=== PATIENT | female | born 1940 | race Caucasian/White ===

== ENCOUNTER 2021-05-07 21:33 | Inpatient (IN) | payer MEDICARE, OTHER ==
[2021-05-07] MEDS ORDERED: IPRATROPIUM-ALBUTEROL 3 ML NEB INHALATION STA ×2 (21:38→23:06)
--- NOTE | 2021-05-07 22:12 | ED ---
SOB HPI - General Chief Complaint: Shortness of Breath Stated Complaint: SOB Time Seen by Provider: 05/07/21 21:38 Source: EMS, RN notes reviewed, old records reviewed Mode of arrival: EMS - History of Present Illness MD Complaint: shortness of breath, cough -: hour(s) Radiation: back Severity: moderate Severity scale (1-10): 4 Quality: dull Consistency: constant Improves With: nothing Worsens With: exertion, movement Known History Of: COPD, asthma, congestive heart failure Context: recent URI, recent illness Associated Symptoms: denies other symptoms - Related Data Home Medications Medication Instructions Recorded Confirmed Amoxic-Pot Clav 875-125Mg 1 tab PO Q12H 05/07/21 05/07/21 [Augmentin 875-125] Benzonatate [Tessalon Perles] 200 mg PO Q8H PRN 05/07/21 05/07/21 Citalopram Hydrobromide [CeleXA] 20 mg PO DAILY 05/07/21 05/07/21 Docusate [Colace] 100 mg PO DAILY 05/07/21 05/07/21 Furosemide [Lasix] 20 mg PO DAILY 05/07/21 05/07/21 Ipratropium-Albuterol Nebulize 3 ml INHALATION RT-Q6H PRN 05/07/21 05/07/21 [Duoneb 0.5 mg-3 mg/3 ml Soln] Loratadine 10 mg PO DAILY 05/07/21 05/07/21 Multivitamins, Thera [Multivitamin 1 tab PO DAILY 05/07/21 05/07/21 (formulary)] Omeprazole 20 mg PO DAILY 05/07/21 05/07/21 Potassium Chloride ER [K-Dur 10] 10 meq PO DAILY 05/07/21 05/07/21 guaiFENesin [guaiFENesin Oral 200 mg PO Q6H PRN 05/07/21 05/07/21 Solution] hydrOXYzine HCL [Atarax] 25 mg PO Q6H PRN 05/07/21 05/07/21 lisinopriL [Zestril] 10 mg PO Q12H 05/07/21 05/07/21 Allergies Allergy/AdvReac Type Severity Reaction Status Date / Time tositumomab iodine-131 Allergy Unknown Verified 05/07/21 23:10 red dye AdvReac Rash/Hives Verified 05/07/21 23:10 Review of Systems ROS Statement: Those systems with pertinent positive or pertinent negative responses have been documented in the HPI. ROS Other: All systems not noted in ROS Statement are negative. Past Medical History Past Medical History: Heart Failure, COPD History of Any Multi-Drug Resistant Organisms: None Reported Past Surgical History: Orthopedic Surgery Additional Past Surgical History / Comment(s): left knee x2 Past Psychological History: No Psychological Hx Reported Smoking Status: Never smoker Past Alcohol Use History: None Reported Past Drug Use History: None Reported General Exam General appearance: alert, in no apparent distress Head exam: Present: atraumatic, normocephalic, normal inspection Eye exam: Present: normal appearance, PERRL, EOMI. Absent: scleral icterus, conjunctival injection, periorbital swelling ENT exam: Present: normal exam, mucous membranes moist Neck exam: Present: normal inspection. Absent: tenderness, meningismus, lymphadenopathy Respiratory exam: Present: normal lung sounds bilaterally. Absent: respiratory distress, wheezes, rales, rhonchi, stridor Cardiovascular Exam: Present: regular rate, normal rhythm, normal heart sounds. Absent: systolic murmur, diastolic murmur, rubs, gallop, clicks GI/Abdominal exam: Present: soft, normal bowel sounds. Absent: distended, tende rness, guarding, rebound, rigid Extremities exam: Present: normal inspection, full ROM, normal capillary refill. Absent: tenderness, pedal edema, joint swelling, calf tenderness Back exam: Present: normal inspection Neurological exam: Present: alert, oriented X3, CN II-XII intact Psychiatric exam: Present: normal affect, normal mood Skin exam: Present: warm, dry, intact, normal color. Absent: rash Course Vital Signs 05/07/21 05/07/21 05/07/21 21:44 22:20 22:33 Temperature 99 F Pulse Rate 100 84 82 Respiratory 23 Rate Blood Pressure 126/79 O2 Sat by Pulse 91 L Oximetry 05/07/21 05/07/21 05/07/21 23:26 23:41 23:54 Temperature Pulse Rate 88 88 95 Respiratory 23 Rate Blood Pressure 100/73 O2 Sat by Pulse 92 L Oximetry 05/08/21 05/08/21 02:00 05:37 Temperature Pulse Rate 98 97 Respiratory 22 21 Rate Blood Pressure 136/75 144/74 O2 Sat by Pulse 90 L 90 L Oximetry - Reevaluation(s) Reevaluation #1: 05/08/21 00:25 Medical record is reviewed Reevaluation #2: 05/08/21 00:26 Patient informed of results and questions answered Reevaluation #3: 05/08/21 00:26 no improvement in breathing here in the ER requiring more oxygen than baseline - Consultations Consultation #1: Spoke with EM to agrees to admit this patient Medical Decision Making - Lab Data Result diagrams: 05/07/21 22:35 05/07/21 22:35 Lab Results 05/07/21 05/07/21 05/07/21 Range/Units 22:35 22:35 22:35 WBC 7.7 (3.8-10.6) k/uL RBC 4.04 (3.80-5.40) m/uL Hgb 12.3 (11.4-16.0) gm/dL Hct 39.8 (34.0-46.0) % MCV 98.3 (80.0-100.0) fL MCH 30.3 (25.0-35.0) pg MCHC 30.8 L (31.0-37.0) g/dL RDW 12.6 (11.5-15.5) % Plt Count 189 (150-450) k/uL MPV 7.5 Neutrophils % 67 % Lymphocytes % 16 % Monocytes % 8 % Eosinophils % 6 % Basophils % 1 % Neutrophils # 5.2 (1.3-7.7) k/uL Lymphocytes # 1.2 (1.0-4.8) k/uL Monocytes # 0.6 (0-1.0) k/uL Eosinophils # 0.5 (0-0.7) k/uL Basophils # 0.1 (0-0.2) k/uL Hypochromasia Moderate PT 10.0 (9.0-12.0) sec INR 0.9 (<1.2) APTT 23.0 (22.0-30.0) sec Sodium 139 (137-145) mmol/L Potassium 4.3 (3.5-5.1) mmol/L Chloride 94 L (98-107) mmol/L Carbon Dioxide 39 H (22-30) mmol/L Anion Gap 6 mmol/L BUN 24 H (7-17) mg/dL Creatinine 0.62 (0.52-1.04) mg/dL Est GFR (CKD-EPI)AfAm >90 (>60 ml/min/1.73 sqM) Est GFR (CKD-EPI)NonAf 86 (>60 ml/min/1.73 sqM) Glucose 134 H (74-99) mg/dL Plasma Lactic Acid James (0.7-2.0) mmol/L Calcium 8.3 L (8.4-10.2) mg/dL Magnesium 1.9 (1.6-2.3) mg/dL Total Bilirubin 0.6 (0.2-1.3) mg/dL AST 33 (14-36) U/L ALT 29 (4-34) U/L Alkaline Phosphatase 72 (38-126) U/L Troponin I (0.000-0.034) ng/mL NT-Pro-B Natriuret Pep pg/mL Total Protein 6.4 (6.3-8.2) g/dL Albumin 3.4 L (3.5-5.0) g/dL 05/07/21 05/07/21 05/07/21 Range/Units 22:35 22:35 22:35 WBC (3.8-10.6) k/uL RBC (3.80-5.40) m/uL Hgb (11.4-16.0) gm/dL Hct (34.0-46.0) % MCV (80.0-100.0) fL MCH (25.0-35.0) pg MCHC (31.0-37.0) g/dL RDW (11.5-15.5) % Plt Count (150-450) k/uL MPV Neutrophils % % Lymphocytes % % Monocytes % % Eosinophils % % Basophils % % Neutrophils # (1.3-7.7) k/uL Lymphocytes # (1.0-4.8) k/uL Monocytes # (0-1.0) k/uL Eosinophils # (0-0.7) k/uL Basophils # (0-0.2) k/uL Hypochromasia PT (9.0-12.0) sec INR (<1.2) APTT (22.0-30.0) sec Sodium (137-145) mmol/L Potassium (3.5-5.1) mmol/L Chloride (98-107) mmol/L Carbon Dioxide (22-30) mmol/L Anion Gap mmol/L BUN (7-17) mg/dL Creatinine (0.52-1.04) mg/dL Est GFR (CKD-EPI)AfAm (>60 ml/min/1.73 sqM) Est GFR (CKD-EPI)NonAf (>60 ml/min/1.73 sqM) Glucose (74-99) mg/dL Plasma Lactic Acid James 1.1 (0.7-2.0) mmol/L Calcium (8.4-10.2) mg/dL Magnesium (1.6-2.3) mg/dL Total Bilirubin (0.2-1.3) mg/dL AST (14-36) U/L ALT (4-34) U/L Alkaline Phosphatase (38-126) U/L Troponin I 0.022 (0.000-0.034) ng/mL NT-Pro-B Natriuret Pep 720 pg/mL Total Protein (6.3-8.2) g/dL Albumin (3.5-5.0) g/dL - EKG Data -: EKG Interpreted by Me (EKG shows nsr 91 LA 157 QRS 92 QTc 385) Rate: tachycardia (Repeat EKG A. fib with RVR 139 QRS 91 QTC 371) Disposition Clinical Impression: Acute exacerbation of chronic obstructive pulmonary disease, Hypoxia, Atrial fibrillation with RVR Disposition: ADMITTED IP TO THIS HOSP Condition: Fair Is patient prescribed a controlled substance at d/c from ED?: No
--- NOTE | 2021-05-07 22:23 | XR ---
EXAMINATION TYPE: XR chest 1V portable DATE OF EXAM: 05/07/2021 COMPARISON: NONE HISTORY: Short of breath TECHNIQUE: Single view FINDINGS: Heart is enlarged. There is some mild patchy atelectasis in both lung bauer. No obvious he art failure. There are chest leads. Costophrenic angles are clear. IMPRESSION: Patchy atelectasis. No obvious heart failure.
[2021-05-07 22:43] LABS: Basophils # (A) 0.1 k/uL (0-0.2); Basophils % (A) 1 %; Eosinophils # (A) 0.5 k/uL (0-0.7); Eosinophils % (A) 6 %; HCT 39.8 % (34.0-46.0); HGB 12.3 gm/dL (11.4-16.0); Hypochromasia Moderate; Lymphocytes # (A) 1.2 k/uL (1.0-4.8); Lymphocytes % (A) 16 %; MCH 30.3 pg (25.0-35.0); MCHC 30.8 g/dL (31.0-37.0); MCV 98.3 fL (80.0-100.0); Mean Platelet Volume 7.5; Monocytes # (A) 0.6 k/uL (0-1.0); Monocytes % (A) 8 %; Neutrophils # (A) 5.2 k/uL (1.3-7.7); Neutrophils % (A) 67 %; Platelet Count 189 k/uL (150-450); RBC 4.04 m/uL (3.80-5.40); RDW 12.6 % (11.5-15.5); WBC 7.7 k/uL (3.8-10.6)
[2021-05-07 22:52] LABS: ALT 29 U/L (4-34); AST 33 U/L (14-36); African American GFR (CKD) >90 (>60 ml/min/1.73 sqM); Albumin 3.4 g/dL (3.5-5.0); Alkaline Phosphatase 72 U/L (38-126); Blood Urea Nitrogen 24 mg/dL (7-17); Calcium 8.3 mg/dL (8.4-10.2); Chloride 94 mmol/L (98-107); Glucose 134 mg/dL (74-99); Magnesium 1.9 mg/dL (1.6-2.3); Non-African American GFR(CKD) 86 (>60 ml/min/1.73 sqM); Potassium 4.3 mmol/L (3.5-5.1); Sodium 139 mmol/L (137-145); Total Bilirubin 0.6 mg/dL (0.2-1.3); Total Protein 6.4 g/dL (6.3-8.2)
[2021-05-07 22:56] LABS: INR 0.9 (<1.2)
[2021-05-07 22:58] LABS: Anion Gap 6 mmol/L
[2021-05-07 23:00] LABS: Carbon Dioxide 39 mmol/L (22-30)
[2021-05-07] MEDS ORDERED: methylPREDNISolone SOD SUCCI 125 MG/2 ML VIAL IV STA (23:06)
[2021-05-08] MEDS ORDERED: methylPREDNISolone SOD SUCCI 125 MG/2 ML VIAL IV SCH (06:00)
[2021-05-08] MEDS ORDERED: DILTIAZEM DRIP BOLUS FROM BAG 1 MG SOLN IV ONE (06:16)
[2021-05-08] MEDS ORDERED: DILTIAZEM 125 MG in SODIUM CHLORIDE 0.9% 100 ML IV SCH (06:30)
[2021-05-08] MEDS: ALBUTEROL NEBULIZED 2.5 MG/3 ML INHALATION SCH ×4 (07:10→20:37)
[2021-05-08] MEDS: IPRATROPIUM-ALBUTEROL 3 ML NEB INHALATION PRN ×2 (07:16→10:58)
[2021-05-08] MEDS ORDERED: guaiFENesin SYRUP 100MG/5ML 200 MG/10 ML CUP PO PRN (11:01)
[2021-05-08] MEDS ORDERED: lisinopriL 10 MG TAB PO SCH (11:15)
--- NOTE | 2021-05-08 11:41 | P.HPIM ---
History of Present Illness 81[facility]year-[facility] here because of shortness of breath and cough. Patient that is being treated for COPD exacerbation. Patient went into atrial fibrillation during this ER visit and patient was started on Cardizem. Patient is still in atrial fibrillation but rate controlled at this time. Patient is presently on 10 L of oxygen and I evaluated patient was on Ventimask. Unable to get much of the history from the patient patient doesn't have any fever or leukocytosis patient chest x-ray did not show pneumonia showed mild atelectasis. No previous echocardiogram available. Patient does have history of from sleep apnea and uses CPAP machine. REVIEW OF SYSTEMS: Unable to obtain due to her clinical condition PHYSICAL EXAMINATION: GENERAL: The patient is alert with Ventimask, patient is in moderate respiratory distress. Obese HEENT: Pupils are round and equally reacting to light. EOMI. No scleral icterus. No conjunctival pallor. Normocephalic, atraumatic. No pharyngeal erythema. No thyromegaly. CARDIOVASCULAR: S1 and S2 present. No murmurs, rubs, or gallops. PULMONARY: Significantly diminished air entry into bilateral lung bauer no wheezing or crackles were appreciated ABDOMEN: Soft, nontender, nondistended, normoactive bowel sounds. No palpable organomegaly. MUSCULOSKELETAL: No joint swelling or deformity. EXTREMITIES: No cyanosis, clubbing, or pedal edema. NEUROLOGICAL: Gross neurological examination did not reveal any focal deficits. SKIN: No rashes. Assessment and plan -Acute hypoxic respiratory failure: May have a mild competent of COPD with no much wheezing patient high requirement off oxygen is secondary to her sleep apnea and restrictive lung disease. Systemic steroids dosing and frequency will be cut down, continue with the inhalational treatments. -COPD with mild acute exacerbation New onset atrial fibrillation, with rapid ventricular rate: Cardizem will be discontinued and patient was started on metoprolol, cardiology was consulted patient will be started on anticoagulation with Eliquis, echo was ordered. -Hypertension for which patient is on lisinopril -Sleep apnea for which patient is on CPAP machine -Gastroesophageal reflux disease -Obesity -Depression DVT prophylaxis: On Eliquis Past Medical History Past Medical History: Heart Failure, COPD, Osteoarthritis (OA), Pneumonia, Respi ratory Disorder, Sleep Apnea/CPAP/BIPAP Additional Past Medical History / Comment(s): Chronic respiratory failure/oxygen ATC, recent issue with dysphagia, JOSIAH/no device, itching, obesity, edema, weakness-wheelchair, incontinence. History of Any Multi-Drug Resistant Organisms: None Reported Past Surgical History: Cholecystectomy, Joint Replacement Additional Past Surgical History / Comment(s): left knee x2, colonoscopy Past Anesthesia/Blood Transfusion Reactions: No Reported Reaction Past Psychological History: Anxiety, Depression Additional Psychological History / Comment(s): Pt resides at [facility] in [place]. Staff assist her to wheelchair. Smoking Status: Former smoker Past Alcohol Use History: None Reported Additional Past Alcohol Use History / Comment(s): Daughter states pt smoked in the past but quit over 20 yrs ago. Past Drug Use History: None Reported - Past Family History Father Family Medical History: No Reported History Mother Family Medical History: No Reported History Medications and Allergies Home Medications Medication Instructions Recorded Confirmed Type Amoxic-Pot Clav 875-125Mg 1 tab PO Q12H 05/07/21 05/07/21 History [Augmentin 875-125] Benzonatate [Tessalon Perles] 200 mg PO Q8H PRN 05/07/21 05/07/21 History Citalopram Hydrobromide [CeleXA] 20 mg PO DAILY 05/07/21 05/07/21 History Docusate [Colace] 100 mg PO DAILY 05/07/21 05/07/21 History Furosemide [Lasix] 20 mg PO DAILY 05/07/21 05/07/21 History Ipratropium-Albuterol Nebulize 3 ml INHALATION RT-Q6H PRN 05/07/21 05/07/21 History [Duoneb 0.5 mg-3 mg/3 ml Soln] Loratadine 10 mg PO DAILY 05/07/21 05/07/21 History Multivitamins, Thera [Multivitamin 1 tab PO DAILY 05/07/21 05/07/21 History (formulary)] Omeprazole 20 mg PO DAILY 05/07/21 05/07/21 History Potassium Chloride ER [K-Dur 10] 10 meq PO DAILY 05/07/21 05/07/21 History guaiFENesin [guaiFENesin Oral 200 mg PO Q6H PRN 05/07/21 05/07/21 History Solution] hydrOXYzine HCL [Atarax] 25 mg PO Q6H PRN 05/07/21 05/07/21 History lisinopriL [Zestril] 10 mg PO Q12H 05/07/21 05/07/21 History Allergies Allergy/AdvReac Type Severity Reaction Status Date / Time tositumomab iodine-131 Allergy Unknown Verified 05/07/21 23:10 red dye AdvReac Rash/Hives Verified 05/07/21 23:10 Physical Exam Vitals: Vital Signs Temp Pulse Resp BP Pulse Ox 05/08/21 11:09 99 20 05/08/21 10:59 88 20 05/08/21 08:35 98.2 F 93 20 160/90 98 05/08/21 07:27 140 H 22 05/08/21 07:17 123 H 22 05/08/21 06:39 140 H 22 124/87 96 05/08/21 05:37 97 21 144/74 90 L 05/08/21 02:00 98 22 136/75 90 L 05/07/21 23:54 95 23 100/73 92 L 05/07/21 23:41 88 05/07/21 23:26 88 05/07/21 22:33 82 05/07/21 22:20 84 05/07/21 21:44 99 F 100 23 126/79 91 L Intake and Output 05/07/21 05/08/21 05/08/21 22:59 06:59 14:59 Other: Weight 98.43 kg 98.43 kg Results CBC & Chem 7: 05/07/21 22:35 05/07/21 22:35 Labs: Abnormal Lab Results - Last 24 Hours (Table) 05/07/21 05/07/21 Range/Units 22:35 22:35 MCHC 30.8 L (31.0-37.0) g/dL Chloride 94 L (98-107) mmol/L Carbon Dioxide 39 H (22-30) mmol/L BUN 24 H (7-17) mg/dL Glucose 134 H (74-99) mg/dL Calcium 8.3 L (8.4-10.2) mg/dL Albumin 3.4 L (3.5-5.0) g/dL Thrombosis Risk Factor Assmnt - Choose All That Apply Any of the Below Risk Factors Present?: Yes Each Factor Represents 1 point: Abnormal pulmonary function (COPD), Obesity (BMI >25), Serious lung disease incl. pneumonia (< 1month), Swollen legs (current) Other Risk Factors: Yes Each Risk Factor Represents 3 Points: Age 75 years or older Other congenital or acquired thrombophilia - If yes, enter type in comment: No Thrombosis Risk Factor Assessment Total Risk Factor Score: 7 Thrombosis Risk Factor Assessment Level: High Risk
[2021-05-08] MEDS: APIXABAN 5 MG TAB PO SCH ×2 (12:12→21:50)
[2021-05-08] MEDS: METOPROLOL TARTRATE 25 MG TAB PO SCH ×2 (12:12→21:50)
[2021-05-08] MEDS: FUROSEMIDE 10 MG/ML 4 ML VIAL IV SCH ×2 (12:12→22:36)
[2021-05-08] MEDS: CITALOPRAM HYDROBROMIDE 20 MG TAB PO SCH (12:56)
--- NOTE | 2021-05-08 15:22 | P.CNPUL ---
History of Present Illness Consult date: 05/08/21 Reason for consult: dyspnea, hypoxemia History of present illness: 81-year-old female patient who [facility] because of wo rsening shortness of breath. The patient has been placed in [facility] over the recent years as the patient has become more debilitated and essentially sedentary. She was unable to take care of herself. The patient was found to be short of breath in the emergency department the patient was found to be in atrial fibrillation with RVR and the patient was started on a Cardizem drip. Over the time of my evaluation, the patient was already in a sinus rhythm. The chest x-ray was consistent with Marilin megaly and CHF. The patient was on 100% nonrebreather facemask at the time of my evaluation. She denied having any chest pain. She denied having any angina or palpitation. Nevertheless, the patient was found to have a white second of 7.7 edema of 12.3 and a BUN of 24 with a creatinine of 0.6 and the patient was found to have a sodium level of 139, proBNP level was 720, first set of troponin was 0.0 22. The patient had no signs of any CO2 narcosis. She was arousable and she was communicating. She was a poor historian in general. In the emergency department, the patient was started on bronchodilators with DuoNeb neb last treatment [id number], IV Solu-Medrol and I added IV Lasix. Echocardiogram was ordered. The patient is known to have chronic COPD and chronic hypoxic respiratory failure, obstructive sleep apnea and morbid obesity and the patient does not utilize any form of CPAP therapy. Her body mass index is 41. She has history of hypertension and hypertensive heart disease, degenerative arthritis, muscle weakness and difficulty in walking, tenia ungium, coronary artery disease without any angina pectoris, no previous history of Coumadin 19 infection and th e patient apparently has completed her vaccination. She has an occasional oral dysphagia or oropharyngeal dysphagia. Review of Systems In general, the patient is a very poor historian Constitutional: Reports fatigue, Reports lethargy, Reports weakness, Reports weight gain Eyes: denies as per HPI, denies blurred vision, denies bulging eye, denies decreased vision, denies diplopia, denies discharge, denies dry eye, denies irritation, denies itching, denies pain, denies photophobia, denies loss of peripheral vision, denies loss of vision, denies tunnel vision/blind spots Ears: deny: decreased hearing, ear discharge, earache, tinnitus Ears, nose, mouth and throat: Reports as per HPI Breasts: absent: as per HPI, change in shape, gynecomastia, masses, nipple discharge, pain, skin changes, swelling Cardiovascular: Reports as per HPI, Reports decreased exercise tolerance, Reports dyspnea on exertion, Reports irregular heart beat, Reports rapid heart beat, Reports shortness of breath Respiratory: Reports dyspnea, Reports home oxygen, Reports sleep apnea, Reports snoring Gastrointestinal: Reports as per HPI Genitourinary: Reports as per HPI Menstruation: Reports as per HPI Musculoskeletal: Reports gait dysfunction, Reports limitation of motion, Reports low back pain, Reports muscle weakness Musculoskeletal: bilateral: ankle swelling, absent: ankle pain, ankle stiffness Integumentary: Reports as per HPI (Tenia skin infection) Neurological: Reports as per HPI, Reports gait dysfunction, Reports weakness Psychiatric: Reports as per HPI Endocrine: Reports as per HPI, Reports fatigue Hematologic/Lymphatic: Reports as per HPI Allergic/Immunologic: Reports as per HPI Past Medical History Past Medical History: Heart Failure, COPD, Osteoarthritis (OA), Pneumonia, Respiratory Disorder, Sleep Apnea/CPAP/BIPAP Additional Past Medical History / Comment(s): Chronic respiratory failure/oxygen ATC, recent issue with dysphagia, JOSIAH/no device, itching, obesity, edema, weakness-wheelchair, incontinence. History of Any Multi-Drug Resistant Organisms: None Reported Past Surgical History: Cholecystectomy, Joint Replacement Additional Past Surgical History / Comment(s): left knee x2, colonoscopy Past Anesthesia/Blood Transfusion Reactions: No Reported Reaction Past Psychological History: Anxiety, Depression Additional Psychological History / Comment(s): Pt resides at [facility]. Staff assist her to wheelchair. Smoking Status: Former smoker Past Alcohol Use History: None Reported Additional Past Alcohol Use History / Comment(s): Daughter states pt smoked in the past but quit over 20 yrs ago. Past Drug Use History: None Reported - Past Family History Father Family Medical History: No Reported History Mother Family Medical History: No Reported History Medications and Allergies Home Medications Medication Instructions Recorded Confirmed Type Amoxic-Pot Clav 875-125Mg 1 tab PO Q12H 05/07/21 05/07/21 History [Augmentin 875-125] Benzonatate [Tessalon Perles] 200 mg PO Q8H PRN 05/07/21 05/07/21 History Citalopram Hydrobromide [CeleXA] 20 mg PO DAILY 05/07/21 05/07/21 History Docusate [Colace] 100 mg PO DAILY 05/07/21 05/07/21 History Furosemide [Lasix] 20 mg PO DAILY 05/07/21 05/07/21 History Ipratropium-Albuterol Nebulize 3 ml INHALATION RT-Q6H PRN 05/07/21 05/07/21 History [Duoneb 0.5 mg-3 mg/3 ml Soln] Loratadine 10 mg PO DAILY 05/07/21 05/07/21 History Multivitamins, Thera [Multivitamin 1 tab PO DAILY 05/07/21 05/07/21 History (formulary)] Omeprazole 20 mg PO DAILY 05/07/21 05/07/21 History Potassium Chloride ER [K-Dur 10] 10 meq PO DAILY 05/07/21 05/07/21 History guaiFENesin [guaiFENesin Oral 200 mg PO Q6H PRN 05/07/21 05/07/21 History Solution] hydrOXYzine HCL [Atarax] 25 mg PO Q6H PRN 05/07/21 05/07/21 History lisinopriL [Zestril] 10 mg PO Q12H 05/07/21 05/07/21 History Allergies Allergy/AdvReac Type Severity Reaction Status Date / Time tositumomab iodine-131 Allergy Unknown Verified 05/07/21 23:10 red dye AdvReac Rash/Hives Verified 05/07/21 23:10 Physical Exam Vitals: Vital Signs Temp Pulse Resp BP Pulse Ox 05/08/21 15:12 87 16 134/72 94 L 05/08/21 13:50 58 L 18 110/60 05/08/21 13:20 95 05/08/21 11:59 93 24 155/79 95 05/08/21 11:09 99 20 05/08/21 10:59 88 20 05/08/21 08:35 98.2 F 93 20 160/90 98 05/08/21 07:27 140 H 22 05/08/21 07:17 123 H 22 05/08/21 06:39 140 H 22 124/87 96 05/08/21 05:37 97 21 144/74 90 L 05/08/21 02:00 98 22 136/75 90 L 05/07/21 23:54 95 23 100/73 92 L 05/07/21 23:41 88 05/07/21 23:26 88 05/07/21 22:33 82 05/07/21 22:20 84 05/07/21 21:44 99 F 100 23 126/79 91 L Intake and Output 05/08/21 05/08/21 05/08/21 06:59 14:59 22:59 Intake Total 36.417 Balance 36.417 Intake: Intake, IV Titration 36.417 Amount Diltiazem 125 mg In 36.417 Sodium Chloride 0.9% 100 ml @ 5 MG/HR 5 mls/hr IV .Q24H [facility] Rx#:[id number] Other: Weight 98.43 kg Morbidly obese, currently on 100% on a beta facemasks, typical features of o bstructive sleep apnea with a thick short neck. Patient carries a body mass index of 41. Head exam was generally normal. There was no scleral icterus or corneal arcus. Mucous membranes were moist. Neck was supple and without jugular venous distension, thyromegaly, or carotid bruits. Carotids were easily palpable bilaterally. There was no adenopathy. The patient has dry mucous membranes and Mallampati class IV Lungs sounds are diminished in the patient's crackles in the mid and lower lung his bilaterally. Occasional scattered wheeze Heart sounds are distant, this systolic ejection murmur grade 2/6 heard throughout the precordium. There is also accentuation of the second heart sounds. No right ventricular heave or thrill. Abdomen is obese soft nontender. Organs cannot be accurately palpated. No direct tenderness rebound tenderness or guarding. Extremities there is a scar of a previous arthroplasty in the left knee. There is trace edema lower 70s bilaterally. No cyanosis or clubbing. Examination of the skin revealed no evidence of significant rashes, suspicious appearing nevi or other concerning lesions. Neurologically, the patient is awake and alert and the patient does not have any focal neurological deficit. Cranial nerves are essentially intact. The patient has global generalized motor weakness in all 4 extremities. She is a poor historian yet she is unresponsive and she is following commands and answering questions. Results - Laboratory Findings CBC and BMP: 05/07/21 22:35 05/07/21 22:35 PT/INR, D-dimer PT 10.0 sec (9.0-12.0) 05/07/21 22:35 INR 0.9 (<1.2) 05/07/21 22:35 Abnormal lab findings: Abnormal Labs 05/07/21 03 22:35 22:35 MCHC 30.8 L Chloride 94 L Carbon Dioxide 39 H BUN 24 H Glucose 134 H Calcium 8.3 L Albumin 3.4 L - Diagnostic Findings Chest x-ray: image reviewed Assessment and Plan Plan: 1 acute on chronic hypoxic respiratory failure. The patient is currently on 100% nonrebreather facemask. Chest x-ray showing Marilin megaly with diffuse but the pulmonary infiltrates. Consider diastolic heart failure. Consider superimposed pneumonia. The patient has chronic respiratory insufficiency and hypoxic respiratory failure with an O2 at a [facility]. 2 new onset atrial fibrillation with rapid ventricular response, converted to sinus on a Cardizem drip, currently on anticoagulation with Eliquis, awaiting echocardiogram. ProBNP level was nonelevated 3 COPD with chronic hypoxic respiratory failure maintained on O2 at the [facility] 4 obstructive sleep apnea, very highly likely on clinical grounds and the patient has a BMI of 41 along with typical features of JOSIAH including snoring, witnessed apneas and significant crowding of posterior pharynx on examination. 5 morbid obesity with a BMI of 41 6 [facility] resident and the patient has been progressively more debilitated and the patient has been placed in a [facility] 7 hypertension with history of hypertensive heart disease 8 history of depression 9 history of degenerative arthritis Plan Proceed with an echocardiogram Start the patient on DuoNeb and symptoms on the clock IV Solu-Medrol IV Lasix Agree on anticoagulation with Eliquis Management of atrial fibrillation per cardiology Would offer CPAP therapy for this patient here in the hospital. We'll try to put her on a Pap mode pressure minimum of 5 and 15 with a full face mask Resume home medications We'll continue to follow
--- NOTE | 2021-05-08 17:01 | ECHOF ---
Referral Reason:A. Fib MEASUREMENTS -------- HEIGHT: 154.9 cm WEIGHT: 98.4 kg BP: RVIDd: 3.0 cm (< 3.3) Ao Diam: 3.9 cm (2.0 - 3.7) LA Diam: 3.4 cm (2.7 - 3.8) AV Cusp: 1.7 cm (1.5 - 2.6) EPSS: 1.8 cm MV E Kirit: 0.74 m/s MV DecT: 217 ms MV A Kirit: 0.66 m/s MV E/A Ratio: 1.12 RAP: 5.00 mmHg RVSP: 16.30 mmHg MV EF SLOPE: 58.87 mm/s (70 - 150) MV EXCURSION: 10.54 mm (> 18.000) FINDINGS -------- Atrial fibrillation. This was a technically difficult study with suboptimal views. Severe copd. Pt sitting up for test. Suboptimal test with Lumason. Unable to calculate EF. The RV was not well visualized. The left atrium was not well visualized. The right atrium was not well visualized. Lumason used The aortic valve was not well visualized. The mitral valve was not well visualized. The tricuspid valve was not well visualized. The pulmonic valve was not well visualized. CONCLUSIONS -------- 1. Severe copd. Pt sitting up for test. 2. Suboptimal test with Lumason. Unable to calculate EF. WAXER OPERATOR: Galina Campbell [facility]
[2021-05-08] MEDS: ACETAMINOPHEN TAB 325 MG TAB PO PRN (17:45)
[2021-05-08 22:07] LABS: Glucose,Whole Blood 115 mg/dL (75-99)
[2021-05-08 23:23] LABS: ABG Base Excess 22.2 mmol/L; ABG Oxygen Saturation 94.9 % (94-97); ABG PH 7.33 (7.35-7.45); ABG PO2 73 mmHg (83-108); ABG TCO2 51 mmol/L (19-24); Allen Test Performed? Yes
[2021-05-08 23:46] LABS: ABG PCO2 90 mmHg (35-45)
[2021-05-08 23:47] LABS: ABG HCO3 48 mmol/L (21-25)
--- NOTE | 2021-05-08 23:55 | P.EN ---
A team RN called A team due to patient becoming less responsive, which is new compared to earlier during her admission. upon reviewing records, she was sent in from [facility] , and is being treated for Afib with RVR and COPD exacerbation. earlier she was more responsive and communicating per day team provider notes. currently , she is unarousable unless pain stimulation , she would yell and goes back to sleep . vitals stable, breath sounds audible bilaterally ABG , showed chronic hypercapnic respiratory failure , compensated. after attempting to get her ABG, and as she was resisting (strongly ) the blood draws. she became more responsive and communicative . opening eyes spontaneously and asking questions patient refuses to wear bipap. continue to monitor closely if she starts showing signs of CO2 narcosis , will consider intubation . Total amount of critical care time spent was 40 minutes not counting procedures performed.
[2021-05-09] MEDS: ALBUTEROL NEBULIZED 2.5 MG/3 ML INHALATION SCH ×4 (08:29→20:45)
[2021-05-09] MEDS: FUROSEMIDE 10 MG/ML 4 ML VIAL IV SCH ×2 (09:03→20:20)
[2021-05-09] MEDS: DOCUSATE 100 MG CAP PO SCH (09:04)
[2021-05-09] MEDS: CITALOPRAM HYDROBROMIDE 20 MG TAB PO SCH (09:04)
[2021-05-09] MEDS: lisinopriL 10 MG TAB PO SCH (09:04)
[2021-05-09] MEDS: methylPREDNISolone SOD SUCCI 40 MG/ML 1 ML VIAL IV SCH ×2 (09:04→21:37)
[2021-05-09] MEDS: METOPROLOL TARTRATE 25 MG TAB PO SCH ×2 (09:04→20:20)
[2021-05-09] MEDS: LORATADINE 10 MG TAB PO SCH (09:04)
[2021-05-09] MEDS: PANTOPRAZOLE 40 MG TABLET PO SCH (09:04)
[2021-05-09] MEDS: APIXABAN 5 MG TAB PO SCH ×2 (09:04→20:20)
[2021-05-09 10:51] LABS: HCT 39.1 % (37.2-46.3); HGB 11.3 g/dL (12.0-15.0); MCHC 28.9 g/dL (32.0-37.0); MCV 100.3 fL (80.0-97.0); Mean Platelet Volume 9.9 fL (9.5-12.2); NRBC Per 100 WBC 0 /100 WBCS (0.0-0.0); Platelet Count 191 X 10*3/uL (140-440); RDW 12.6 % (11.5-14.5); WBC 7.52 X 10*3/uL (4.50-10.00)
[2021-05-09 11:11] LABS: African American GFR (CKD) 100.2 (60.0-200.0); BUN/Creat Ratio 41.82 Ratio (12.00-20.00); Blood Urea Nitrogen 24.8 mg/dL (9.0-27.0); Calcium 8.9 mg/dL (8.7-10.3); Non-African American GFR(CKD) 86.4 (60.0-200.0); Potassium 4.1 mmol/L (3.5-5.5)
--- NOTE | 2021-05-09 13:03 | P.CRDCN ---
History of Present Illness History of present illness: This is Dr. Rockwell dictating a consult on this patient The patient was interviewed and examined IMPRESSION / ASSESSMENT: Morbid obesity Silent atrial fibrillation, paroxysmal Complains sinus rhythm Hypertension Admitted with CO2 narcosis PLAN: Anticoagulated with ELIQUIS Rate control with metoprolol Currently patient is sinus rhythm Check TSH Please call as needed HPI Patient admitted with CO2 narcosis and pulmonary issues Found to have atrial fibrillation the monitor, paroxysmal Patient is asymptomatic from a cardiac standpoint She denies chest discomfort or palpitations ROS: No fever chills or rigors, no cough, phlegm or expectoration, no nausea, vomiting or diarrhea, no hematuria, dysuria, no musculoskeletal complaints, no strokes or seizures, no skin lesions. EXAMINATION: 132/80 below his mercury pulse rate in the 90s afebrile Breath sounds are reduced bilaterally Heart sounds. Soft REVIEW OF LABS, ECG & MEDICAL DATA Sodium 144 potassium 4.1 By cuff 43 Creatinine 0.6 NT proBNP 720 Normal troponins Past Medical History Past Medical History: Heart Failure, COPD, Osteoarthritis (OA), Pneumonia, R espiratory Disorder, Sleep Apnea/CPAP/BIPAP Additional Past Medical History / Comment(s): Chronic respiratory failure/oxygen ATC, recent issue with dysphagia, JOSIAH/no device, itching, obesity, edema, weakness-wheelchair, incontinence. History of Any Multi-Drug Resistant Organisms: None Reported Past Surgical History: Cholecystectomy, Joint Replacement Additional Past Surgical History / Comment(s): left knee x2, colonoscopy Past Anesthesia/Blood Transfusion Reactions: No Reported Reaction Past Psychological History: Anxiety, Depression Additional Psychological History / Comment(s): Pt resides at [facility] in [place]. Staff assist her to wheelchair. Smoking Status: Former smoker Past Alcohol Use History: None Reported Additional Past Alcohol Use History / Comment(s): Daughter states pt smoked in the past but quit over 20 yrs ago. Past Drug Use History: None Reported - Past Family History Father Family Medical History: No Reported History Mother Family Medical History: No Reported History Medications and Allergies Home Medications Medication Instructions Recorded Confirmed Type Amoxic-Pot Clav 875-125Mg 1 tab PO Q12H 05/07/21 05/07/21 History [Augmentin 875-125] Benzonatate [Tessalon Perles] 200 mg PO Q8H PRN 05/07/21 05/07/21 History Citalopram Hydrobromide [CeleXA] 20 mg PO DAILY 05/07/21 05/07/21 History Docusate [Colace] 100 mg PO DAILY 05/07/21 05/07/21 History Furosemide [Lasix] 20 mg PO DAILY 05/07/21 05/07/21 History Ipratropium-Albuterol Nebulize 3 ml INHALATION RT-Q6H PRN 05/07/21 05/07/21 History [Duoneb 0.5 mg-3 mg/3 ml Soln] Loratadine 10 mg PO DAILY 05/07/21 05/07/21 History Multivitamins, Thera [Multivitamin 1 tab PO DAILY 05/07/21 05/07/21 History (formulary)] Omeprazole 20 mg PO DAILY 05/07/21 05/07/21 History Potassium Chloride ER [K-Dur 10] 10 meq PO DAILY 05/07/21 05/07/21 History guaiFENesin [guaiFENesin Oral 200 mg PO Q6H PRN 05/07/21 05/07/21 History Solution] hydrOXYzine HCL [Atarax] 25 mg PO Q6H PRN 05/07/21 05/07/21 History lisinopriL [Zestril] 10 mg PO Q12H 05/07/21 05/07/21 History Allergies Allergy/AdvReac Type Severity Reaction Status Date / Time tositumomab iodine-131 Allergy Unknown Verified 05/07/21 23:10 red dye AdvReac Rash/Hives Verified 05/07/21 23:10 Physical Exam Vitals: Vital Signs Temp Pulse Pulse Pulse Resp BP BP 05/09/21 11:46 101 H 05/09/21 11:31 97 05/09/21 11:00 98.0 F 92 22 132/80 05/09/21 08:43 100 05/09/21 08:29 100 05/09/21 04:30 98.6 F 69 20 05/08/21 22:00 98.7 F 91 24 05/08/21 20:49 100 05/08/21 20:37 100 05/08/21 20:30 98 F 86 22 05/08/21 16:24 98.4 F 68 22 05/08/21 15:12 87 16 134/72 05/08/21 13:50 58 L 18 110/60 05/08/21 13:20 BP BP Pulse Ox 05/09/21 11:46 05/09/21 11:31 05/09/21 11:00 92 L 05/09/21 08:43 05/09/21 08:29 05/09/21 04:30 113/60 93 L 05/08/21 22:00 153/89 90 L 05/08/21 20:49 05/08/21 20:37 05/08/21 20:30 124/70 96 05/08/21 16:24 132/64 92 L 05/08/21 15:12 94 L 05/08/21 13:50 05/08/21 13:20 95 Intake and Output 05/08/21 05/09/21 05/09/21 22:59 06:59 14:59 Intake Total 590 Output Total 1200 Balance -610 Intake: Oral 590 Output: Urine 1200 Other: Voiding Method External Catheter # Voids 2 Results 05/09/21 06:53 05/09/21 06:53 CBC 05/09/21 Range/Units 06:53 WBC 7.52 (4.50-10.00) X 10*3/uL RBC 3.90 L (4.10-5.20) X 10*6/uL Hgb 11.3 L (12.0-15.0) g/dL Hct 39.1 (37.2-46.3) % Plt Count 191 (140-440) X 10*3/uL Comprehensive Metabolic Panel 05/09/21 Range/Units 06:53 Sodium 144 (135-145) mmol/L Potassium 4.1 (3.5-5.5) mmol/L Chloride 94 L (96-109) mmol/L Carbon Dioxide 43.3 H* (20.0-27.5) mmol/L BUN 24.8 (9.0-27.0) mg/dL Creatinine 0.6 (0.6-1.5) mg/dL Glucose 100 (70-110) mg/dL Calcium 8.9 (8.7-10.3) mg/dL Current Medications Generic Name Dose Route Start Last Admin Trade Name Freq PRN Reason Stop Dose Admin Acetaminophen 650 mg 05/08/21 17:28 05/08/21 17:45 Acetaminophen Tab 325 Mg Tab PO 650 mg Q6HR PRN Administration Fever and/ or Pain Albuterol Sulfate 5 mg 05/08/21 08:00 05/09/21 11:31 Albuterol Nebulized 2.5 Mg/3 Ml INHALATION 5 mg RT-QID DANIELLA Administration Albuterol/Ipratropium 3 ml 05/08/21 00:24 05/08/21 10:58 Ipratropium-Albuterol 3 Ml Neb INHALATION 3 ml RT-Q4H PRN Administration Shortness Of Breath Or Wheezing Apixaban 5 mg 05/08/21 11:45 05/09/21 09:04 Apixaban 5 Mg Tab PO 5 mg BID DANIELLA Administration Protocol Citalopram Hydrobromide 20 mg 05/08/21 11:15 05/09/21 09:04 Citalopram Hydrobromide 20 Mg Tab PO 20 mg DAILY DANIELLA Administration Docusate Sodium 100 mg 05/09/21 09:00 05/09/21 09:04 Docusate 100 Mg Cap PO 100 mg DAILY DANIELLA Administration Furosemide 40 mg 05/08/21 12:00 05/09/21 09:03 Furosemide 10 Mg/Ml 4 Ml Vial IV 40 mg Q12HR DANIELLA Administration Guaifenesin 200 mg 05/08/21 11:01 Guaifenesin Syrup 100mg/5ml 200 Mg/10 Ml Cup PO Q6H PRN Congestion Lisinopril 10 mg 05/09/21 09:00 05/09/21 09:04 Lisinopril 10 Mg Tab PO 10 mg DAILY DANIELLA Administration Loratadine 10 mg 05/09/21 09:00 05/09/21 09:04 Loratadine 10 Mg Tab PO 10 mg DAILY DANIELLA Administration Methylprednisolone Sodium Succinate 40 mg 05/09/21 09:00 05/09/21 09:04 Methylprednisolone Sod Succi 40 Mg/Ml 1 Ml Vial IV 40 mg Q12HR DANIELLA Administration Metoprolol Tartrate 25 mg 05/08/21 11:45 05/09/21 09:04 Metoprolol Tartrate 25 Mg Tab PO 25 mg BID DANIELLA Administration Pantoprazole Sodium 40 mg 05/09/21 07:30 05/09/21 09:04 Pantoprazole 40 Mg Tablet PO 40 mg [id number] DANIELLA Administration Intake and Output 05/08/21 05/09/21 05/09/21 22:59 06:59 14:59 Intake Total 590 Output Total 1200 Balance -610 Intake: Oral 590 Output: Urine 1200 Other: Voiding Method External Catheter # Voids 2 05/09/21 06:53 05/09/21 06:53
--- NOTE | 2021-05-09 13:34 | P.PN ---
Subjective Progress Note Date: 05/09/21 81-year-old female patient who was transferred from shelter because of worsening shortness of breath. The patient has been placed in shelter over the recent years as the patient has become more debilitated and essentially sedentary. She was unable to take care of herself. The patient was found to be short of breath in the emergency department the patient was found to be in atrial fibrillation with RVR and the patient was started on a Cardizem drip. Over the time of my evaluation, the patient was already in a sinus rhythm. The chest x-ray was consistent with Marilin megaly and CHF. The patient was on 100% nonrebreather facemask at the time of my evaluation. She denied having any ches t pain. She denied having any angina or palpitation. Nevertheless, the patient was found to have a white second of 7.7 edema of 12.3 and a BUN of 24 with a creatinine of 0.6 and the patient was found to have a sodium level of 139, proBNP level was 720, first set of troponin was 0.0 22. The patient had no signs of any CO2 narcosis. She was arousable and she was communicating. She was a poor historian in general. In the emergency department, the patient was started on bronchodilators with DuoNeb neb last treatment [id number], IV Solu-Medrol and I added IV Lasix. Echocardiogram was ordered. The patient is known to have chronic COPD and chronic hypoxic respiratory failure, obstructive sleep apnea and morbid obesity and the patient does not utilize any form of CPAP therapy. Her body mass index is 41. She has history of hypertension and hypertensive heart disease, degenerative arthritis, muscle weakness and difficulty in walking, tenia ungium, coronary artery disease without any angina pectoris, no previous history of Coumadin 19 infection and the patient apparently has completed her vaccination. She has an occasional oral dysphagia or oropharyngeal dysphagia. The patient is seen today 05/09/2021 in follow-up on the regular medical floor. She is currently resting comfortably in bed. Awake and alert in no acute distress. Currently on 4 L nasal cannula with O2 saturation in the 90s. She did have an episode of unresponsiveness a minute rapid response team was called. She was hypercapnic with a P O2 of 73, pCO2 of 90 and a pH of 7.33 and 36% FiO2. She did wear the BiPAP and became more awake and alert without significant treatment. She is alert today. White count 7.5. Hemoglobin 11.3. Sodium 144. Potassium 4.1. Bicarb 43. Creatinine 0.6. She remains on DuoNeb inhalations, IV diuretics, IV Solu-Medrol. Anticoagulated with request. Currently in sinus rhythm. Objective - Vital Signs Vital signs: Vital Signs Temp 98.0 F 05/09/21 11:00 Pulse 101 H 05/09/21 11:46 Resp 22 05/09/21 11:00 BP 132/80 05/09/21 11:00 Pulse Ox 92 L 05/09/21 11:00 Intake & Output 05/08/21 05/09/21 05/09/21 18:59 06:59 18:59 Intake Total 36.417 590 Output Total 1200 Balance 36.417 -610 Weight 98.43 kg Intake: Intake, IV Titration 36.417 Amount Diltiazem 125 mg In 36.417 Sodium Chloride 0.9% 100 ml @ 5 MG/HR 5 mls/hr IV .Q24H [facility] Rx#:[id number] Oral 590 Output: Urine 1200 Other: Voiding Method External Catheter # Voids 2 - Exam Morbidly obese, 81-year-old female patient, currently on 4 L nasal cannula, typical features of obstructive sleep apnea with a thick short neck. Patient carries a body mass index of 41. Head exam was generally normal. There was no scleral icterus or corneal arcus. Mucous membranes were moist. Neck was supple and without jugular venous distension, thyromegaly, or carotid bruits. Carotids were easily palpable bilaterally. There was no adenopathy. The patient has dry mucous membranes and Mallampati class IV Lungs sounds are diminished in the patient's crackles in the mid and lower lung his bilaterally. Occasional scattered wheeze Heart sounds are distant, this systolic ejection murmur grade 2/6 heard throughout the precordium. There is also accentuation of the second heart sounds. No right ventricular heave or thrill. Abdomen is obese soft nontender. Organs cannot be accurately palpated. No di rect tenderness rebound tenderness or guarding. Extremities there is a scar of a previous arthroplasty in the left knee. There is trace edema lower 70s bilaterally. No cyanosis or clubbing. Examination of the skin revealed no evidence of significant rashes, suspicious appearing nevi or other concerning lesions. Neurologically, the patient is awake and alert and the patient does not have any focal neurological deficit. Cranial nerves are essentially intact. The patient has global generalized motor weakness in all 4 extremities. She is a poor historian yet she is responsive and she is following commands and answering questions. - Labs CBC & Chem 7: 05/09/21 06:53 05/09/21 06:53 Labs: Abnormal Lab Results - Last 24 Hours (Table) 05/08/21 05/08/21 05/09/21 Range/Units 22:01 23:20 06:53 RBC 3.90 L (4.10-5.20) X 10*6/uL Hgb 11.3 L (12.0-15.0) g/dL MCV 100.3 H (80.0-97.0) fL MCHC 28.9 L (32.0-37.0) g/dL ABG pH 7.33 L (7.35-7.45) ABG pCO2 90 H* (35-45) mmHg ABG pO2 73 L (83-108) mmHg ABG HCO3 48 H* (21-25) mmol/L ABG Total CO2 51 H (19-24) mmol/L Chloride (96-109) mmol/L Carbon Dioxide (20.0-27.5) mmol/L Anion Gap (10.00-18.00) mmol/L BUN/Creatinine Ratio (12.00-20.00) Ratio POC Glucose (mg/dL) 115 H (75-99) mg/dL 05/09/21 Range/Units 06:53 RBC (4.10-5.20) X 10*6/uL Hgb (12.0-15.0) g/dL MCV (80.0-97.0) fL MCHC (32.0-37.0) g/dL ABG pH (7.35-7.45) ABG pCO2 (35-45) mmHg ABG pO2 (83-108) mmHg ABG HCO3 (21-25) mmol/L ABG Total CO2 (19-24) mmol/L Chloride 94 L (96-109) mmol/L Carbon Dioxide 43.3 H* (20.0-27.5) mmol/L Anion Gap 7.40 L (10.00-18.00) mmol/L BUN/Creatinine Ratio 41.82 H (12.00-20.00) Ratio POC Glucose (mg/dL) (75-99) mg/dL Assessment and Plan Assessment: 1 acute on chronic hypoxic respiratory failure. The patient is currently on 100% nonrebreather facemask. Chest x-ray showing cardiomegaly with diffuse but the pulmonary infiltrates. Consider diastolic heart failure. Consider superimposed pneumonia. The patient has chronic respiratory insufficiency and h ypoxic respiratory failure with an O2 at a shelter. 2 new onset atrial fibrillation with rapid ventricular response, converted to sinus on a Cardizem drip, currently on anticoagulation with Eliquis, awaiting echocardiogram. ProBNP level was nonelevated 3 COPD with chronic hypoxic respiratory failure maintained on O2 at the shelter 4 obstructive sleep apnea, very highly likely on clinical grounds and the patient has a BMI of 41 along with typical features of JOSIAH including snoring, w itnessed apneas and significant crowding of posterior pharynx on examination. 5 morbid obesity with a BMI of 41 6 shelter resident and the patient has been progressively more debilitated and the patient has been placed in a shelter 7 hypertension with history of hypertensive heart disease 8 history of depression 9 history of degenerative arthritis Plan The patient was seen and evaluated Currently awake and alert on 4 L nasal cannula Alternating with BiPAP 10/5 and 35% FiO2 Observe for hypercapnia and altered mental status Continue the current treatment plan We'll continue to follow I have personally seen and examined the patient and reviewed the documentation. I performed a joint evaluation with the nurse practitioner in this evaluation was done more than 20 minutes. I fully agree with the documentation above and the plan of care.. The patient has been feeling better. She is utilizing BiPAP overnight at a pressure of 10/5 cm of water. Continue bronchodilators. C ontinue diuretics. We'll continue to follow.
[2021-05-10] MEDS: METOPROLOL TARTRATE 25 MG TAB PO SCH ×2 (04:29→20:31)
[2021-05-10] MEDS: ALBUTEROL NEBULIZED 2.5 MG/3 ML INHALATION SCH ×4 (07:41→19:40)
[2021-05-10] MEDS: CITALOPRAM HYDROBROMIDE 20 MG TAB PO SCH (08:15)
[2021-05-10] MEDS: LORATADINE 10 MG TAB PO SCH (08:18)
[2021-05-10] MEDS: APIXABAN 5 MG TAB PO SCH ×2 (08:19→20:31)
[2021-05-10] MEDS: lisinopriL 10 MG TAB PO SCH (08:19)
[2021-05-10] MEDS: DOCUSATE 100 MG CAP PO SCH (08:21)
[2021-05-10] MEDS: methylPREDNISolone SOD SUCCI 40 MG/ML 1 ML VIAL IV SCH ×2 (08:43→20:31)
[2021-05-10] MEDS: PANTOPRAZOLE 40 MG TABLET PO SCH (08:43)
[2021-05-10] MEDS: FUROSEMIDE 10 MG/ML 4 ML VIAL IV SCH (08:43)
--- NOTE | 2021-05-10 13:19 | P.PN ---
Subjective Progress Note Date: 05/09/21 Principal diagnosis: Acute hypoxic respiratory failure COPD with mild acute exacerbation New onset atrial fibrillation, with rapid ventricular rate 81-year-old female resident of shelter was transferred here because of shortness of breath and cough. Patient that is being treated for COPD exacerbation. Patient went into atrial fibrillation during this ER visit and patient was started on Cardizem. Patient is still in atrial fibrillation but ra te controlled at this time. Patient is presently on 10 L of oxygen and I evaluated patient was on Ventimask. Unable to get much of the history from the patient patient doesn't have any fever or leukocytosis patient chest x-ray did not show pneumonia showed mild atelectasis. No previous echocardiogram available. Patient does have history of from sleep apnea and uses CPAP machine. Patient had episode of decreased responsiveness during the night; A was called and while attempting to get ABGs patient became more responsive and communicative and refused blood draw; no further intervention was needed Objective - Vital Signs Vital signs: Vital Signs Temp 98.0 F 05/09/21 11:00 Pulse 101 H 05/09/21 11:46 Resp 22 05/09/21 11:00 BP 132/80 05/09/21 11:00 Pulse Ox 92 L 05/09/21 11:00 Intake & Output 05/08/21 05/09/21 05/09/21 18:59 06:59 18:59 Intake Total 36.417 590 Output Total 1200 Balance 36.417 -610 Weight 98.43 kg Intake: Intake, IV Titration 36.417 Amount Diltiazem 125 mg In 36.417 Sodium Chloride 0.9% 100 ml @ 5 MG/HR 5 mls/hr IV .Q24H [facility] Rx#:[id number] Oral 590 Output: Urine 1200 Other: Voiding Method External Catheter # Voids 2 - Exam GENERAL: The patient is alert with Ventimask, patient is in moderate respiratory distress. Obese HEENT: Pupils are round and equally reacting to light. EOMI. No scleral icterus. No conjunctival pallor. Normocephalic, atraumatic. No pharyngeal erythema. No thyromegaly. CARDIOVASCULAR: S1 and S2 present. No murmurs, rubs, or gallops. PULMONARY: Significantly diminished air entry into bilateral lung bauer no whe ezing or crackles were appreciated ABDOMEN: Soft, nontender, nondistended, normoactive bowel sounds. No palpable organomegaly. MUSCULOSKELETAL: No joint swelling or deformity. EXTREMITIES: No cyanosis, clubbing, or pedal edema. NEUROLOGICAL: Gross neurological examination did not reveal any focal deficits. SKIN: No rashes. - Labs CBC & Chem 7: 05/09/21 06:53 05/09/21 06:53 Labs: Abnormal Lab Results - Last 24 Hours (Table) 05/08/21 05/08/21 05/09/21 Range/Units 22:01 23:20 06:53 RBC 3.90 L (4.10-5.20) X 10*6/uL Hgb 11.3 L (12.0-15.0) g/dL MCV 100.3 H (80.0-97.0) fL MCHC 28.9 L (32.0-37.0) g/dL ABG pH 7.33 L (7.35-7.45) ABG pCO2 90 H* (35-45) mmHg ABG pO2 73 L (83-108) mmHg ABG HCO3 48 H* (21-25) mmol/L ABG Total CO2 51 H (19-24) mmol/L Chloride (96-109) mmol/L Carbon Dioxide (20.0-27.5) mmol/L Anion Gap (10.00-18.00) mmol/L BUN/Creatinine Ratio (12.00-20.00) Ratio POC Glucose (mg/dL) 115 H (75-99) mg/dL 05/09/21 Range/Units 06:53 RBC (4.10-5.20) X 10*6/uL Hgb (12.0-15.0) g/dL MCV (80.0-97.0) fL MCHC (32.0-37.0) g/dL ABG pH (7.35-7.45) ABG pCO2 (35-45) mmHg ABG pO2 (83-108) mmHg ABG HCO3 (21-25) mmol/L ABG Total CO2 (19-24) mmol/L Chloride 94 L (96-109) mmol/L Carbon Dioxide 43.3 H* (20.0-27.5) mmol/L Anion Gap 7.40 L (10.00-18.00) mmol/L BUN/Creatinine Ratio 41.82 H (12.00-20.00) Ratio POC Glucose (mg/dL) (75-99) mg/dL Assessment and Plan Assessment: -Acute hypoxic respiratory failure: May have a mild competent of COPD with no much wheezing patient high requirement off oxygen is secondary to her sleep apnea and restrictive lung disease. Systemic steroids dosing and frequency will be cut down, continue with the inhalational treatments. -COPD with mild acute exacerbation New onset atrial fibrillation, with rapid ventricular rate: Cardizem will be discontinued and patient was started on metoprolol, cardiology was consulted patient will be started on anticoagulation with Eliquis, echo was ordered. -Hypertension for which patient is on lisinopril -Sleep apnea for which patient is on CPAP machine -Gastroesophageal reflux disease -Obesity -Depression DVT prophylaxis: On Eliquis
--- NOTE | 2021-05-10 14:30 | P.PN ---
Subjective Progress Note Date: 05/10/21 81-year-old female patient who was transferred from retirement because of worsening shortness of breath. The patient has been placed in retirement over the recent years as the patient has become more debilitated and essentially sedentary. She was unable to take care of herself. The patient was found to be short of breath in the emergency department the patient was found to be in atrial fibrillation with RVR and the patient was started on a Cardizem drip. Over the time of my evaluation, the patient was already in a sinus rhythm. The chest x-ray was consistent with Marilin megaly and CHF. The patient was on 100% nonrebreather facemask at the time of my evaluation. She denied having any ches t pain. She denied having any angina or palpitation. Nevertheless, the patient was found to have a white second of 7.7 edema of 12.3 and a BUN of 24 with a creatinine of 0.6 and the patient was found to have a sodium level of 139, proBNP level was 720, first set of troponin was 0.0 22. The patient had no signs of any CO2 narcosis. She was arousable and she was communicating. She was a poor historian in general. In the emergency department, the patient was started on bronchodilators with DuoNeb neb last treatment [id number], IV Solu-Medrol and I added IV Lasix. Echocardiogram was ordered. The patient is known to have chronic COPD and chronic hypoxic respiratory failure, obstructive sleep apnea and morbid obesity and the patient does not utilize any form of CPAP therapy. Her body mass index is 41. She has history of hypertension and hypertensive heart disease, degenerative arthritis, muscle weakness and difficulty in walking, tenia ungium, coronary artery disease without any angina pectoris, no previous history of Coumadin 19 infection and the patient apparently has completed her vaccination. She has an occasional oral dysphagia or oropharyngeal dysphagia. The patient is seen today 05/09/2021 in follow-up on the regular medical floor. She is currently resting comfortably in bed. Awake and alert in no acute distress. Currently on 4 L nasal cannula with O2 saturation in the 90s. She did have an episode of unresponsiveness a minute rapid response team was called. She was hypercapnic with a P O2 of 73, pCO2 of 90 and a pH of 7.33 and 36% FiO2. She did wear the BiPAP and became more awake and alert without significant treatment. She is alert today. White count 7.5. Hemoglobin 11.3. Sodium 144. Potassium 4.1. Bicarb 43. Creatinine 0.6. She remains on DuoNeb inhalations, IV diuretics, IV Solu-Medrol. Anticoagulated with request. Currently in sinus rhythm. 05/10/2021, the patient is arousable and awake and there are no signs of any CO2 narcosis. The patient has no chest pain. No cough sputum production chest tightness or wheezing. The patient is on Lasix 40 mg every 24 hours. She remains in a negative fluid balance. She remains on bronchodilators. She remains on IV Solu Medrol 40 mg every 12 hours. She does sleep with her BiPAP overnight at a pressure of 10/5 cm of water and currently supported with oxygen by nasal cannula. In terms of her blood work, the white cell count of 7.5 with a hemoglobin of 11.3 from yesterday. There was evidence of chronic hypercapnic respiratory failure and her blood gases with a pH of 7.33 and a pCO2 of 90 and a pO2 of 73 and a previous blood gas. Objective - Vital Signs Vital signs: Vital Signs Temp 97.7 F 05/10/21 11:36 Pulse 98 05/10/21 11:36 Resp 19 05/10/21 11:36 BP 124/74 05/10/21 11:36 Pulse Ox 98 05/10/21 11:36 Intake & Output 05/09/21 05/10/21 05/10/21 18:59 06:59 18:59 Intake Total 200 Output Total 2600 1200 1200 Balance -2600 -1200 -1000 Intake: Oral 200 Output: Urine 2600 1200 1200 Other: Voiding Method External Catheter External Catheter Diaper Incontinent # Voids 0 # Bowel Movements 0 - Exam Morbidly obese, 81-year-old female patient, currently on 4 L nasal cannula, typical features of obstructive sleep apnea with a thick short neck. Patient carries a body mass index of 41. Head exam was generally normal. There was no scleral icterus or corneal arcus. Mucous membranes were moist. Neck was supple and without jugular venous distension, thyromegaly, or carotid bruits. Carotids were easily palpable bilaterally. There was no adenopathy. The patient has dry mucous membranes and Mallampati class IV Lungs sounds are diminished in the patient's crackles in the mid and lower lung his bilaterally. Occasional scattered wheeze Heart sounds are distant, this systolic ejection murmur grade 2/6 heard throughout the precordium. There is also accentuation of the second heart soun ds. No right ventricular heave or thrill. Abdomen is obese soft nontender. Organs cannot be accurately palpated. No direct tenderness rebound tenderness or guarding. Extremities there is a scar of a previous arthroplasty in the left knee. There is trace edema lower 70s bilaterally. No cyanosis or clubbing. Examination of the skin revealed no evidence of significant rashes, suspicious appearing nevi or other concerning lesions. Neurologically, the patient is awake and alert and the patient does not have any focal neurological deficit. Cranial nerves are essentially intact. The patient has global generalized motor weakness in all 4 extremities. She is a poor historian yet she is responsive and she is following commands and answering questions. - Labs CBC & Chem 7: 05/09/21 06:53 05/09/21 06:53 Assessment and Plan Plan: 1 acute on chronic hypoxic respiratory failure. The patient is currently on 100% nonrebreather facemask. Chest x-ray showing cardiomegaly with diffuse but the pulmonary infiltrates. Consider diastolic heart failure. Consider superimposed pneumonia. The patient has chronic respiratory insufficiency and hypoxic respiratory failure with an O2 at a retirement. The patient is clinically improving. Her blood gases showed an acute on top of chronic hypoxic and hypercapnic respiratory failure due to the earlier admissions comorbidities. The patient is morbidly obese. She does have a likely component of diastolic heart failure. She has obesity hypoventilation syndrome with chronic hypoxic respiratory failure she had 2 paroxysmal, new onset atrial fibrillation with rapid ventricular response, converted to sinus , maintained on anticoagulation with Eliquis 5 mg by mouth twice a day and metoprolol 25 mg twice a day 3 COPD with chronic hypoxic respiratory failure maintained on O2 at the retirement 4 obstructive sleep apnea, very highly likely on clinical grounds and the patient has a BMI of 41 along with typical features of JOSIAH including snoring, witnessed apneas and significant crowding of posterior pharynx on examination. 5 morbid obesity with a BMI of 41 6 retirement resident and the patient has been progressively more debilitated and the patient has been placed in a retirement 7 hypertension with history of hypertensive heart disease 8 history of depression 9 history of degenerative arthritis Plan Clinically improving Echo was completed and the patient was found to have poor windows and unable to cannulate ejection fraction Continue DuoNeb and symptoms on the clock IV Solu-Medrol for another 24 hours IV Lasix for another 24 hours Agree on anticoagulation with Eliquis Management of atrial fibrillation per cardiology We'll continue to follow
[2021-05-10] MEDS: ACETAMINOPHEN TAB 325 MG TAB PO PRN (20:36)
[2021-05-11] MEDS: ALBUTEROL NEBULIZED 2.5 MG/3 ML INHALATION SCH ×4 (07:18→19:44)
[2021-05-11] MEDS: FUROSEMIDE 10 MG/ML 4 ML VIAL IV SCH (09:46)
[2021-05-11] MEDS: APIXABAN 5 MG TAB PO SCH ×2 (09:50→20:21)
[2021-05-11] MEDS: lisinopriL 10 MG TAB PO SCH (09:50)
[2021-05-11] MEDS: CITALOPRAM HYDROBROMIDE 20 MG TAB PO SCH (09:50)
[2021-05-11] MEDS: LORATADINE 10 MG TAB PO SCH (09:50)
[2021-05-11] MEDS: methylPREDNISolone SOD SUCCI 40 MG/ML 1 ML VIAL IV SCH ×2 (09:50→20:22)
[2021-05-11] MEDS: PANTOPRAZOLE 40 MG TABLET PO SCH (09:50)
[2021-05-11] MEDS: DOCUSATE 100 MG CAP PO SCH (09:50)
[2021-05-11] MEDS: METOPROLOL TARTRATE 25 MG TAB PO SCH ×2 (09:51→20:21)
[2021-05-11 12:06] LABS: Anion Gap 7.4 mmol/L (10.00-18.00); Carbon Dioxide 43.3 mmol/L (20.0-27.5)
--- NOTE | 2021-05-11 15:48 | P.PN ---
Subjective Progress Note Date: 05/10/21 Principal diagnosis: Acute hypoxic respiratory failure COPD with mild acute exacerbation New onset atrial fibrillation, with rapid ventricular rate 81-year-old female resident of prison was transferred here because of shortness of breath and cough. Patient that is being treated for COPD exacerbation. Patient went into atrial fibrillation during this ER visit and patient was started on Cardizem. Patient is still in atrial fibrillation but ra te controlled at this time. Patient is presently on 10 L of oxygen and I evaluated patient was on Ventimask. Unable to get much of the history from the patient patient doesn't have any fever or leukocytosis patient chest x-ray did not show pneumonia showed mild atelectasis. No previous echocardiogram available. Patient does have history of from sleep apnea and uses CPAP machine. Patient had episode of decreased responsiveness during the night; A was called and while attempting to get ABGs patient became more responsive and communicative and refused blood draw; no further intervention was needed 05/10/2021; Patient is seen and evaluated with family members at bedside; arousable and awake and there are no signs of any CO2 narcosis. Vital signs are reviewed and stable with temperature of 97.7, pulse 98, respiration 18 and blood pressure 124/74 with O2 saturation of 98% The patient is on Lasix 40 mg every 24 hours; bronchodilators; IV Solu Medrol 40 mg every 12 hours. She does sleep with her BiPAP overnight at a pressure of 10/5 cm of water and currently supported with oxygen by nasal cannula. In terms of her blood work, the white cell count of 7.5 with a hemoglobin of 11.3 from yesterday. There was evidence of chronic hypercapnic respiratory failure and her blood gases with a pH of 7.33 and a pCO2 of 90 and a pO2 of 73 and a previous blood gas. Objective - Vital Signs Vital signs: Vital Signs Temp 97.7 F 05/10/21 11:36 Pulse 98 05/10/21 11:36 Resp 19 05/10/21 11:36 BP 124/74 05/10/21 11:36 Pulse Ox 98 05/10/21 11:36 Intake & Output 05/09/21 05/10/21 05/10/21 18:59 06:59 18:59 Intake Total 200 Output Total 2600 1200 1200 Balance -2600 -1200 -1000 Intake: Oral 200 Output: Urine 2600 1200 1200 Other: Voiding Method External Catheter External Catheter Diaper Incontinent # Voids 0 # Bowel Movements 0 - Exam GENERAL: The patient is alert with Ventimask, patient is in moderate respiratory distress. Obese HEENT: Pupils are round and equally reacting to light. EOMI. No scleral icterus. No conjunctival pallor. Normocephalic, atraumatic. No pharynge al erythema. No thyromegaly. CARDIOVASCULAR: S1 and S2 present. No murmurs, rubs, or gallops. PULMONARY: Significantly diminished air entry into bilateral lung bauer no wheezing or crackles were appreciated ABDOMEN: Soft, nontender, nondistended, normoactive bowel sounds. No palpable organomegaly. MUSCULOSKELETAL: No joint swelling or deformity. EXTREMITIES: No cyanosis, clubbing, or pedal edema. NEUROLOGICAL: Gross neurological examination did not reveal any focal deficits. SKIN: No rashes. - Labs CBC & Chem 7: 05/09/21 06:53 05/09/21 06:53 Assessment and Plan Assessment: -Acute hypoxic respiratory failure: May have a mild competent of COPD with no much wheezing patient high requirement off oxygen is secondary to her sleep apnea and restrictive lung disease. Systemic steroids dosing and frequency will be cut down, continue with the inhalational treatments. -COPD with mild acute exacerbation New onset atrial fibrillation, with rapid ventricular rate: Cardizem will be discontinued and patient was started on metoprolol, cardiology was consulted patient will be started on anticoagulation with Eliquis, echo was ordered. -Hypertension for which patient is on lisinopril -Sleep apnea for which patient is on CPAP machine -Gastroesophageal reflux disease -Obesity -Depression DVT prophylaxis: On Eliquis
--- NOTE | 2021-05-11 16:50 | P.PN ---
Subjective Progress Note Date: 05/11/21 81-year-old female patient who was transferred from custodial because of worsening shortness of breath. The patient has been placed in custodial over the recent years as the patient has become more debilitated and essentially sedentary. She was unable to take care of herself. The patient was found to be short of breath in the emergency department the patient was found to be in atrial fibrillation with RVR and the patient was started on a Cardizem drip. Over the time of my evaluation, the patient was already in a sinus rhythm. The chest x-ray was consistent with Marilin megaly and CHF. The patient was on 100% nonrebreather facemask at the time of my evaluation. She denied having any ches t pain. She denied having any angina or palpitation. Nevertheless, the patient was found to have a white second of 7.7 edema of 12.3 and a BUN of 24 with a creatinine of 0.6 and the patient was found to have a sodium level of 139, proBNP level was 720, first set of troponin was 0.0 22. The patient had no signs of any CO2 narcosis. She was arousable and she was communicating. She was a poor historian in general. In the emergency department, the patient was started on bronchodilators with DuoNeb neb last treatment [id number], IV Solu-Medrol and I added IV Lasix. Echocardiogram was ordered. The patient is known to have chronic COPD and chronic hypoxic respiratory failure, obstructive sleep apnea and morbid obesity and the patient does not utilize any form of CPAP therapy. Her body mass index is 41. She has history of hypertension and hypertensive heart disease, degenerative arthritis, muscle weakness and difficulty in walking, tenia ungium, coronary artery disease without any angina pectoris, no previous history of Coumadin 19 infection and the patient apparently has completed her vaccination. She has an occasional oral dysphagia or oropharyngeal dysphagia. The patient is seen today 05/09/2021 in follow-up on the regular medical floor. She is currently resting comfortably in bed. Awake and alert in no acute distress. Currently on 4 L nasal cannula with O2 saturation in the 90s. She did have an episode of unresponsiveness a minute rapid response team was called. She was hypercapnic with a P O2 of 73, pCO2 of 90 and a pH of 7.33 and 36% FiO2. She did wear the BiPAP and became more awake and alert without significant treatment. She is alert today. White count 7.5. Hemoglobin 11.3. Sodium 144. Potassium 4.1. Bicarb 43. Creatinine 0.6. She remains on DuoNeb inhalations, IV diuretics, IV Solu-Medrol. Anticoagulated with request. Currently in sinus rhythm. 05/10/2021, the patient is arousable and awake and there are no signs of any CO2 narcosis. The patient has no chest pain. No cough sputum production chest tightness or wheezing. The patient is on Lasix 40 mg every 24 hours. She remains in a negative fluid balance. She remains on bronchodilators. She remains on IV Solu Medrol 40 mg every 12 hours. She does sleep with her BiPAP overnight at a pressure of 10/5 cm of water and currently supported with oxygen by nasal cannula. In terms of her blood work, the white cell count of 7.5 with a hemoglobin of 11.3 from yesterday. There was evidence of chronic hypercapnic respiratory failure and her blood gases with a pH of 7.33 and a pCO2 of 90 and a pO2 of 73 and a previous blood gas. 05/19/2021, the patient continues to be diurese with Lasix and I reduced her Lasix dose to 40 mg per 24 hours. She remains on IV Solu Medrol. She remains on bronchodilators. She is utilizing the BiPAP overnight. Doing well. No specific complaints. Condition is stable. Repeat blood work was ordered as the patient has not had any blood work since 05/09/2021 and that supported as long as the patient is being diuresed with IV Lasix. No signs of any CO2 narcosis at this point in time. The patient is awake and arousable and communicating normally. Objective - Vital Signs Vital signs: Vital Signs Temp 98.1 F 05/11/21 12:14 Pulse 80 05/11/21 16:09 Resp 20 05/11/21 12:14 BP 118/80 05/11/21 12:14 Pulse Ox 93 L 05/11/21 12:14 Intake & Output 05/10/21 05/11/21 05/11/21 18:59 06:59 18:59 Intake Total 200 Output Total 1200 1100 Balance -1000 -1100 Intake: Oral 200 Output: Urine 1200 1100 Other: Voiding Method Diaper Diaper Incontinent Incontinent # Voids 4 - Exam Morbidly obese, 81-year-old female patient, currently on 4 L nasal cannula, typical features of obstructive sleep apnea with a thick short neck. Patient carries a body mass index of 41. Head exam was generally normal. There was no scleral icterus or corneal arcus. Mucous membranes were moist. Neck was supple and without jugular venous distension, thyromegaly, or carotid bruits. Carotids were easily palpable bilaterally. There was no adenopathy. The patient has dry mucous membranes and Mallampati class IV Lungs sounds are diminished in the patient's crackles in the mid and lower lung his bilaterally. Occasional scattered wheeze Heart sounds are distant, this systolic ejection murmur grade 2/6 heard throughout the precordium. There is also accentuation of the second heart sounds. No right ventricular heave or thrill. Abdomen is obese soft nontender. Organs cannot be accurately palpated. No direct tenderness rebound tenderness or guarding. Extremities there is a scar of a previous arthroplasty in the left knee. There is trace edema lower 70s bilaterally. No cyanosis or clubbing. Examination of the skin revealed no evidence of significant rashes, suspicious appearing nevi or other concerning lesions. Neurologically, the patient is awake and alert and the patient does not have any focal neurological deficit. Cranial nerves are essentially intact. The patient has global generalized motor weakness in all 4 extremities. She is a poor historian yet she is responsive and she is following commands and answering questions. - Labs CBC & Chem 7: 05/09/21 06:53 05/09/21 06:53 Labs: Abnormal Lab Results - Last 24 Hours (Table) 05/09/21 Range/Units 06:53 Carbon Dioxide 43.3 H* (20.0-27.5) mmol/L Anion Gap 7.40 L (10.00-18.00) mmol/L Assessment and Plan Plan: 1 acute on chronic hypoxic respiratory failure. The patient is currently on 100% nonrebreather facemask. Chest x-ray showing cardiomegaly with diffuse but the pulmonary infiltrates. Consider diastolic heart failure. Consider superimposed pneumonia. The patient has chronic respiratory insufficiency and hypoxic respiratory failure with an O2 at a custodial. The patient is clinically improving. Her blood gases showed an acute on top of chronic hypoxic and hypercapnic respiratory failure due to the earlier admissions comorbidities. The patient is morbidly obese. She does have a likely component of diastolic heart failure. She has obesity hypoventilation syndrome with chronic hypoxic respiratory failure 2 paroxysmal, new onset atrial fibrillation with rapid ventricular response, converted to sinus , maintained on anticoagulation with Eliquis 5 mg by mouth twice a day and metoprolol 25 mg twice a day 3 COPD with chronic hypoxic respiratory failure maintained on O2 at the custodial 4 obstructive sleep apnea, very highly likely on clinical grounds and the patient has a BMI of 41 along with typical features of JOSIAH including snoring, wi tnessed apneas and significant crowding of posterior pharynx on examination. 5 morbid obesity with a BMI of 41 6 custodial resident and the patient has been progressively more debilitated and the patient has been placed in a custodial 7 hypertension with history of hypertensive heart disease 8 history of depression 9 history of degenerative arthritis Plan Clinically improving Continued IV Lasix and reduce the dose to 40 mg once a day Repeat electrolytes Echo was suboptimal due to poor windows Continue DuoNeb and symptoms on the clock IV Solu-Medrol for another 24 hours Agree on anticoagulation with Eliquis Management of atrial fibrillation per cardiology We'll continue to follow
[2021-05-11] MEDS: ACETAMINOPHEN TAB 325 MG TAB PO PRN (19:36)
--- NOTE | 2021-05-11 20:35 | P.PN ---
Subjective Progress Note Date: 05/11/21 Principal diagnosis: Acute hypoxic respiratory failure COPD with mild acute exacerbation New onset atrial fibrillation, with rapid ventricular rate 81-year-old female resident of longterm was transferred here because of shortness of breath and cough. Patient that is being treated for COPD exacerbation. Patient went into atrial fibrillation during this ER visit and patient was started on Cardizem. Patient is still in atrial fibrillation but ra te controlled at this time. Patient is presently on 10 L of oxygen and I evaluated patient was on Ventimask. Unable to get much of the history from the patient patient doesn't have any fever or leukocytosis patient chest x-ray did not show pneumonia showed mild atelectasis. No previous echocardiogram available. Patient does have history of from sleep apnea and uses CPAP machine. Patient had episode of decreased responsiveness during the night; A was called and while attempting to get ABGs patient became more responsive and communicative and refused blood draw; no further intervention was needed 05/10/2021; Patient is seen and evaluated with family members at bedside; arousable and awake and there are no signs of any CO2 narcosis. Vital signs are reviewed and stable with temperature of 97.7, pulse 98, respiration 18 and blood pressure 124/74 with O2 saturation of 98% The patient is on Lasix 40 mg every 24 hours; bronchodilators; IV Solu Medrol 40 mg every 12 hours. She does sleep with her BiPAP overnight at a pressure of 10/5 cm of water and currently supported with oxygen by nasal cannula. In terms of her blood work, the white cell count of 7.5 with a hemoglobin of 11.3 from yesterday. There was evidence of chronic hypercapnic respiratory failure and her blood gases with a pH of 7.33 and a pCO2 of 90 and a pO2 of 73 and a previous blood gas. 05/11/2021 Patient is seen and evaluated sitting up in bed; does report improvement in breathing Vital signs are reviewed and stable with temperature of 98.1, pulse 80, respiration 20 and blood pressure 118/80 with O2 saturation of 93% -- patient continues to be diurese with Lasix and I reduced her Lasix dose to 40 mg per 24 hours. She remains on IV Solu Medrol. She remains on bronchodilators. She is utilizing the BiPAP overnight. Doing well. No specific complaints. Condition is stable. Repeat blood work was ordered as the patient has not had any blood work since 05/09/2021 and that supported as long as the patient is being diuresed with IV Lasix. No signs of any CO2 narcosis at this point in time. The patient is awake and arousable and communicating normally. Pulmonary recommending to continue with IV Solu-Medrol for another 24 hours Objective - Vital Signs Vital signs: Vital Signs Temp 98.1 F 05/11/21 12:14 Pulse 53 L 05/11/21 12:14 Resp 20 05/11/21 12:14 BP 118/80 05/11/21 12:14 Pulse Ox 93 L 05/11/21 12:14 Intake & Output 05/10/21 05/11/21 05/11/21 18:59 06:59 18:59 Intake Total 200 Output Total 1200 1100 Balance -1000 -1100 Intake: Oral 200 Output: Urine 1200 1100 Other: Voiding Method Diaper Diaper Incontinent Incontinent # Voids 4 - Exam GENERAL: The patient is alert with Ventimask, patient is in moderate respiratory distress. Obese HEENT: Pupils are round and equally reacting to light. EOMI. No scleral icterus. No conjunctival pallor. Normocephalic, atraumatic. No pharyngeal erythema. No thyromegaly. CARDIOVASCULAR: S1 and S2 present. No murmurs, rubs, or gallops. PULMONARY: Significantly diminished air entry into bilateral lung bauer no wheezing or crackles were appreciated ABDOMEN: Soft, nontender, nondistended, normoactive bowel sounds. No palpable organomegaly. MUSCULOSKELETAL: No joint swelling or deformity. EXTREMITIES: No cyanosis, clubbing, or pedal edema. NEUROLOGICAL: Gross neurological examination did not reveal any focal deficits. SKIN: No rashes. - Labs CBC & Chem 7: 05/09/21 06:53 05/09/21 06:53 Labs: Abnormal Lab Results - Last 24 Hours (Table) 05/09/21 Range/Units 06:53 Carbon Dioxide 43.3 H* (20.0-27.5) mmol/L Anion Gap 7.40 L (10.00-18.00) mmol/L Assessment and Plan Assessment: -Acute hypoxic respiratory failure: May have a mild competent of COPD with no much wheezing patient high requirement off oxygen is secondary to her sleep apnea and restrictive lung disease. Systemic steroids dosing and frequency will be cut down, continue with the inhalational treatments. -COPD with mild acute exacerbation New onset atrial fibrillation, with rapid ventricular rate: Cardizem will be discontinued and patient was started on metoprolol, cardiology was consulted patient will be started on anticoagulation with Eliquis, echo was ordered. -Hypertension for which patient is on lisinopril -Sleep apnea for which patient is on CPAP machine -Gastroesophageal reflux disease -Obesity -Depression DVT prophylaxis: On Eliquis
[2021-05-12] MEDS: APIXABAN 5 MG TAB PO SCH ×2 (07:39→20:53)
[2021-05-12] MEDS: PANTOPRAZOLE 40 MG TABLET PO SCH (07:39)
[2021-05-12] MEDS: LORATADINE 10 MG TAB PO SCH (07:40)
[2021-05-12] MEDS: CITALOPRAM HYDROBROMIDE 20 MG TAB PO SCH (07:40)
[2021-05-12] MEDS: DOCUSATE 100 MG CAP PO SCH (07:40)
[2021-05-12] MEDS: METOPROLOL TARTRATE 25 MG TAB PO SCH ×2 (07:40→20:53)
[2021-05-12] MEDS: FUROSEMIDE 10 MG/ML 4 ML VIAL IV SCH (07:40)
[2021-05-12] MEDS: lisinopriL 10 MG TAB PO SCH (07:40)
[2021-05-12] MEDS: ALBUTEROL NEBULIZED 2.5 MG/3 ML INHALATION SCH ×4 (08:04→19:29)
--- NOTE | 2021-05-12 09:03 | XR ---
EXAMINATION TYPE: XR chest 1V portable DATE OF EXAM: 05/12/2021 Comparison: 05/07/2021 Clinical History: 81-year-old female shortness of breath Findings: Low lung volumes. Heart mildly enlarged. Interstitial and vascular prominence and mild patchy densiti es persist without significant change. Left base underpenetrated and not well assessed. Impression: Hypoventilatory changes, mild cardiomegaly, interstitial prominence, and a few areas of mild patchy d ensities. Consider mild patchy interstitial pulmonary edema, no significant change.
[2021-05-12] MEDS: methylPREDNISolone SOD SUCCI 40 MG/ML 1 ML VIAL IV SCH (09:23)
--- NOTE | 2021-05-12 10:58 | P.PN ---
Subjective Progress Note Date: 05/12/21 Principal diagnosis: Shortness of breath 81-year-old female patient who [facility] worsening [facility]ness of [facility]. The [facility] over the recent years as the patient has become more debilitated and essentially sede ntary. She was unable to take care of herself. The patient was found to be short of breath in the emergency department the patient was found to be in atrial fibrillation with RVR and the patient was started on a Cardizem drip. Over the time of my evaluation, the patient was already in a sinus rhythm. The chest x-ray was consistent with Marilin megaly and CHF. The patient was on 100% nonrebreather facemask at the time of my evaluation. She denied having any chest pain. She denied having any angina or palpitation. Nevertheless, the patient was found to have a white second of 7.7 edema of 12.3 and a BUN of 24 with a creatinine of 0.6 and the patient was found to have a sodium level of 139 , proBNP level was 720, first set of troponin was 0.0 22. The patient had no signs of any CO2 narcosis. She was arousable and she was communicating. She was a poor historian in general. In the emergency department, the patient was started on bronchodilators with DuoNeb neb last treatment [id number], IV Solu-Medrol and I added IV Lasix. Echocardiogram was ordered. The patient is known to have chronic COPD and chronic hypoxic respiratory failure, obstructive sleep apnea and morbid obesity and the patient does not utilize any form of CPAP therapy. Her body mass index is 41. She has history of hypertension and hypertensive heart disease, degenerative arthritis, muscle weakness and difficulty in walking, tenia ungium, coronary artery disease without any angina pectoris, no previous history of Coumadin 19 infection and the patient apparently has completed her vaccination. She has an occasional oral dysphagia or oropharyngeal dysphagia. The patient is seen today 05/09/2021 in follow-up on the regular medical floor. She is currently resting comfortably in bed. Awake and alert in no acute distress. Currently on 4 L nasal cannula with O2 saturation in the 90s. She did have an episode of unresponsiveness a minute rapid response team was called. She was hypercapnic with a P O2 of 73, pCO2 of 90 and a pH of 7.33 and 36% FiO2. She did wear the BiPAP and became more awake and alert without significant treatment. She is alert today. White count 7.5. Hemoglobin 11.3. Sodium 144. Potassium 4.1. Bicarb 43. Creatinine 0.6. She remains on DuoNeb inhalations, IV diuretics, IV Solu-Medrol. Anticoagulated with request. Currently in sinus rhythm. 05/10/2021, the patient is arousable and awake and there are no signs of any CO2 narcosis. The patient has no chest pain. No cough sputum production chest tightness or wheezing. The patient is on Lasix 40 mg every 24 hours. She remains in a negative fluid balance. She remains on bronchodilators. She remains on IV Solu Medrol 40 mg every 12 hours. She does sleep with her BiPAP overnight at a pressure of 10/5 cm of water and currently supported with oxygen by nasal cannula. In terms of her blood work, the white cell count of 7.5 with a hemoglobin of 11.3 from yesterday. There was evidence of chronic hypercapnic respiratory failure and her blood gases with a pH of 7.33 and a pCO2 of 90 and a pO2 of 73 and a previous blood gas. 05/19/2021, the patient continues to be diurese with Lasix and I reduced her Lasix dose to 40 mg per 24 hours. She remains on IV Solu Medrol. She remains on bronchodilators. She is utilizing the BiPAP overnight. Doing well. No specific complaints. Condition is stable. Repeat blood work was ordered as the patient has not had any blood work since 05/09/2021 and that supported as long as the patient is being diuresed with IV Lasix. No signs of any CO2 narcosis at this point in time. The patient is awake and arousable and communicating normally. On 05/12/2021 patient seen in follow-up. Patient is awake and alert, oriented 2, breathing comfortably she is currently on 2 L of oxygen pulse ox is 98%. Remains on daily dose of Lasix 40 mg, she is maintaining negative fluid balance -2.1 L over the last 24 hours. No edema in bilateral lower extremities, lower extremities is positive for some chronic venous stasis changes. Lung sounds reveal some mild crackles at the bases, follow-up chest x-rays pending for today, otherwise she reports feeling improved, breathing easier. Today's labs have been reviewed with the cell, 7.5, hemoglobin is 11.3, sodium is 144, potassium is 4.1, chloride is 94, CO2 43, B1 is 20, creatinine 0.6, blood gas has been reviewed showing pO2 of 73, pCO2 of 90, and pH of 7.33 this was done and FiO2 of 36% and consistent with acute on chronic hypercapnic and hypoxic respiratory failure, fairly well compensated. Objective - Vital Signs Vital signs: Vital Signs Temp 97.4 F L 05/12/21 04:43 Pulse 80 05/12/21 08:12 Resp 19 05/12/21 04:43 BP 135/76 05/12/21 04:43 Pulse Ox 98 05/12/21 04:43 Intake & Output 05/11/21 05/12/21 05/12/21 18:59 06:59 18:59 Intake Total 600 600 Balance 600 600 Intake: Oral 600 600 Other: Voiding Method Diaper Diaper Diaper Incontinent Incontinent Incontinent # Voids 1 2 # Bowel Movements 1 - Exam GENERAL EXAM: Alert, very pleasant, 81-year-old obese white female, resting comfortably in bed on 2 L of oxygen with a pulse ox of 98% comfortable in no apparent distress. HEAD: Normocephalic/atraumatic. EYES: Normal reaction of pupils, equal size. Conjunctiva pink, sclera white. NOSE: Clear with pink turbinates. THROAT: No erythema or exudates. NECK: No masses, no JVD, no thyroid enlargement, no adenopathy. CHEST: No chest wall deformity. Symmetrical expansion. LUNGS: Equal air entry with no crackles, wheeze, rhonchi or dullness. CVS: Regular rate and rhythm, normal S1 and S2, no gallops, no murmurs, no rubs ABDOMEN: Soft, nontender. No hepatosplenomegaly, normal bowel sounds, no guarding or rigidity. EXTREMITIES: No clubbing, chronic venous stasis changes involving bilateral lower extremities, no cyanosis, 2+ pulses and upper and lower extremities. MUSCULOSKELETAL: Muscle strength and tone normal. SPINE: No scoliosis or deformity SKIN: No rashes CENTRAL NERVOUS SYSTEM: Alert and oriented -3. No focal deficits, tone is normal in all 4 extremities. PSYCHIATRIC: Alert and oriented -3. Appropriate affect. Intact judgment and insight. - Labs CBC & Chem 7: 05/09/21 06:53 05/09/21 06:53 Labs: Abnormal Lab Results - Last 24 Hours (Table) 05/09/21 Range/Units 06:53 Carbon Dioxide 43.3 H* (20.0-27.5) mmol/L Anion Gap 7.40 L (10.00-18.00) mmol/L Assessment and Plan Plan: Assessment: #1. Acute on chronic hypoxic respiratory failure related to diastolic CHF with acute exacerbation. Chest x-ray showing cardiomegaly with diffuse pulmonary infiltrates. Patient also has a component of obesity hypoventilation syndrome with chronic hypoxic and hypercapnic respiratory failure #2. New onset paroxysmal atrial fibrillation with RVR, converted to sinus rhythm, on an requests and metoprolol 25 mg twice daily #3. COPD with chronic hypoxic respiratory failure [facility] #4. Obstructive sleep apnea, highly likely on clinical grounds #5. Morbid obesity with BMI 41 #6. retirement resident #7. Hypertension and history of hypertensive heart disease #8. History of depression #9. History of degenerative arthritis Plan: Clinically he continues to improve Breathing comfortably Down to 2 L of oxygen Blood gas has been reviewed Consistent with acute on chronic hypercapnic respiratory failure, fairly well compensated Switch IV Solu-Medrol to oral prednisone Chest x-ray showing stable findings with interstitial prominence, mild patchy densities, hypoventilatory lungs Clinically stable From pulmonary perspective she may be considered for [facility] if cleared by medicine I have personally seen and examined the patient, performed the documentation and the assessment and plan as written. Number of minutes spent on the visit: [10] Time with Patient: Less than 30
--- NOTE | 2021-05-12 13:42 | P.DS ---
Providers Date of admission: 05/08/21 00:24 Expected date of discharge: 05/12/21 Attending physician: Jessie Brown Consults: 05/08/21 00:24 Consult Physician Routine Consulting Provider: Efren Ponce Consult Reason/Comments: copd Do you want consulting provider notified?: Yes 05/08/21 11:33 Consult Physician Routine Consulting Provider: Dameon Cameron Consult Reason/Comments: A. fib Do you want consulting provider notified?: Yes Primary care physician: Wyatt Jaffe [facility] Course: Final diagnosis -Acute hypoxic respiratory failure, component of COPD and also secondary to her sleep apnea and restrictive lung disease. -COPD with mild acute exacerbation -New onset atrial fibrillation, with rapid ventricular rate -Hypertension -Sleep apnea for which patient is on CPAP machine -Gastroesophageal reflux disease -Obesity -Depression -DVT prophylaxis Discharge disposition Patient is being discharged in a stable condition with guarded prognosis to [facility] . Patient will follow-up with Dr. Jaffe in the outpatient setting upon discharge. Patient is to continue with prednisone taper. Total time taken is greater than 35 minutes. Hospital course This is an 81-year-old female who was recently admitted with acute hypoxic respiratory failure, COPD acute exacerbation and new onset atrial fibrillation with RVR and was being closely monitored. Patient was evaluated by cardiology and started on oral anticoagulant along with metoprolol and will continue in the outpatient setting. Patient also being evaluated and followed by pulmonary for COPD acute exacerbation. Patient is continued on 2 L via nasal cannula and also on IV steroids along with IV Lasix. Will transition patient to oral prednisone taper along with oral Lasix and recommend repeat labs in 2-3 days to monitor kidney functions and electro-lytes. Recommend outpatient follow-up with pulmonary in the next 1-2 weeks as well. Currently no reports of chest pain, worsening shortness of breath, or palpitations. Patient is afebrile. No reports of nausea or vomiting and patient is tolerating diet. Patient will be discharged back to [facility] today. Guarded prognosis. Physical exam: GENERAL: The patient is alert with 2 L via nasal cannula, no acute respiratory distress. Obese HEENT: Pupils are round and equally reacting to light. EOMI. No scleral icterus. No conjunctival pallor. Normocephalic, atraumatic. No pharyngeal erythema. No thyromegaly. CARDIOVASCULAR: S1 and S2 present. No murmurs, rubs, or gallops. PULMONARY: Diminished breath sounds noted bilateral lung bauer with some scattered rhonchi noted ABDOMEN: Soft, obese, nontender, nondistended, normoactive bowel sounds. No palpable organomegaly. MUSCULOSKELETAL: No joint swelling or deformity. EXTREMITIES: No cyanosis, clubbing, or pedal edema. NEUROLOGICAL: Gross neurological examination did not reveal any focal deficits. SKIN: No rashes. Please refer to medication reconciliation sheet for a list of medications. The impression and plan of care has been dictated by Venecia Hernandes, Nurse Practitioner as directed. Dr. Gunnar MD I have performed a history and examination and MDM of this patient, discussed the same with the dictator, and agree with the dictator's assessment and plan as written ,documented as a scribe. Based on total visit time, I have performed more than 50% of the visit. Patient Condition at Discharge: Fair Plan - Discharge Summary Discharge Rx Participant: No New Discharge Prescriptions: New Apixaban [Eliquis] 5 mg PO BID tab Metoprolol Tartrate [Lopressor] 25 mg PO BID tab predniSONE 10 mg PO DIRECTED #30 tab Acetaminophen Tab [Tylenol] 650 mg PO Q6HR PRN tab PRN Reason: Fever And/ Or Pain Albuterol Nebulized [Ventolin Nebulized] 5 mg INHALATION RT-QID ml Continue Potassium Chloride ER [K-Dur 10] 10 meq PO DAILY lisinopriL [Zestril] 10 mg PO Q12H hydrOXYzine HCL [Atarax] 25 mg PO Q6H PRN PRN Reason: Itching Ipratropium-Albuterol Nebulize [Duoneb 0.5 mg-3 mg/3 ml Soln] 3 ml INHALATION RT-Q6H PRN PRN Reason: Shortness Of Breath Or Wheezing Citalopram Hydrobromide [CeleXA] 20 mg PO DAILY Benzonatate [Tessalon Perles] 200 mg PO Q8H PRN PRN Reason: Cough Omeprazole 20 mg PO DAILY Multivitamins, Thera [Multivitamin (formulary)] 1 tab PO DAILY Loratadine 10 mg PO DAILY guaiFENesin [guaiFENesin Oral Solution] 200 mg PO Q6H PRN PRN Reason: Congestion Docusate [Colace] 100 mg PO DAILY Changed Furosemide [Lasix] 40 mg PO DAILY #0 Discontinued Amoxic-Pot Clav 875-125Mg [Augmentin 875-125] 1 tab PO Q12H Discharge Medication List Benzonatate [Tessalon Perles] 200 mg PO Q8H PRN 05/07/21 [History] Citalopram Hydrobromide [CeleXA] 20 mg PO DAILY 05/07/21 [History] Docusate [Colace] 100 mg PO DAILY 05/07/21 [History] Ipratropium-Albuterol Nebulize [Duoneb 0.5 mg-3 mg/3 ml Soln] 3 ml INHALATION RT-Q6H PRN 05/07/21 [History] Loratadine 10 mg PO DAILY 05/07/21 [History] Multivitamins, Thera [Multivitamin (formulary)] 1 tab PO DAILY 05/07/21 [History] Omeprazole 20 mg PO DAILY 05/07/21 [History] Potassium Chloride ER [K-Dur 10] 10 meq PO DAILY 05/07/21 [History] guaiFENesin [guaiFENesin Oral Solution] 200 mg PO Q6H PRN 05/07/21 [History] hydrOXYzine HCL [Atarax] 25 mg PO Q6H PRN 05/07/21 [History] lisinopriL [Zestril] 10 mg PO Q12H 05/07/21 [History] Acetaminophen Tab [Tylenol] 650 mg PO Q6HR PRN tab 05/12/21 [Rx] Albuterol Nebulized [Ventolin Nebulized] 5 mg INHALATION RT-QID ml 05/12/21 [Rx] Apixaban [Eliquis] 5 mg PO BID tab 05/12/21 [Rx] Furosemide [Lasix] 40 mg PO DAILY #0 05/12/21 [Rx] Metoprolol Tartrate [Lopressor] 25 mg PO BID tab 05/12/21 [Rx] predniSONE 10 mg PO DIRECTED #30 tab 05/12/21 [Rx] Follow up Appointment(s)/Referral(s): Wyatt Jaffe DO [Primary Care Provider] - 1-2 days Activity/Diet/Wound Care/Special Instructions: Patient is returning to [facility] Activity as tolerated Continue taking medications as prescribed Continue with steroid taper Follow-up with primary care provider on discharge Continue with supplemental oxygen therapy Continue breathing inhalational treatments Continue current diet of dysphagia 2 ground and may have dysphasia 3 chopped if patient prefers Monitor closely for any signs of aspiration and supervision with meals and using aspiration precautions with head of the bed elevated 40-45 at all times Discharge Disposition: TRANSFER TO SNF/ECF
[2021-05-12 14:47] LABS: Albumin 3.6 g/dL (3.8-4.9); Albumin/Globulin Ratio 1.47 (1.60-3.17); Globulin 2.5 g/dL (1.6-3.3); Total Bilirubin 0.3 mg/dL (0.30-1.20); Total Protein 6.1 g/dL (6.2-8.2)
[2021-05-12] MEDS: IPRATROPIUM-ALBUTEROL 3 ML NEB INHALATION PRN ×2 (15:31→19:29)
[2021-05-12] MEDS: ACETAMINOPHEN TAB 325 MG TAB PO PRN (16:43)
[2021-05-13 08:42] VITALS: TEMP 97.7
[2021-05-13] MEDS ORDERED: predniSONE 20 MG TAB PO SCH (09:00)
[2021-05-13] MEDS: ACETAMINOPHEN TAB 325 MG TAB PO PRN (09:39)
[2021-05-13] MEDS: ALBUTEROL NEBULIZED 2.5 MG/3 ML INHALATION SCH ×2 (09:44→11:37)
[2021-05-13 10:51] VITALS: BP 98/57
[2021-05-13] MEDS: lisinopriL 10 MG TAB PO SCH (10:57)
[2021-05-13] MEDS: DOCUSATE 100 MG CAP PO SCH (10:57)
[2021-05-13] MEDS: CITALOPRAM HYDROBROMIDE 20 MG TAB PO SCH (10:57)
[2021-05-13] MEDS: LORATADINE 10 MG TAB PO SCH (10:58)
[2021-05-13] MEDS: APIXABAN 5 MG TAB PO SCH (10:58)
[2021-05-13] MEDS: PANTOPRAZOLE 40 MG TABLET PO SCH (10:58)
[2021-05-13] MEDS: FUROSEMIDE 10 MG/ML 4 ML VIAL IV SCH (10:58)
[2021-05-13] MEDS: METOPROLOL TARTRATE 25 MG TAB PO SCH (10:59)
[2021-05-13 11:49] VITALS: PULSE 63; RESP 24
== END 2021-05-13 11:35 | DRG 308 ==
LOC: EC 21:33 → 4SSUR 05-08 00:24 → 3SCARD 05-08 06:39 → 5NMEDONC 05-08 13:38
PROVIDERS: ADMIT Hospitalist; ATTEND Hospitalist
DX: I48.0 Paroxysmal atrial fibrillation (principal); J96.21 Acute and chronic respiratory failure with hypoxia; J96.22 Acute and chronic respiratory failure with hypercapnia; I50.33 Acute on chronic diastolic (congestive) heart failure; J44.1 Chronic obstructive pulmonary disease with (acute) exacerbation; E66.2 Morbid (severe) obesity with alveolar hypoventilation; Z68.41 Body mass index [BMI] 40.0-44.9, adult; J98.4 Other disorders of lung; I87.8 Other specified disorders of veins; F32.A Depression, unspecified; F41.9 Anxiety disorder, unspecified; R32 Unspecified urinary incontinence; I11.0 Hypertensive heart disease with heart failure; I25.10 Atherosclerotic heart disease of native coronary artery without angina pectoris; R53.81 Other malaise; K21.9 Gastro-esophageal reflux disease without esophagitis; R13.12 Dysphagia, oropharyngeal phase; Z99.81 Dependence on supplemental oxygen; Z79.01 Long term (current) use of anticoagulants; Z79.899 Other long term (current) drug therapy; Z87.891 Personal history of nicotine dependence; Z53.29 Procedure and treatment not carried out because of patient's decision for other reasons; Z88.8 Allergy status to other drugs, medicaments and biological substances; Z91.048 Other nonmedicinal substance allergy status; Z72.3 Lack of physical exercise; Z98.890 Other specified postprocedural states; Z96.652 Presence of left artificial knee joint
CPT/HCPCS: 36415; 36600; 71045; 80053; 82805; 83605; 83735; 83880; 84484; 85025; 85027; 85610; 85730; 93005; 93306; 94640; 94660; 96365; 96366; 96375; 99285

== ENCOUNTER 2021-06-11 23:41 | Inpatient (IN) | payer MEDICARE, OTHER ==
--- NOTE | 2021-06-12 00:02 | ED ---
Altered Mental Status HPI - General Chief Complaint: Altered Mental Status Stated Complaint: Altered Mental Status Time Seen by Provider: 06/11/21 23:49 Source: EMS, RN notes reviewed Mode of arrival: EMS Limitations: altered mental status - History of Present Illness Initial Comments: This is a pleasant 81-year-old female who arrives via EMS from [facility]. Apparently the patient is displaying some confusion per staff. Last known well was 7 PM. Patient's daughters arrived here and state that she has been in and out of confusion since she was treated here about 5 weeks ago. Patient was diagnosed with atrial fibrillation but has also been having problems with her oxygen. They state that she breathes through her mouth and seems to do better on a mask. Patient has obstructive sleep apnea but no sleep apnea machine or device. Morbid obesity. It sounds as if the patient has been in and out of confusion for several weeks per her daughters. No focal weakness. Patient is able to give me a limited history. Seems to be disoriented to time. No headache, no fever or chills, no changes in vision or hearing, no sore throat or difficulty with speech, no neck pain, no chest mayuri no abdominal pain, no nausea or vomiting, no changes in urination or bowel movements, no numbness or tingling, no extremity pain, no skin rashes or lesions. Review of systems is limited due to the patient's condition. MD Complaint: altered mental status, confusion - Related Data Home Medications Medication Instructions Recorded Confirmed Benzonatate [Tessalon Perles] 200 mg PO Q8H PRN 05/07/21 05/07/21 Citalopram Hydrobromide [CeleXA] 20 mg PO DAILY 05/07/21 05/07/21 Docusate [Colace] 100 mg PO DAILY 05/07/21 05/07/21 Ipratropium-Albuterol Nebulize 3 ml INHALATION RT-Q6H PRN 05/07/21 05/07/21 [Duoneb 0.5 mg-3 mg/3 ml Soln] Loratadine 10 mg PO DAILY 05/07/21 05/07/21 Multivitamins, Thera [Multivitamin 1 tab PO DAILY 05/07/21 05/07/21 (formulary)] Omeprazole 20 mg PO DAILY 05/07/21 05/07/21 Potassium Chloride ER [K-Dur 10] 10 meq PO DAILY 05/07/21 05/07/21 guaiFENesin [guaiFENesin Oral 200 mg PO Q6H PRN 05/07/21 05/07/21 Solution] hydrOXYzine HCL [Atarax] 25 mg PO Q6H PRN 05/07/21 05/07/21 lisinopriL [Zestril] 10 mg PO Q12H 05/07/21 05/07/21 Previous Rx's Medication Instructions Recorded Acetaminophen Tab [Tylenol] 650 mg PO Q6HR PRN tab 05/12/21 Albuterol Nebulized [Ventolin 5 mg INHALATION RT-QID ml 05/12/21 Nebulized] Apixaban [Eliquis] 5 mg PO BID tab 05/12/21 Furosemide [Lasix] 40 mg PO DAILY #0 05/12/21 Metoprolol Tartrate [Lopressor] 25 mg PO BID tab 05/12/21 predniSONE 10 mg PO DIRECTED #30 tab 05/12/21 Allergies Allergy/AdvReac Type Severity Reaction Status Date / Time tositumomab [id number] Allergy Unknown Verified 06/11/21 23:43 red dye AdvReac Rash/Hives Verified 06/11/21 23:43 Review of Systems ROS Statement: Those systems with pertinent positive or pertinent negative responses have been documented in the HPI. ROS Other: All systems not noted in ROS Statement are negative. Limitations: ROS unobtainable due to patients medical condition Past Medical History Past Medical History: Atrial Fibrillation, Heart Failure, COPD Additional Past Medical History / Comment(s): Chronic respiratory failure/oxygen ATC, recent issue with dysphagia, JOSIAH/no device, itching, obesity, edema, weakness-wheelchair, incontinence. History of Any Multi-Drug Resistant Organisms: None Reported Past Surgical History: Orthopedic Surgery Additional Past Surgical History / Comment(s): left knee x2 Past Anesthesia/Blood Transfusion Reactions: No Reported Reaction Past Psychological History: No Psychological Hx Reported Smoking Status: Never smoker Past Alcohol Use History: None Reported Past Drug Use History: None Reported - Past Family History Father Family Medical History: No Reported History Mother Family Medical History: No Reported History General Exam - General Exam Comments Initial Comments: Obese female in moderate distress. Patient does not appear to be ill or toxic. Appears to have adequate peripheral perfusion. No focal neurologic deficit. Cranial nerves II through XII are intact as tested.Alert and oriented times 2. Disoriented to time and possibly situation. Limitations: altered mental status General appearance: alert, in distress, obese Head exam: Present: atraumatic, normocephalic, normal inspection Eye exam: Present: normal appearance, PERRL, EOMI. Absent: scleral icterus, conjunctival injection, periorbital swelling ENT exam: Present: normal exam, mucous membranes dry (Mildly dry mucous membranes), mucous membranes moist, TM's normal bilaterally Neck exam: Present: normal inspection, full ROM. Absent: tenderness, meningismus, lymphadenopathy Respiratory exam: Present: normal lung sounds bilaterally. Absent: respiratory distress, wheezes, rales, rhonchi, stridor Cardiovascular Exam: Present: normal rhythm, tachycardia, normal heart sounds. Absent: systolic murmur, diastolic murmur, rubs, gallop, clicks GI/Abdominal exam: Present: soft, normal bowel sounds. Absent: distended, tenderness, guarding, rebound, rigid Extremities exam: Present: normal inspection, full ROM, normal capillary refill. Absent: tenderness, pedal edema, joint swelling, calf tenderness Back exam: Present: normal inspection Neurological exam: Present: alert, CN II-XII intact, other (No evidence of deficit. Center Coma Scale is 15.) Psychiatric exam: Present: normal affect, normal mood Skin exam: Present: warm, dry, intact, normal color. Absent: rash Course Vital Signs 06/11/21 06/11/21 06/12/21 23:43 23:51 00:47 Temperature 98.4 F Pulse Rate 89 92 Respiratory 24 22 Rate Blood Pressure 125/70 125/70 O2 Sat by Pulse 95 97 Oximetry 06/12/21 02:00 Temperature Pulse Rate 92 Respiratory 22 Rate Blood Pressure 108/81 O2 Sat by Pulse 93 L Oximetry - Reevaluation(s) Reevaluation #1: 06/12/21 01:55 Medical record is reviewed Patient has a urinary tract infection. Medical Decision Making - Medical Decision Making ABG shows partially compensated respiratory acidosis with a pH of 7.258, pCO2 of 104, bicarbonate of 46.5 and base excess of 19.4. Also hypoxemia with a pO2 of 62.5. Patient started on BiPAP. D-dimer added. Rocephin 1 g IV piggyback order for urinary tract infection. The case was discussed in detail with ED attending physician. Presentation, findings, treatment plan discussed in detail--Dr. Jacques Patient admitted. Awaiting callback from Dr. Gan at 3:13 AM. Admit orders were placed. Consultation to pulmonary. Patient currently on BiPAP. - Lab Data Result diagrams: 06/12/21 00:07 06/12/21 00:07 Lab Results 06/12/21 06/12/21 06/12/21 Range/Units 00:07 00:07 00:07 WBC 8.1 (3.8-10.6) k/uL RBC 4.26 (3.80-5.40) m/uL Hgb 13.0 (11.4-16.0) gm/dL Hct 41.9 (34.0-46.0) % MCV 98.3 (80.0-100.0) fL MCH 30.4 (25.0-35.0) pg MCHC 31.0 (31.0-37.0) g/dL RDW 13.1 (11.5-15.5) % Plt Count 192 (150-450) k/uL MPV 6.6 Neutrophils % 75 % Lymphocytes % 14 % Monocytes % 6 % Eosinophils % 2 % Basophils % 1 % Neutrophils # 6.1 (1.3-7.7) k/uL Lymphocytes # 1.1 (1.0-4.8) k/uL Monocytes # 0.5 (0-1.0) k/uL Eosinophils # 0.2 (0-0.7) k/uL Basophils # 0.0 (0-0.2) k/uL Hypochromasia Marked PT 9.9 (9.0-12.0) sec INR 0.9 (<1.2) APTT 22.9 (22.0-30.0) sec Sample Site ABG pH (7.35-7.45) ABG pCO2 (35-45) mmHg ABG pO2 (83-108) mmHg ABG HCO3 (21-25) mmol/L ABG Total CO2 (19-24) mmol/L ABG O2 Saturation (94-97) % ABG Base Excess mmol/L Dennis Test FiO2 % Sodium (137-145) mmol/L Potassium (3.5-5.1) mmol/L Chloride (98-107) mmol/L Carbon Dioxide (22-30) mmol/L Anion Gap mmol/L BUN (7-17) mg/dL Creatinine (0.52-1.04) mg/dL Est GFR (CKD-EPI)AfAm (>60 ml/min/1.73 sqM) Est GFR (CKD-EPI)NonAf (>60 ml/min/1.73 sqM) Glucose (74-99) mg/dL POC Glucose (mg/dL) (75-99) mg/dL POC Glu Wire Products Inspector ID Calcium (8.4-10.2) mg/dL Total Bilirubin (0.2-1.3) mg/dL AST (14-36) U/L ALT (4-34) U/L Alkaline Phosphatase (38-126) U/L Ammonia (<30) umol/L Troponin I (0.000-0.034) ng/mL NT-Pro-B Natriuret Pep pg/mL Total Protein (6.3-8.2) g/dL Albumin (3.5-5.0) g/dL TSH (0.465-4.680) mIU/L Free T4 (0.78-2.19) ng/dL Urine Color Yellow Urine Appearance Cloudy H (Clear) Urine pH 5.5 (5.0-8.0) Ur Specific [place] 1.021 (1.001-1.035) Urine Protein Trace H (Negative) Urine Glucose (UA) Negative (Negative) Urine Ketones Negative (Negative) Urine Blood Negative (Negative) Urine Nitrite Positive H (Negative) Urine Bilirubin Negative (Negative) Urine Urobilinogen <2.0 (<2.0) mg/dL Ur Leukocyte Esterase Large H (Negative) Urine RBC 1 (0-5) /hpf Urine WBC >182 H (0-5) /hpf Urine WBC Clumps Few H (None) /hpf Ur Squamous Epith Cells <1 (0-4) /hpf Urine Bacteria Many H (None) /hpf Hyaline Casts 13 H (0-2) /lpf Urine Opiates Screen Not Detected (NotDetected) Ur Oxycodone Screen Not Detected (NotDetected) Urine Methadone Screen Not Detected (NotDetected) Ur Propoxyphene Screen Not Detected (NotDetected) Ur Barbiturates Screen Not Detected (NotDetected) U Tricyclic Antidepress Not Detected (NotDetected) Ur Phencyclidine Scrn Not Detected (NotDetected) Ur Amphetamines Screen Not Detected (NotDetected) U Methamphetamines Scrn Not Detected (NotDetected) U Benzodiazepines Scrn Not Detected (NotDetected) Urine Cocaine Screen Not Detected (NotDetected) U Marijuana (THC) Screen Not Detected (NotDetected) Serum Alcohol mg/dL Coronavirus (PCR) (Not Detectd) 06/12/21 06/12/21 06/12/21 Range/Units 00:07 00:07 00:07 WBC (3.8-10.6) k/uL RBC (3.80-5.40) m/uL Hgb (11.4-16.0) gm/dL Hct (34.0-46.0) % MCV (80.0-100.0) fL MCH (25.0-35.0) pg MCHC (31.0-37.0) g/dL RDW (11.5-15.5) % Plt Count (150-450) k/uL MPV Neutrophils % % Lymphocytes % % Monocytes % % Eosinophils % % Basophils % % Neutrophils # (1.3-7.7) k/uL Lymphocytes # (1.0-4.8) k/uL Monocytes # (0-1.0) k/uL Eosinophils # (0-0.7) k/uL Basophils # (0-0.2) k/uL Hypochromasia PT (9.0-12.0) sec INR (<1.2) APTT (22.0-30.0) sec Sample Site ABG pH (7.35-7.45) ABG pCO2 (35-45) mmHg ABG pO2 (83-108) mmHg ABG HCO3 (21-25) mmol/L ABG Total CO2 (19-24) mmol/L ABG O2 Saturation (94-97) % ABG Base Excess mmol/L Dennis Test FiO2 % Sodium 140 (137-145) mmol/L Potassium 4.6 (3.5-5.1) mmol/L Chloride 92 L (98-107) mmol/L Carbon Dioxide 44 H* (22-30) mmol/L Anion Gap 4 mmol/L BUN 22 H (7-17) mg/dL Creatinine 0.70 (0.52-1.04) mg/dL Est GFR (CKD-EPI)AfAm >90 (>60 ml/min/1.73 sqM) Est GFR (CKD-EPI)NonAf 82 (>60 ml/min/1.73 sqM) Glucose 118 H (74-99) mg/dL POC Glucose (mg/dL) (75-99) mg/dL POC Glu Wire Products Inspector ID Calcium 8.4 (8.4-10.2) mg/dL Total Bilirubin 0.6 (0.2-1.3) mg/dL AST 23 (14-36) U/L ALT 17 (4-34) U/L Alkaline Phosphatase 56 (38-126) U/L Ammonia 36 H (<30) umol/L Troponin I 0.016 (0.000-0.034) ng/mL NT-Pro-B Natriuret Pep pg/mL Total Protein 6.4 (6.3-8.2) g/dL Albumin 3.4 L (3.5-5.0) g/dL TSH 0.081 L (0.465-4.680) mIU/L Free T4 1.22 (0.78-2.19) ng/dL Urine Color Urine Appearance (Clear) Urine pH (5.0-8.0) Ur Specific [place] (1.001-1.035) Urine Protein (Negative) Urine Glucose (UA) (Negative) Urine Ketones (Negative) Urine Blood (Negative) Urine Nitrite (Negative) Urine Bilirubin (Negative) Urine Urobilinogen (<2.0) mg/dL Ur Leukocyte Esterase (Negative) Urine RBC (0-5) /hpf Urine WBC (0-5) /hpf Urine WBC Clumps (None) /hpf Ur Squamous Epith Cells (0-4) /hpf Urine Bacteria (None) /hpf Hyaline Casts (0-2) /lpf Urine Opiates Screen (NotDetected) Ur Oxycodone Screen (NotDetected) Urine Methadone Screen (NotDetected) Ur Propoxyphene Screen (NotDetected) Ur Barbiturates Screen (NotDetected) U Tricyclic Antidepress (NotDetected) Ur Phencyclidine Scrn (NotDetected) Ur Amphetamines Screen (NotDetected) U Methamphetamines Scrn (NotDetected) U Benzodiazepines Scrn (NotDetected) Urine Cocaine Screen (NotDetected) U Marijuana (THC) Screen (NotDetected) Serum Alcohol <10 mg/dL Coronavirus (PCR) (Not Detectd) 06/12/21 06/12/21 06/12/21 Range/Units 00:07 00:07 00:15 WBC (3.8-10.6) k/uL RBC (3.80-5.40) m/uL Hgb (11.4-16.0) gm/dL Hct (34.0-46.0) % MCV (80.0-100.0) fL MCH (25.0-35.0) pg MCHC (31.0-37.0) g/dL RDW (11.5-15.5) % Plt Count (150-450) k/uL MPV Neutrophils % % Lymphocytes % % Monocytes % % Eosinophils % % Basophils % % Neutrophils # (1.3-7.7) k/uL Lymphocytes # (1.0-4.8) k/uL Monocytes # (0-1.0) k/uL Eosinophils # (0-0.7) k/uL Basophils # (0-0.2) k/uL Hypochromasia PT (9.0-12.0) sec INR (<1.2) APTT (22.0-30.0) sec Sample Site ABG pH (7.35-7.45) ABG pCO2 (35-45) mmHg ABG pO2 (83-108) mmHg ABG HCO3 (21-25) mmol/L ABG Total CO2 (19-24) mmol/L ABG O2 Saturation (94-97) % ABG Base Excess mmol/L Dennis Test FiO2 % Sodium (137-145) mmol/L Potassium (3.5-5.1) mmol/L Chloride (98-107) mmol/L Carbon Dioxide (22-30) mmol/L Anion Gap mmol/L BUN (7-17) mg/dL Creatinine (0.52-1.04) mg/dL Est GFR (CKD-EPI)AfAm (>60 ml/min/1.73 sqM) Est GFR (CKD-EPI)NonAf (>60 ml/min/1.73 sqM) Glucose (74-99) mg/dL POC Glucose (mg/dL) 116 H (75-99) mg/dL POC Glu Wire Products Inspector ID Ankit Osullivan Calcium (8.4-10.2) mg/dL Total Bilirubin (0.2-1.3) mg/dL AST (14-36) U/L ALT (4-34) U/L Alkaline Phosphatase (38-126) U/L Ammonia (<30) umol/L Troponin I (0.000-0.034) ng/mL NT-Pro-B Natriuret Pep 884 pg/mL Total Protein (6.3-8.2) g/dL Albumin (3.5-5.0) g/dL TSH (0.465-4.680) mIU/L Free T4 (0.78-2.19) ng/dL Urine Color Urine Appearance (Clear) Urine pH (5.0-8.0) Ur Specific [place] (1.001-1.035) Urine Protein (Negative) Urine Glucose (UA) (Negative) Urine Ketones (Negative) Urine Blood (Negative) Urine Nitrite (Negative) Urine Bilirubin (Negative) Urine Urobilinogen (<2.0) mg/dL Ur Leukocyte Esterase (Negative) Urine RBC (0-5) /hpf Urine WBC (0-5) /hpf Urine WBC Clumps (None) /hpf Ur Squamous Epith Cells (0-4) /hpf Urine Bacteria (None) /hpf Hyaline Casts (0-2) /lpf Urine Opiates Screen (NotDetected) Ur Oxycodone Screen (NotDetected) Urine Methadone Screen (NotDetected) Ur Propoxyphene Screen (NotDetected) Ur Barbiturates Screen (NotDetected) U Tricyclic Antidepress (NotDetected) Ur Phencyclidine Scrn (NotDetected) Ur Amphetamines Screen (NotDetected) U Methamphetamines Scrn (NotDetected) U Benzodiazepines Scrn (NotDetected) Urine Cocaine Screen (NotDetected) U Marijuana (THC) Screen (NotDetected) Serum Alcohol mg/dL Coronavirus (PCR) Not Detected (Not Detectd) 06/12/21 06/12/21 Range/Units 02:18 03:11 WBC (3.8-10.6) k/uL RBC (3.80-5.40) m/uL Hgb (11.4-16.0) gm/dL Hct (34.0-46.0) % MCV (80.0-100.0) fL MCH (25.0-35.0) pg MCHC (31.0-37.0) g/dL RDW (11.5-15.5) % Plt Count (150-450) k/uL MPV Neutrophils % % Lymphocytes % % Monocytes % % Eosinophils % % Basophils % % Neutrophils # (1.3-7.7) k/uL Lymphocytes # (1.0-4.8) k/uL Monocytes # (0-1.0) k/uL Eosinophils # (0-0.7) k/uL Basophils # (0-0.2) k/uL Hypochromasia PT (9.0-12.0) sec INR (<1.2) APTT (22.0-30.0) sec Sample Site rrad ABG pH 7.26 L (7.35-7.45) ABG pCO2 104 H* (35-45) mmHg ABG pO2 63 L (83-108) mmHg ABG HCO3 47 H* (21-25) mmol/L ABG Total CO2 50 H (19-24) mmol/L ABG O2 Saturation 90.8 L (94-97) % ABG Base Excess 19.4 mmol/L Dennis Test Yes FiO2 40 % Sodium (137-145) mmol/L Potassium (3.5-5.1) mmol/L Chloride (98-107) mmol/L Carbon Dioxide (22-30) mmol/L Anion Gap mmol/L BUN (7-17) mg/dL Creatinine (0.52-1.04) mg/dL Est GFR (CKD-EPI)AfAm (>60 ml/min/1.73 sqM) Est GFR (CKD-EPI)NonAf (>60 ml/min/1.73 sqM) Glucose (74-99) mg/dL POC Glucose (mg/dL) 103 H (75-99) mg/dL POC Glu Wire Products Inspector ID Ankit Osullivan Calcium (8.4-10.2) mg/dL Total Bilirubin (0.2-1.3) mg/dL AST (14-36) U/L ALT (4-34) U/L Alkaline Phosphatase (38-126) U/L Ammonia (<30) umol/L Troponin I (0.000-0.034) ng/mL NT-Pro-B Natriuret Pep pg/mL Total Protein (6.3-8.2) g/dL Albumin (3.5-5.0) g/dL TSH (0.465-4.680) mIU/L Free T4 (0.78-2.19) ng/dL Urine Color Urine Appearance (Clear) Urine pH (5.0-8.0) Ur Specific [place] (1.001-1.035) Urine Protein (Negative) Urine Glucose (UA) (Negative) Urine Ketones (Negative) Urine Blood (Negative) Urine Nitrite (Negative) Urine Bilirubin (Negative) Urine Urobilinogen (<2.0) mg/dL Ur Leukocyte Esterase (Negative) Urine RBC (0-5) /hpf Urine WBC (0-5) /hpf Urine WBC Clumps (None) /hpf Ur Squamous Epith Cells (0-4) /hpf Urine Bacteria (None) /hpf Hyaline Casts (0-2) /lpf Urine Opiates Screen (NotDetected) Ur Oxycodone Screen (NotDetected) Urine Methadone Screen (NotDetected) Ur Propoxyphene Screen (NotDetected) Ur Barbiturates Screen (NotDetected) U Tricyclic Antidepress (NotDetected) Ur Phencyclidine Scrn (NotDetected) Ur Amphetamines Screen (NotDetected) U Methamphetamines Scrn (NotDetected) U Benzodiazepines Scrn (NotDetected) Urine Cocaine Screen (NotDetected) U Marijuana (THC) Screen (NotDetected) Serum Alcohol mg/dL Coronavirus (PCR) (Not Detectd) - EKG Data -: EKG Interpreted by Me EKG Comments: EKG done at 2345 assessed by myself as well as ED attending physician shows baseline artifact, left axis deviation, normal sinus rhythm, however patient does have multiple morphologies concerning the P waves. There is some heart are variability. However no evidence of atrial fibrillation despite the computerized interpretation. No evidence of acute ST or T-wave changes otherwise.HI interval is not measurable. Other intervals are normal. - Radiology Data Radiology results: report reviewed, image reviewed Disposition Clinical Impression: Altered mental state, Urinary tract infection, Hypoventilation, Uncompensated respiratory acidosis Disposition: ADMITTED IP TO THIS HOSP Condition: Fair Referrals: Wyatt Jaffe DO [Primary Care Provider] - 1-2 days Time of Disposition: 02:00 Decision to Admit Reason: Admit from EC Decision Time: 02:00
[2021-06-12 00:17] LABS: Glucose,Whole Blood 116 mg/dL (75-99)
[2021-06-12 00:40] LABS: Basophils % (A) 1 %; Eosinophils # (A) 0.2 k/uL (0-0.7); Eosinophils % (A) 2 %; HCT 41.9 % (34.0-46.0); Hypochromasia Marked; Lymphocytes # (A) 1.1 k/uL (1.0-4.8); Lymphocytes % (A) 14 %; MCH 30.4 pg (25.0-35.0); MCV 98.3 fL (80.0-100.0); Mean Platelet Volume 6.6; Monocytes # (A) 0.5 k/uL (0-1.0); Monocytes % (A) 6 %; Neutrophils # (A) 6.1 k/uL (1.3-7.7); Neutrophils % (A) 75 %; Platelet Count 192 k/uL (150-450); RBC 4.26 m/uL (3.80-5.40); RDW 13.1 % (11.5-15.5); WBC 8.1 k/uL (3.8-10.6)
--- NOTE | 2021-06-12 00:41 | CT ---
EXAMINATION TYPE: CT brain wo con DATE OF EXAM: 06/12/2021 COMPARISON: None HISTORY: AMS. last seen acting normal at 1700 today. no prior on PACS CT DLP: 1137.4 mGycm Automated exposure control for dose reduction was used. Images of the brain obtained without contrast. There is 4 x 1.5 cm linear area of hypodensity in the right posterior temporal lobe consistent with o ld encephalomalacia. There is no mass effect nor midline shift. There is no sign of intracranial hemo rrhage. Calvarium is intact. There is some small areas of hypodensity in the periventricular white ma tter. There is 1.5 cm hypodensity in the anterior right internal capsule. 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 White matter hypodensity suggestive of microvascular chron ic ischemia. No hemorrhage.
[2021-06-12 00:51] LABS: ALT 17 U/L (4-34); AST 23 U/L (14-36); African American GFR (CKD) >90 (>60 ml/min/1.73 sqM); Albumin 3.4 g/dL (3.5-5.0); Alcohol <10 mg/dL; Alkaline Phosphatase 56 U/L (38-126); Blood Urea Nitrogen 22 mg/dL (7-17); Calcium 8.4 mg/dL (8.4-10.2); Chloride 92 mmol/L (98-107); Glucose 118 mg/dL (74-99); Non-African American GFR(CKD) 82 (>60 ml/min/1.73 sqM); Potassium 4.6 mmol/L (3.5-5.1); Sodium 140 mmol/L (137-145); Total Bilirubin 0.6 mg/dL (0.2-1.3); Total Protein 6.4 g/dL (6.3-8.2)
--- NOTE | 2021-06-12 00:56 | XR ---
EXAMINATION TYPE: XR chest 1V portable DATE OF EXAM: 06/12/2021 COMPARISON: 05/12/2021 HISTORY: Short of breath TECHNIQUE: Single view FINDINGS: There is pulmonary vascular congestion. There is patchy atelectasis in both lung bauer. He art is enlarged. IMPRESSION: There is evidence for some mild heart failure. There is increased atelectasis in both katelyn g bauer compared to old exam.
[2021-06-12 00:57] LABS: Anion Gap 4 mmol/L
[2021-06-12 01:06] LABS: INR 0.9 (<1.2); Partial Thromboplastin Time 22.9 sec (22.0-30.0); Prothrombin Time 9.9 sec (9.0-12.0)
[2021-06-12 01:15] LABS: Appearance,Urine Cloudy (Clear); Bacteria,Urine Many /hpf; Bilirubin,Urine Negative (Negative); Blood,Urine Negative (Negative); Color,Urine Yellow; Glucose,Urine (UA) Negative (Negative); Hyaline Casts,Urine 13 /lpf (0-2); Ketones,Urine Negative (Negative); Leukocyte Esterase,Urine Large (Negative); Nitrite,Urine Positive (Negative); PH, Urine 5.5 (5.0-8.0); Protein,Urine Trace (Negative); RBC,Urine 1 /hpf (0-5); Specific Gravity,Urine 1.021 (1.001-1.035); Squamous Epithelial Cell,Urine <1 /hpf (0-4); Urobilinogen,Urine <2.0 mg/dL (<2.0); WBC,Urine >182 /hpf (0-5)
[2021-06-12 01:20] LABS: Carbon Dioxide 44 mmol/L (22-30)
[2021-06-12 01:22] LABS: Amphetamine Screen,Urine Not Detected (NotDetected); Barbiturate Screen,Urine Not Detected (NotDetected); Benzodiazepines Screen,Urine Not Detected (NotDetected); Cocaine Screen,Urine Not Detected (NotDetected); Methadone Screen, Urine Not Detected (NotDetected); Opiate Screen,Urine Not Detected (NotDetected); Oxycodone Screen, Urine Not Detected (NotDetected); Phencyclidine Screen,Urine Not Detected (NotDetected); Tricyclic Antidepressant,Urine Not Detected (NotDetected); Urn Cannabinoid Scrn Not Detected (NotDetected)
[2021-06-12 01:51] LABS: T4, Free (Free Thyroxine) 1.22 ng/dL (0.78-2.19)
[2021-06-12 02:24] LABS: ABG Base Excess 19.4 mmol/L; ABG Oxygen Saturation 90.8 % (94-97); ABG PH 7.26 (7.35-7.45); ABG PO2 63 mmHg (83-108); ABG TCO2 50 mmol/L (19-24); Allen Test Performed? Yes
[2021-06-12 02:29] LABS: ABG HCO3 47 mmol/L (21-25); ABG PCO2 104 mmHg (35-45)
[2021-06-12] MEDS ORDERED: ONDANSETRON 4 MG/2 ML VIAL IVP PRN (02:52)
[2021-06-12] MEDS ORDERED: NALOXONE 0.4 MG/ML 1 ML VIAL IV PRN (02:52)
[2021-06-12 03:14] LABS: Glucose,Whole Blood 103 mg/dL (75-99)
[2021-06-12] MEDS ORDERED: DEXTROSE 5% IN WATER 250 ML with AMIODARONE 300 MG IV ONE (06:18)
[2021-06-12 08:49] LABS: Glucose,Whole Blood 116 mg/dL (75-99)
[2021-06-12] MEDS: INSULIN ASPART (NovoLOG) 100 UNIT/ML VIAL SQ SCH ×4 (09:08→20:35)
[2021-06-12] MEDS: DILTIAZEM ORAL 30 MG TAB PO SCH ×4 (09:39→23:13)
--- NOTE | 2021-06-12 11:40 | P.CNPUL ---
History of Present Illness Consult date: 06/12/21 Requesting physician: Apollo Gan Reason for consult: dyspnea, COPD, hypoxemia, pulmonary hypertension, abnormal CXR/CT, obstructive sleep apnea Chief complaint: Acute on chronic hypercapnic respiratory failure. History of present illness: Pulmonary consultation dated 06/12/2021. This is an 81-year-old female, who was evaluated in the emergency room, on June 11, for mental status changes. She apparently came into the emergency room, via EMS, from one of the local nursing homes. She apparently was very confused. The patient was recently diagnosed with atrial fibrillation, but also has been having problems with both Pickwickian syndrome, and sleep apnea syndrome. [facility] She has been seen by my partners before. She is chronically on oxygen, on 4 L. She has a history of morbid obesity, atrial fibrillation, CHF, COPD, chronic hypoxemic respiratory failure, and difficulty in swallowing. The patient was a smoker in the past. She is not a good historian, and is unable to quantify how much she smoked and for how long. White count 8.1, hemoglobin 13, hematocrit 41.9, platelet count 192,000. PT, INR, and PTT are all normal. Blood gases, showed a pO2 of 63, pCO2 of 104, and a pH is 7.26. This is apparently on 40% FiO2. Electrolytes show a sodium 140, potassium 4.6, chlorides 92, CO2 44, BUN 22, and creatinine 0.7. Ammonia level was 36. N-terminal proBNP was at 84. Troponin was normal. Urine was suggestive of a urinary tract infection. Review of Systems REVIEW OF SYSTEMS: CONSTITUTIONAL: [Negative.] NEUROLOGIC: Confusion, mental status changes. HEENT: [ Negative.] CARDIAC: [Negative.] PULMONARY: [Negative.] GI: [Negative.] : [Negative.] RHEUMATOLOGIC: [ Negative.] IMMUNOLOGIC: [ Negative.] ENDOCRINE: [Negative. ] DERMATOLOGIC: [Negative.] Past Medical History Past Medical History: Atrial Fibrillation, Heart Failure, COPD Additional Past Medical History / Comment(s): Chronic respiratory failure/oxygen ATC, recent issue with dysphagia, JOSIAH/no device, itching, obesity, edema, weakness-wheelchair, incontinence. History of Any Multi-Drug Resistant Organisms: None Reported Past Surgical History: Orthopedic Surgery Additional Past Surgical History / Comment(s): left knee x2 Past Anesthesia/Blood Transfusion Reactions: No Reported Reaction Smoking Status: Former smoker - Past Family History Father Family Medical History: No Reported History Mother Family Medical History: No Reported History Medications and Allergies Home Medications Medication Instructions Recorded Confirmed Type Citalopram Hydrobromide [CeleXA] 20 mg PO DAILY 05/07/21 06/12/21 History Docusate [Colace] 100 mg PO DAILY 05/07/21 06/12/21 History Loratadine 10 mg PO DAILY 05/07/21 06/12/21 History Multivitamins, Thera [Multivitamin 1 tab PO DAILY 05/07/21 06/12/21 History (formulary)] Omeprazole 20 mg PO DAILY 05/07/21 06/12/21 History Potassium Chloride ER [K-Dur 10] 10 meq PO DAILY 05/07/21 06/12/21 History guaiFENesin [guaiFENesin Oral 200 mg PO Q6H PRN 05/07/21 06/12/21 History Solution] hydrOXYzine HCL [Atarax] 25 mg PO Q6H PRN 05/07/21 06/12/21 History lisinopriL [Zestril] 10 mg PO Q12H 05/07/21 06/12/21 History Apixaban [Eliquis] 5 mg PO BID tab 05/12/21 06/12/21 Rx Furosemide [Lasix] 40 mg PO DAILY #0 05/12/21 06/12/21 Rx Metoprolol Tartrate [Lopressor] 25 mg PO BID tab 05/12/21 06/12/21 Rx Acetaminophen [Tylenol 8 Hour] 650 mg PO Q6H PRN 06/12/21 06/12/21 History Albuterol Nebulized [Ventolin 5 mg INHALATION RT-Q6H 06/12/21 06/12/21 History Nebulized] Benzonatate [Tessalon Perles] 200 mg PO Q8H PRN 06/12/21 06/12/21 History Desoximetasone [Desoximetasone 1 applic TOPICAL Q12H 06/12/21 06/12/21 History 0.25%] Allergies Allergy/AdvReac Type Severity Reaction Status Date / Time red dye Allergy Rash/Hives Verified 06/12/21 07:04 tositumomab iodine-131 Allergy Unknown Verified 06/12/21 07:04 Physical Exam Osteopathic Statement: *. No significant issues noted on an osteopathic structural exam other than those noted in the History and Physical/Consult. Vitals: Vital Signs Temp Pulse Pulse Resp BP BP Pulse Ox 06/12/21 09:14 130 H 20 06/12/21 09:00 98 F 69 20 132/71 95 06/12/21 07:56 89.9 F L 69 22 100/90 95 06/12/21 07:27 70 20 95/55 95 06/12/21 06:57 123 H 22 95/55 97 06/12/21 06:15 142 H 22 114/84 06/12/21 05:00 92 24 93/73 97 06/12/21 04:00 97.8 F 82 20 93/73 96 06/12/21 02:00 92 22 108/81 93 L 06/12/21 00:47 92 22 125/70 97 06/11/21 23:51 98.4 F 06/11/21 23:43 89 24 125/70 95 Intake and Output 06/11/21 06/12/21 06/12/21 22:59 06:59 14:59 Intake Total 240 Balance 240 Intake: Oral 240 Other: Voiding Method External Catheter Weight 102.058 kg 102.058 kg No acute distress, oriented 3. Currently on 4 L nasal O2. This is her home dose. HEENT examination is grossly unremarkable. Neck supple. Full range of motion. No adenopathy thyromegaly or neck vein distention. Cardiovascular examination reveals regular rhythm rate. S1-S2 normal. No S3 or S4. No discernible murmur noted. Heart rate 70 bpm. Heart sounds are distant. Lungs reveal occasional diffuse bilateral rhonchi. No wheezes or crackles. Breath sounds are equal bilaterally. Saturations are 95% on 4 L. Abdomen obese, soft, without masses or tenderness. Extremities are intact. No cyanosis or clubbing. Trace edema. Skin is without rash or lesion. Neurologic examination is brief but nonfocal. Results - Laboratory Findings CBC and BMP: 06/12/21 00:07 06/12/21 00:07 ABG ABG pH 7.26 (7.35-7.45) L 06/12/21 02:18 ABG pCO2 104 mmHg (35-45) H* 06/12/21 02:18 ABG pO2 63 mmHg (83-108) L 06/12/21 02:18 ABG O2 Saturation 90.8 % (94-97) L 06/12/21 02:18 PT/INR, D-dimer PT 9.9 sec (9.0-12.0) 06/12/21 00:07 INR 0.9 (<1.2) 06/12/21 00:07 Abnormal lab findings: Abnormal Labs 06/12/21 06/12/21 06/12/21 00:07 00:07 00:07 ABG pH ABG pCO2 ABG pO2 ABG HCO3 ABG Total CO2 ABG O2 Saturation Chloride 92 L Carbon Dioxide 44 H* BUN 22 H Glucose 118 H POC Glucose (mg/dL) Ammonia 36 H Albumin 3.4 L TSH 0.081 L Urine Appearance Cloudy H Urine Protein Trace H Urine Nitrite Positive H Ur Leukocyte Esterase Large H Urine WBC >182 H Urine WBC Clumps Few H Urine Bacteria Many H Hyaline Casts 13 H 06/12/21 06/12/21 06/12/21 00:15 02:18 03:11 ABG pH 7.26 L ABG pCO2 104 H* ABG pO2 63 L ABG HCO3 47 H* ABG Total CO2 50 H ABG O2 Saturation 90.8 L Chloride Carbon Dioxide BUN Glucose POC Glucose (mg/dL) 116 H 103 H Ammonia Albumin TSH Urine Appearance Urine Protein Urine Nitrite Ur Leukocyte Esterase Urine WBC Urine WBC Clumps Urine Bacteria Hyaline Casts 06/12/21 08:47 ABG pH ABG pCO2 ABG pO2 ABG HCO3 ABG Total CO2 ABG O2 Saturation Chloride Carbon Dioxide BUN Glucose POC Glucose (mg/dL) 116 H Ammonia Albumin TSH Urine Appearance Urine Protein Urine Nitrite Ur Leukocyte Esterase Urine WBC Urine WBC Clumps Urine Bacteria Hyaline Casts - Diagnostic Findings Chest x-ray: image reviewed Assessment and Plan Assessment: Acute mental status changes and confusion, secondary to acute on chronic hypoxemic and hypercapnic respiratory failure. The patient's baseline PaCO2 is estimated to be right around 80 mmHg. Old right temporal lobe infarct. History of obstructive sleep apnea syndrome. Morbid obesity, with probable Pickwickian syndrome. Previous history of tobacco use, with probable underlying COPD. History of atrial fibrillation. Probable urinary tract infection. History of urinary incontinence. History of hypertension. History of degenerative joint disease. History depression. Plan: Plan dated 06/12/2021. Currently, the patient's on Rocephin for suspected urinary tract infection. Th is patient saturations are perfectly acceptable between 88 and 92%. The oxygen should be titrated accordingly. The patient should be placed on DuoNeb 4 times a day and when necessary. Additional recommendations and suggestions are forthcoming. All sedatives, hypnotics, narcotics, and tranquilizers, should be avoided. Prognosis is guarded. We will continue to follow make recommendations where appropriate. Time with Patient: Greater than 30
[2021-06-12 11:43] LABS: Glucose,Whole Blood 118 mg/dL (75-99)
--- NOTE | 2021-06-12 11:59 | P.CRDCN ---
History of Present Illness Consult date: 06/12/21 History of present illness: HISTORY OF PRESENT ILLNESS: This is a 81-year-old female with a past medical history significant for atrial fibrillation, COPD, obstructive sleep apnea, and hypertension. Patient does not follow with a perl developer at [facility]. We have been asked to see the patient in consultation for A. fib with RVR. Patient examined at the bedside. Patient apparently was brought to the hospital secondary to altered mental status and shortness of breath. The patient was found to be in A. fib with RVR. She was started on amiodarone which has since been discontinued. Telemetry reviewed at the bedside reveals atrial fibrillation with controlled ventricular rates. Blood pressure is stable at 117/70. She reports mild shortness of breath. She denies chest pain or pressure. She denies palpitations. * EKG reveals atrial fibrillation with controlled ventricular rate * Chest xray there is evidence for some mild heart failure. There is increased atelectasis in both lung bauer compared to old exam. * Laboratory data: WBC 8.1. Hemoglobin 13.0. Platelet count 192. Sodium 140. Potassium 4.6. BUN 22. Creatinine 0.70. Troponin negative 1. ProBNP 884. TSH 0.081. Free T4 1 0.22. * Current home cardiac medications include lisinopril 10 mg twice a day, metoprolol tartrate 25 mg twice a day, Lasix 40 mg daily, Eliquis 5 mg twice a day * Most recent echocardiogram obtained last month was a TDS and images were unable to be obtained. Unknown EF. REVIEW OF SYSTEMS: At the time of my exam: CONSTITUTIONAL: Denies fever or chills. HEENT: Denies blurred vision, vision changes, or eye pain. Denies hemoptysis CARDIOVASCULAR: Denies chest pain. Denies orthopnea. Denies PND. Denies palpitations RESPIRATORY: Denies shortness of breath. GASTROINTESTINAL: Denies abdominal pain. Denies nausea or vomiting. HEMATOLOGIC: Denies bleeding disorders. GENITOURINARY: Denies any blood in urine. SKIN: Denies pruitis. Denies rash. PHYSICAL EXAM: VITAL SIGNS: Reviewed. GENERAL: Well-developed in no acute distress. HEENT: Head is normocephalic. Pupils are equal, round. Sclerae anicteric. Mucous membranes of the mouth are moist. Neck supple. No JVD or thyromegaly LUNGS: Respirations even and unlabored. Lungs with bilateral rhonchi HEART: Irregular rate and rhythm. S1 and S2 heard. ABDOMEN: Soft. Nondistended. Nontender. EXTREMITIES: Normal range of motion. No clubbing or cyanosis. Peripheral pulses intact. No lower extremity edema NEUROLOGIC: Awake and alert. Oriented x 3. ASSESSMENT: Altered mental status Acute on chronic hypoxic and hypercapnic respiratory failure Paroxysmal atrial fibrillation with RVR Hypertension COPD Obstructive sleep apnea PLAN: Resume home cardiac medications with the exception of metoprolol Begin Cardizem 30 mg 4 times a day Continue telemetry monitoring Further recommendations pending patient course Nurse practitioner note has been reviewed by physician. Signing provider agrees with the documented findings, assessment, and plan of care. Past Medical History Past Medical History: Atrial Fibrillation, Heart Failure, COPD Additional Past Medical History / Comment(s): Chronic respiratory failure/oxygen ATC, recent issue with dysphagia, JOSIAH/no device, itching, obesity, edema, weakness-wheelchair, incontinence. History of Any Multi-Drug Resistant Organisms: None Reported Past Surgical History: Orthopedic Surgery Additional Past Surgical History / Comment(s): left knee x2 Past Anesthesia/Blood Transfusion Reactions: No Reported Reaction Smoking Status: Former smoker - Past Family History Father Family Medical History: No Reported History Mother Family Medical History: No Reported History Medications and Allergies Home Medications Medication Instructions Recorded Confirmed Type Citalopram Hydrobromide [CeleXA] 20 mg PO DAILY 05/07/21 06/12/21 History Docusate [Colace] 100 mg PO DAILY 05/07/21 06/12/21 History Loratadine 10 mg PO DAILY 05/07/21 06/12/21 History Multivitamins, Thera [Multivitamin 1 tab PO DAILY 05/07/21 06/12/21 History (formulary)] Omeprazole 20 mg PO DAILY 05/07/21 06/12/21 History Potassium Chloride ER [K-Dur 10] 10 meq PO DAILY 05/07/21 06/12/21 History guaiFENesin [guaiFENesin Oral 200 mg PO Q6H PRN 05/07/21 06/12/21 History Solution] hydrOXYzine HCL [Atarax] 25 mg PO Q6H PRN 05/07/21 06/12/21 History lisinopriL [Zestril] 10 mg PO Q12H 05/07/21 06/12/21 History Apixaban [Eliquis] 5 mg PO BID tab 05/12/21 06/12/21 Rx Furosemide [Lasix] 40 mg PO DAILY #0 05/12/21 06/12/21 Rx Metoprolol Tartrate [Lopressor] 25 mg PO BID tab 05/12/21 06/12/21 Rx Acetaminophen [Tylenol 8 Hour] 650 mg PO Q6H PRN 06/12/21 06/12/21 History Albuterol Nebulized [Ventolin 5 mg INHALATION RT-Q6H 06/12/21 06/12/21 History Nebulized] Benzonatate [Tessalon Perles] 200 mg PO Q8H PRN 06/12/21 06/12/21 History Desoximetasone [Desoximetasone 1 applic TOPICAL Q12H 06/12/21 06/12/21 History 0.25%] Allergies Allergy/AdvReac Type Severity Reaction Status Date / Time red dye Allergy Rash/Hives Verified 06/12/21 07:04 tositumomab iodine-131 Allergy Unknown Verified 06/12/21 07:04 Physical Exam Vitals: Vital Signs Temp Pulse Pulse Resp BP BP Pulse Ox 06/12/21 11:43 97.5 F L 103 H 20 117/70 97 06/12/21 09:14 130 H 20 06/12/21 09:00 98 F 69 20 132/71 95 06/12/21 07:56 89.9 F L 69 22 100/90 95 06/12/21 07:27 70 20 95/55 95 06/12/21 06:57 123 H 22 95/55 97 06/12/21 06:15 142 H 22 114/84 06/12/21 05:00 92 24 93/73 97 06/12/21 04:00 97.8 F 82 20 93/73 96 06/12/21 02:00 92 22 108/81 93 L 06/12/21 00:47 92 22 125/70 97 06/11/21 23:51 98.4 F 06/11/21 23:43 89 24 125/70 95 Intake and Output 06/11/21 06/12/21 06/12/21 22:59 06:59 14:59 Intake Total 240 Balance 240 Intake: Oral 240 Other: Voiding Method External Catheter Weight 102.058 kg 102.058 kg Results 06/12/21 00:07 06/12/21 00:07 Cardiac Enzymes 06/12/21 06/12/21 Range/Units 00:07 00:07 AST 23 (14-36) U/L Troponin I 0.016 (0.000-0.034) ng/mL Coagulation 06/12/21 Range/Units 00:07 PT 9.9 (9.0-12.0) sec APTT 22.9 (22.0-30.0) sec CBC 06/12/21 Range/Units 00:07 WBC 8.1 (3.8-10.6) k/uL RBC 4.26 (3.80-5.40) m/uL Hgb 13.0 (11.4-16.0) gm/dL Hct 41.9 (34.0-46.0) % Plt Count 192 (150-450) k/uL Comprehensive Metabolic Panel 06/12/21 Range/Units 00:07 Sodium 140 (137-145) mmol/L Potassium 4.6 (3.5-5.1) mmol/L Chloride 92 L (98-107) mmol/L Carbon Dioxide 44 H* (22-30) mmol/L BUN 22 H (7-17) mg/dL Creatinine 0.70 (0.52-1.04) mg/dL Glucose 118 H (74-99) mg/dL Calcium 8.4 (8.4-10.2) mg/dL AST 23 (14-36) U/L ALT 17 (4-34) U/L Alkaline Phosphatase 56 (38-126) U/L Total Protein 6.4 (6.3-8.2) g/dL Albumin 3.4 L (3.5-5.0) g/dL Current Medications Generic Name Dose Route Start Last Admin Trade Name Freq PRN Reason Stop Dose Admin Acetaminophen 650 mg 06/12/21 02:52 Acetaminophen Tab 325 Mg Tab PO Q6HR PRN Mild Pain or Fever > 100.5 Albuterol Sulfate 2.5 mg 06/12/21 03:01 Albuterol Nebulized 2.5 Mg/3 Ml INHALATION RT-Q4H PRN Wheezing Albuterol/Ipratropium 3 ml 06/12/21 03:01 Ipratropium-Albuterol 3 Ml Neb INHALATION RT-QID PRN Shortness Of Breath Or Wheezing Diltiazem HCl 30 mg 06/12/21 09:30 06/12/21 09:39 Diltiazem Oral 30 Mg Tab PO 30 mg QID DANIELLA Administration Ceftriaxone Sodium 1 gm/ 50 mls @ 100 mls/hr 06/13/21 02:00 Sodium Chloride IVPB Q24H [facility] Protocol Insulin Aspart 0 unit 06/12/21 07:30 06/12/21 09:08 Insulin Aspart (Novolog) 100 Unit/Ml Vial SQ Not Given ACHS [facility] Protocol Naloxone HCl 0.2 mg 06/12/21 02:52 Naloxone 0.4 Mg/Ml 1 Ml Vial IV Q2M PRN Opioid Reversal Ondansetron HCl 4 mg 06/12/21 02:52 Ondansetron 4 Mg/2 Ml Vial IVP Q8HR PRN Nausea And Vomiting Intake and Output 06/11/21 06/12/21 06/12/21 22:59 06:59 14:59 Intake Total 240 Balance 240 Intake: Oral 240 Other: Voiding Method External Catheter Weight 102.058 kg 102.058 kg Patient Weight 06/13/21 06:59 Weight 102.058 kg 06/12/21 00:07 06/12/21 00:07
[2021-06-12] MEDS: lisinopriL 10 MG TAB PO SCH ×2 (12:26→23:13)
[2021-06-12] MEDS: FUROSEMIDE 40 MG TAB PO SCH (12:26)
[2021-06-12] MEDS: APIXABAN 5 MG TAB PO SCH ×2 (12:26→20:34)
[2021-06-12] MEDS ORDERED: BENZONATATE 100 MG CAP PO PRN (12:45)
[2021-06-12] MEDS ORDERED: NON FORMULARY DRUG (Acetaminophen [Tylenol 8 Hour] 650 MG Tablet) PO PRN (12:45)
[2021-06-12] MEDS ORDERED: hydrOXYzine HCL 25 MG TAB PO PRN (12:45)
[2021-06-12] MEDS ORDERED: guaiFENesin SYRUP 100MG/5ML 200 MG/10 ML CUP PO PRN (12:45)
[2021-06-12] MEDS: IPRATROPIUM-ALBUTEROL 3 ML NEB INHALATION PRN (15:45)
[2021-06-12 16:21] LABS: Glucose,Whole Blood 119 mg/dL (75-99)
[2021-06-12] MEDS: LORATADINE 10 MG TAB PO SCH (16:58)
[2021-06-12] MEDS: CITALOPRAM HYDROBROMIDE 20 MG TAB PO SCH (16:58)
[2021-06-12] MEDS ORDERED: methylPREDNISolone SOD SUCCI 40 MG/ML 1 ML VIAL IV SCH (19:30)
[2021-06-12 20:24] LABS: Glucose,Whole Blood 100 mg/dL (75-99)
--- NOTE | 2021-06-12 20:36 | HP ---
HISTORY AND PHYSICAL This is an 81-year-old white female with morbid obesity who came in with mental status changes. She came from one of the nursing homes, very confused with obesity, pickwickian syndrome with obstructive sleep apnea, chronically on oxygen of 4 L and morbidly obese with atrial fibrillation, CHF, COPD, chronic hypoxemic respiratory failure. White count 3, hemoglobin 13, platelets 192. INR is normal. ABG reviewed. Sodium 140, potassium 4.5, BUN is 22, creatinine 0.7. Ammonia is elevated at 36. BNP is 94. Troponin normal. Urine looks like UTI. REVIEW OF SYSTEMS: Fourteen-point review of systems unobtainable, as she is obtunded and sleeping and unable to wake currently at this time. PAST MEDICAL HISTORY: Atrial fibrillation, heart failure, COPD, obstructive sleep apnea. SURGERIES: Orthopedic surgery left knee x2. FAMILY HISTORY: Please see old chart. Home medicines: See chart. They were all reviewed. Fourteen-point review of systems reviewed. Allergies reviewed. PHYSICAL EXAMINATION: Temperature is 98 to 99, pulse is 130s to 90s, respiratory rate 20 to 25, blood pressure is low 90s to 100s over 70s to 80s. O2 is 95 to 97. She is sleepy, lethargic. BMI is over 40. Grossly morbidly obese. Cardiovascular S1, S2. Lungs scattered rhonchi and wheeze. Abdomen distended with obesity. No mass. Extremities 2 to 3+ edema with some stasis changes. BUN is 22, creatinine 0.7. CO2 is 44. White count 8.1, hemoglobin 13. UA, large leukocyte esterase, greater than 182 white cells. TSH 0.08, albumin 3.4. ASSESSMENT: 1. Acute mental status changes, confusion. 2. Acute on chronic hypoxemic hypercapnic respiratory failure. 3. Old right temporal lobe infarct. 4. Obstructive sleep apnea. 5. Morbid obesity. 6. Pickwickian syndrome. 7. Previous nicotine addiction. 8. Chronic obstructive pulmonary disease. 9. Atrial fibrillation. 10.Urinary tract infection. 11.Hypertension. 12.Degenerative disc disease. 13.Depression. Treat for urinary tract infection. Treat for acute hypoxemic respiratory failure. Rule out worsening pneumonia. Prognosis guarded. Cardiology, pulmonary and infectious disease consults. MMODL / IJN: [id number] /
[2021-06-12] MEDS: methylPREDNISolone SOD SUCCI 40 MG/ML 1 ML VIAL IVP SCH (23:13)
[2021-06-13 01:53] LABS: Glucose,Whole Blood 120 mg/dL (75-99)
[2021-06-13 05:51] LABS: Glucose,Whole Blood 156 mg/dL (75-99)
[2021-06-13] MEDS: PANTOPRAZOLE 40 MG TABLET PO SCH (06:15)
[2021-06-13] MEDS: INSULIN ASPART (NovoLOG) 100 UNIT/ML VIAL SQ SCH ×4 (06:16→20:15)
[2021-06-13] MEDS: APIXABAN 5 MG TAB PO SCH ×2 (08:01→20:15)
[2021-06-13] MEDS: DILTIAZEM ORAL 30 MG TAB PO SCH ×4 (08:01→20:15)
[2021-06-13] MEDS: DOCUSATE 100 MG CAP PO SCH (08:01)
[2021-06-13] MEDS: CITALOPRAM HYDROBROMIDE 20 MG TAB PO SCH (08:01)
[2021-06-13] MEDS: FUROSEMIDE 40 MG TAB PO SCH (08:02)
[2021-06-13] MEDS: methylPREDNISolone SOD SUCCI 40 MG/ML 1 ML VIAL IVP SCH ×3 (08:02→23:31)
[2021-06-13] MEDS: LORATADINE 10 MG TAB PO SCH (08:02)
[2021-06-13 09:44] LABS: Basophils % (A) 0 %; Eosinophils % (A) 0 %; HCT 42.9 % (34.0-46.0); HGB 13.3 gm/dL (11.4-16.0); Hypochromasia Moderate; Lymphocytes # (A) 0.4 k/uL (1.0-4.8); Lymphocytes % (A) 8 %; MCH 30.2 pg (25.0-35.0); MCV 97.5 fL (80.0-100.0); Monocytes # (A) 0.1 k/uL (0-1.0); Monocytes % (A) 1 %; Neutrophils # (A) 4.8 k/uL (1.3-7.7); Neutrophils % (A) 90 %; Platelet Count 178 k/uL (150-450); RDW 13.1 % (11.5-15.5); WBC 5.3 k/uL (3.8-10.6)
[2021-06-13 10:06] LABS: ALT 17 U/L (4-34); AST 23 U/L (14-36); African American GFR (CKD) >90 (>60 ml/min/1.73 sqM); Albumin 3.5 g/dL (3.5-5.0); Alkaline Phosphatase 65 U/L (38-126); Blood Urea Nitrogen 19 mg/dL (7-17); Calcium 8.6 mg/dL (8.4-10.2); Chloride 91 mmol/L (98-107); Glucose 203 mg/dL (74-99); Magnesium 1.7 mg/dL (1.6-2.3); Non-African American GFR(CKD) >90 (>60 ml/min/1.73 sqM); Potassium 4.7 mmol/L (3.5-5.1); Sodium 137 mmol/L (137-145); Total Bilirubin 0.7 mg/dL (0.2-1.3); Total Protein 6.4 g/dL (6.3-8.2)
[2021-06-13 10:13] LABS: Anion Gap 4 mmol/L
[2021-06-13 10:17] LABS: Carbon Dioxide 42 mmol/L (22-30)
[2021-06-13 12:23] LABS: Glucose,Whole Blood 187 mg/dL (75-99)
[2021-06-13] MEDS: lisinopriL 10 MG TAB PO SCH ×2 (12:29→23:34)
--- NOTE | 2021-06-13 12:47 | P.PN ---
Subjective Progress Note Date: 06/13/21 Principal diagnosis: Hypersomnolence. Pulmonary consultation dated 06/12/2021. This is an 81-year-old female, who was evaluated in the emergency room, on June 11, for mental status changes. She apparently came into the emergency room, via EMS, from one of the local nursing homes. She apparently was very confused. The patient was recently diagnosed with atrial fibrillation, but also has been having problems with both Pickwickian syndrome, and sleep apnea syndrome. She d oes not use CPAP or BiPAP at the alf. She has been seen by my partners before. She is chronically on oxygen, on 4 L. She has a history of morbid obesity, atrial fibrillation, CHF, COPD, chronic hypoxemic respiratory failure, and difficulty in swallowing. The patient was a smoker in the past. She is not a good historian, and is unable to quantify how much she smoked and for how long. White count 8.1, hemoglobin 13, hematocrit 41.9, platelet count 192,000. PT, INR, and PTT are all normal. Blood gases, showed a pO2 of 63, pCO2 of 104, and a pH is 7.26. This is apparently on 40% FiO2. Electrolytes show a sodium 140, potassium 4.6, chlorides 92, CO2 44, BUN 22, and creatinine 0.7. Ammonia level was 36. N-terminal proBNP was at 84. Troponin was normal. Urine was suggestive of a urinary tract infection. Progress note dated 06/13/2021. 81-year-old female that was seen yesterday in consultation. She came into the emergency department on June 11 for mental status changes. She was found to be hypoxemic and very hypercapnic. The patient has a history of atrial fibril lation, as well as having both pickwickian syndrome and sleep apnea syndrome. She does not use CPAP or BiPAP at the alf. Currently, she is doing much better. She's on 4 L. She apparently didn't use of BiPAP last night, with settings of 14/6 and 40%. CBC is completely normal. Sodium 137, potassium 4.7, chlorides 91, CO2 42, BUN 19, and creatinine 0.52. Objective - Vital Signs Vital signs: Vital Signs Temp 97.6 F 06/13/21 07:56 Pulse 85 06/13/21 12:20 Resp 18 06/13/21 12:20 BP 159/79 06/13/21 12:20 Pulse Ox 95 06/13/21 12:20 Intake & Output 06/12/21 06/13/21 06/13/21 18:59 06:59 18:59 Intake Total 476 320 Output Total 800 Balance 476 -480 Weight 102.058 kg Intake: Intake, IV Titration 0 Amount cefTRIAXone 1 gm In 0 Sodium Chloride 0.9% 50 ml @ 100 mls/hr IVPB Q24H [facility] Rx#:[id number] Oral 476 320 Output: Urine 800 Other: Voiding Method External Catheter Incontinent Incontinent External Catheter External Catheter - Exam No acute distress, oriented 3. Currently on 4 L nasal O2. This is her home dose. HEENT examination is grossly unremarkable. Neck supple. Full range of motion. No adenopathy thyromegaly or neck vein distention. Cardiovascular examination reveals regular rhythm rate. S1-S2 normal. No S3 or S4. No discernible murmur noted. Heart rate 85 bpm. Heart sounds are distant. Lungs reveal occasional diffuse bilateral rhonchi. No wheezes or crackles. Breath sounds are equal bilaterally. Saturations are 95% on 4 L. Abdomen obese, soft, without masses or tenderness. Extremities are intact. No cyanosis or clubbing. Trace edema. Skin is without rash or lesion. Neurologic examination is brief but nonfocal. - Labs CBC & Chem 7: 06/13/21 08:57 06/13/21 08:57 Labs: Abnormal Lab Results - Last 24 Hours (Table) 06/12/21 06/12/21 06/13/21 Range/Units 16:20 20:23 01:52 Lymphocytes # (1.0-4.8) k/uL Chloride (98-107) mmol/L Carbon Dioxide (22-30) mmol/L BUN (7-17) mg/dL Glucose (74-99) mg/dL POC Glucose (mg/dL) 119 H 100 H 120 H (75-99) mg/dL 06/13/21 06/13/21 06/13/21 Range/Units 05:50 08:57 08:57 Lymphocytes # 0.4 L (1.0-4.8) k/uL Chloride 91 L (98-107) mmol/L Carbon Dioxide 42 H* (22-30) mmol/L BUN 19 H (7-17) mg/dL Glucose 203 H (74-99) mg/dL POC Glucose (mg/dL) 156 H (75-99) mg/dL 06/13/21 Range/Units 12:17 Lymphocytes # (1.0-4.8) k/uL Chloride (98-107) mmol/L Carbon Dioxide (22-30) mmol/L BUN (7-17) mg/dL Glucose (74-99) mg/dL POC Glucose (mg/dL) 187 H (75-99) mg/dL Microbiology - Last 24 Hours (Table) 06/12/21 00:07 Urine Culture - Preliminary Urine,Catheterized Assessment and Plan Assessment: Acute mental status changes and confusion, secondary to acute on chronic hypoxemic and hypercapnic respiratory failure. The patient's baseline PaCO2 is estimated to be right around 80 mmHg. Old right temporal lobe infarct. History of obstructive sleep apnea syndrome. Morbid obesity, with probable Pickwickian syndrome. Previous history of tobacco use, with probable underlying COPD. History of atrial fibrillation. Probable urinary tract infection. History of urinary incontinence. History of hypertension. History of degenerative joint disease. History depression. Plan: Plan dated 06/12/2021. Currently, the patient's on Rocephin for suspected urinary tract infection. This patient saturations are perfectly acceptable between 88 and 92%. The oxygen should be titrated accordingly. The patient should be placed on DuoNeb 4 times a day and when necessary. Additional recommendations and suggestions are forthcoming. All sedatives, hypnotics, narcotics, and tranquilizers, should be avoided. Prognosis is guarded. We will continue to follow make recommendations where appropriate. Plan dated 06/13/2021. The patient is currently on Rocephin for a suspected urinary tract infection. The patient is awake and alert. Saturations on this patient are perfectly acceptable between 88 to 92% and I would recommend titrating down the oxygen. The patient in my opinion could be sent back to the alf. She is back to her baseline. No additional recommendations are made. As mentioned yesterday, sedatives, hypnotics, narcotics, and tranquilizers should be avoided. Prognosis is guarded. Time with Patient: Less than 30
--- NOTE | 2021-06-13 13:07 | P.PN ---
Subjective Progress Note Date: 06/13/21 HISTORY OF PRESENT ILLNESS: This is a 81-year-old female with a past medical history significant for atrial fibrillation, COPD, obstructive sleep apnea, and hypertension. Patient does not follow with a pharmacy operations specialist at [facility]. We have been asked to see the patient in consultation for A. fib with RVR. Patient examined at the bedside. Patient apparently was brought to the hospital secondary to altered mental status and shortness of breath. The patient was found to be in A. fib with RVR. She was started on amiodarone which has since been discontinued. Telemetry reviewed at the bedside reveals atrial fibrillation with controlled ventricular rates. Blood pressure is stable at 117/70. She reports mild shortness of breath. She denies chest pain or pressure. She denies palpitations. * EKG reveals atrial fibrillation with controlled ventricular rate * Chest xray there is evidence for some mild heart failure. There is increased atelectasis in both lung bauer compared to old exam. * Laboratory data: WBC 8.1. Hemoglobin 13.0. Platelet count 192. Sodium 140. Potassium 4.6. BUN 22. Creatinine 0.70. Troponin negative 1. ProBNP 884. TSH 0.081. Free T4 1 0.22. * Current home cardiac medications include lisinopril 10 mg twice a day, metoprolol tartrate 25 mg twice a day, Lasix 40 mg daily, Eliquis 5 mg twice a day * Most recent echocardiogram obtained last month was a TDS and images were unable to be obtained. Unknown EF. 06/13/2021 Patient examined this morning at bedside. Patient denies chest pain or pressure. She denies short of breath. Telemetry reveals sinus mechanism. Vital signs are stable. PHYSICAL EXAM: VITAL SIGNS: Reviewed. GENERAL: Well-developed in no acute distress. HEENT: Head is normocephalic. Pupils are equal, round. Sclerae anicteric. Mucous membranes of the mouth are moist. Neck supple. No JVD or thyromegaly LUNGS: Respirations even and unlabored. Lungs with bilateral rhonchi HEART: Irregular rate and rhythm. S1 and S2 heard. ABDOMEN: Soft. Nondistended. Nontender. EXTREMITIES: Normal range of motion. No clubbing or cyanosis. Peripheral pulses intact. No lower extremity edema NEUROLOGIC: Awake and alert. Oriented x 3. ASSESSMENT: Altered mental status Acute on chronic hypoxic and hypercapnic respiratory failure Paroxysmal atrial fibrillation with RVR Hypertension COPD Obstructive sleep apnea PLAN: Continue current cardiac medications Patient is stable from a cardiac standpoint No further inpatient recommendations from a cardiac perspective We will sign off. Please reconsult if needed. Nurse practitioner note has been reviewed by physician. Signing provider agrees with the documented findings, assessment, and plan of care. Objective - Vital Signs Vital signs: Vital Signs Temp 97.6 F 06/13/21 07:56 Pulse 85 06/13/21 12:20 Resp 18 06/13/21 12:20 BP 159/79 06/13/21 12:20 Pulse Ox 95 06/13/21 12:20 Intake & Output 06/12/21 06/13/21 06/13/21 18:59 06:59 18:59 Intake Total 476 320 Output Total 800 Balance 476 -480 Weight 102.058 kg Intake: Intake, IV Titration 0 Amount cefTRIAXone 1 gm In 0 Sodium Chloride 0.9% 50 ml @ 100 mls/hr IVPB Q24H [facility] Rx#:[id number] Oral 476 320 Output: Urine 800 Other: Voiding Method External Catheter Incontinent Incontinent External Catheter External Catheter - Labs CBC & Chem 7: 06/13/21 08:57 06/13/21 08:57 Labs: Abnormal Lab Results - Last 24 Hours (Table) 06/12/21 06/12/21 06/13/21 Range/Units 16:20 20:23 01:52 Lymphocytes # (1.0-4.8) k/uL Chloride (98-107) mmol/L Carbon Dioxide (22-30) mmol/L BUN (7-17) mg/dL Glucose (74-99) mg/dL POC Glucose (mg/dL) 119 H 100 H 120 H (75-99) mg/dL 06/13/21 06/13/21 06/13/21 Range/Units 05:50 08:57 08:57 Lymphocytes # 0.4 L (1.0-4.8) k/uL Chloride 91 L (98-107) mmol/L Carbon Dioxide 42 H* (22-30) mmol/L BUN 19 H (7-17) mg/dL Glucose 203 H (74-99) mg/dL POC Glucose (mg/dL) 156 H (75-99) mg/dL 04/22/22 Range/Units 12:17 Lymphocytes # (1.0-4.8) k/uL Chloride (98-107) mmol/L Carbon Dioxide (22-30) mmol/L BUN (7-17) mg/dL Glucose (74-99) mg/dL POC Glucose (mg/dL) 187 H (75-99) mg/dL Microbiology - Last 24 Hours (Table) 06/12/21 00:07 Urine Culture - Preliminary Urine,Catheterized
--- NOTE | 2021-06-13 13:22 | CDI ---
Documentation Clarification Form Date: 06/13/2021 01:02:05 PM From: Chacha Rodarte RN CCDS Admit Date: 06/12/2021 02:52:00 AM Patient Name: Shalonda Chen Visit Number: [id number] Discharge Date: ATTENTION: The Clinical Documentation Specialists (CDI) and [facility] Coding Staff appreciate your assistance in clarifying documentation. Please respond to the clarification below the line at the bottom and electronically sign. The CDI & [facility] Coding staff will review the response and follow-up if needed. Please note: Queries are made part of the Legal Health Record. If you have any questions, please contact the author of this message via ITS. Dr. Apollo Gan Your patient has the documented symptom of Altered Mental Status 06/12,H&P. Additional clarification regarding the etiology/cause of this symptom is requested. History/Risk Factors: 81-year-old female presents to the ED via EMS from [facility] for confusion. Medical History: AtrialFib; Heart failure, COPD and chronic resp failure oxygen atc. Clinical Indicators: VSS: 06/11 B/P 125/70; HR 89; RR 24; SpO2 95% Non rebreather. Labs: 06/12 : Blood Gas: PH 7.26; pCO2 104; pO2 63; HCO3 47; Total CO2 50; ABG Ox Sat 90.8; Carbon dioxide 44; Ammonia 36; Albumin 3.4 UA nitrate positive, large leukocyte esterase, Wbc >182. Chest X Ray:06/12 pulmonary vascular congestion and patchy atelectasis in both lung bauer. 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 White matter hypodensity suggestive of microvascular chronic ischemia. Treatment: 06/12 Ceftriaxone IVPB x1; 06/13 Ceftriaxone 1gm IVPB Q24H; 06/13 to Solumedrol 40mg IVP Q8HR; 06/11 Non rebreather; 06/12 BiPAP; 4L nasal cannula. Please clarify the etiology of the symptom of Altered Mental Status: [ ] Metabolic Encephalopathy due to UTI and respiratory acidosis [ ] Other condition (please specify) [ ] Unable to determine (Template Last Revised: March 2020) MTDD
[2021-06-13] MEDS: IPRATROPIUM-ALBUTEROL 3 ML NEB INHALATION PRN ×2 (15:07→20:27)
[2021-06-13 16:41] LABS: Glucose,Whole Blood 174 mg/dL (75-99)
[2021-06-13] MEDS: ACETAMINOPHEN TAB 325 MG TAB PO PRN (20:08)
[2021-06-13 20:21] LABS: Glucose,Whole Blood 197 mg/dL (75-99)
[2021-06-13] MEDS: METOPROLOL TARTRATE 25 MG TAB PO SCH (21:27)
--- NOTE | 2021-06-13 23:46 | P.CONS ---
History of Present Illness - Reason for Consult Consult date: 06/13/21 [facility] Requesting physician: Apollo Gan - Chief Complaint Shortness of breath 1 day - History of Present Illness Patient is a 81-year female with a past medical he significant for atrial fibrillation heart failure COPD patient [facility] resident the patient was sent to the ER for evaluation of increasing shortness of breath and confusion apparently started the day of presentation to the hospital, patient complaining of shortness of breath patient denies having any chest pain she did have a cough but not bringing up any sputum denies any nausea vomiting or choking on the food no abdominal pain or any diarrhea with the symptom the patient was evaluated by ER physician on arrival to the ER the patient was afebrile patient did have mild hypoxemia and need for supplemental oxygen patient did have normal white count with no left shift creatinine was normal liver enzymes are normal did have a positive UA culture is currently pending patient did have a CT of the brain that was negative for any bleed chest x-ray mild heart failure increased atelectasis in both lung bauer compared to old exam patient was admitted to the hospital currently being treated with Rocephin 1 g daily infectious disease was consulted with concern for possible pneumonia Review of Systems Positive point has been mentioned in the HPI rest of the systems are negative Past Medical History Past Medical History: Atrial Fibrillation, Heart Failure, COPD Additional Past Medical History / Comment(s): Chronic respiratory failure/oxygen ATC, recent issue with dysphagia, JOSIAH/no device, itching, obesity, edema, weakness-wheelchair, incontinence. History of Any Multi-Drug Resistant Organisms: None Reported Past Surgical History: Orthopedic Surgery Additional Past Surgical History / Comment(s): left knee x2 Past Anesthesia/Blood Transfusion Reactions: No Reported Reaction Smoking Status: Former smoker - Past Family History Father Family Medical History: No Reported History Mother Family Medical History: No Reported History Medications and Allergies Home Medications Medication Instructions Recorded Confirmed Type Citalopram Hydrobromide [CeleXA] 20 mg PO DAILY 05/07/21 06/12/21 History Docusate [Colace] 100 mg PO DAILY 05/07/21 06/12/21 History Loratadine 10 mg PO DAILY 05/07/21 06/12/21 History Multivitamins, Thera [Multivitamin 1 tab PO DAILY 05/07/21 06/12/21 History (formulary)] Omeprazole 20 mg PO DAILY 05/07/21 06/12/21 History Potassium Chloride ER [K-Dur 10] 10 meq PO DAILY 05/07/21 06/12/21 History guaiFENesin [guaiFENesin Oral 200 mg PO Q6H PRN 05/07/21 06/12/21 History Solution] hydrOXYzine HCL [Atarax] 25 mg PO Q6H PRN 05/07/21 06/12/21 History lisinopriL [Zestril] 10 mg PO Q12H 05/07/21 06/12/21 History Apixaban [Eliquis] 5 mg PO BID tab 05/12/21 06/12/21 Rx Furosemide [Lasix] 40 mg PO DAILY #0 05/12/21 06/12/21 Rx Metoprolol Tartrate [Lopressor] 25 mg PO BID tab 05/12/21 06/12/21 Rx Acetaminophen [Tylenol 8 Hour] 650 mg PO Q6H PRN 06/12/21 06/12/21 History Albuterol Nebulized [Ventolin 5 mg INHALATION RT-Q6H 06/12/21 06/12/21 History Nebulized] Benzonatate [Tessalon Perles] 200 mg PO Q8H PRN 06/12/21 06/12/21 History Desoximetasone [Desoximetasone 1 applic TOPICAL Q12H 06/12/21 06/12/21 History 0.25%] Allergies Allergy/AdvReac Type Severity Reaction Status Date / Time red dye Allergy Rash/Hives Verified 06/12/21 07:04 tositumomab iodine-131 Allergy Unknown Verified 06/12/21 07:04 Physical Exam Vitals: Vital Signs Temp Pulse Pulse Resp BP BP Pulse Ox 06/13/21 12:20 85 18 159/79 95 06/13/21 08:00 84 19 06/13/21 07:56 97.6 F 84 19 143/74 90 L 06/13/21 04:00 97.8 F 68 18 123/75 96 06/13/21 02:38 98 06/13/21 00:00 98.3 F 103 H 20 137/97 97 06/12/21 20:00 51 L 16 06/12/21 19:59 97.4 F L 50 L 16 110/80 96 06/12/21 16:00 80 22 06/12/21 15:55 97.1 F L 61 16 143/85 96 06/12/21 15:46 84 Intake and Output 06/12/21 06/13/21 06/13/21 22:59 06:59 14:59 Intake Total 0 320 Output Total 800 Balance 0 -480 Intake: Intake, IV Titration 0 Amount cefTRIAXone 1 gm In 0 Sodium Chloride 0.9% 50 ml @ 100 mls/hr IVPB Q24H [facility] Rx#:[id number] Oral 320 Output: Urine 800 Other: Voiding Method Incontinent Incontinent External Catheter External Catheter GENERAL DESCRIPTION: Elderly female lying in bed, no distress. No tachypnea or accessory muscle of respiration use. HEENT: Shows Pallor , no scleral icterus. Oral mucous membrane is dry. No pharyngeal erythema or thrush NECK: Trachea central, no thyromegaly. LUNGS: Unlabored breathing. Decreased breath sounds at the base. No wheeze or crackle. HEART: S1, S2, regular rate and rhythm. No loud murmur ABDOMEN: Soft, no tenderness , guarding or rigidity, no organomegaly EXTREMITIES: No edema of feet. SKIN: No rash, no masses palpable. NEUROLOGICAL: The patient is awake, alert, oriented x3, mood and affect normal. Results CBC & Chem 7: 06/13/21 08:57 06/13/21 08:57 Labs: Abnormal Lab Results - Last 24 Hours (Table) 06/12/21 06/12/21 06/13/21 Range/Units 16:20 20:23 01:52 Lymphocytes # (1.0-4.8) k/uL Chloride (98-107) mmol/L Carbon Dioxide (22-30) mmol/L BUN (7-17) mg/dL Glucose (74-99) mg/dL POC Glucose (mg/dL) 119 H 100 H 120 H (75-99) mg/dL 06/13/21 06/13/21 06/13/21 Range/Units 05:50 08:57 08:57 Lymphocytes # 0.4 L (1.0-4.8) k/uL Chloride 91 L (98-107) mmol/L Carbon Dioxide 42 H* (22-30) mmol/L BUN 19 H (7-17) mg/dL Glucose 203 H (74-99) mg/dL POC Glucose (mg/dL) 156 H (75-99) mg/dL 06/13/21 Range/Units 12:17 Lymphocytes # (1.0-4.8) k/uL Chloride (98-107) mmol/L Carbon Dioxide (22-30) mmol/L BUN (7-17) mg/dL Glucose (74-99) mg/dL POC Glucose (mg/dL) 187 H (75-99) mg/dL Microbiology - Last 24 Hours (Table) 06/12/21 00:07 Urine Culture - Preliminary Urine,Catheterized Assessment and Plan (1) Urinary tract infection Current Visit: Yes Status: Acute Code(s): N39.0 - URINARY TRACT INFECTION, SITE NOT SPECIFIED SNOMED Code(s): 51736969 Plan: 1patient presented to hospital with confusion and this patient did have a increasing shortness of breath chest x-ray is mostly suggestive of possible CHF pattern however the consolidation patient did have a significantly positive UA underlying component of gram-negative enteric urinary tract infection could be drug source of her confusion. 2we will obtain a CRP and procalcitonin level and sputum if possible. 3Rocephin 1 g daily to continue while waiting for the culture to finalize. We will follow on clinical condition and cultures to further adjust medication if needed Thank you for this consultation will follow this patient along with you Time with Patient: Greater than 30
[2021-06-14 06:20] LABS: Glucose,Whole Blood 155 mg/dL (75-99)
[2021-06-14] MEDS: PANTOPRAZOLE 40 MG TABLET PO SCH (06:25)
[2021-06-14] MEDS: INSULIN ASPART (NovoLOG) 100 UNIT/ML VIAL SQ SCH ×4 (06:25→20:08)
[2021-06-14] MEDS: DILTIAZEM ORAL 30 MG TAB PO SCH (08:18)
[2021-06-14] MEDS: DOCUSATE 100 MG CAP PO SCH (08:18)
[2021-06-14] MEDS: methylPREDNISolone SOD SUCCI 40 MG/ML 1 ML VIAL IVP SCH ×3 (08:18→23:45)
[2021-06-14] MEDS: CITALOPRAM HYDROBROMIDE 20 MG TAB PO SCH (08:18)
[2021-06-14] MEDS: APIXABAN 5 MG TAB PO SCH ×2 (08:18→20:08)
[2021-06-14] MEDS: LORATADINE 10 MG TAB PO SCH (08:19)
[2021-06-14] MEDS: FUROSEMIDE 40 MG TAB PO SCH (08:19)
[2021-06-14] MEDS: METOPROLOL TARTRATE 25 MG TAB PO SCH ×2 (08:19→20:08)
[2021-06-14] MEDS: IPRATROPIUM-ALBUTEROL 3 ML NEB INHALATION PRN ×4 (08:39→20:50)
[2021-06-14 11:34] LABS: Glucose,Whole Blood 132 mg/dL (75-99)
[2021-06-14] MEDS: DILTIAZEM CD 120 MG CAP.ER.24H PO SCH (12:24)
[2021-06-14] MEDS: lisinopriL 10 MG TAB PO SCH ×2 (12:24→23:46)
--- NOTE | 2021-06-14 13:36 | P.PN ---
Subjective Progress Note Date: 06/14/21 This is Christopher culp NP, I'm dictating on behalf of Dr. Rockwell's H&P and A&P. Patient was interviewed and examined. Patient is a pleasant 81-year-old female who initially was referred to our service secondary to atrial fibrillation with rapid ventricular response. Patient reports that she's feeling fine today. Patient's telemetry demonstrates sinus rhythm with a heart rate in the 70s. Patient was started on Cardizem 30 mg 4 times a day. She is tolerating this well. GENERAL: Well-appearing, well-nourished and in no acute distress. NECK: Supple without JVD or thyromegaly. LUNGS: Breath sounds clear to auscultation bilaterally. Respiration equal and unlabored. No wheezes, rales or rhonchi. HEART: Regular rate and rhythm without murmurs, rubs or gallops. S1 and S2 heard. EXTREMITIES: Normal range of motion, no edema. No clubbing or cyanosis. Peripheral pulses intact and strong. VITALS: Temp 97.9, pulse 68, respirations 18, blood pressure 121/74, O2 saturation 92% on 4 L via nasal cannula TELEMETRY: Normal sinus rhythm LABS: White count 5.3, hemoglobin 13.3, platelets 178, sodium 137, potassium 4.7, B1 19, creatinine 0.52, calcium 8.6, magnesium 1.7, TSH 0.081, free T4 1.22 IMPRESSION/PLAN: 1. Atrial fibrillation with rapid ventricular response-change Cardizem to 120 mg extended release oral daily. 2. Altered mental status 3. Acute on chronic hypoxic and hypercapnic respiratory failure-continue to follow those recommendations 4. Hypertension-continue medications as prescribed 5. COPD-See #3 6. Obstructive sleep apnea-See #3 We will sign off on the patient at this time. Please do not hesitate to reconsult us if necessary. Objective - Vital Signs Vital signs: Vital Signs Temp 97.9 F 06/14/21 12:22 Pulse 115 H 06/14/21 12:22 Resp 18 06/14/21 12:22 BP 121/74 06/14/21 12:22 Pulse Ox 92 L 06/14/21 12:22 Intake & Output 06/13/21 06/14/21 06/14/21 18:59 06:59 18:59 Intake Total 240 10 118 Output Total 1500 1650 925 Balance -5768 -1640 -807 Intake: IV 10 Invasive Line 1 10 Oral 240 118 Output: Urine 1500 1650 925 Other: Voiding Method Incontinent Incontinent Incontinent External Catheter External Catheter External Catheter - Labs CBC & Chem 7: 06/13/21 08:57 06/13/21 08:57 Labs: Abnormal Lab Results - Last 24 Hours (Table) 06/13/21 06/13/21 06/14/21 Range/Units 16:39 20:14 06:19 POC Glucose (mg/dL) 174 H 197 H 155 H (75-99) mg/dL 06/14/21 Range/Units 11:32 POC Glucose (mg/dL) 132 H (75-99) mg/dL Microbiology - Last 24 Hours (Table) 06/12/21 00:07 Urine Culture - Final Urine,Catheterized Escherichia coli
--- NOTE | 2021-06-14 14:52 | P.PN ---
Subjective Progress Note Date: 06/14/21 Principal diagnosis: Hypersomnolence. Pulmonary consultation dated 06/12/2021. This is an 81-year-old female, who was evaluated in the emergency room, on June 11, for mental status changes. She apparently came into the emergency room, via EMS, from one of the local nursing homes. She apparently was very confused. The patient was recently diagnosed with atrial fibrillation, but also has been having problems with both Pickwickian syndrome, and sleep apnea syndrome. She d oes not use CPAP or BiPAP at the half-way. She has been seen by my partners before. She is chronically on oxygen, on 4 L. She has a history of morbid obesity, atrial fibrillation, CHF, COPD, chronic hypoxemic respiratory failure, and difficulty in swallowing. The patient was a smoker in the past. She is not a good historian, and is unable to quantify how much she smoked and for how long. White count 8.1, hemoglobin 13, hematocrit 41.9, platelet count 192,000. PT, INR, and PTT are all normal. Blood gases, showed a pO2 of 63, pCO2 of 104, and a pH is 7.26. This is apparently on 40% FiO2. Electrolytes show a sodium 140, potassium 4.6, chlorides 92, CO2 44, BUN 22, and creatinine 0.7. Ammonia level was 36. N-terminal proBNP was at 84. Troponin was normal. Urine was suggestive of a urinary tract infection. Progress note dated 06/13/2021. 81-year-old female that was seen yesterday in consultation. She came into the emergency department on June 11 for mental status changes. She was found to be hypoxemic and very hypercapnic. The patient has a history of atrial fibril lation, as well as having both pickwickian syndrome and sleep apnea syndrome. She does not use CPAP or BiPAP at the half-way. Currently, she is doing much better. She's on 4 L. She apparently didn't use of BiPAP last night, with settings of 14/6 and 40%. CBC is completely normal. Sodium 137, potassium 4.7, chlorides 91, CO2 42, BUN 19, and creatinine 0.52. Progress note dated 06/14/2021. 81-year-old female again seen in room 370. She remains on 4 L nasal cannula. She is using the BiPAP intermittently, with settings of IPAP 14, EPAP 6, and 40% FiO2. She's also getting saline at 20 mL an hour. The patient's much more awake and alert. Labs are reviewed. The only thing noted today was a blood sugar of 132. Urine culture is showing evidence of Escherichia coli. No new chest x-ray today to report. All in all, the patient's doing much better. Objective - Vital Signs Vital signs: Vital Signs Temp 97.9 F 06/14/21 12:22 Pulse 115 H 06/14/21 12:22 Resp 18 06/14/21 12:22 BP 121/74 06/14/21 12:22 Pulse Ox 92 L 06/14/21 12:22 Intake & Output 06/13/21 06/14/21 06/14/21 18:59 06:59 18:59 Intake Total 240 10 478 Output Total 1500 1650 925 Balance -1260 -1640 -447 Intake: IV 10 Invasive Line 1 10 Oral 240 478 Output: Urine 1500 1650 925 Other: Voiding Method Incontinent Incontinent Incontinent External Catheter External Catheter External Catheter - Exam No acute distress, oriented 3. Currently on 4 L nasal O2. This is her home dose. HEENT examination is grossly unremarkable. Neck supple. Full range of motion. No adenopathy thyromegaly or neck vein distention. Cardiovascular examination reveals regular rhythm rate. S1-S2 normal. No S3 or S4. No discernible murmur noted. Heart rate 97 bpm. Heart sounds are distant. Lungs reveal occasional diffuse bilateral rhonchi. No wheezes or crackles. Breath sounds are equal bilaterally. Saturations are 92% on 4 L. Abdomen obese, soft, without masses or tenderness. Extremities are intact. No cyanosis or clubbing. Trace edema. Skin is without rash or lesion. Neurologic examination is brief but nonfocal. - Labs CBC & Chem 7: 06/13/21 08:57 06/13/21 08:57 Labs: Abnormal Lab Results - Last 24 Hours (Table) 06/13/21 06/13/21 06/14/21 Range/Units 16:39 20:14 06:19 POC Glucose (mg/dL) 174 H 197 H 155 H (75-99) mg/dL 06/14/21 Range/Units 11:32 POC Glucose (mg/dL) 132 H (75-99) mg/dL Microbiology - Last 24 Hours (Table) 06/12/21 00:07 Urine Culture - Final Urine,Catheterized Escherichia coli Assessment and Plan Assessment: Acute mental status changes and confusion, secondary to acute on chronic hypoxemic and hypercapnic respiratory failure. The patient's baseline PaCO2 is estimated to be right around 80 mmHg. Old right temporal lobe infarct. History of obstructive sleep apnea syndrome. Morbid obesity, with probable Pickwickian syndrome. Previous history of tobacco use, with probable underlying COPD. History of atrial fibrillation. Probable urinary tract infection. History of urinary incontinence. History of hypertension. History of degenerative joint disease. History depression. Plan: Plan dated 06/12/2021. Currently, the patient's on Rocephin for suspected urinary tract infection. This patient saturations are perfectly acceptable between 88 and 92%. The oxygen should be titrated accordingly. The patient should be placed on DuoNeb 4 times a day and when necessary. Additional recommendations and suggestions are forthcoming. All sedatives, hypnotics, narcotics, and tranquilizers, should be avoided. Prognosis is guarded. We will continue to follow make recommendations where appropriate. Plan dated 06/13/2021. The patient is currently on Rocephin for a suspected urinary tract infection. The patient is awake and alert. Saturations on this patient are perfectly acceptable between 88 to 92% and I would recommend titrating down the oxygen. The patient in my opinion could be sent back to the half-way. She is back to her baseline. No additional recommendations are made. As mentioned yesterday, sedatives, hypnotics, narcotics, and tranquilizers should be avoided. Prognosis is guarded. Plan dated 06/14/2021. The patient is on Rocephin for E. coli urinary tract infection. Clinically, she's doing much better. The patient states she is much more awake and alert. Her breathing appears to be stable as well. Labs, x-rays, and medications are all reviewed. As mentioned previously, this patient should not getting any sedatives, hypnotics, narcotics, or tranquilizers, as this will worsen her res piratory status, and cause worsening hypoxemia and hypercapnia. We will continue to follow the patient and make recommendations where appropriate. The patient's overall prognosis is guarded. Time with Patient: Less than 30
[2021-06-14 16:28] LABS: Glucose,Whole Blood 159 mg/dL (75-99)
[2021-06-14] MEDS: ACETAMINOPHEN TAB 325 MG TAB PO PRN (17:33)
[2021-06-14 19:42] LABS: Glucose,Whole Blood 164 mg/dL (75-99)
--- NOTE | 2021-06-14 21:20 | P.PN ---
Subjective Progress Note Date: 06/14/21 Principal diagnosis: E. coli urinary tract infection Patient is a 81-year-old female [facility] resident has been brought to the hospital for evaluation of increasing shortness of breath, and this patient chest x-ray with mild heart failure, patient afebrile did have a positive UA concerning for symptomatic urinary tract infection. On today's evaluation that is 06/14/2021, the patient denies having any fever or chills patient is breathing more comfortably, denies having any chest pain occasional cough no abdominal pain or diarrhea Objective - Vital Signs Vital signs: Vital Signs Temp 97.9 F 06/14/21 12:22 Pulse 115 H 06/14/21 12:22 Resp 18 06/14/21 12:22 BP 121/74 06/14/21 12:22 Pulse Ox 92 L 06/14/21 12:22 Intake & Output 06/13/21 06/14/21 06/14/21 18:59 06:59 18:59 Intake Total 240 10 478 Output Total 1500 1650 925 Balance -1260 -1640 -447 Intake: IV 10 Invasive Line 1 10 Oral 240 478 Output: Urine 1500 1650 925 Other: Voiding Method Incontinent Incontinent Incontinent External Catheter External Catheter External Catheter - Exam GENERAL DESCRIPTION: An elderly female lying in bed in no distress RESPIRATORY SYSTEM: Unlabored breathing , decreased breath sounds at bases HEART: S1 S2 regular rate and rhythm , ABDOMEN: Soft , no tenderness EXTREMITIES: No edema feet - Labs CBC & Chem 7: 06/13/21 08:57 06/13/21 08:57 Labs: Abnormal Lab Results - Last 24 Hours (Table) 06/13/21 06/13/21 06/14/21 Range/Units 16:39 20:14 06:19 POC Glucose (mg/dL) 174 H 197 H 155 H (75-99) mg/dL 06/14/21 Range/Units 11:32 POC Glucose (mg/dL) 132 H (75-99) mg/dL Microbiology - Last 24 Hours (Table) 06/12/21 00:07 Urine Culture - Final Urine,Catheterized Escherichia coli Assessment and Plan (1) Urinary tract infection Current Visit: Yes Status: Acute Code(s): N39.0 - URINARY TRACT INFECTION, SITE NOT SPECIFIED SNOMED Code(s): 49863334 Plan: 1patient presented to hospital with confusion and this patient did have a increasing shortness of breath chest x-ray is mostly suggestive of possible CHF pattern however the consolidation patient did have a significantly positive UA underlying component of gram-negative enteric urinary tract infection could be drug source of her confusion. 2patient has been finalized with E. coli which is a sensitive pathogen 3patient to continue with Rocephin 1 g daily and monitor clinical course closely Time with Patient: Less than 30
[2021-06-15 02:54] LABS: Glucose,Whole Blood 142 mg/dL (75-99)
[2021-06-15 06:30] LABS: Glucose,Whole Blood 126 mg/dL (75-99)
[2021-06-15] MEDS: INSULIN ASPART (NovoLOG) 100 UNIT/ML VIAL SQ SCH ×4 (06:41→21:10)
[2021-06-15] MEDS: IPRATROPIUM-ALBUTEROL 3 ML NEB INHALATION PRN ×4 (08:41→19:11)
[2021-06-15 08:58] LABS: HCT 40.7 % (34.0-46.0); HGB 12.9 gm/dL (11.4-16.0); Hypochromasia Slight; MCH 30.7 pg (25.0-35.0); MCHC 31.8 g/dL (31.0-37.0); MCV 96.7 fL (80.0-100.0); Mean Platelet Volume 7.1; Platelet Count 211 k/uL (150-450); Potassium 4.4 mmol/L (3.5-5.1); RBC 4.21 m/uL (3.80-5.40); RDW 13.3 % (11.5-15.5); WBC 10.1 k/uL (3.8-10.6)
[2021-06-15 09:01] LABS: African American GFR (CKD) >90 (>60 ml/min/1.73 sqM); Blood Urea Nitrogen 29 mg/dL (7-17); Calcium 8.7 mg/dL (8.4-10.2); Chloride 90 mmol/L (98-107); Glucose 161 mg/dL (74-99); Non-African American GFR(CKD) 80 (>60 ml/min/1.73 sqM); Sodium 136 mmol/L (137-145)
[2021-06-15 09:07] LABS: Anion Gap 1 mmol/L
[2021-06-15 09:11] LABS: Carbon Dioxide 45 mmol/L (22-30)
[2021-06-15] MEDS: methylPREDNISolone SOD SUCCI 40 MG/ML 1 ML VIAL IVP SCH ×3 (09:45→23:48)
[2021-06-15] MEDS: DILTIAZEM CD 120 MG CAP.ER.24H PO SCH (09:46)
[2021-06-15] MEDS: FUROSEMIDE 40 MG TAB PO SCH (09:46)
[2021-06-15] MEDS: APIXABAN 5 MG TAB PO SCH ×2 (09:46→21:10)
[2021-06-15] MEDS: METOPROLOL TARTRATE 25 MG TAB PO SCH ×2 (09:46→21:10)
[2021-06-15] MEDS: LORATADINE 10 MG TAB PO SCH (09:46)
[2021-06-15] MEDS: DOCUSATE 100 MG CAP PO SCH (09:46)
[2021-06-15] MEDS: CITALOPRAM HYDROBROMIDE 20 MG TAB PO SCH (09:46)
[2021-06-15 12:10] LABS: Glucose,Whole Blood 103 mg/dL (75-99)
[2021-06-15] MEDS: lisinopriL 10 MG TAB PO SCH ×2 (12:12→23:48)
[2021-06-15] MEDS: PANTOPRAZOLE 40 MG TABLET PO SCH (12:12)
--- NOTE | 2021-06-15 15:04 | P.PN ---
Subjective Progress Note Date: 06/15/21 Principal diagnosis: Hypersomnolence. Pulmonary consultation dated 06/12/2021. This is an 81-year-old female, who was evaluated in the emergency room, on June 11, for mental status changes. She apparently came into the emergency room, via EMS, from one of the local nursing homes. She apparently was very confused. The patient was recently diagnosed with atrial fibrillation, but also has been having problems with both Pickwickian syndrome, and sleep apnea syndrome. She d oes not [facility] or [facility]. She has been seen by my partners before. She is chronically on oxygen, on 4 L. She has a history of morbid obesity, atrial fibrillation, CHF, COPD, chronic hypoxemic respiratory failure, and difficulty in swallowing. The patient was a smoker in the past. She is not a good historian, and is unable to quantify how much she smoked and for how long. White count 8.1, hemoglobin 13, hematocrit 41.9, platelet count 192,000. PT, INR, and PTT are all normal. Blood gases, showed a pO2 of 63, pCO2 of 104, and a pH is 7.26. This is apparently on 40% FiO2. Electrolytes show a sodium 140, potassium 4.6, chlorides 92, CO2 44, BUN 22, and creatinine 0.7. Ammonia level was 36. N-terminal proBNP was at 84. Troponin was normal. Urine was suggestive of a urinary tract infection. Progress note dated 06/13/2021. 81-year-old female that was seen yesterday in consultation. She came into the emergency department on June 11 for mental status changes. She was found to be hypoxemic and very hypercapnic. The patient has a history of atrial fibril lation, as well as having both pickwickian syndrome and sleep apnea syndrome. She does not use CPAP or BiPAP at the prison. Currently, she is doing much better. She's on 4 L. She apparently didn't use of BiPAP last night, with settings of 14/6 and 40%. CBC is completely normal. Sodium 137, potassium 4.7, chlorides 91, CO2 42, BUN 19, and creatinine 0.52. Progress note dated 06/14/2021. 81-year-old female again seen in room 370. She remains on 4 L nasal cannula. She is using the BiPAP intermittently, with settings of IPAP 14, EPAP 6, and 40% FiO2. She's also getting saline at 20 mL an hour. The patient's much more awake and alert. Labs are reviewed. The only thing noted today was a blood sugar of 132. Urine culture is showing evidence of Escherichia coli. No new chest x-ray today to report. All in all, the patient's doing much better. Progress note dated 06/15/2021. 81-year-old female seen again in room 370. The patient remains on 4 L nasal cannula. She's getting saline at 10 mL an hour. The patient is using BiPAP at nighttime, with settings of 14/6 and 40%. The patient is hoping to be discharged back to a [facility] in the near future. She states that she is feeling much better. Current laboratory data includes a white count of 10.1, hemoglobin 12.9, hematocrit 40.7, and a platelet count of 211,000. Sodium 136, potassium 4.4, chlorides 90, CO2 45, BUN 29, and creatinine 0.72. Urine culture was positive for Escherichia coli. Objective - Vital Signs Vital signs: Vital Signs Temp 98.3 F 06/15/21 12:10 Pulse 66 06/15/21 12:10 Resp 18 06/15/21 12:10 BP 132/79 06/15/21 12:10 Pulse Ox 96 06/15/21 12:10 Intake & Output 06/14/21 06/15/21 06/15/21 18:59 06:59 18:59 Intake Total 596 1260 Output Total 1725 1400 Balance -1129 -140 Intake: Oral 596 1260 Output: Urine 1725 1400 Other: Voiding Method Incontinent Incontinent Incontinent External Catheter External Catheter External Catheter - Exam No acute distress, oriented 3. Currently on 4 L nasal O2. This is her home dose. HEENT examination is grossly unremarkable. Neck supple. Full range of motion. No adenopathy thyromegaly or neck vein distention. Cardiovascular examination reveals regular rhythm rate. S1-S2 normal. No S3 or S4. No discernible murmur noted. Heart rate 66 bpm. Heart sounds are distant. Lungs reveal occasional diffuse bilateral rhonchi. No wheezes or crackles. Breath sounds are equal bilaterally. Saturations are 96 % on 4 L. Abdomen obese, soft, without masses or tenderness. Extremities are intact. No cyanosis or clubbing. Trace edema. Skin is without rash or lesion. Neurologic examination is brief but nonfocal. - Labs CBC & Chem 7: 06/15/21 08:35 06/15/21 08:35 Labs: Abnormal Lab Results - Last 24 Hours (Table) 06/14/21 06/14/21 06/15/21 Range/Units 16:27 19:41 02:53 Sodium (137-145) mmol/L Chloride (98-107) mmol/L Carbon Dioxide (22-30) mmol/L BUN (7-17) mg/dL Glucose (74-99) mg/dL POC Glucose (mg/dL) 159 H 164 H 142 H (75-99) mg/dL 06/15/21 06/15/21 06/15/21 Range/Units 06:26 08:35 11:58 Sodium 136 L (137-145) mmol/L Chloride 90 L (98-107) mmol/L Carbon Dioxide 45 H* (22-30) mmol/L BUN 29 H (7-17) mg/dL Glucose 161 H (74-99) mg/dL POC Glucose (mg/dL) 126 H 103 H (75-99) mg/dL Assessment and Plan Assessment: Acute mental status changes and confusion, secondary to acute on chronic h ypoxemic and hypercapnic respiratory failure. The patient's baseline PaCO2 is estimated to be right around 80 mmHg. Old right temporal lobe infarct. History of obstructive sleep apnea syndrome. Morbid obesity, with probable Pickwickian syndrome. Previous history of tobacco use, with probable underlying COPD. History of atrial fibrillation. Acute Escherichia coli urinary tract infection, currently on Rocephin. History of urinary incontinence. History of hypertension. History of degenerative joint disease. History depression. Plan: Plan dated 06/12/2021. Currently, the patient's on Rocephin for suspected urinary tract infection. This patient saturations are perfectly acceptable between 88 and 92%. The oxygen should be titrated accordingly. The patient should be placed on DuoNeb 4 times a day and when necessary. Additional recommendations and suggestions are forthcoming. All sedatives, hypnotics, narcotics, and tranquilizers, should be avoided. Prognosis is guarded. We will continue to follow make recommendations where appropriate. Plan dated 06/13/2021. The patient is currently on Rocephin for a suspected urinary tract infection. The patient is awake and alert. Saturations on this patient are perfectly acceptable between 88 to 92% and I would recommend titrating down the oxygen. The patient in my opinion could be sent back to the prison. She is back to her baseline. No additional recommendations are made. As mentioned yesterday, sedatives, hypnotics, narcotics, and tranquilizers should be avoided. Prognosis is guarded. Plan dated 06/14/2021. The patient is on Rocephin for E. coli urinary tract infection. Clinically, she's doing much better. The patient states she is much more awake and alert. Her breathing appears to be stable as well. Labs, x-rays, and medications are all reviewed. As mentioned previously, this patient should not getting any sedatives, hypnotics, narcotics, or tranquilizers, as this will worsen her respiratory status, and cause worsening hypoxemia and hypercapnia. We will continue to follow the patient and make recommendations where appropriate. The patient's overall prognosis is guarded. Plan dated 06/15/2021. The patient was placed on Rocephin for Escherichia coli urinary tract infection. She's currently using 4 L nasal cannula. In addition, she is using BiPAP at nighttime. The patient is hoping to be discharged back to the prison in the near future. She states that she's feeling much better. She denies any difficulty breathing, coughing, wheezing, or phlegm production. She also denies any chest pain or chest discomfort. As mentioned previously, one should be careful not to prescribe any sedatives, hypnotics, narcotics, or tranquilizers as it is likely to worsen her respiratory status. Time with Patient: Less than 30
[2021-06-15 16:59] LABS: Glucose,Whole Blood 169 mg/dL (75-99)
[2021-06-15] MEDS: ACETAMINOPHEN TAB 325 MG TAB PO PRN (17:45)
[2021-06-15 20:02] LABS: Glucose,Whole Blood 136 mg/dL (75-99)
--- NOTE | 2021-06-15 21:39 | P.PN ---
Subjective Progress Note Date: 06/15/21 Principal diagnosis: E. coli urinary tract infection Patient is a 81-[facility]-old female [facility] resident has been brought to the hospital for evaluation of increasing shortness of breath, and this patient chest x-ray with mild heart failure, patient afebrile did have a positive UA concerning for symptomatic urinary tract infection. On today's evaluation that is 06/15/2021, the pat her continues to be febrile, the patient is breathing comfortably on nasal cannula oxygen, the patient denies having any chest pain occasional cough no abdominal pain or diarrhea Objective - Vital Signs Vital signs: Vital Signs Temp 99 F 06/15/21 09:45 Pulse 65 06/15/21 11:26 Resp 20 06/15/21 09:45 BP 129/67 06/15/21 09:45 Pulse Ox 94 L 06/15/21 09:45 Intake & Output 06/14/21 06/15/21 06/15/21 18:59 06:59 18:59 Intake Total 596 900 Output Total 1725 1400 Balance -1129 -500 Intake: Oral 596 900 Output: Urine 1725 1400 Other: Voiding Method Incontinent Incontinent Incontinent External Catheter External Catheter External Catheter - Exam GENERAL DESCRIPTION: An elderly female lying in bed in no distress RESPIRATORY SYSTEM: Unlabored breathing , decreased breath sounds at bases HEART: S1 S2 regular rate and rhythm , ABDOMEN: Soft , no tenderness EXTREMITIES: No edema feet - Labs CBC & Chem 7: 06/15/21 08:35 06/15/21 08:35 Labs: Abnormal Lab Results - Last 24 Hours (Table) 06/14/21 06/14/21 06/15/21 Range/Units 16:27 19:41 02:53 Sodium (137-145) mmol/L Chloride (98-107) mmol/L Carbon Dioxide (22-30) mmol/L BUN (7-17) mg/dL Glucose (74-99) mg/dL POC Glucose (mg/dL) 159 H 164 H 142 H (75-99) mg/dL 06/15/21 06/15/21 Range/Units 06:26 08:35 Sodium 136 L (137-145) mmol/L Chloride 90 L (98-107) mmol/L Carbon Dioxide 45 H* (22-30) mmol/L BUN 29 H (7-17) mg/dL Glucose 161 H (74-99) mg/dL POC Glucose (mg/dL) 126 H (75-99) mg/dL Microbiology - Last 24 Hours (Table) 06/12/21 00:07 Urine Culture - Final Urine,Catheterized Escherichia coli Assessment and Plan (1) Urinary tract infection Current Visit: Yes Status: Acute Code(s): N39.0 - URINARY TRACT INFECTION, SITE NOT SPECIFIED SNOMED Code(s): 24080053 Plan: 1patient presented to hospital with confusion and this patient did have a increasing shortness of breath chest x-ray is mostly suggestive of possible CHF pattern however the consolidation patient did have a significantly positive UA underlying component of gram-negative enteric urinary tract infection could be drug source of her confusion. 2patient urine culture has been finalized with E. coli which is a sensitive pathogen 3patient is currently being treated with Rocephin 1 g daily and will finish therapy with oral Ceftin Time with Patient: Less than 30
--- NOTE | 2021-06-15 22:38 | P.PN ---
Subjective Progress Note Date: 06/14/[address] Gan Patient was admitted to the hospital due to altered mental status and hypoventilation. 06/14/2021 Patient is currently resting in bed. Awake alert oriented x3. No complaints of chest pain or shortness of breath. Patient is on BiPAP last night. Mentation is at baseline. No fever no chills. No cough or sputum production. Urine culture showed E. coli. Patient is being continued on antibiotics ceftriaxone. Also on methylprednisolone 40 mg every 8 hourly. Pulmonary is on board. Laboratory data reviewed. Objective - Vital Signs Vital signs: Vital Signs Temp 97.8 F 06/14/21 08:15 Pulse 68 06/14/21 08:48 Resp 20 06/14/21 08:15 BP 138/73 06/14/21 08:15 Pulse Ox 94 L 06/14/21 08:15 Intake & Output 06/13/21 06/14/21 06/14/21 18:59 06:59 18:59 Intake Total 240 10 118 Output Total 1500 1650 925 Balance -1260 -1640 -807 Intake: IV 10 Invasive Line 1 10 Oral 240 118 Output: Urine 1500 1650 925 Other: Voiding Method Incontinent Incontinent External Catheter External Catheter - Exam PHYSICAL EXAMINATION: Patient is lying in the bed comfortably, no acute distress, awake alert and oriented.. Morbidly obese. HEENT: Normocephalic. Neck is supple. Pupils reactive. Nostrils clear. Oral cavity is moist. Neck reveals no JVD, carotid bruits, or thyromegaly. CHEST EXAMINATION: Trachea is central. Symmetrical expansion. Bibasilar diminished sounds otherwise lung bauer clear to auscultation and percussion. CARDIAC: Normal S1, S2 with no gallops. No murmurs ABDOMEN: Soft. Bowel sounds normal. No organomegaly. No abdominal bruits. Extremities: reveal no edema. No clubbing or cyanosis Neurologically awake, alert, oriented x3 with well-coordinated movements. No focal deficits noted Skin: No rash or skin lesions. Psychiatric: Cooperative. Nonsuicidal Musculoskeletal: No joint swelling or deformity. Normal range of motion. - Labs CBC & Chem 7: 06/15/21 08:35 06/15/21 08:35 Labs: Abnormal Lab Results - Last 24 Hours (Table) 06/13/21 06/13/2106/13/22 Range/Units 12:17 16:39 20:14 POC Glucose (mg/dL) 187 H 174 H 197 H (75-99) mg/dL 06/14/21 Range/Units 06:19 POC Glucose (mg/dL) 155 H (75-99) mg/dL Microbiology - Last 24 Hours (Table) 06/12/21 00:07 Urine Culture - Preliminary Urine,Catheterized Gram Neg Bacilli Assessment and Plan Assessment: Altered mental status secondary to acute on chronic hypoxemic and hypercapnic respiratory failure. Obstructive sleep apnea Previous history of right temporal lobe infarct. Morbid obesity obesity hypoventilation. Previous history of smoking Chronic atrial fibrillation E. coli urinary tract infection Hypertension Recently undiseased Depression DVT prophylaxis patient is already on Eliquis. Plan: Patient will be continued on BiPAP as needed. Continue with anticoagulation with Eliquis. Avoid sedating and narcotic pain medications. Continue with home medications and follow closely. Cardiology and pulmonary is on board. Time with Patient: Greater than 30
--- NOTE | 2021-06-15 22:41 | P.PN ---
Subjective Progress Note Date: 06/15/[address] Gan Patient was admitted to the hospital due to altered mental status and hypoventil ation. 06/14/2021 Patient is currently resting in bed. Awake alert oriented x3. No complaints of chest pain or shortness of breath. Patient is on BiPAP last night. Mentation is at baseline. No fever no chills. No cough or sputum production. Urine culture showed E. coli. Patient is being continued on antibiotics ceftriaxone. Also on methylprednisolone 40 mg every 8 hourly. Pulmonary is on board. Laboratory data reviewed. 06/15/2021 Patient is currently resting in the bed. Awake alert and oriented. Did not use BiPAP last night. Currently on oxygen at 4 L via nasal cannula. Patient feels better. Continued on IV Solu-Medrol and antibiotics in the form of ceftriaxone for E. coli urinary tract infection. Patient remains on anticoagulation with Eliquis per chronic atrial fibrillation. Anticipate discharge back to long-term in the next 24 hours. Current medications reviewed. Objective - Vital Signs Vital signs: Vital Signs Temp 98.3 F 06/15/21 12:10 Pulse 72 06/15/21 15:46 Resp 18 06/15/21 12:10 BP 132/79 06/15/21 12:10 Pulse Ox 96 06/15/21 12:10 Intake & Output 06/14/21 06/15/21 06/15/21 18:59 06:59 18:59 Intake Total 596 1260 Output Total 1725 1400 Balance -1129 -140 Intake: Oral 596 1260 Output: Urine 1725 1400 Other: Voiding Method Incontinent Incontinent Incontinent External Catheter External Catheter External Catheter - Exam PHYSICAL EXAMINATION: Patient is lying in the bed comfortably, no acute distress, awake alert and oriented.. Morbidly obese. HEENT: Normocephalic. Neck is supple. Pupils reactive. Nostrils clear. Oral cavity is moist. Neck reveals no JVD, carotid bruits, or thyromegaly. CHEST EXAMINATION: Trachea is central. Symmetrical expansion. Bibasilar diminished sounds otherwise lung bauer clear to auscultation and percussion. CARDIAC: Normal S1, S2 with no gallops. No murmurs ABDOMEN: Soft. Bowel sounds normal. No organomegaly. No abdominal bruits. Extremities: reveal no edema. No clubbing or cyanosis Neurologically awake, alert, oriented x3 with well-coordinated movements. No focal deficits noted Skin: No rash or skin lesions. Psychiatric: Cooperative. Nonsuicidal Musculoskeletal: No joint swelling or deformity. Normal range of motion. - Labs CBC & Chem 7: 06/15/21 08:35 06/15/21 08:35 Labs: Abnormal Lab Results - Last 24 Hours (Table) 06/14/21 06/14/21 06/15/21 Range/Units 16:27 19:41 02:53 Sodium (137-145) mmol/L Chloride (98-107) mmol/L Carbon Dioxide (22-30) mmol/L BUN (7-17) mg/dL Glucose (74-99) mg/dL POC Glucose (mg/dL) 159 H 164 H 142 H (75-99) mg/dL 06/15/21 06/15/21 06/15/21 Range/Units 06:26 08:35 11:58 Sodium 136 L (137-145) mmol/L Chloride 90 L (98-107) mmol/L Carbon Dioxide 45 H* (22-30) mmol/L BUN 29 H (7-17) mg/dL Glucose 161 H (74-99) mg/dL POC Glucose (mg/dL) 126 H 103 H (75-99) mg/dL Assessment and Plan Assessment: Altered mental status secondary to acute on chronic hypoxemic and hypercapnic respiratory failure. Obstructive sleep apnea Previous history of right temporal lobe infarct. Morbid obesity obesity hypoventilation. Previous history of smoking Chronic atrial fibrillation E. coli urinary tract infection Hypertension Recently undiseased Depression DVT prophylaxis patient is already on Eliquis. Plan: Patient will be continued on BiPAP as needed. Patient is being current on IV st eroids and antibiotics. Will transition to prednisone tomorrow. Continue with anticoagulation with Eliquis. Avoid sedating and narcotic pain medications. Continue with home medications and follow closely. Cardiology and pulmonary is on board.
[2021-06-15 23:56] LABS: Glucose,Whole Blood 198 mg/dL (75-99)
[2021-06-16] MEDS: ACETAMINOPHEN TAB 325 MG TAB PO PRN ×2 (01:40→18:15)
[2021-06-16] MEDS ORDERED: LORATADINE 10 MG TAB ONE (08:00)
[2021-06-16] MEDS ORDERED: PANTOPRAZOLE 40 MG TABLET PO ONE (08:00)
[2021-06-16] MEDS ORDERED: DILTIAZEM CD 120 MG CAP.ER.24H PO ONE (08:00)
[2021-06-16] MEDS ORDERED: methylPREDNISolone SOD SUCCI 40 MG/ML 1 ML VIAL ONE (08:00)
[2021-06-16] MEDS ORDERED: CITALOPRAM HYDROBROMIDE 20 MG TAB ONE (08:00)
[2021-06-16] MEDS ORDERED: BENZONATATE 100 MG CAP PO ONE (08:00)
[2021-06-16] MEDS ORDERED: FUROSEMIDE 40 MG TAB ONE (08:00)
[2021-06-16] MEDS ORDERED: APIXABAN 5 MG TAB ONE (08:00)
[2021-06-16] MEDS ORDERED: DOCUSATE 100 MG CAP ONE (08:00)
[2021-06-16] MEDS ORDERED: METOPROLOL TARTRATE 25 MG TAB ONE (08:00)
[2021-06-16 10:43] LABS: African American GFR (CKD) >90 (>60 ml/min/1.73 sqM); Blood Urea Nitrogen 41 mg/dL (7-17); Calcium 8.8 mg/dL (8.4-10.2); Chloride 90 mmol/L (98-107); Glucose 94 mg/dL (74-99); Non-African American GFR(CKD) 83 (>60 ml/min/1.73 sqM); Potassium 4.9 mmol/L (3.5-5.1); Sodium 137 mmol/L (137-145)
[2021-06-16 10:48] LABS: Glucose,Whole Blood 118 mg/dL (75-99)
[2021-06-16 10:50] LABS: Anion Gap 5 mmol/L
[2021-06-16 11:02] LABS: Carbon Dioxide 42 mmol/L (22-30)
--- NOTE | 2021-06-16 11:37 | PN ---
PROGRESS NOTE FOLLOW-UP NOTE: This is an 81-year-old lady who is admitted to hospital with acute mental status changes and urinary tract infection. We were consulted because of atrial fibrillation. She converted back to sinus rhythm and is currently in sinus rhythm. The patient is on Eliquis, metoprolol 25 b.i.d., Cardizem 120 daily, lisinopril and Lasix. On exam, she is comfortable at rest. Blood pressure is elevated at 163/82, respiratory rate is 18. Chest exam reveals diminished air entry at the bases. Heart exam reveals first and second heart sounds. No gallop. No murmur. Abdomen is soft. Examination of extremities did not reveal any edema. Peripheral pulses are felt. Labs are not available to us this morning. ASSESSMENT: 1. Paroxysmal atrial fibrillation. 2. Urinary tract infection. 3. Uncontrolled hypertension. PLAN: We will adjust her medications to more optimally control her blood pressure. We are evaluating the patient and doing this dictation at a time when the [employer] is down and we had incomplete access to information. MMODL / IJN: [id number] /
[2021-06-16 11:51] LABS: Glucose,Whole Blood 115 mg/dL (75-99)
[2021-06-16] MEDS: INSULIN ASPART (NovoLOG) 100 UNIT/ML VIAL SQ SCH ×4 (13:28→20:28)
[2021-06-16] MEDS: methylPREDNISolone SOD SUCCI 40 MG/ML 1 ML VIAL IVP SCH (14:23)
[2021-06-16] MEDS: CITALOPRAM HYDROBROMIDE 20 MG TAB PO SCH (14:23)
[2021-06-16] MEDS: APIXABAN 5 MG TAB PO SCH ×2 (14:23→20:35)
[2021-06-16] MEDS: DILTIAZEM CD 120 MG CAP.ER.24H PO SCH (14:23)
[2021-06-16] MEDS: PANTOPRAZOLE 40 MG TABLET PO SCH (14:23)
[2021-06-16] MEDS: DOCUSATE 100 MG CAP PO SCH (14:23)
[2021-06-16] MEDS: METOPROLOL TARTRATE 25 MG TAB PO SCH ×2 (14:24→20:35)
[2021-06-16] MEDS: LORATADINE 10 MG TAB PO SCH (14:24)
[2021-06-16] MEDS: lisinopriL 10 MG TAB PO SCH ×2 (14:24→23:34)
[2021-06-16] MEDS: FUROSEMIDE 40 MG TAB PO SCH (14:24)
--- NOTE | 2021-06-16 14:25 | P.PN ---
Subjective Progress Note Date: 06/16/21 81-year-old female patient is being seen in follow-up. The patient is morbidly obese and the patient has a BMI of 38.6. The patient is a [facility] resident and she is quite debilitated and she is wheelchair bound. She has obstructive sleep apnea. She presented to us with mental status change and acute on top of chronic hypercapnic respiratory failure. She arrived to us from [facility]. She also had an underlying UTI. She is currently doing well. Note that during the course of her treatment, the patient received treatment for an underlying UTI. The patient was also given bronchodilators and she was diuresed. The urine culture came back positive for E. coli and the patient was treated with IV Rocephin. For now, the patient is doing well up and she is, indicating. She is on DuoNeb nebulized treatments around the clock. She is also on IV Solu Medrol 40 mg every 8 hours. She is on Lasix 40 mg on a daily basis. Her long-term and to coagulation was Eliquis 5 mg by mouth twice a day. The most recent blood work from today shows a sodium level of 137, serum bicarb of 42 with a BUN of 41 and a creatinine of 0.68. Objective - Vital Signs Vital signs: Vital Signs Temp 98.5 F 06/16/21 03:23 Pulse 80 06/16/21 08:35 Resp 18 06/16/21 03:23 BP 134/88 06/16/21 03:23 Pulse Ox 96 06/16/21 08:25 Intake & Output 06/15/21 06/16/21 06/16/21 18:59 06:59 18:59 Intake Total 1740 30 Output Total 2500 1200 Balance -760 -1170 Intake: IV 30 Invasive Line 3 10 Invasive Line 4 20 Oral 1740 Output: Urine 2500 1200 Other: Voiding Method Incontinent Incontinent External Catheter External Catheter - Exam No acute distress, oriented 3. Currently on 4 L nasal O2. The patient is alert and awake and she is not a baseline oxygen to 4 L per minute nasal cannula Head exam was generally normal. There was no scleral icterus or corneal arcus. Mucous membranes were moist. Neck supple. Full range of motion. No adenopathy thyromegaly or neck vein distention. Cardiovascular examination reveals regular rhythm rate. S1-S2 normal. No S3 or S4. No discernible murmur noted. Lungs reveal occasional diffuse bilateral rhonchi. No wheezes or crackles. Breath sounds are equal bilaterally. Saturations are 96 % on 4 L. Abdomen obese, soft, without masses or tenderness. Extremities are intact. No cyanosis or clubbing. Trace edema. Skin is without rash or lesion. Neurologic examination is brief but nonfocal. Alert and awake and she is, indicating at this point in time. - Labs CBC & Chem 7: 06/15/21 08:35 06/16/21 07:32 Labs: Abnormal Lab Results - Last 24 Hours (Table) 06/15/21 06/15/21 06/15/21 Range/Units 16:44 20:00 23:54 Chloride (98-107) mmol/L Carbon Dioxide (22-30) mmol/L BUN (7-17) mg/dL POC Glucose (mg/dL) 169 H 136 H 198 H (75-99) mg/dL 06/16/21 06/16/21 06/16/21 Range/Units 06:17 07:32 11:50 Chloride 90 L (98-107) mmol/L Carbon Dioxide 42 H* (22-30) mmol/L BUN 41 H (7-17) mg/dL POC Glucose (mg/dL) 118 H 115 H (75-99) mg/dL Assessment and Plan Plan: Acute mental status changes and confusion, secondary to acute on chronic hypoxemic and hypercapnic respiratory failure. This was further exacerbated by an underlying E. coli related UTI. The patient was treated with IV antibiotics. The patient was given BiPAP for Vera support and the patient is currently on 4 L O2 nasal cannula. Mentally she is doing well. A neurologic function is improved and the patient is looking forward to go back to her correction. Old right temporal lobe infarct. History of obstructive sleep apnea syndrome. Morbid obesity, with probable Pickwickian syndrome. The patient claims that she has been on BiPAP machine at the correction. Previous history of tobacco use, with probable underlying COPD. History of atrial fibrillation. Acute Escherichia coli urinary tract infection, currently on Rocephin. History of urinary incontinence. History of hypertension. History of degenerative joint disease. History depression. long term resident Plan Complete a course of IV Rocephin. The patient is completing her fourth day of treatment today, and she may need 5-7 days course of treatment BiPAP overnight O2 at 4 L per minute nasal cannula Discontinue the IV Solu Medrol and put the patient on prednisone burst taper Continue DuoNeb neb last treatment [id number] Continue anticoagulation with Eliquis Discharge planning is in progress
[2021-06-16 16:26] LABS: Glucose,Whole Blood 119 mg/dL (75-99)
[2021-06-16 20:08] LABS: Glucose,Whole Blood 116 mg/dL (75-99)
--- NOTE | 2021-06-16 21:21 | P.PN ---
Subjective Progress Note Date: 06/16/21 Principal diagnosis: E. coli urinary tract infection Patient is a 81-year-old female prison resident has been brought to the hospital for evaluation of increasing shortness of breath, and this patient chest x-ray with mild heart failure, patient afebrile did have a positive UA concerning for symptomatic urinary tract infection. On today's evaluation that is 06/16/2021, the patient remains to be febrile, the patient is breathing comfortably on nasal cannula oxygen, the patient denies having any chest pain occasional cough no abdominal pain or diarrhea, overall feeling better Objective - Vital Signs Vital signs: Vital Signs Temp 98.5 F 06/16/21 03:23 Pulse 80 06/16/21 08:35 Resp 18 06/16/21 03:23 BP 134/88 06/16/21 03:23 Pulse Ox 96 06/16/21 08:25 Intake & Output 06/15/21 06/16/21 06/16/21 18:59 06:59 18:59 Intake Total 1740 30 Output Total 2500 1200 Balance -760 -1170 Intake: IV 30 Invasive Line 3 10 Invasive Line 4 20 Oral 1740 Output: Urine 2500 1200 Other: Voiding Method Incontinent Incontinent External Catheter External Catheter - Exam GENERAL DESCRIPTION: An elderly female lying in bed in no distress RESPIRATORY SYSTEM: Unlabored breathing , decreased breath sounds at bases HEART: S1 S2 regular rate and rhythm , ABDOMEN: Soft , no tenderness EXTREMITIES: No edema feet - Labs CBC & Chem 7: 06/15/21 08:35 06/16/21 07:32 Labs: Abnormal Lab Results - Last 24 Hours (Table) 06/15/21 06/15/21 06/15/21 Range/Units 11:58 16:44 20:00 Chloride (98-107) mmol/L Carbon Dioxide (22-30) mmol/L BUN (7-17) mg/dL POC Glucose (mg/dL) 103 H 169 H 136 H (75-99) mg/dL 06/15/21 06/16/21 06/16/21 Range/Units 23:54 06:17 07:32 Chloride 90 L (98-107) mmol/L Carbon Dioxide 42 H* (22-30) mmol/L BUN 41 H (7-17) mg/dL POC Glucose (mg/dL) 198 H 118 H (75-99) mg/dL 06/16/21 Range/Units 11:50 Chloride (98-107) mmol/L Carbon Dioxide (22-30) mmol/L BUN (7-17) mg/dL POC Glucose (mg/dL) 115 H (75-99) mg/dL Assessment and Plan (1) Urinary tract infection Current Visit: Yes Status: Acute Code(s): N39.0 - URINARY TRACT INFECTION, SITE NOT SPECIFIED SNOMED Code(s): 37508951 Plan: 1patient presented to hospital with confusion and this patient did have a increasing shortness of breath chest x-ray is mostly suggestive of possible CHF pattern however the consolidation patient did have a significantly positive UA underlying component of gram-negative enteric urinary tract infection could be drug source of her confusion. 2patient urine culture has been finalized with E. coli which is a sensitive pathogen 3patient to continue with Rocephin 1 g daily and will finish therapy with oral Ceftin 7 days Time with Patient: Less than 30
[2021-06-17 02:03] LABS: Glucose,Whole Blood 94 mg/dL (75-99)
[2021-06-17 06:28] LABS: Glucose,Whole Blood 96 mg/dL (75-99)
[2021-06-17] MEDS: INSULIN ASPART (NovoLOG) 100 UNIT/ML VIAL SQ SCH ×4 (06:50→20:57)
[2021-06-17] MEDS: ALBUTEROL NEBULIZED 2.5 MG/3 ML INHALATION PRN ×3 (08:00→15:25)
[2021-06-17] MEDS: DOCUSATE 100 MG CAP PO SCH (09:34)
[2021-06-17] MEDS: DILTIAZEM CD 120 MG CAP.ER.24H PO SCH (09:34)
[2021-06-17] MEDS: FUROSEMIDE 40 MG TAB PO SCH (09:34)
[2021-06-17] MEDS: LORATADINE 10 MG TAB PO SCH (09:34)
[2021-06-17] MEDS: METOPROLOL TARTRATE 25 MG TAB PO SCH ×2 (09:34→21:04)
[2021-06-17] MEDS: CITALOPRAM HYDROBROMIDE 20 MG TAB PO SCH (09:34)
[2021-06-17] MEDS: predniSONE 20 MG TAB PO SCH (09:34)
[2021-06-17] MEDS: APIXABAN 5 MG TAB PO SCH ×2 (09:34→21:04)
[2021-06-17] MEDS: PANTOPRAZOLE 40 MG TABLET PO SCH (09:35)
--- NOTE | 2021-06-17 10:04 | PN ---
PROGRESS NOTE This is an 81-year-old white female with COPD exacerbation, aspiration pneumonia, congestive heart failure, hypoventilation syndrome and sleep apnea who is on broad- spectrum IV antibiotics, IV steroids. The patient is improving daily. Breathing is mostly better. Lungs have scattered rhonchi and wheeze. Cardiovascular S1, S2. Abdomen is soft, nontender. Extremities with 2+ edema. ASSESSMENT: 1. Hypoventilation. 2. Altered mental status. 3. Sleep apnea. 4. Community-acquired pneumonia. 5. Aspiration pneumonia. Prognosis guarded. Continue with steroids, IV antibiotics. Possible discharge home tomorrow. MMODL / IJN: [id number] /
[2021-06-17 11:35] LABS: Glucose,Whole Blood 138 mg/dL (75-99)
--- NOTE | 2021-06-17 14:12 | P.PN ---
Subjective Progress Note Date: 06/17/21 81-year-old female patient is being seen in follow-up. The patient is morbidly obese and the patient has a BMI of 38.6. The patient is a shelter resident and she is quite debilitated and she is wheelchair bound. She has obstructive sleep apnea. She presented to us with mental status change and acute on top of chronic hypercapnic respiratory failure. She arrived to us from [facility]. She also had an underlying UTI. She is currently doing well. Note that during the course of her treatment, the patient received treatment for an underlying UTI. The patient was also given bronchodilators and she was diuresed. The urine culture came back positive for E. coli and the patient was treated with IV Rocephin. For now, the patient is doing well up and she is, indicating. She is on DuoNeb nebulized treatments around the clock. She is also on IV Solu Medrol 40 mg every 8 hours. She is on Lasix 40 mg on a daily basis. Her long-term and to coagulation was Eliquis 5 mg by mouth twice a day. The most recent blood work from today shows a sodium level of 137, serum bicarb of 42 with a BUN of 41 and a creatinine of 0.68. The patient is seen today 06/17/2021 in follow-up on the selective care unit. She is currently on 3 L nasal cannula O2 saturations at 95%. She is alternating with BiPAP 14/6 and 40% FiO2. Urine culture was positive for E. coli. She is continued on ceftriaxone. Blood glucose 138. She is currently in a -1.9 L. Continued on DuoNeb inhalations, Tessalon Perles, prednisone taper. Remains on Eliquis for anticoagulation. Objective - Vital Signs Vital signs: Vital Signs Temp 97.7 F 06/17/21 11:35 Pulse 76 06/17/21 11:55 Resp 18 06/17/21 11:35 BP 107/69 06/17/21 11:35 Pulse Ox 95 06/17/21 11:35 Intake & Output 06/16/21 06/17/21 06/17/21 18:59 06:59 18:59 Intake Total 7356 106 3027 Output Total 950 700 Balance 1010 -710 440 Intake: Oral 7076 933 6446 Output: Urine 950 700 Other: Voiding Method Incontinent Incontinent Incontinent External Catheter External Catheter External Catheter # Voids 1 # Bowel Movements 1 - Exam Pleasant 81-year-old female patient. No acute distress, oriented 3. Currently on 3 L nasal O2. Head exam was generally normal. There was no scleral icterus or corneal arcus. Mucous membranes were moist. Neck supple. Full range of motion. No adenopathy thyromegaly or neck vein distention. Cardiovascular examination reveals regular rhythm rate. S1-S2 normal. No S3 or S4. No discernible murmur noted. Lungs reveal occasional diffuse bilateral rhonchi. No wheezes or crackles. Breath sounds are equal bilaterally. Abdomen obese, soft, without masses or tenderness. Extremities are intact. No cyanosis or clubbing. Trace edema. Skin is without rash or lesion. Neurologic examination is brief but nonfocal. Alert and awake and she is, indicating at this point in time. - Labs CBC & Chem 7: 06/15/21 08:35 06/16/21 07:32 Labs: Abnormal Lab Results - Last 24 Hours (Table) 06/16/21 06/16/21 06/17/21 Range/Units 16:25 20:07 11:33 POC Glucose (mg/dL) 119 H 116 H 138 H (75-99) mg/dL Assessment and Plan Assessment: Acute mental status changes and confusion, secondary to acute on chronic hypoxemic and hypercapnic respiratory failure. This was further exacerbated by an underlying E. coli related UTI. The patient was treated with IV antibiotics. The patient was given BiPAP for support and the patient is currently on 3 L O2 nasal cannula. Mentally she is doing well. A neurologic function is improved and the patient is looking forward to go back to her shelter. Old right temporal lobe infarct. History of obstructive sleep apnea syndrome. Morbid obesity, with probable Pickwickian syndrome. The patient claims that she has been on BiPAP machine at the shelter. Previous history of tobacco use, with probable underlying COPD. History of atrial fibrillation. Acute Escherichia coli urinary tract infection, currently on Rocephin. History of urinary incontinence. History of hypertension. History of degenerative joint disease. History depression. intermediate resident Plan: The patient was seen and evaluated Currently stable from the pulmonary standpoint Alternating BiPAP with 3 L nasal cannula Plan is for discharge from medical [place] tomorrow I have personally seen and examined the patient, performed the documentation and the assessment and plan as written. Number of minutes spent on the visit: 10. I have personally seen and examined the patient and reviewed the documentation. I performed a joint evaluation with the nurse practitioner in this evaluation was done more than 12 minutes. I fully agree with the documentation above and the plan of care. No signs of any altered mentation. The patient is currently stable for now as the patient is being treated for an underlying UTI. She remains on O2 at 3 L per minute nasal cannula. Multilobar extremity is without any limitation. No fever. Hemodynamically stable. Plan is to send this patient to shelter with the next 24-48 hours.
[2021-06-17] MEDS: lisinopriL 10 MG TAB PO SCH ×2 (15:48→23:38)
[2021-06-17 16:24] LABS: Glucose,Whole Blood 148 mg/dL (75-99)
[2021-06-17 20:16] LABS: Glucose,Whole Blood 100 mg/dL (75-99)
[2021-06-18 03:01] LABS: Glucose,Whole Blood 93 mg/dL (75-99)
[2021-06-18 06:20] LABS: Glucose,Whole Blood 125 mg/dL (75-99)
[2021-06-18] MEDS: INSULIN ASPART (NovoLOG) 100 UNIT/ML VIAL SQ SCH ×4 (06:56→20:58)
[2021-06-18] MEDS: PANTOPRAZOLE 40 MG TABLET PO SCH (06:57)
--- NOTE | 2021-06-18 08:54 | PN ---
PROGRESS NOTE This 81-year-old white female was admitted with hypoventilation, altered mental status, aspiration pneumonia, COPD, CHF, CPAP compliance for sleep apnea. Continue broad- spectrum antibiotics and steroids. She wears 3 L oxygen during the day, CPAP at night. She will have to [facility] with this in the [facility]; is going to leave tomorrow. Switch to oral antibiotics and oral steroids and oral Lasix tomorrow and discharge home. Cardiovascular S1-S2. Lungs with scattered rhonchi and wheeze. Psych fair mood and affect. Endocrine: BMI is over 40. ASSESSMENT: 1. Sleep apnea. 2. Hypoventilation syndrome. 3. Chronic obstructive pulmonary disease. 4. Altered mental status. 5. Community-acquired pneumonia. Prognosis guarded. Discharge home tomorrow for [facility]. MMODL / IJN: [id number] /
[2021-06-18] MEDS: FUROSEMIDE 40 MG TAB PO SCH (09:11)
[2021-06-18] MEDS: DILTIAZEM CD 120 MG CAP.ER.24H PO SCH (09:11)
[2021-06-18] MEDS: DOCUSATE 100 MG CAP PO SCH (09:11)
[2021-06-18] MEDS: METOPROLOL TARTRATE 25 MG TAB PO SCH ×2 (09:12→20:58)
[2021-06-18] MEDS: predniSONE 20 MG TAB PO SCH (09:12)
[2021-06-18] MEDS: CITALOPRAM HYDROBROMIDE 20 MG TAB PO SCH (09:12)
[2021-06-18] MEDS: APIXABAN 5 MG TAB PO SCH ×2 (09:12→20:58)
[2021-06-18] MEDS: LORATADINE 10 MG TAB PO SCH (09:12)
[2021-06-18 11:45] VITALS: BMI 38.6
[2021-06-18 11:47] LABS: Glucose,Whole Blood 86 mg/dL (75-99)
[2021-06-18] MEDS: lisinopriL 10 MG TAB PO SCH ×2 (12:48→23:58)
[2021-06-18] MEDS: ACETAMINOPHEN TAB 325 MG TAB PO PRN (16:06)
[2021-06-18 16:57] LABS: Glucose,Whole Blood 132 mg/dL (75-99)
--- NOTE | 2021-06-18 17:36 | DS ---
DISCHARGE SUMMARY DISCHARGE DIAGNOSIS: 1. Acute mental status changes and confusion secondary to chronic hypoxemia due to hypercapnic respiratory failure, made worse by Escherichia coli urinary tract infection and possibly some aspiration pneumonia. She was weaned down on oxygen during her hospital stay to 3 L nasal cannula that she takes during the day. She has to stay on her BiPAP at night and wear oxygen under her BiPAP. 2. She has an old right temporal lobe infarct. 3. Sleep apnea syndrome. 4. Morbid obesity. 5. Nicotine addiction. 6. Chronic obstructive pulmonary disease. 7. Atrial fibrillation. 8. Acute Escherichia coli urinary tract infection. 9. Urinary incontinence. 10.Hypertension. 11.Degenerative joint disease. 12.Depression. She will have to continue, as mentioned above, on 3 L oxygen during the day and wear that at night with her BiPAP under her BiPAP mask. Blood pressure was readjusted with medications for hypertension, tachycardia. She will go home on: 1. Diltiazem CD 120 mg daily. 2. DuoNeb updraft q.i.d. 3. Deltasone 40 mg daily. 4. Accu-Chek protocol before meals and at bedtime. 5. Potassium chloride 10 mEq daily. 6. Zestril 10 mg q.12 hours. 7. Atarax 25 mg p.o. q.6 hours p.r.n. for itching. 8. Celexa 20 mg daily. 9. Eliquis 5 mg p.o. b.i.d. for atrial fibrillation. 10.Lopressor 25 mg p.o. b.i.d. 11.Dexamethasone 0.25 topically q.12 hours. 12.Omeprazole 20 mg daily. 13.Multivitamin daily. 14.Loratadine 10 mg daily. 15.Guaifenesin 200 mg every 6 hours p.r.n. for cough. 16.Colace 100 mg daily. 17.Lasix 40 mg daily. 18.Tessalon Perles 200 mg q.8 p.r.n. 19.Tylenol 650 q.6 p.r.n. for pain. CONDITION: Stable. PROGNOSIS: Guarded. Ambulate as tolerated. The patient was stabilized with IV antibiotics for UTI and possible pneumonia. We adjusted blood pressure and oxygen requirements and rehydration of the patient. Patient improved from a medical standpoint over the 2 to 3 days she was here. She will go home in stable condition. She woke up after rehydrating. Make sure she drinks enough water at the [facility] and elevates her bed to 30 degrees at all times. MMSUE / [place]: [id number] /
--- NOTE | 2021-06-18 17:41 | P.PN ---
Subjective Progress Note Date: 06/17/21 Principal diagnosis: E. coli urinary tract infection Patient is a 81-year-old female [facility] resident has been brought to the hospital for evaluation of increasing shortness of breath, and this patient chest x-ray with mild heart failure, patient afebrile did have a positive UA concerning for symptomatic urinary tract infection. On today's evaluation that is 06/17/2021, the patient is febrile, the patient is breathing comfortably on nasal cannula oxygen, the patient denies having chest pain, the patient did have occasional cough no abdominal pain or diarrhea, overall feeling better and wants to go home Objective - Vital Signs Vital signs: Vital Signs Temp 97.3 F L 06/17/21 08:00 Pulse 75 06/17/21 11:45 Resp 18 06/17/21 08:00 BP 136/77 06/17/21 08:00 Pulse Ox 99 06/17/21 08:00 Intake & Output 06/16/21 06/17/21 06/17/21 18:59 06:59 18:59 Intake Total 1010 240 240 Output Total 950 Balance 1010 -710 240 Intake: Oral 1010 240 240 Output: Urine 950 Other: Voiding Method Incontinent Incontinent Incontinent External Catheter External Catheter External Catheter # Voids 1 - Exam GENERAL DESCRIPTION: An elderly female lying in bed in no distress RESPIRATORY SYSTEM: Unlabored breathing , decreased breath sounds at bases HEART: S1 S2 regular rate and rhythm , ABDOMEN: Soft , no tenderness EXTREMITIES: No edema feet - Labs CBC & Chem 7: 06/15/21 08:35 06/16/21 07:32 Labs: Abnormal Lab Results - Last 24 Hours (Table) 06/16/21 06/16/21 06/16/21 Range/Units 11:50 16:25 20:07 POC Glucose (mg/dL) 115 H 119 H 116 H (75-99) mg/dL 06/17/21 Range/Units 11:33 POC Glucose (mg/dL) 138 H (75-99) mg/dL Assessment and Plan (1) Urinary tract infection Current Visit: Yes Status: Acute Code(s): N39.0 - URINARY TRACT INFECTION, SITE NOT SPECIFIED SNOMED Code(s): 46129948 Plan: 1patient presented to hospital with confusion and this patient did have a increasing shortness of breath chest x-ray is mostly suggestive of possible CHF pattern however the consolidation patient did have a significantly positive UA underlying component of gram-negative enteric urinary tract infection could be drug source of her confusion. 2patient urine culture has been finalized with E. coli which is a sensitive pathogen 3patient to continue with Rocephin 1 g daily while inpatient and monitor clinical course closely Time with Patient: Less than 30
--- NOTE | 2021-06-18 17:42 | DS ---
DISCHARGE SUMMARY ADDENDUM TO DISCHARGE SUMMARY: We are going to give her Cipro 500 b.i.d. for 7 days to finish out for UTI. For oxygen, she needs 3 L of oxygen during the day nasal cannula. At nighttime she has a CPAP unit already at the agency where she lives. She to wear 3 L of oxygen under her CPAP mask with the CPAP mask at night, and she will be fine. So CPAP plus oxygen at night and adjust oxygen during the day. MMSUE / [place]: [id number] /
--- NOTE | 2021-06-18 17:42 | P.PN ---
Subjective Progress Note Date: 06/18/21 Principal diagnosis: E. coli urinary tract infection Patient is a 81-year-old female residential resident has been brought to the hospital for evaluation of increasing shortness of breath, and this patient chest x-ray with mild heart failure, patient afebrile did have a positive UA concerning for symptomatic urinary tract infection. On today's evaluation that is 06/18/2021, the patient denies any fever or any chills, the patient is breathing comfortably on room air, the patient denies having chest pain, the patient did have occasional cough no abdominal pain or diarrhea, no new symptoms Objective - Vital Signs Vital signs: Vital Signs Temp 98.4 F 06/18/21 12:00 Pulse 106 H 06/18/21 12:00 Resp 20 06/18/21 12:00 BP 133/87 06/18/21 12:00 Pulse Ox 91 L 06/18/21 12:00 Intake & Output 06/17/21 06/18/21 06/18/21 18:59 06:59 18:59 Intake Total 1498 240 Output Total 1900 1150 Balance -402 -1150 240 Weight 102.058 kg Intake: Oral 1498 240 Output: Urine 1900 1150 Other: Voiding Method Incontinent Incontinent External Catheter External Catheter External Catheter # Voids 1 # Bowel Movements 1 - Exam GENERAL DESCRIPTION: An elderly female lying in bed in no distress RESPIRATORY SYSTEM: Unlabored breathing , decreased breath sounds at bases HEART: S1 S2 regular rate and rhythm , ABDOMEN: Soft , no tenderness EXTREMITIES: No edema feet - Labs CBC & Chem 7: 06/15/21 08:35 06/16/21 07:32 Labs: Abnormal Lab Results - Last 24 Hours (Table) 06/17/21 06/17/21 06/18/21 Range/Units 16:23 20:15 06:10 POC Glucose (mg/dL) 148 H 100 H 125 H (75-99) mg/dL Assessment and Plan (1) Urinary tract infection Current Visit: Yes Status: Acute Code(s): N39.0 - URINARY TRACT INFECTION, SITE NOT SPECIFIED SNOMED Code(s): 76217741 Plan: 1patient presented to hospital with confusion and this patient did have a increasing shortness of breath chest x-ray is mostly suggestive of possible CHF pattern however the consolidation patient did have a significantly positive UA underlying component of gram-negative enteric urinary tract infection could be drug source of her confusion. 2patient urine culture has been finalized with E. coli which is a sensitive pathogen 3patient antibiotic has been switched over to Cefdinar to continue for about a week to finish course of therapy Time with Patient: Less than 30
[2021-06-18 20:22] LABS: Glucose,Whole Blood 144 mg/dL (75-99)
[2021-06-18] MEDS: CIPROFLOXACIN HCL 500 MG TAB PO SCH (20:57)
[2021-06-18] MEDS: CEFDINIR 300 MG CAP PO SCH (20:57)
[2021-06-19 03:14] LABS: Glucose,Whole Blood 87 mg/dL (75-99)
[2021-06-19 04:01] VITALS: RESP 18; TEMP 98
[2021-06-19 06:06] LABS: Glucose,Whole Blood 87 mg/dL (75-99)
[2021-06-19] MEDS: INSULIN ASPART (NovoLOG) 100 UNIT/ML VIAL SQ SCH ×2 (06:13→12:04)
[2021-06-19] MEDS: PANTOPRAZOLE 40 MG TABLET PO SCH (06:57)
[2021-06-19] MEDS: METOPROLOL TARTRATE 25 MG TAB PO SCH (08:29)
[2021-06-19] MEDS: APIXABAN 5 MG TAB PO SCH (08:29)
[2021-06-19] MEDS: predniSONE 20 MG TAB PO SCH (08:29)
[2021-06-19] MEDS: CIPROFLOXACIN HCL 500 MG TAB PO SCH (08:29)
[2021-06-19] MEDS: FUROSEMIDE 40 MG TAB PO SCH (08:29)
[2021-06-19] MEDS: DOCUSATE 100 MG CAP PO SCH (08:30)
[2021-06-19] MEDS: LORATADINE 10 MG TAB PO SCH (08:30)
[2021-06-19] MEDS: DILTIAZEM CD 120 MG CAP.ER.24H PO SCH (08:30)
[2021-06-19] MEDS: CEFDINIR 300 MG CAP PO SCH (08:30)
[2021-06-19] MEDS: CITALOPRAM HYDROBROMIDE 20 MG TAB PO SCH (08:30)
[2021-06-19 09:28] VITALS: BP 142/78; PULSE 70
[2021-06-19 11:39] LABS: Glucose,Whole Blood 104 mg/dL (75-99)
--- NOTE | 2021-06-21 13:25 | PN ---
PROGRESS NOTE ADDENDUM: Metabolic encephalopathy. MMODL / IJN: [id number] /
== END 2021-06-19 12:05 | DRG 689 ==
LOC: EC 23:41 → 3SCARD 06-12 02:52
PROVIDERS: ADMIT Family Medicine; ATTEND Family Medicine
PROC: 5A09557 Assistance with Respiratory Ventilation, Greater than 96 Consecutive Hours, Continuous Positive Airway Pressure (ICD-10-PCS; principal; 2021-06-12)
DX: N39.0 Urinary tract infection, site not specified (principal); G93.41 Metabolic encephalopathy; J96.21 Acute and chronic respiratory failure with hypoxia; J96.22 Acute and chronic respiratory failure with hypercapnia; J69.0 Pneumonitis due to inhalation of food and vomit; E87.2 Acidosis; J44.1 Chronic obstructive pulmonary disease with (acute) exacerbation; E66.2 Morbid (severe) obesity with alveolar hypoventilation; Z68.41 Body mass index [BMI] 40.0-44.9, adult; J98.11 Atelectasis; I27.20 Pulmonary hypertension, unspecified; I48.0 Paroxysmal atrial fibrillation; G47.10 Hypersomnia, unspecified; I11.0 Hypertensive heart disease with heart failure; I50.9 Heart failure, unspecified; G47.33 Obstructive sleep apnea (adult) (pediatric); Z20.822 Contact with and (suspected) exposure to COVID-19; B96.20 Unspecified Escherichia coli [E. coli] as the cause of diseases classified elsewhere; R13.10 Dysphagia, unspecified; R32 Unspecified urinary incontinence; M19.90 Unspecified osteoarthritis, unspecified site; F32.A Depression, unspecified; Z99.81 Dependence on supplemental oxygen; Z79.01 Long term (current) use of anticoagulants; Z79.899 Other long term (current) drug therapy; Z99.3 Dependence on wheelchair; Z87.891 Personal history of nicotine dependence; Z87.39 Personal history of other diseases of the musculoskeletal system and connective tissue; Z86.73 Personal history of transient ischemic attack (TIA), and cerebral infarction without residual deficits; Z98.890 Other specified postprocedural states; Z71.3 Dietary counseling and surveillance; Z88.8 Allergy status to other drugs, medicaments and biological substances; Z91.041 Radiographic dye allergy status; Z91.02 Food additives allergy status
CPT/HCPCS: 36415; 36600; 70450; 71045; 80048; 80053; 80306; 80320; 81001; 82140; 82805; 83735; 83880; 84439; 84443; 84484; 85025; 85027; 85610; 85730; 87077; 87086; 87186; 87635; 93005; 94640; 94660; 94760; 96365; 96367; 99285

== ENCOUNTER 2021-08-19 14:39 | Emergency (ER) | payer MEDICARE, OTHER ==
[2021-08-19 14:57] VITALS: TEMP 98
[2021-08-19] MEDS ORDERED: SODIUM CHLORIDE 0.9% 500 ML 500 ML IV ONE (15:18)
[2021-08-19 16:11] LABS: Basophils # (A) 0.1 k/uL (0-0.2); Basophils % (A) 1 %; Eosinophils # (A) 0.2 k/uL (0-0.7); Eosinophils % (A) 3 %; Hypochromasia Slight; Lymphocytes # (A) 1.6 k/uL (1.0-4.8); Lymphocytes % (A) 18 %; MCH 30.6 pg (25.0-35.0); MCHC 31.8 g/dL (31.0-37.0); MCV 96.1 fL (80.0-100.0); Mean Platelet Volume 6.6; Monocytes # (A) 0.4 k/uL (0-1.0); Monocytes % (A) 4 %; Neutrophils # (A) 6.5 k/uL (1.3-7.7); Neutrophils % (A) 74 %; Platelet Count 182 k/uL (150-450); RBC 4.27 m/uL (3.80-5.40); RDW 12.7 % (11.5-15.5); WBC 8.8 k/uL (3.8-10.6)
[2021-08-19 16:17] LABS: INR 0.9 (<1.2); Partial Thromboplastin Time 25.1 sec (22.0-30.0); Prothrombin Time 10.2 sec (9.0-12.0)
[2021-08-19 16:20] LABS: ALT 17 U/L (4-34); AST 26 U/L (14-36); African American GFR (CKD) >90 (>60 ml/min/1.73 sqM); Albumin 3.6 g/dL (3.5-5.0); Alkaline Phosphatase 65 U/L (38-126); Blood Urea Nitrogen 16 mg/dL (7-17); Calcium 8.7 mg/dL (8.4-10.2); Chloride 87 mmol/L (98-107); Glucose 93 mg/dL (74-99); Non-African American GFR(CKD) 87 (>60 ml/min/1.73 sqM); Potassium 4.4 mmol/L (3.5-5.1); Sodium 139 mmol/L (137-145); Total Bilirubin 0.5 mg/dL (0.2-1.3); Total Protein 6.5 g/dL (6.3-8.2)
[2021-08-19 16:26] LABS: Anion Gap 3 mmol/L
[2021-08-19 16:37] LABS: Carbon Dioxide 49 mmol/L (22-30)
--- NOTE | 2021-08-19 16:37 | XR ---
EXAMINATION TYPE: XR chest 2V DATE OF EXAM: 08/19/2021 COMPARISON: 06/12/2021 HISTORY: Altered mental status TECHNIQUE: 2 views FINDINGS: Heart is enlarged. No pleural effusion. There is some linear infiltrate and atelectasis lef t lower lobe. There is mild pulmonary congestion. Bony thorax is intact. There is arthritic change in the left shoulder joint. Thoracic spine appears intact. IMPRESSION: There is some mild linear infiltrate and atelectasis left lower lobe without change. Mild pulmonary congestion but no obvious heart failure. No pleural fluid.
--- NOTE | 2021-08-19 17:31 | CT ---
EXAMINATION TYPE: CT brain wo con DATE OF EXAM: 08/19/2021 COMPARISON: 06/12/2021 HISTORY: AMS. CT DLP: 1202.4 mGycm Automated exposure control for dose reduction was used. There is linear area of hypodensity in the right posterior temporal lobe measuring 4 x 1.5 cm and con sistent with old encephalomalacia unchanged. There is no mass effect. No midline shift. No sign of in tracranial hemorrhage. There is evidence of 10 mm old lacunar infarct in the anterior right internal capsule. Calvarium is intact. 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 Old right internal capsule infarct. No acute intracranial abnormality. No change.
--- NOTE | 2021-08-19 17:53 | ED ---
Altered Mental Status HPI - General Chief Complaint: Altered Mental Status Stated Complaint: AMS Time Seen by Provider: 08/19/21 15:03 Source: patient, EMS Mode of arrival: EMS Limitations: no limitations - History of Present Illness Initial Comments: Patient is an 81-year-old female with history of COPD, atrial fibrillation, and heart failure presenting from her group home after reports of altered mental status. EMS states that they were called because the patient was complaining of a headache towards the back of her head, while patient was complaining of headache the staff noticed that the patient was "babbling" and not talking as she normally would. When EMS arrived the patient was still babbling and became incoherent. After sternal rub patient has been alert and oriented 4. Patient says she does not recall this happening. At this time patient states she is complaining of a minor frontal headache. She denies any nausea, vomiting, vision or hearing changes, neck pain or stiffness, fever, chills, chest pain, shortness of breath, weakness, numbness, tingling. - Related Data Home Medications Medication Instructions Recorded Confirmed Docusate [Colace] 100 mg PO DAILY 05/07/21 08/19/21 Loratadine 10 mg PO DAILY 05/07/21 08/19/21 Multivitamins, Thera [Multivitamin 1 tab PO DAILY 05/07/21 08/19/21 (formulary)] Omeprazole 20 mg PO DAILY 05/07/21 08/19/21 Potassium Chloride ER [K-Dur 10] 10 meq PO DAILY 05/07/21 08/19/21 guaiFENesin [guaiFENesin Oral 200 mg PO Q6H PRN 05/07/21 08/19/21 Solution] hydrOXYzine HCL [Atarax] 25 mg PO Q6H PRN 05/07/21 08/19/21 lisinopriL [Zestril] 10 mg PO Q12H 05/07/21 08/19/21 Acetaminophen [Tylenol 8 Hour] 650 mg PO Q6H PRN 06/12/21 08/19/21 Benzonatate [Tessalon Perles] 200 mg PO Q8H PRN 06/12/21 08/19/21 Citalopram Hydrobromide [CeleXA] 10 mg PO DAILY 08/19/21 08/19/21 dilTIAZem HCL [Cardizem] 120 mg PO DAILY 08/19/21 08/19/21 Previous Rx's Medication Instructions Recorded Apixaban [Eliquis] 5 mg PO BID tab 05/12/21 Furosemide [Lasix] 40 mg PO DAILY #0 05/12/21 Metoprolol Tartrate [Lopressor] 25 mg PO BID tab 05/12/21 Ipratropium-Albuterol Nebulize 3 ml INHALATION RT-QID PRN ml 06/18/21 [Duoneb 0.5 mg-3 mg/3 ml Soln] Sulfamethoxazole/Trimethoprim 1 each PO BID 5 Days #10 tablet 08/20/21 [Bactrim DS 800-160 mg] Allergies Allergy/AdvReac Type Severity Reaction Status Date / Time red dye Allergy Rash/Hives Verified 08/19/21 15:39 tositumomab iodine-131 Allergy Unknown Verified 08/19/21 15:39 Review of Systems ROS Statement: Those systems with pertinent positive or pertinent negative responses have been documented in the HPI. ROS Other: All systems not noted in ROS Statement are negative. Past Medical History Past Medical History: Atrial Fibrillation, Heart Failure, COPD Additional Past Medical History / Comment(s): Chronic respiratory failure/oxygen ATC, recent issue with dysphagia, JOSIAH/no device, itching, obesity, edema, weakness-wheelchair, incontinence. History of Any Multi-Drug Resistant Organisms: None Reported Past Surgical History: Orthopedic Surgery Additional Past Surgical History / Comment(s): left knee x2 Past Anesthesia/Blood Transfusion Reactions: No Reported Reaction Smoking Status: Former smoker - Past Family History Father Family Medical History: No Reported History Mother Family Medical History: No Reported History General Exam Limitations: no limitations General appearance: alert, in no apparent distress Head exam: Present: atraumatic, normocephalic, normal inspection Eye exam: Present: normal appearance, PERRL, EOMI. Absent: scleral icterus Pupils: Present: normal accommodation Neck exam: Present: normal inspection Respiratory exam: Present: normal lung sounds bilaterally. Absent: respiratory distress, wheezes, rales, rhonchi, stridor Cardiovascular Exam: Present: regular rate, normal rhythm, normal heart sounds. Absent: systolic murmur, diastolic murmur, rubs, gallop, clicks Course Vital Signs 08/19/21 08/19/21 14:39 23:21 Temperature 98.0 F Pulse Rate 54 L 117 H Respiratory 18 19 Rate Blood Pressure 108/66 121/79 O2 Sat by Pulse 97 95 Oximetry Procedures - [place] Protocol (Time Out) Nurse: Jessika Reyna Medical Decision Making - Medical Decision Making Patient is an 81-year-old female presenting with chief complaint of altered mental status. Earlier at her group home, staff noticed that she had a headache and was talking incoherently, after a sternal rub by EMS she returned to her baseline. On evaluation in the ER there are no focal neurological deficits, NIH score of 0. CBC is unremarkable. PT/INR is unremarkable. Carbon dioxide is 49, this is consistent with previous values over the last few months, patient has a history of COPD and is noncompliant with CPAP at night. 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 Chest x-ray shows some mild linear infiltrate and atelectasis of the left lower lobe without change from previous study. There is mild pulmonary congestion but no obvious heart failure or pleural fluid. BNP is 310 and troponin is not elevated. Urine shows UTI, likely contributing to episodes of altered mental status, we'll treat with Bactrim. Patient is given her evening dose of metoprolol here in the ER. On reassessment patient is in sinus rhythm with a rate in the 60s. She appears stable for discharge with outpatient follow-up at this time. Prescription is sent for Bactrim. Follow-up with PCP in one to 2 days. Report back to ER if any new or worsening symptoms. Take medication as prescribed. Patient conveyed verbal understanding and agreed to the plan. I discussed this case with my attending Dr. Javier. - Lab Data Result diagrams: 08/19/21 15:53 08/19/21 15:53 Lab Results 08/19/21 08/19/21 08/19/21 Range/Units 15:53 15:53 15:53 WBC 8.8 (3.8-10.6) k/uL RBC 4.27 (3.80-5.40) m/uL Hgb 13.0 (11.4-16.0) gm/dL Hct 41.0 (34.0-46.0) % MCV 96.1 (80.0-100.0) fL MCH 30.6 (25.0-35.0) pg MCHC 31.8 (31.0-37.0) g/dL RDW 12.7 (11.5-15.5) % Plt Count 182 (150-450) k/uL MPV 6.6 Neutrophils % 74 % Lymphocytes % 18 % Monocytes % 4 % Eosinophils % 3 % Basophils % 1 % Neutrophils # 6.5 (1.3-7.7) k/uL Lymphocytes # 1.6 (1.0-4.8) k/uL Monocytes # 0.4 (0-1.0) k/uL Eosinophils # 0.2 (0-0.7) k/uL Basophils # 0.1 (0-0.2) k/uL Hypochromasia Slight PT 10.2 (9.0-12.0) sec INR 0.9 (<1.2) APTT 25.1 (22.0-30.0) sec Sodium (137-145) mmol/L Potassium (3.5-5.1) mmol/L Chloride (98-107) mmol/L Carbon Dioxide (22-30) mmol/L Anion Gap mmol/L BUN (7-17) mg/dL Creatinine (0.52-1.04) mg/dL Est GFR (CKD-EPI)AfAm (>60 ml/min/1.73 sqM) Est GFR (CKD-EPI)NonAf (>60 ml/min/1.73 sqM) Glucose (74-99) mg/dL Calcium (8.4-10.2) mg/dL Total Bilirubin (0.2-1.3) mg/dL AST (14-36) U/L ALT (4-34) U/L Alkaline Phosphatase (38-126) U/L Troponin I (0.000-0.034) ng/mL NT-Pro-B Natriuret Pep pg/mL Total Protein (6.3-8.2) g/dL Albumin (3.5-5.0) g/dL Urine Color Yellow Urine Appearance Turbid H (Clear) Urine pH 5.5 (5.0-8.0) Ur Specific [place] 1.017 (1.001-1.035) Urine Protein Trace H (Negative) Urine Glucose (UA) Negative (Negative) Urine Ketones Negative (Negative) Urine Blood Trace H (Negative) Urine Nitrite Positive H (Negative) Urine Bilirubin Negative (Negative) Urine Urobilinogen <2.0 (<2.0) mg/dL Ur Leukocyte Esterase Large H (Negative) Urine RBC 3 (0-5) /hpf Urine WBC >182 H (0-5) /hpf Urine WBC Clumps Many H (None) /hpf Ur Squamous Epith Cells 1 (0-4) /hpf Urine Bacteria Moderate H (None) /hpf Urine Mucus Rare H (None) /hpf 08/19/21 08/19/21 08/19/21 Range/Units 15:53 15:53 18:20 WBC (3.8-10.6) k/uL RBC (3.80-5.40) m/uL Hgb (11.4-16.0) gm/dL Hct (34.0-46.0) % MCV (80.0-100.0) fL MCH (25.0-35.0) pg MCHC (31.0-37.0) g/dL RDW (11.5-15.5) % Plt Count (150-450) k/uL MPV Neutrophils % % Lymphocytes % % Monocytes % % Eosinophils % % Basophils % % Neutrophils # (1.3-7.7) k/uL Lymphocytes # (1.0-4.8) k/uL Monocytes # (0-1.0) k/uL Eosinophils # (0-0.7) k/uL Basophils # (0-0.2) k/uL Hypochromasia PT (9.0-12.0) sec INR (<1.2) APTT (22.0-30.0) sec Sodium 139 (137-145) mmol/L Potassium 4.4 (3.5-5.1) mmol/L Chloride 87 L (98-107) mmol/L Carbon Dioxide 49 H* (22-30) mmol/L Anion Gap 3 mmol/L BUN 16 (7-17) mg/dL Creatinine 0.59 (0.52-1.04) mg/dL Est GFR (CKD-EPI)AfAm >90 (>60 ml/min/1.73 sqM) Est GFR (CKD-EPI)NonAf 87 (>60 ml/min/1.73 sqM) Glucose 93 (74-99) mg/dL Calcium 8.7 (8.4-10.2) mg/dL Total Bilirubin 0.5 (0.2-1.3) mg/dL AST 26 (14-36) U/L ALT 17 (4-34) U/L Alkaline Phosphatase 65 (38-126) U/L Troponin I <0.012 (0.000-0.034) ng/mL NT-Pro-B Natriuret Pep 310 pg/mL Total Protein 6.5 (6.3-8.2) g/dL Albumin 3.6 (3.5-5.0) g/dL Urine Color Urine Appearance (Clear) Urine pH (5.0-8.0) Ur Specific [place] (1.001-1.035) Urine Protein (Negative) Urine Glucose (UA) (Negative) Urine Ketones (Negative) Urine Blood (Negative) Urine Nitrite (Negative) Urine Bilirubin (Negative) Urine Urobilinogen (<2.0) mg/dL Ur Leukocyte Esterase (Negative) Urine RBC (0-5) /hpf Urine WBC (0-5) /hpf Urine WBC Clumps (None) /hpf Ur Squamous Epith Cells (0-4) /hpf Urine Bacteria (None) /hpf Urine Mucus (None) /hpf - EKG Data EKG Comments: Sinus rhythm with supraventricular premature complexes in bigeminal pattern. Rate is 69. NH interval 185. QRS duration of 90. No acute changes from previous EKG Disposition Clinical Impression: UTI (urinary tract infection) Disposition: HOME SELF-CARE Condition: Fair Instructions (If sedation given, give patient instructions): Altered Mental Status (ED), Urinary Tract Infection in Older Adults (ED) Additional Instructions: Follow-up with PCP in one to 2 days. Report back to ER if any new or worsening symptoms. Take medication as prescribed. You must wear your CPAP at night. Prescriptions: Sulfamethoxazole/Trimethoprim [Bactrim DS 800-160 mg] 1 each PO BID 5 Days #10 tablet Is patient prescribed a controlled substance at d/c from ED?: No Referrals: Wyatt Jaffe DO [Primary Care Provider] - 1-2 days Time of Disposition: 00:11
[2021-08-19 22:04] LABS: Appearance,Urine Turbid (Clear); Bacteria,Urine Moderate /hpf; Bilirubin,Urine Negative (Negative); Blood,Urine Trace (Negative); Color,Urine Yellow; Glucose,Urine (UA) Negative (Negative); Ketones,Urine Negative (Negative); Leukocyte Esterase,Urine Large (Negative); Mucus,Urine Rare /hpf; Nitrite,Urine Positive (Negative); PH, Urine 5.5 (5.0-8.0); Protein,Urine Trace (Negative); RBC,Urine 3 /hpf (0-5); Specific Gravity,Urine 1.017 (1.001-1.035); Squamous Epithelial Cell,Urine 1 /hpf (0-4); Urobilinogen,Urine <2.0 mg/dL (<2.0); WBC,Urine >182 /hpf (0-5)
[2021-08-19] MEDS ORDERED: METOPROLOL TARTRATE 25 MG TAB PO STA (22:20)
[2021-08-19] MEDS ORDERED: SULFAMETHOX-TMP 800-160MG 1 EACH TAB PO STA (22:24)
[2021-08-19 23:26] VITALS: BP 121/79; RESP 19
[2021-08-20 00:26] VITALS: PULSE 70
== END 2021-08-20 02:44 | disposition home or self-care (01) ==
LOC: EC 14:39
DX: N39.0 Urinary tract infection, site not specified (principal); I50.9 Heart failure, unspecified; J44.9 Chronic obstructive pulmonary disease, unspecified; I48.91 Unspecified atrial fibrillation; Z87.891 Personal history of nicotine dependence; Z79.01 Long term (current) use of anticoagulants; Z79.51 Long term (current) use of inhaled steroids; Z79.899 Other long term (current) drug therapy
CPT/HCPCS: 36415; 70450; 71046; 80053; 81001; 83880; 84484; 85025; 85610; 85730; 87077; 87086; 87186; 93005

== ENCOUNTER 2021-09-29 13:57 | Inpatient (IN) | payer MEDICARE, OTHER ==
[2021-09-29] MEDS ORDERED: MAGNESIUM SULFATE-D5W PMX 1 GM in DEXTROSE/WATER 1 100ML.BAG IVPB STA (14:09)
[2021-09-29 14:22] LABS: Basophils # (A) 0.1 k/uL (0-0.2); Basophils % (A) 1 %; Eosinophils # (A) 0.1 k/uL (0-0.7); Eosinophils % (A) 1 %; HCT 45.7 % (34.0-46.0); HGB 13.7 gm/dL (11.4-16.0); Hypochromasia Marked; Lymphocytes # (A) 1.6 k/uL (1.0-4.8); Lymphocytes % (A) 15 %; MCH 29.9 pg (25.0-35.0); MCHC 29.9 g/dL (31.0-37.0); MCV 100.1 fL (80.0-100.0); Monocytes # (A) 0.6 k/uL (0-1.0); Monocytes % (A) 5 %; Neutrophils # (A) 8.1 k/uL (1.3-7.7); Neutrophils % (A) 77 %; Platelet Count 216 k/uL (150-450); RBC 4.57 m/uL (3.80-5.40); RDW 12.5 % (11.5-15.5); WBC 10.6 k/uL (3.8-10.6)
[2021-09-29 14:25] LABS: VBG PH 7.29 (7.31-7.41)
[2021-09-29 14:31] LABS: Partial Thromboplastin Time 23.7 sec (22.0-30.0); Prothrombin Time 10.5 sec (9.0-12.0)
[2021-09-29 14:36] LABS: ALT 37 U/L (4-34); AST 39 U/L (14-36); African American GFR (CKD) >90 (>60 ml/min/1.73 sqM); Albumin 4.1 g/dL (3.5-5.0); Alkaline Phosphatase 83 U/L (38-126); Blood Urea Nitrogen 22 mg/dL (7-17); Chloride 90 mmol/L (98-107); Glucose 177 mg/dL (74-99); Non-African American GFR(CKD) 89 (>60 ml/min/1.73 sqM); Potassium 4.8 mmol/L (3.5-5.1); Sodium 140 mmol/L (137-145); Total Bilirubin 0.7 mg/dL (0.2-1.3); Total Protein 7.4 g/dL (6.3-8.2)
[2021-09-29 14:42] LABS: Anion Gap 4 mmol/L
[2021-09-29 14:57] LABS: Carbon Dioxide 46 mmol/L (22-30)
[2021-09-29] MEDS ORDERED: ETOMIDATE 2 MG/ML 10 ML VIAL IVP STA (15:08)
[2021-09-29] MEDS ORDERED: SUCCINYLCHOLINE CHLORIDE 200 MG/10 ML VIAL IV STA (15:12)
--- NOTE | 2021-09-29 15:13 | ED ---
SOB HPI - General Chief Complaint: Shortness of Breath Stated Complaint: ADRIANA Time Seen by Provider: 09/29/21 14:00 Source: patient, EMS Mode of arrival: EMS Limitations: physical limitation - History of Present Illness Initial Comments: 81-year-old female with past medical history of congestive heart failure, COPD, chronic respiratory failure on 3 L presents emergency department from [facility]. He was provided the history stating that she became more short of breath earlier today. Staff did put her up to 6 L and called EMS. Upon arrival the patient was confused and having some hallucinations. She was visibly in respiratory distress and therefore placed her on a CPAP. Her oxygen saturation on 6 L were mid 80s. On the CPAP she came up to low 90s. Patient was administered 2 albuterol and 1 ipratropium treatment in route to the hospital. She is also given 125 of Solu-Medrol. Patient has know chronic resp failure and is supposed to wear BiPAP at night according to the daughter however she refuses. Upon arrival patient did deny any chest pain. No recent fevers, chills or cough. Remainder of HPI is limited due to patient's respiratory insufficiency - Related Data Home Medications Medication Instructions Recorded Confirmed Docusate [Colace] 100 mg PO DAILY 05/07/21 09/29/21 Loratadine 10 mg PO DAILY 05/07/21 09/29/21 Multivitamins, Thera [Multivitamin 1 tab PO DAILY 05/07/21 09/29/21 (formulary)] Omeprazole 20 mg PO DAILY 05/07/21 09/29/21 Potassium Chloride ER [K-Dur 10] 10 meq PO DAILY 05/07/21 09/29/21 guaiFENesin [guaiFENesin Oral 200 mg PO Q6H PRN 05/07/21 09/29/21 Solution] hydrOXYzine HCL [Atarax] 25 mg PO Q6H PRN 05/07/21 09/29/21 lisinopriL [Zestril] 10 mg PO Q12H 05/07/21 09/29/21 Acetaminophen [Tylenol 8 Hour] 650 mg PO Q6H PRN 06/12/21 09/29/21 Benzonatate [Tessalon Perles] 200 mg PO Q8H PRN 06/12/21 09/29/21 Previous Rx's Medication Instructions Recorded Apixaban [Eliquis] 5 mg PO BID tab 05/12/21 Furosemide [Lasix] 40 mg PO DAILY #0 05/12/21 Ipratropium-Albuterol Nebulize 3 ml INHALATION RT-QID PRN ml 06/18/21 [Duoneb 0.5 mg-3 mg/3 ml Soln] Diltiazem Cd [Cardizem CD] 240 mg PO DAILY #30 cap 10/03/21 HYDROcodone/APAP 5-325MG [[place] 1 tab PO Q6H PRN #12 tab 10/03/21 5-325] Metoprolol Tartrate [Lopressor] 50 mg PO TID #90 tab 10/03/21 predniSONE See Rx Instructions .ROUTE 10/03/21 .COMPLEX #18 tab Allergies Allergy/AdvReac Type Severity Reaction Status Date / Time red dye Allergy Rash/Hives Verified 09/29/21 14:42 tositumomab iodine-131 Allergy Unknown Verified 09/29/21 14:42 Review of Systems ROS Statement: Those systems with pertinent positive or pertinent negative responses have been documented in the HPI. ROS Other: All systems not noted in ROS Statement are negative. Past Medical History Past Medical History: Atrial Fibrillation, Heart Failure, COPD Additional Past Medical History / Comment(s): Chronic respiratory failure/oxygen ATC, recent issue with dysphagia, JOSIAH/no device, itching, obesity, edema, weakness-wheelchair, incontinence. History of Any Multi-Drug Resistant Organisms: None Reported Past Surgical History: Orthopedic Surgery Additional Past Surgical History / Comment(s): left knee x2 Past Anesthesia/Blood Transfusion Reactions: No Reported Reaction Smoking Status: Former smoker - Past Family History Father Family Medical History: No Reported History Mother Family Medical History: No Reported History General Exam Limitations: physical limitation General appearance: in distress, obese Head exam: Present: atraumatic, normocephalic, normal inspection Eye exam: Present: normal appearance, PERRL, EOMI. Absent: scleral icterus, conjunctival injection, periorbital swelling ENT exam: Present: normal exam, mucous membranes moist Neck exam: Present: normal inspection. Absent: tenderness, meningismus, lymphadenopathy Respiratory exam: Present: wheezes, accessory muscle use, decreased breath sounds Cardiovascular Exam: Present: tachycardia, irregular rhythm GI/Abdominal exam: Present: soft, normal bowel sounds. Absent: distended, tenderness, guarding, rebound, rigid Extremities exam: Present: pedal edema Neurological exam: Present: altered Psychiatric exam: Present: flat affect Skin exam: Present: warm, dry, intact, normal color. Absent: rash Course Vital Signs 09/29/21 09/29/21 09/29/21 13:58 14:07 14:13 Temperature 97.3 F L Pulse Rate 67 90 Respiratory 40 H 42 H Rate Blood Pressure 124/114 Blood Pressure [Left Arm] O2 Sat by Pulse 96 96 Oximetry Fraction of 60 Inspired Oxygen (FIO2) 09/29/21 09/29/21 09/29/21 14:19 15:15 16:16 Temperature 96.8 F L Pulse Rate Respiratory 37 H 19 Rate Blood Pressure Blood Pressure 130/86 [Left Arm] O2 Sat by Pulse 94 L Oximetry Fraction of 60 50 Inspired Oxygen (FIO2) 09/29/21 09/29/21 09/29/21 16:45 18:24 18:25 Temperature Pulse Rate 85 85 Respiratory 22 Rate Blood Pressure 127/72 Blood Pressure [Left Arm] O2 Sat by Pulse 97 98 Oximetry Fraction of 60 60 Inspired Oxygen (FIO2) Medical Decision Making - Medical Decision Making Upon arrival patient was immediately placed in a trauma 2. A thorough history and physical exam was performed. She is transitioned to our BiPAP. Laboratory studies are conducted. They do reveal an elevated CO2 on the VBG of 92. She is maintained on BiPAP settings of 14/6 for 30 minutes and then an ABG is obtained. ABG does demonstrate a CO2 greater than 120. Patient is trialed on AVAP settings however continues to pull in poor tidal volumes. I did call and speak with Dr. Ponce. He presents to the emergency room to evaluate the patient. Does increase patient's BiPAP settings to 20/5. [place] is placed and the patient is given 40 mg of Lasix. Patient will be admitted to the ICU. Spoke with sound physicians who agreed to admit the patient - Lab Data Result diagrams: 10/03/21 07:20 10/03/21 07:20 Lab Results 09/29/21 09/29/21 09/29/21 Range/Units 14:12 14:12 14:12 WBC 10.6 (3.8-10.6) k/uL RBC 4.57 (3.80-5.40) m/uL Hgb 13.7 (11.4-16.0) gm/dL Hct 45.7 (34.0-46.0) % MCV 100.1 H (80.0-100.0) fL MCH 29.9 (25.0-35.0) pg MCHC 29.9 L (31.0-37.0) g/dL RDW 12.5 (11.5-15.5) % Plt Count 216 (150-450) k/uL MPV 7.0 Neutrophils % 77 % Lymphocytes % 15 % Monocytes % 5 % Eosinophils % 1 % Basophils % 1 % Neutrophils # 8.1 H (1.3-7.7) k/uL Lymphocytes # 1.6 (1.0-4.8) k/uL Monocytes # 0.6 (0-1.0) k/uL Eosinophils # 0.1 (0-0.7) k/uL Basophils # 0.1 (0-0.2) k/uL Hypochromasia Marked PT 10.5 (9.0-12.0) sec INR 1.0 (<1.2) APTT 23.7 (22.0-30.0) sec VBG pH (7.31-7.41) VBG pCO2 (37-51) mmHg VBG HCO3 (24-28) mmol/L Sodium 140 (137-145) mmol/L Potassium 4.8 (3.5-5.1) mmol/L Chloride 90 L (98-107) mmol/L Carbon Dioxide 46 H* (22-30) mmol/L Anion Gap 4 mmol/L BUN 22 H (7-17) mg/dL Creatinine 0.54 (0.52-1.04) mg/dL Est GFR (CKD-EPI)AfAm >90 (>60 ml/min/1.73 sqM) Est GFR (CKD-EPI)NonAf 89 (>60 ml/min/1.73 sqM) Glucose 177 H (74-99) mg/dL Plasma Lactic Acid James (0.7-2.0) mmol/L Calcium 9.0 (8.4-10.2) mg/dL Total Bilirubin 0.7 (0.2-1.3) mg/dL AST 39 H (14-36) U/L ALT 37 H (4-34) U/L Alkaline Phosphatase 83 (38-126) U/L Troponin I (0.000-0.034) ng/mL NT-Pro-B Natriuret Pep pg/mL Total Protein 7.4 (6.3-8.2) g/dL Albumin 4.1 (3.5-5.0) g/dL Coronavirus (PCR) (Not Detectd) Influenza Type A RNA (Not Detectd) Influenza Type B (PCR) (Not Detectd) 09/29/21 09/29/21 09/29/21 Range/Units 14:12 14:12 14:12 WBC (3.8-10.6) k/uL RBC (3.80-5.40) m/uL Hgb (11.4-16.0) gm/dL Hct (34.0-46.0) % MCV (80.0-100.0) fL MCH (25.0-35.0) pg MCHC (31.0-37.0) g/dL RDW (11.5-15.5) % Plt Count (150-450) k/uL MPV Neutrophils % % Lymphocytes % % Monocytes % % Eosinophils % % Basophils % % Neutrophils # (1.3-7.7) k/uL Lymphocytes # (1.0-4.8) k/uL Monocytes # (0-1.0) k/uL Eosinophils # (0-0.7) k/uL Basophils # (0-0.2) k/uL Hypochromasia PT (9.0-12.0) sec INR (<1.2) APTT (22.0-30.0) sec VBG pH (7.31-7.41) VBG pCO2 (37-51) mmHg VBG HCO3 (24-28) mmol/L Sodium (137-145) mmol/L Potassium (3.5-5.1) mmol/L Chloride (98-107) mmol/L Carbon Dioxide (22-30) mmol/L Anion Gap mmol/L BUN (7-17) mg/dL Creatinine (0.52-1.04) mg/dL Est GFR (CKD-EPI)AfAm (>60 ml/min/1.73 sqM) Est GFR (CKD-EPI)NonAf (>60 ml/min/1.73 sqM) Glucose (74-99) mg/dL Plasma Lactic Acid James 1.7 (0.7-2.0) mmol/L Calcium (8.4-10.2) mg/dL Total Bilirubin (0.2-1.3) mg/dL AST (14-36) U/L ALT (4-34) U/L Alkaline Phosphatase (38-126) U/L Troponin I <0.012 (0.000-0.034) ng/mL NT-Pro-B Natriuret Pep 2410 pg/mL Total Protein (6.3-8.2) g/dL Albumin (3.5-5.0) g/dL Coronavirus (PCR) (Not Detectd) Influenza Type A RNA (Not Detectd) Influenza Type B (PCR) (Not Detectd) 09/29/21 09/29/21 09/29/21 Range/Units 14:12 14:26 14:26 WBC (3.8-10.6) k/uL RBC (3.80-5.40) m/uL Hgb (11.4-16.0) gm/dL Hct (34.0-46.0) % MCV (80.0-100.0) fL MCH (25.0-35.0) pg MCHC (31.0-37.0) g/dL RDW (11.5-15.5) % Plt Count (150-450) k/uL MPV Neutrophils % % Lymphocytes % % Monocytes % % Eosinophils % % Basophils % % Neutrophils # (1.3-7.7) k/uL Lymphocytes # (1.0-4.8) k/uL Monocytes # (0-1.0) k/uL Eosinophils # (0-0.7) k/uL Basophils # (0-0.2) k/uL Hypochromasia PT (9.0-12.0) sec INR (<1.2) APTT (22.0-30.0) sec VBG pH 7.29 L (7.31-7.41) VBG pCO2 92 H* (37-51) mmHg VBG HCO3 45 H (24-28) mmol/L Sodium (137-145) mmol/L Potassium (3.5-5.1) mmol/L Chloride (98-107) mmol/L Carbon Dioxide (22-30) mmol/L Anion Gap mmol/L BUN (7-17) mg/dL Creatinine (0.52-1.04) mg/dL Est GFR (CKD-EPI)AfAm (>60 ml/min/1.73 sqM) Est GFR (CKD-EPI)NonAf (>60 ml/min/1.73 sqM) Glucose (74-99) mg/dL Plasma Lactic Acid James (0.7-2.0) mmol/L Calcium (8.4-10.2) mg/dL Total Bilirubin (0.2-1.3) mg/dL AST (14-36) U/L ALT (4-34) U/L Alkaline Phosphatase (38-126) U/L Troponin I (0.000-0.034) ng/mL NT-Pro-B Natriuret Pep pg/mL Total Protein (6.3-8.2) g/dL Albumin (3.5-5.0) g/dL Coronavirus (PCR) Not Detected (Not Detectd) Influenza Type A RNA Not Detected (Not Detectd) Influenza Type B (PCR) Not Detected (Not Detectd) - EKG Data EKG Comments: EKG demonstrates A. fib with a rate of 103. QRS 94. QTC of 397. No acute ST segment elevations or depressions Critical Care Time Critical Care Time: Yes Critical Care Time: 40 minutes Disposition Clinical Impression: Acute exacerbation of chronic obstructive pulmonary disease, Hypoxia, Hypoventilation, Atrial fibrillation with RVR, Encephalopathy acute Disposition: ADMITTED IP TO THIS HOSP Condition: Fair Is patient prescribed a controlled substance at d/c from ED?: No Time of Disposition: 15:38 Decision to Admit Reason: Admit from EC Decision Date: 09/29/21 Decision Time: 15:38
[2021-09-29] MEDS ORDERED: NALOXONE 0.4 MG/ML 1 ML VIAL IV PRN (15:39)
--- NOTE | 2021-09-29 16:10 | XR ---
EXAMINATION TYPE: XR chest 1V portable DATE OF EXAM: 09/29/2021 COMPARISON: 08/11/2021 INDICATION: Hypoxia short of breath TECHNIQUE: Single frontal view of the chest is obtained. FINDINGS: The heart size is markedly enlarged. The pulmonary vasculature is prominent. Diffuse increased lung markings are present. IMPRESSION: 1. Clinical correlation recommended for congestive heart failure.
[2021-09-29] MEDS ORDERED: FUROSEMIDE 10 MG/ML 4 ML VIAL IV STA (16:17)
--- NOTE | 2021-09-29 16:57 | P.CNPUL ---
History of Present Illness Consult date: 09/29/21 Reason for consult: dyspnea Chief complaint: altered mental status History of present illness: This is an 81-year-old female patient, morbidly obese with a body mass index of 51. The patient is currently residing at [facility] and the patient got transferred to us because of diminished level of consciousness and altered mentation. Apparently, the patient has not been compliant with her BiPAP device that she was given at the assisted. She was getting more short of breath, confused, altered and she was also having some hallucination. She had diminished level of consciousness. At that point, she was placed on higher levels of oxygen at 6 L and her pulse ox was in the mid 80s. She was given CPAP therapy. She was given a breathing treatment. She was given IV Solu-Medrol and subsequently she got transferred to the emergency department. Here in the emergency, the patient is on BiPAP at a pressure of 16/6 cm of water. I reviewed the chest x-ray shows cardiomegaly, it is a low quality chest x-ray bec ause of her body habitus. Nevertheless, there is increased interstitial markings and is quite suspicious for interstitial edema/CHF. At the same time, the patient is currently on a BiPAP and based on the blood gases. The patient had a pH of 7.29 with a pCO2 of 92 and this was a venous sample. I evaluated this patient in the emergency department. They exchanged tidal volume was suboptimal. I modified the pressures to include pressures of 20/6 cm of water and following that the patient started to exchanged better air exchange, tidal volume was in the order of 175 mL. Respiratory rate still elevated in the mid/low 30s. She started gradually to show some alertness and she was able to wake up. Upon stimulation and follows some simple commands. She has a white cell count of 10.6 with hemoglobin 13.7 and a platelet count of 116. She has a sodium level of 140, serum bicarbonate of 46 with a BUN of 22 and a creatinine of 0.5. She has had multiple UTIs in the past. UA still pending for now. COVID is negative and influenza screen is also negative. According to the family, there has been no focal neurological deficit. She is a full code for now. ProBNP level is 2410. Troponins are negative. Review of Systems Unable to bear full review of system because of her mental status. Nevertheless, based on my knowledge of this patient, she is quite debilitated, bedridden, obese and typical features of sleep apnea, obesity hypoventilation syndrome was present. This patient. She doesn't was admission regular basis. No fever. No chills. No emesis. No aspiration. No other significant events otherwise for now. Past Medical History Past Medical History: Atrial Fibrillation, Heart Failure, COPD, Sleep Apnea/CPAP/BIPAP Additional Past Medical History / Comment(s): Chronic respiratory failure/oxygen ATC, recent issue with dysphagia, JOSIAH/no device, itching, obesity, edema, wea kness-wheelchair, incontinence. History of Any Multi-Drug Resistant Organisms: None Reported Past Surgical History: Orthopedic Surgery Additional Past Surgical History / Comment(s): left knee x2 Past Anesthesia/Blood Transfusion Reactions: No Reported Reaction Smoking Status: Former smoker - Past Family History Father Family Medical History: No Reported History Mother Family Medical History: No Reported History Medications and Allergies Home Medications Medication Instructions Recorded Confirmed Type Docusate [Colace] 100 mg PO DAILY 05/07/21 09/29/21 History Loratadine 10 mg PO DAILY 05/07/21 09/29/21 History Multivitamins, Thera [Multivitamin 1 tab PO DAILY 05/07/21 09/29/21 History (formulary)] Omeprazole 20 mg PO DAILY 05/07/21 09/29/21 History Potassium Chloride ER [K-Dur 10] 10 meq PO DAILY 05/07/21 09/29/21 History guaiFENesin [guaiFENesin Oral 200 mg PO Q6H PRN 05/07/21 09/29/21 History Solution] hydrOXYzine HCL [Atarax] 25 mg PO Q6H PRN 05/07/21 09/29/21 History lisinopriL [Zestril] 10 mg PO Q12H 05/07/21 09/29/21 History Apixaban [Eliquis] 5 mg PO BID tab 05/12/21 09/29/21 Rx Furosemide [Lasix] 40 mg PO DAILY #0 05/12/21 09/29/21 Rx Metoprolol Tartrate [Lopressor] 25 mg PO BID tab 05/12/21 09/29/21 Rx Acetaminophen [Tylenol 8 Hour] 650 mg PO Q6H PRN 06/12/21 09/29/21 History Benzonatate [Tessalon Perles] 200 mg PO Q8H PRN 06/12/21 09/29/21 History Ipratropium-Albuterol Nebulize 3 ml INHALATION RT-QID PRN ml 06/18/21 09/29/21 Rx [Duoneb 0.5 mg-3 mg/3 ml Soln] dilTIAZem HCL [Cardizem] 120 mg PO DAILY 08/19/21 09/29/21 History HYDROcodone/APAP 5-325MG [[place] 1 tab PO Q6H PRN 09/29/21 09/29/21 History 5-325] Allergies Allergy/AdvReac Type Severity Reaction Status Date / Time red dye Allergy Rash/Hives Verified 09/29/21 14:42 tositumomab iodine-131 Allergy Unknown Verified 09/29/21 14:42 Physical Exam Vitals: Vital Signs Temp Pulse Resp BP Pulse Ox FiO2 09/29/21 15:15 60 09/29/21 14:19 37 H 09/29/21 14:13 90 42 H 96 09/29/21 14:07 60 09/29/21 13:58 97.3 F L 67 40 H 124/114 96 Intake and Output 09/29/21 09/29/21 09/29/21 06:59 14:59 22:59 Other: Weight 126.552 kg Pleasant 81-year-old female patient. Patient is very much lethargic at this point in time. The patient is on a BiPAP at a pressure of 20/6 cm of water The patient is morbidly obese, body mass index of 51 Head exam was generally normal. There was no scleral icterus or corneal arcus. Mucous membranes were moist. Neck is very thick and the patient is a Mallampati class IV. Patient is currently tolerating a full face BiPAP mask. Neck veins cannot be accurately appreciated. Neck supple. Full range of motion. No adenopathy thyromegaly Cardiovascular examination reveals regular rhythm rate. S1-S2 normal. No S3 or S4. No discernible murmur noted. Lungs reveal occasional diffuse bilateral rhonchi. No wheezes or crackles. Breath sounds are equal bilaterally. Breath sounds are quite diminished bilaterally and air entry and exchange is limited as the patient is morbidly obese. Abdomen obese, soft, without masses or tenderness. noted. Organs cannot be accurately palpated as the patient, morbidly obese. No direct tenderness or rebound tensile guarding at this point in time. Extremities are intact. No cyanosis or clubbing. Trace edema. Skin is without rash or lesion. Neurologic examination is brief but nonfocal. Patient was aroused upon stim ulation. She was able to withdraw to painful stimulation all 4 extremities. Neurologic exam is nonfocal. Psychiatric evaluation cannot be done at this point in time. Results - Laboratory Findings CBC and BMP: 09/29/21 14:12 09/29/21 14:12 PT/INR, D-dimer PT 10.5 sec (9.0-12.0) 09/29/21 14:12 INR 1.0 (<1.2) 09/29/21 14:12 Abnormal lab findings: Abnormal Labs 09/29/21 09/29/21 09/29/21 14:12 14:12 14:12 MCV 100.1 H MCHC 29.9 L Neutrophils # 8.1 H VBG pH 7.29 L VBG pCO2 92 H* VBG HCO3 45 H Chloride 90 L Carbon Dioxide 46 H* BUN 22 H Glucose 177 H AST 39 H ALT 37 H - Diagnostic Findings Chest x-ray: image reviewed Assessment and Plan Plan: Acute mental status changes and confusion, secondary to acute on chronic hypoxemic and hypercapnic respiratory failure. The exact cause for this acute on top of chronic respiratory failure is not clear and still under investigation. Chest x-ray showing interstitial edema along with cardiomegaly. There may be a component of CHF. UTI always has to be ruled out as the patient has had previous E. coli related urine checked infections. For now, the blood gases showing an acute on top of chronic hypercapnic respiratory failure causing CO2 narcosis and the patient is currently on BiPAP at a pressure of 20/6 cm of water. Chronic hypercapnic respiratory failure with an obvious component of obesity hypoventilation syndrome Chronic hypoxic respiratory failure Old right temporal lobe infarct. History of obstructive sleep apnea syndrome. Morbid obesity, with probable Pickwickian syndrome. The patient not been compliant with her BiPAP machine at the assisted Previous history of tobacco use, with probable underlying COPD. History of atrial fibrillation. The patient is demented on long-term anticoagulation with Eliquis, cardiac rhythm is still atrial fibrillation Previous history of UTI with E. coli History of urinary incontinence. History of hypertension. History of degenerative joint disease. History depression. custodial resident. Plan Keep the patient on BiPAP at a pressure of 20/6 cm of water and titrate FiO2 to maintain saturation above 90% Repeated blood gases in the intensive care unit This is a Hathaway catheter Obtain a UA Cover this patient with IV Zosyn The patient does of Lasix 40 mg IV push Hold oral medications for now Put the patient on DuoNeb nebulized treatments around the clock IV Solu-Medrol Lovenox therapeutic doses 120 mg subcu every 12 hours Condition is critical. High likelihood for ventilator dependence and her CODE STATUS is full. This is discussed with the family. We'll continue to follow. Time with Patient: Greater than 30
--- NOTE | 2021-09-29 18:17 | P.HPIM ---
History of Present Illness H&P Date: 09/29/21 Chief Complaint: Dyspnea This is an 81-year-old lady with medical history significant for chronic hypoxic respiratory failure, COPD, JOSIAH, obesity hypoventilation syndrome, hypertension and atrial fibrillation who presented from a nursing facility with altered menta tion and difficulty breathing. She was found to be altered and respiratory distress on admission. ABG revealed significant CO2 retention. She was placed on BiPAP. Family was at bedside. Apparently she has refused to wear her BiPAP all week at the residential. They believe she is more edematous. She was initially not following commands or opening her eyes but after family had prompted her several times she began to open her eyes and follows some commands. Did discuss potential intubation with the family and they wish for full code for now. Review of Systems ROS unobtainable: due to mental status Past Medical History Past Medical History: Atrial Fibrillation, Heart Failure, COPD Additional Past Medical History / Comment(s): Chronic respiratory failure/oxygen ATC, recent issue with dysphagia, JOSIAH/no device, itching, obesity, edema, weakness-wheelchair, incontinence. History of Any Multi-Drug Resistant Organisms: None Reported Past Surgical History: Orthopedic Surgery Additional Past Surgical History / Comment(s): left knee x2 Past Anesthesia/Blood Transfusion Reactions: No Reported Reaction Smoking Status: Former smoker - Past Family History Father Family Medical History: No Reported History Mother Family Medical History: No Reported History Medications and Allergies Home Medications Medication Instructions Recorded Confirmed Type Docusate [Colace] 100 mg PO DAILY 05/07/21 09/29/21 History Loratadine 10 mg PO DAILY 05/07/21 09/29/21 History Multivitamins, Thera [Multivitamin 1 tab PO DAILY 05/07/21 09/29/21 History (formulary)] Omeprazole 20 mg PO DAILY 05/07/21 09/29/21 History Potassium Chloride ER [K-Dur 10] 10 meq PO DAILY 05/07/21 09/29/21 History guaiFENesin [guaiFENesin Oral 200 mg PO Q6H PRN 05/07/21 09/29/21 History Solution] hydrOXYzine HCL [Atarax] 25 mg PO Q6H PRN 05/07/21 09/29/21 History lisinopriL [Zestril] 10 mg PO Q12H 05/07/21 09/29/21 History Apixaban [Eliquis] 5 mg PO BID tab 05/12/21 09/29/21 Rx Furosemide [Lasix] 40 mg PO DAILY #0 05/12/21 09/29/21 Rx Metoprolol Tartrate [Lopressor] 25 mg PO BID tab 05/12/21 09/29/21 Rx Acetaminophen [Tylenol 8 Hour] 650 mg PO Q6H PRN 06/12/21 09/29/21 History Benzonatate [Tessalon Perles] 200 mg PO Q8H PRN 06/12/21 09/29/21 History Ipratropium-Albuterol Nebulize 3 ml INHALATION RT-QID PRN ml 06/18/21 09/29/21 Rx [Duoneb 0.5 mg-3 mg/3 ml Soln] dilTIAZem HCL [Cardizem] 120 mg PO DAILY 08/19/21 09/29/21 History HYDROcodone/APAP 5-325MG [[place] 1 tab PO Q6H PRN 09/29/21 09/29/21 History 5-325] Allergies Allergy/AdvReac Type Severity Reaction Status Date / Time red dye Allergy Rash/Hives Verified 09/29/21 14:42 tositumomab iodine-131 Allergy Unknown Verified 09/29/21 14:42 Physical Exam Vitals: Vital Signs Temp Pulse Resp BP Pulse Ox FiO2 09/29/21 16:45 85 22 127/72 97 09/29/21 16:16 60 09/29/21 15:15 60 09/29/21 14:19 37 H 09/29/21 14:13 90 42 H 96 09/29/21 14:07 60 09/29/21 13:58 97.3 F L 67 40 H 124/114 96 Intake and Output 09/29/21 09/29/21 09/29/21 06:59 14:59 22:59 Other: Weight 126.552 kg Vitals: Reviewed General: Minimally arousable, opens eyes after being prompted several times, following some commands HEENT: Pupils equal in size Cardiovascular: Irregular S1-S2very distant heart sounds Lungs: Breath sounds equal, very diminished breath sounds without wheezing Abdomen: Soft, nontender, nondistended Extremities: 1+ lower extremity edema Skin: Chronic skin changes in lower extremities Neuro: Minimally arousable, following some commands MSK: Joints appear grossly normal Results CBC & Chem 7: 09/29/21 14:12 09/29/21 14:12 Labs: Abnormal Lab Results - Last 24 Hours (Table) 09/29/21 09/29/21 09/29/21 Range/Units 14:12 14:12 14:12 MCV 100.1 H (80.0-100.0) fL MCHC 29.9 L (31.0-37.0) g/dL Neutrophils # 8.1 H (1.3-7.7) k/uL VBG pH 7.29 L (7.31-7.41) VBG pCO2 92 H* (37-51) mmHg VBG HCO3 45 H (24-28) mmol/L Chloride 90 L (98-107) mmol/L Carbon Dioxide 46 H* (22-30) mmol/L BUN 22 H (7-17) mg/dL Glucose 177 H (74-99) mg/dL AST 39 H (14-36) U/L ALT 37 H (4-34) U/L Chest x-ray: report reviewed Assessment and Plan Assessment: Assessment and plan 1. Acute on chronic hypoxic hypercapnic respiratory failure Secondary to #2. Continue with breathing treatments. She is currently on BiPAP 20/6/60%, may need intubation. IV Solu-Medrol started by ICU team. 2. COPD exacerbation Continue breathing treatments and steroids 3. CHF exacerbation, unspecified type, last echo not able to calculate ef CXR appears congested. IV Lasix given by ED, continue Lasix daily. Strict I's a nd O's and daily weights. Salt and fluid restriction. 4. Atrial fibrillation, now rate controlled She was started on Lovenox. Continue diltiazem for rate control along with her metoprolol. 5.JOSIAH Noncompliant with BiPAP at night 6. Suspected obesity hypoventilation syndrome 7. Obesity 8. Hypertension Controlled. Continue diltiazem and metoprolol. Prognosis guarded DVT prophylaxis with Lovenox GI prophylaxis with Protonix
[2021-09-29] MEDS: lisinopriL 10 MG TAB PO SCH (18:36)
[2021-09-29] MEDS: PIPERACILLIN-TAZOBACTAM 3.375 GM in SODIUM CHLORIDE 0.9% 100 ML IVPB SCH (18:59)
[2021-09-29] MEDS: PANTOPRAZOLE 40 MG/10 ML VIAL IVP SCH (18:59)
[2021-09-29 19:02] LABS: ABG Base Excess 18.5 mmol/L; ABG PH 7.23 (7.35-7.45); ABG PO2 110 mmHg (83-108); ABG TCO2 50 mmol/L (19-24); Allen Test Performed? Yes
[2021-09-29 19:03] LABS: Appearance,Urine Clear (Clear); Bilirubin,Urine Negative (Negative); Blood,Urine Negative (Negative); Color,Urine Yellow; Glucose,Urine (UA) Negative (Negative); Hyaline Casts,Urine 18 /lpf (0-2); Ketones,Urine Negative (Negative); Leukocyte Esterase,Urine Moderate (Negative); Mucus,Urine Rare /hpf; Nitrite,Urine Negative (Negative); Protein,Urine Trace (Negative); RBC,Urine 2 /hpf (0-5); Specific Gravity,Urine 1.009 (1.001-1.035); Squamous Epithelial Cell,Urine 1 /hpf (0-4); Urobilinogen,Urine <2.0 mg/dL (<2.0); WBC,Urine 14 /hpf (0-5)
[2021-09-29 19:05] LABS: ABG HCO3 46 mmol/L (21-25); ABG Oxygen Saturation 98.7 % (94-97); ABG PCO2 111 mmHg (35-45)
[2021-09-29] MEDS: IPRATROPIUM-ALBUTEROL 3 ML NEB INHALATION SCH ×2 (19:31→23:42)
[2021-09-29 19:39] LABS: Glucose,Whole Blood 165 mg/dL (70-110)
[2021-09-29 19:39] LABS: Glucose,Whole Blood 179 mg/dL (70-110)
[2021-09-29] MEDS ORDERED: APIXABAN 5 MG TAB PO SCH (21:00)
[2021-09-29] MEDS: ENOXAPARIN 120 MG/0.8 ML SYRINGE SQ SCH (21:15)
[2021-09-29] MEDS: METOPROLOL TARTRATE 25 MG TAB PO SCH (21:16)
[2021-09-30] MEDS: methylPREDNISolone SOD SUCCI 40 MG/ML 1 ML VIAL IV SCH ×4 (00:05→23:21)
[2021-09-30] MEDS: PIPERACILLIN-TAZOBACTAM 3.375 GM in SODIUM CHLORIDE 0.9% 100 ML IVPB SCH ×4 (00:06→23:21)
[2021-09-30] MEDS: SODIUM CHLORIDE 0.9% 500 ML 500 ML IV SCH ×2 (00:14→21:18)
[2021-09-30] MEDS: IPRATROPIUM-ALBUTEROL 3 ML NEB INHALATION SCH ×5 (04:13→20:02)
[2021-09-30 04:25] LABS: Basophils % (A) 0 %; Eosinophils % (A) 0 %; HCT 42.7 % (34.0-46.0); HGB 12.4 gm/dL (11.4-16.0); Hypochromasia Marked; Lymphocytes # (A) 0.3 k/uL (1.0-4.8); Lymphocytes % (A) 5 %; MCH 29.3 pg (25.0-35.0); MCV 100.9 fL (80.0-100.0); Mean Platelet Volume 8.1; Monocytes % (A) 1 %; Neutrophils # (A) 5.9 k/uL (1.3-7.7); Neutrophils % (A) 93 %; Platelet Count 134 k/uL (150-450); RBC 4.24 m/uL (3.80-5.40); RDW 12.3 % (11.5-15.5); WBC 6.3 k/uL (3.8-10.6)
[2021-09-30 04:59] LABS: African American GFR (CKD) >90 (>60 ml/min/1.73 sqM); Blood Urea Nitrogen 26 mg/dL (7-17); Calcium 9.1 mg/dL (8.4-10.2); Chloride 92 mmol/L (98-107); Glucose 168 mg/dL (74-99); Non-African American GFR(CKD) 82 (>60 ml/min/1.73 sqM); Potassium 4.7 mmol/L (3.5-5.1); Sodium 144 mmol/L (137-145)
[2021-09-30] MEDS: METOPROLOL TARTRATE 5 MG/5 ML VIAL IVP SCH (05:05)
[2021-09-30] MEDS: lisinopriL 10 MG TAB PO SCH ×2 (05:10→17:24)
[2021-09-30 05:27] LABS: Anion Gap -28 mmol/L
[2021-09-30 05:31] LABS: Carbon Dioxide >80 mmol/L (22-30)
[2021-09-30 06:12] LABS: ABG Base Excess 19.2 mmol/L; ABG Oxygen Saturation 98.8 % (94-97); ABG PO2 100 mmHg (83-108); ABG TCO2 48 mmol/L (19-24); Allen Test Performed? Yes
[2021-09-30 06:13] LABS: ABG HCO3 46 mmol/L (21-25); ABG PCO2 93 mmHg (35-45)
[2021-09-30 06:45] LABS: Glucose,Whole Blood 150 mg/dL (70-110)
[2021-09-30] MEDS: METOPROLOL TARTRATE 25 MG TAB PO SCH (06:48)
--- NOTE | 2021-09-30 07:15 | XR ---
EXAMINATION TYPE: XR chest 1V portable DATE OF EXAM: 09/30/2021 HISTORY: Shortness of breath. COMPARISON: [id number] TECHNIQUE: Single view of the chest is submitted. FINDINGS: Demonstrated are scattered senescent parenchymal change. Patchy infiltrates throughout both lung bauer persist. Continued cardiomegaly and small effusions. Hilar and mediastinal structures are within normal limits. Degenerative changes are seen of the dorsal spine. IMPRESSION: 1. Patchy infiltrates throughout both lung bauer persist. Continued cardiomegaly and small effusion s.
[2021-09-30] MEDS: ENOXAPARIN 120 MG/0.8 ML SYRINGE SQ SCH (08:21)
[2021-09-30] MEDS: PANTOPRAZOLE 40 MG/10 ML VIAL IVP SCH (08:21)
[2021-09-30] MEDS: DOCUSATE 100 MG CAP PO SCH (08:21)
[2021-09-30] MEDS ORDERED: PANTOPRAZOLE 40 MG TABLET PO SCH (09:00)
[2021-09-30] MEDS ORDERED: CHLORHEXIDINE GLUCONATE 15 ML CUP MUCOUS MEM SCH (09:00)
[2021-09-30] MEDS ORDERED: DILTIAZEM CD 120 MG CAP.ER.24H PO SCH (09:00)
[2021-09-30] MEDS ORDERED: APIXABAN 5 MG TAB PO SCH (10:15)
[2021-09-30 11:41] LABS: Glucose,Whole Blood 118 mg/dL (70-110)
[2021-09-30] MEDS: FUROSEMIDE 10 MG/ML 4 ML VIAL IV SCH (11:52)
--- NOTE | 2021-09-30 13:06 | P.PN ---
Subjective Progress Note Date: 09/30/21 This is an 81-year-old female patient, morbidly obese with a body mass index of 51. [facility] and the patient got transferred to us because of diminished level of consciousness and altered mentation. Apparently, the patient has not been compliant with her [facility]. She was getting more short of breath, confused, altered and she was also having some hallucination. She had diminished level of consciousness. At that point, she was placed on higher levels of oxygen at 6 L and her pulse ox was in the mid 80s. She was given CPAP therapy. She was given a breathing treatment. She was given IV Solu-Medrol and subsequently she got transferred to the emergency department. Here in the emergency, the patient is on BiPAP at a pressure of 16/6 cm of water. I reviewed the chest x-ray shows cardiomegaly, it is a low quality chest x-ray because of her body habitus. Nevertheless, there is increased interstitial markings and is quite suspicious for interstitial edema/CHF. At the same time, the patient is currently on a BiPAP and based on the blood gases. The patient had a pH of 7.29 with a pCO2 of 92 and this was a venous sample. I evaluated this patient in the emergency department. They exchanged tidal volume was suboptimal. I modified the pressures to include pressures of 20/6 cm of water and following that the patient started to exchanged better air exchange, tidal volume was in the order of 175 mL. Respiratory rate still elevated in the mid/low 30s. She started gradually to show some alertness and she was able to wake up. Upon stimulation and follows some simple commands. She has a white cell count of 10.6 with hemoglobin 13.7 and a platelet count of 116. She has a sodium level of 140, serum bicarbonate of 46 with a BUN of 22 and a creatinine of 0.5. She has had multiple UTIs in the past. UA still pending for now. COVID is negative and influenza screen is also negative. According to the family, there has been no focal neurological deficit. She is a full code for now. ProBNP level is 2410. Troponins are negative. On 09/30/2021, the patient is doing extremely well. The patient is awake and alert and following commands and answering questions. Note that overnight, the patient was kept on a BiPAP at a pressure of 20/6 cm of water and this morning she is fully awake and conscious and alert. Based on that, I took of the BiPAP and put the patient 5 L of oxygen by nasal cannula. The patient has nan arterial line. The follow-up blood gas with a pH of 7.3 with a pCO2 of 93 and a pO2 of 100 and this was an FiO2 of 50% while the patient being on a BiPAP. Of significance also has a serum bicarbonate was above 8. The patient's sodium level is at 144. The white cell count is at 6.3 with hemoglobin 12.4. UA was essentially negative. Nevertheless, the urine was cloudy and there was suspicion for infection and was sent for cultures. She remains on bronchodilators patient remains on steroids. She is requesting breakfast. Objective - Vital Signs Vital signs: Vital Signs Temp 98.3 F 09/30/21 08:00 Pulse 123 H 09/30/21 11:31 Resp 35 H 09/30/21 11:00 BP 115/91 09/30/21 11:00 Pulse Ox 91 L 09/30/21 11:00 FiO2 5 09/30/21 11:00 Intake & Output 09/29/21 09/30/21 09/30/21 18:59 06:59 18:59 Intake Total 350 150 Output Total 200 575 185 Balance -200 -225 -35 Weight 126.552 kg 125.7 kg Intake: IV 120 150 Sodium Chloride 0.9% 500 120 150 ml 500 ml @ 30 mls/hr IV .[id number] DANIELLA Rx#: [id number] Intake, IV Titration 230 Amount Piperacillin-Tazobactam 3 200 .375 gm In Sodium Chloride 0.9% 100 ml @ 25 mls/hr IVPB Q8HR DANIELLA Rx# :[id number] Sodium Chloride 0.9% 500 30 ml 500 ml @ 30 mls/hr IV .[id number] DNAIELLA Rx#: [id number] Output: Urine 200 575 185 Other: Voiding Method Indwelling Catheter Indwelling Catheter # Bowel Movements 0 1 ABP, PAP, CO, CI - Last Documented Arterial Blood Pressure 112/66 - Exam Pleasant 81-year-old female patient. Patient is awake and alert and the patient is communicating while being on a BiPAP.. The patient is on a BiPAP at a pressure of 20/6 cm of water The patient is morbidly obese, body mass index of 51 Head exam was generally normal. There was no scleral icterus or corneal arcus. Mucous membranes were moist. Neck is very thick and the patient is a Mallampati class IV. Patient is currently tolerating a full face BiPAP mask. Neck veins cannot be accurately appreciated. Neck supple. Full range of motion. No adenopathy thyromegaly Cardiovascular examination reveals regular rhythm rate. S1-S2 normal. No S3 or S4. No discernible murmur noted. Lungs reveal occasional diffuse bilateral rhonchi. No wheezes or crackles. Breath sounds are equal bilaterally. Breath sounds are quite diminished bilaterally and air entry and exchange is limited as the patient is morbidly obese. Abdomen obese, soft, without masses or tenderness. noted. Organs cannot be accurately palpated as the patient, morbidly obese. No direct tenderness or rebound tensile guarding at this point in time. Extremities are intact. No cyanosis or clubbing. Trace edema. Skin is without rash or lesion. Neurologic examination Neurologically, the patient is awake and alert and the patient does not have any focal neurological deficit. Cranial nerves are essentially intact. - Labs CBC & Chem 7: 09/30/21 04:18 09/30/21 04:18 Labs: Abnormal Lab Results - Last 24 Hours (Table) 09/29/21 09/29/21 09/29/21 Range/Units 14:12 14:12 14:12 MCV 100.1 H (80.0-100.0) fL MCHC 29.9 L (31.0-37.0) g/dL Plt Count (150-450) k/uL Neutrophils # 8.1 H (1.3-7.7) k/uL Lymphocytes # (1.0-4.8) k/uL ABG pH (7.35-7.45) ABG pCO2 (35-45) mmHg ABG pO2 (83-108) mmHg ABG HCO3 (21-25) mmol/L ABG Total CO2 (19-24) mmol/L ABG O2 Saturation (94-97) % VBG pH 7.29 L (7.31-7.41) VBG pCO2 92 H* (37-51) mmHg VBG HCO3 45 H (24-28) mmol/L Chloride 90 L (98-107) mmol/L Carbon Dioxide 46 H* (22-30) mmol/L BUN 22 H (7-17) mg/dL Glucose 177 H (74-99) mg/dL POC Glucose (mg/dL) (70-110) mg/dL AST 39 H (14-36) U/L ALT 37 H (4-34) U/L Urine Protein (Negative) Ur Leukocyte Esterase (Negative) Urine WBC (0-5) /hpf Hyaline Casts (0-2) /lpf Urine Mucus (None) /hpf 09/29/21 09/29/21 09/29/21 Range/Units 18:25 18:34 19:00 MCV (80.0-100.0) fL MCHC (31.0-37.0) g/dL Plt Count (150-450) k/uL Neutrophils # (1.3-7.7) k/uL Lymphocytes # (1.0-4.8) k/uL ABG pH 7.23 L (7.35-7.45) ABG pCO2 111 H* (35-45) mmHg ABG pO2 110 H (83-108) mmHg ABG HCO3 46 H* (21-25) mmol/L ABG Total CO2 50 H (19-24) mmol/L ABG O2 Saturation 98.7 H (94-97) % VBG pH (7.31-7.41) VBG pCO2 (37-51) mmHg VBG HCO3 (24-28) mmol/L Chloride (98-107) mmol/L Carbon Dioxide (22-30) mmol/L BUN (7-17) mg/dL Glucose (74-99) mg/dL POC Glucose (mg/dL) 165 H (70-110) mg/dL AST (14-36) U/L ALT (4-34) U/L Urine Protein Trace H (Negative) Ur Leukocyte Esterase Moderate H (Negative) Urine WBC 14 H (0-5) /hpf Hyaline Casts 18 H (0-2) /lpf Urine Mucus Rare H (None) /hpf 09/29/21 09/30/21 09/30/21 Range/Units 19:36 04:18 04:18 MCV 100.9 H (80.0-100.0) fL MCHC 29.0 L (31.0-37.0) g/dL Plt Count 134 L (150-450) k/uL Neutrophils # (1.3-7.7) k/uL Lymphocytes # 0.3 L (1.0-4.8) k/uL ABG pH (7.35-7.45) ABG pCO2 (35-45) mmHg ABG pO2 (83-108) mmHg ABG HCO3 (21-25) mmol/L ABG Total CO2 (19-24) mmol/L ABG O2 Saturation (94-97) % VBG pH (7.31-7.41) VBG pCO2 (37-51) mmHg VBG HCO3 (24-28) mmol/L Chloride 92 L (98-107) mmol/L Carbon Dioxide >80 H* (22-30) mmol/L BUN 26 H (7-17) mg/dL Glucose 168 H (74-99) mg/dL POC Glucose (mg/dL) 179 H (70-110) mg/dL AST (14-36) U/L ALT (4-34) U/L Urine Protein (Negative) Ur Leukocyte Esterase (Negative) Urine WBC (0-5) /hpf Hyaline Casts (0-2) /lpf Urine Mucus (None) /hpf 09/30/21 09/30/21 09/30/21 Range/Units 06:06 06:43 11:39 MCV (80.0-100.0) fL MCHC (31.0-37.0) g/dL Plt Count (150-450) k/uL Neutrophils # (1.3-7.7) k/uL Lymphocytes # (1.0-4.8) k/uL ABG pH 7.30 L (7.35-7.45) ABG pCO2 93 H* (35-45) mmHg ABG pO2 (83-108) mmHg ABG HCO3 46 H* (21-25) mmol/L ABG Total CO2 48 H (19-24) mmol/L ABG O2 Saturation 98.8 H (94-97) % VBG pH (7.31-7.41) VBG pCO2 (37-51) mmHg VBG HCO3 (24-28) mmol/L Chloride (98-107) mmol/L Carbon Dioxide (22-30) mmol/L BUN (7-17) mg/dL Glucose (74-99) mg/dL POC Glucose (mg/dL) 150 H 118 H (70-110) mg/dL AST (14-36) U/L ALT (4-34) U/L Urine Protein (Negative) Ur Leukocyte Esterase (Negative) Urine WBC (0-5) /hpf Hyaline Casts (0-2) /lpf Urine Mucus (None) /hpf Microbiology - Last 24 Hours (Table) 09/29/21 18:34 Urine Culture - Preliminary Urine,Voided Assessment and Plan Plan: Acute mental status changes and confusion, secondary to acute on chronic hypoxemic and hypercapnic respiratory failure. The patient's acid base status improved and neurologically the patient is also improved and the patient is following commands and answering questions patient is currently on a BiPAP pressure of 20 /6 cm of water. The patient is much improved compared to yesterday while being on a BiPAP. Severe metabolic alkalosis, compensatory to chronic hypercapnic respiratory failure Chronic hypercapnic respiratory failure with an obvious component of obesity hypoventilation syndrome Chronic hypoxic respiratory failure Old right temporal lobe infarct. History of obstructive sleep apnea syndrome. Morbid obesity, with probable Pickwickian syndrome. The patient not been [facility] Previous history of tobacco use, with probable underlying COPD. History of atrial fibrillation. The patient is demented on long-term anticoagulation with Eliquis, cardiac rhythm is still atrial fibrillation and the patient was given Lovenox and the patient was unable to take Eliquis yesterday. Previous history of UTI with E. coli History of urinary incontinence. History of hypertension. History of degenerative joint disease. History depression. long-term resident. Plan The patient breaks off the BiPAP and the patient on 5 L of O2 nasal cannula Continue with BiPAP overnight at a pressure of 20/6 cm of water Start the patient on Diamox 500 mg IV every 12 hours The patient Lasix 40 mg IV every 24 hours Continued IV Zosyn Continue DuoNeb nebulized treatments around the clock continue IV Solu-Medrol Lovenoxwill be discontinued and the patient will be started back on Eliquis keep the patient ICU for another 24 hours We'll continue to follow.
[2021-09-30] MEDS ORDERED: METOPROLOL TARTRATE 5 MG/5 ML VIAL IVP STA (13:42)
--- NOTE | 2021-09-30 14:08 | P.PN ---
Subjective Progress Note Date: 09/30/21 Principal diagnosis: Acute on chronic hypoxic hypercapnic respiratory failure Patient was on 5 L nasal cannula when I went to go see her. She was AAO 3 and was answer questions appropriately. I counseled patient on BiPAP compliance. Patient states that she cannot wear because it is uncomfortable. Objective - Vital Signs Vital signs: Vital Signs Temp 99.0 F 09/30/21 12:00 Pulse 123 H 09/30/21 12:00 Resp 16 09/30/21 13:00 BP 115/91 09/30/21 13:00 Pulse Ox 86 L 09/30/21 13:00 FiO2 5 09/30/21 11:00 Intake & Output 09/29/21 09/30/21 09/30/21 18:59 06:59 18:59 Intake Total 350 210 Output Total 200 575 535 Balance -200 -225 -325 Weight 126.552 kg 125.7 kg Intake: IV 120 210 Sodium Chloride 0.9% 500 120 210 ml 500 ml @ 30 mls/hr IV .[id number] DANIELLA Rx#: [id number] Intake, IV Titration 230 Amount Piperacillin-Tazobactam 3 200 .375 gm In Sodium Chloride 0.9% 100 ml @ 25 mls/hr IVPB Q8HR DANIELLA Rx# :[id number] Sodium Chloride 0.9% 500 30 ml 500 ml @ 30 mls/hr IV .[id number] DANIELLA Rx#: [id number] Output: Urine 200 575 535 Other: Voiding Method Indwelling Catheter Indwelling Catheter # Bowel Movements 0 1 ABP, PAP, CO, CI - Last Documented Arterial Blood Pressure 119/64 - Exam General examination - Alert and Oriented 3 in NAD Heart - + S1S2 no murmurs Lungs - diminished sounds bilaterally Abdomen soft NT ND +ve BS, morbidly obese Extremities - No edema [employer] - Moving all 4 extremities spontaneously Psych - Calm and cooperative - Labs CBC & Chem 7: 09/30/21 04:18 09/30/21 04:18 Labs: Abnormal Lab Results - Last 24 Hours (Table) 09/29/21 09/29/21 09/29/21 Range/Units 14:12 14:12 14:12 MCV 100.1 H (80.0-100.0) fL MCHC 29.9 L (31.0-37.0) g/dL Plt Count (150-450) k/uL Neutrophils # 8.1 H (1.3-7.7) k/uL Lymphocytes # (1.0-4.8) k/uL ABG pH (7.35-7.45) ABG pCO2 (35-45) mmHg ABG pO2 (83-108) mmHg ABG HCO3 (21-25) mmol/L ABG Total CO2 (19-24) mmol/L ABG O2 Saturation (94-97) % VBG pH 7.29 L (7.31-7.41) VBG pCO2 92 H* (37-51) mmHg VBG HCO3 45 H (24-28) mmol/L Chloride 90 L (98-107) mmol/L Carbon Dioxide 46 H* (22-30) mmol/L BUN 22 H (7-17) mg/dL Glucose 177 H (74-99) mg/dL POC Glucose (mg/dL) (70-110) mg/dL AST 39 H (14-36) U/L ALT 37 H (4-34) U/L Urine Protein (Negative) Ur Leukocyte Esterase (Negative) Urine WBC (0-5) /hpf Hyaline Casts (0-2) /lpf Urine Mucus (None) /hpf 09/29/21 09/29/21 09/29/21 Range/Units 18:25 18:34 19:00 MCV (80.0-100.0) fL MCHC (31.0-37.0) g/dL Plt Count (150-450) k/uL Neutrophils # (1.3-7.7) k/uL Lymphocytes # (1.0-4.8) k/uL ABG pH 7.23 L (7.35-7.45) ABG pCO2 111 H* (35-45) mmHg ABG pO2 110 H (83-108) mmHg ABG HCO3 46 H* (21-25) mmol/L ABG Total CO2 50 H (19-24) mmol/L ABG O2 Saturation 98.7 H (94-97) % VBG pH (7.31-7.41) VBG pCO2 (37-51) mmHg VBG HCO3 (24-28) mmol/L Chloride (98-107) mmol/L Carbon Dioxide (22-30) mmol/L BUN (7-17) mg/dL Glucose (74-99) mg/dL POC Glucose (mg/dL) 165 H (70-110) mg/dL AST (14-36) U/L ALT (4-34) U/L Urine Protein Trace H (Negative) Ur Leukocyte Esterase Moderate H (Negative) Urine WBC 14 H (0-5) /hpf Hyaline Casts 18 H (0-2) /lpf Urine Mucus Rare H (None) /hpf 09/29/21 09/30/21 09/30/21 Range/Units 19:36 04:18 04:18 MCV 100.9 H (80.0-100.0) fL MCHC 29.0 L (31.0-37.0) g/dL Plt Count 134 L (150-450) k/uL Neutrophils # (1.3-7.7) k/uL Lymphocytes # 0.3 L (1.0-4.8) k/uL ABG pH (7.35-7.45) ABG pCO2 (35-45) mmHg ABG pO2 (83-108) mmHg ABG HCO3 (21-25) mmol/L ABG Total CO2 (19-24) mmol/L ABG O2 Saturation (94-97) % VBG pH (7.31-7.41) VBG pCO2 (37-51) mmHg VBG HCO3 (24-28) mmol/L Chloride 92 L (98-107) mmol/L Carbon Dioxide >80 H* (22-30) mmol/L BUN 26 H (7-17) mg/dL Glucose 168 H (74-99) mg/dL POC Glucose (mg/dL) 179 H (70-110) mg/dL AST (14-36) U/L ALT (4-34) U/L Urine Protein (Negative) Ur Leukocyte Esterase (Negative) Urine WBC (0-5) /hpf Hyaline Casts (0-2) /lpf Urine Mucus (None) /hpf 09/30/21 09/30/21 09/30/21 Range/Units 06:06 06:43 11:39 MCV (80.0-100.0) fL MCHC (31.0-37.0) g/dL Plt Count (150-450) k/uL Neutrophils # (1.3-7.7) k/uL Lymphocytes # (1.0-4.8) k/uL ABG pH 7.30 L (7.35-7.45) ABG pCO2 93 H* (35-45) mmHg ABG pO2 (83-108) mmHg ABG HCO3 46 H* (21-25) mmol/L ABG Total CO2 48 H (19-24) mmol/L ABG O2 Saturation 98.8 H (94-97) % VBG pH (7.31-7.41) VBG pCO2 (37-51) mmHg VBG HCO3 (24-28) mmol/L Chloride (98-107) mmol/L Carbon Dioxide (22-30) mmol/L BUN (7-17) mg/dL Glucose (74-99) mg/dL POC Glucose (mg/dL) 150 H 118 H (70-110) mg/dL AST (14-36) U/L ALT (4-34) U/L Urine Protein (Negative) Ur Leukocyte Esterase (Negative) Urine WBC (0-5) /hpf Hyaline Casts (0-2) /lpf Urine Mucus (None) /hpf Microbiology - Last 24 Hours (Table) 09/29/21 18:34 Urine Culture - Preliminary Urine,Voided Assessment and Plan Assessment: Acute on chronic hypoxic hypercapnic respiratory failure secondary to BiPAP noncompliance COPD exacerbation Acute on chronic unspecified heart failure CO2 narcosis Morbid obesity with probable pickwickian syndrome -Resume BiPAP at nighttime -Patient 5 L nasal cannula when off BiPAP -Pulmonology following -Resume IV steroids -Resume DuoNeb treatments -Resume IV Zosyn -Resume IV Lasix, strict I's and O's and daily weight -Mental status improved -Patient counseled that she needs to wear the BiPAP Metabolic alkalosis secondary to compensation for respiratory acidosis -Pulmonology started the patient on Diamox Atrial fibrillation -Continue diltiazem and Eliquis and metoprolol -Heart rate uncontrolled likely physiologic due to hypoxia Hypertension -Controlled. Resume diltiazem and metoprolol Prognosis guarded Anticipated discharge: Depending on hospital course Patient will return back to her residential once medically stable
[2021-09-30] MEDS: DILTIAZEM 125 MG in SODIUM CHLORIDE 0.9% 100 ML IV SCH (17:30)
[2021-09-30 18:13] LABS: Glucose,Whole Blood 148 mg/dL (70-110)
[2021-09-30] MEDS: APIXABAN 5 MG TAB PO SCH (20:46)
[2021-09-30] MEDS: METOPROLOL TARTRATE 50 MG TAB PO SCH (20:47)
[2021-09-30] MEDS ORDERED: METOPROLOL TARTRATE 50 MG TAB PO SCH (21:00)
[2021-09-30 23:39] LABS: Glucose,Whole Blood 132 mg/dL (70-110)
[2021-10-01] MEDS: IPRATROPIUM-ALBUTEROL 3 ML NEB INHALATION SCH ×7 (03:27→23:21)
[2021-10-01 04:12] LABS: HCT 38.5 % (34.0-46.0); HGB 11.5 gm/dL (11.4-16.0); Hypochromasia Marked; MCH 29.4 pg (25.0-35.0); MCHC 29.9 g/dL (31.0-37.0); MCV 98.4 fL (80.0-100.0); Mean Platelet Volume 8.2; Platelet Count 146 k/uL (150-450); RBC 3.91 m/uL (3.80-5.40); RDW 12.5 % (11.5-15.5); WBC 8.9 k/uL (3.8-10.6)
[2021-10-01] MEDS: DILTIAZEM 125 MG in SODIUM CHLORIDE 0.9% 100 ML IV SCH (04:28)
[2021-10-01 04:53] LABS: Calcium 9.2 mg/dL (8.4-10.2); Potassium 3.5 mmol/L (3.5-5.1)
[2021-10-01] MEDS: lisinopriL 10 MG TAB PO SCH ×2 (05:38→18:30)
[2021-10-01 05:42] LABS: Glucose,Whole Blood 137 mg/dL (70-110)
[2021-10-01] MEDS ORDERED: Potassium Replacement Protocol 1 EACH MISC MISCELLANE PRN (06:06)
[2021-10-01] MEDS: POTASSIUM CHLORIDE 10 MEQ in WATER FOR INJECTION 1 100ML.BAG IVPB SCH ×4 (06:12→14:37)
[2021-10-01] MEDS: SODIUM CHLORIDE 0.9% 500 ML 500 ML IV SCH (08:20)
[2021-10-01] MEDS: PIPERACILLIN-TAZOBACTAM 3.375 GM in SODIUM CHLORIDE 0.9% 100 ML IVPB SCH ×3 (09:39→23:28)
[2021-10-01] MEDS: PANTOPRAZOLE 40 MG/10 ML VIAL IVP SCH (09:48)
[2021-10-01] MEDS: METOPROLOL TARTRATE 50 MG TAB PO SCH ×3 (09:49→20:24)
[2021-10-01] MEDS: DILTIAZEM CD 240 MG CAP.ER.24H PO SCH (09:49)
[2021-10-01] MEDS: APIXABAN 5 MG TAB PO SCH ×2 (09:49→20:24)
[2021-10-01] MEDS: DOCUSATE 100 MG CAP PO SCH (09:49)
--- NOTE | 2021-10-01 09:56 | XR ---
EXAMINATION TYPE: XR chest 1V portable DATE OF EXAM: 10/01/2021 COMPARISON: 09/30/2021 INDICATION: Short of breath TECHNIQUE: Single frontal view of the chest is obtained. FINDINGS: The heart size is enlarged. The pulmonary vasculature is somewhat prominent. Previous basilar infiltrates are resolving. IMPRESSION: 1. Resolving congestive heart failure.
[2021-10-01 11:28] LABS: Glucose,Whole Blood 220 mg/dL (70-110)
--- NOTE | 2021-10-01 12:26 | P.PN ---
Subjective Progress Note Date: 10/01/21 This is an 81-year-old female patient, morbidly obese with a body mass index of 51. The patient is currently residing at [facility] and the patient got transferred to us because of diminished level of consciousness and altered mentation. Apparently, the patient has not been compliant with her BiPAP device that she was given at the detention. She was getting more short of breath, confused, altered and she was also having some hallucination. She had diminished level of consciousness. At that point, she was placed on higher levels of oxygen at 6 L and her pulse ox was in the mid 80s. She was given CPAP therapy. She was given a breathing treatment. She was given IV Solu-Medrol and subsequently she got transferred to the emergency department. Here in the emergency, the patient is on BiPAP at a pressure of 16/6 cm of water. I reviewed the chest x-ray shows cardiomegaly, it is a low quality chest x-ray because of her body habitus. Nevertheless, there is increased interstitial markings and is quite suspicious for interstitial edema/CHF. At the same time, the patient is currently on a BiPAP and based on the blood gases. The patient had a pH of 7.29 with a pCO2 of 92 and this was a venous sample. I evaluated this patient in the emergency department. They exchanged tidal volume was suboptimal. I modified the pressures to include pressures of 20/6 cm of water and following that the patient started to exchanged better air exchange, tidal volume was in the order of 175 mL. Respiratory rate still elevated in the mid/low 30s. She started gradually to show some alertness and she was able to wake up. Upon stimulation and follows some simple commands. She has a white cell count of 10.6 with hemoglobin 13.7 and a platelet count of 116. She has a sodium level of 140, serum bicarbonate of 46 with a BUN of 22 and a creatinine of 0.5. She has had multiple UTIs in the past. UA still pending for now. COVID is negative and influenza screen is also negative. According to the family, there has been no focal neurological deficit. She is a full code for now. ProBNP level is 2410. Troponins are negative. On 09/30/2021, the patient is doing extremely well. The patient is awake and alert and following commands and answering questions. Note that overnight, the patient was kept on a BiPAP at a pressure of 20/6 cm of water and this morning she is fully awake and conscious and alert. Based on that, I took of the BiPAP and put the patient 5 L of oxygen by nasal cannula. The patient has nan arterial line. The follow-up blood gas with a pH of 7.3 with a pCO2 of 93 and a pO2 of 100 and this was an FiO2 of 50% while the patient being on a BiPAP. Of significance also has a serum bicarbonate was above 8. The patient's sodium level is at 144. The white cell count is at 6.3 with hemoglobin 12.4. UA was essentially negative. Nevertheless, the urine was cloudy and there was suspicion for infection and was sent for cultures. She remains on bronchodilators patient remains on steroids. She is requesting breakfast. 10/01/2021, the patient is awake and alert and she has no specific complaints. She was able to utilize the BiPAP overnight without any major difficulties and currently she is back on oxygen by nasal cannula. Her serum bicarbonate was imp rovement in the patient's serum bicarb level is back to 43 which is probably to her baseline. She has no chest pain. No altered mentation. She is tolerating her diet. She was given Diamox yesterday. No other significant events overnight. Cultures are negative the patient remains on antibiotic coverage with IV Zosyn. Blood sugars are slightly elevated due to systemic steroid use. Note that the patient also has issues with chronic atrial fibrillation. Yesterday, the patient was having rapid ventricular response and based on that the patient was placed back on Cardizem drip at 10 mg an hour and her heart rate is under much better control for now. Her metoprolol dose was also increased up to 50 mg by mouth 3 times a day. She is on anticoagulants. Objective - Vital Signs Vital signs: Vital Signs Temp 98.4 F 10/01/21 12:00 Pulse 92 10/01/21 12:00 Resp 19 10/01/21 12:00 BP 108/71 10/01/21 12:00 Pulse Ox 95 10/01/21 12:00 FiO2 45 10/01/21 04:00 Intake & Output 09/30/21 10/01/21 10/01/21 18:59 06:59 18:59 Intake Total 360 579.667 150 Output Total 1060 1035 870 Balance -700 -455.333 -720 Weight 123.8 kg Intake: IV 360 180 150 Sodium Chloride 0.9% 500 360 180 150 ml 500 ml @ 30 mls/hr IV .[id number] [facility] Rx#: [id number] Intake, IV Titration 399.667 Amount Diltiazem 125 mg In 99.667 Sodium Chloride 0.9% 100 ml @ Per Protocol IV .Q0M [facility] Rx#:[id number] Piperacillin-Tazobactam 3 200 .375 gm In Sodium Chloride 0.9% 100 ml @ 25 mls/hr IVPB Q8HR [facility] Rx# :[id number] Potassium Chloride 10 meq 100 In Water For Injection 1 100ml.bag @ 100 mls/hr IVPB Q1HR [facility] Rx#: [id number] Output: Urine 1060 1035 870 Other: Voiding Method Indwelling Catheter Indwelling Catheter # Bowel Movements 1 0 0 ABP, PAP, CO, CI - Last Documented Arterial Blood Pressure 125/82 - Exam Pleasant 81-year-old female patient. Patient is awake and alert and the patient is communicating while being on a BiPAP.. The patient is on a BiPAP at a pressure of 20/6 cm of water overnight, the patient currently is off the BiPAP and the patient is currently on 3 L of oxygen by nasal cannula The patient is morbidly obese, body mass index of 51 Head exam was generally normal. There was no scleral icterus or corneal arcus. Mucous membranes were moist. Neck is very thick and the patient is a Mallampati class IV. Neck veins cannot be accurately appreciated. Neck supple. Full range of motion. No adenopathy thyromegaly Cardiovascular examination reveals regular rhythm rate. S1-S2 normal. No S3 or S4. No discernible murmur noted. Lungs reveal occasional diffuse bilateral rhonchi. No wheezes or crackles. Breath sounds are equal bilaterally. Breath sounds are quite diminished bilaterally and air entry and exchange is limited as the patient is morbidly obese. Abdomen obese, soft, without masses or tenderness. noted. Organs cannot be accurately palpated as the patient, morbidly obese. No direct tenderness or rebound tensile guarding at this point in time. Extremities are intact. No cyanosis or clubbing. Trace edema. Skin is without rash or lesion. Neurologic examination Neurologically, the patient is awake and alert and the patient does not have any focal neurological deficit. Cranial nerves are essentially intact. - Labs CBC & Chem 7: 10/01/21 04:00 10/01/21 04:00 Labs: Abnormal Lab Results - Last 24 Hours (Table) 09/30/21 09/30/21 10/01/21 Range/Units 18:10 23:37 04:00 MCHC 29.9 L (31.0-37.0) g/dL Plt Count 146 L (150-450) k/uL Chloride (98-107) mmol/L Carbon Dioxide (22-30) mmol/L BUN (7-17) mg/dL Glucose (74-99) mg/dL POC Glucose (mg/dL) 148 H 132 H (70-110) mg/dL 10/01/21 10/01/21 10/01/21 Range/Units 04:00 05:41 11:27 MCHC (31.0-37.0) g/dL Plt Count (150-450) k/uL Chloride 89 L (98-107) mmol/L Carbon Dioxide 43 H* (22-30) mmol/L BUN 31 H (7-17) mg/dL Glucose 145 H (74-99) mg/dL POC Glucose (mg/dL) 137 H 220 H (70-110) mg/dL Microbiology - Last 24 Hours (Table) 09/29/21 18:34 Urine Culture - Final Urine,Voided Assessment and Plan Plan: Acute mental status changes and confusion, secondary to acute on chronic hypoxemic and hypercapnic respiratory failure. The patient's acid base status improved and neurologically the patient is also improved and the patient is following commands and answering questions patient is currently on a BiPAP pressure of 20 /6 cm of water. The patient's mental status is improved and normalized Severe metabolic alkalosis, compensatory to chronic hypercapnic respiratory failure, improved with Diamox Chronic hypercapnic respiratory failure with an obvious component of obesity hypoventilation syndrome, currently on 3 L of oxygen by nasal cannula Chronic hypoxic respiratory failure Old right temporal lobe infarct. History of obstructive sleep apnea syndrome. Morbid obesity, with probable Pickwickian syndrome. The patient not been compliant with her BiPAP machine at the detention Previous history of tobacco use, with probable underlying COPD. History of atrial fibrillation. The patient is demented on long-term antico agulation with Eliquis, cardiac rhythm is still atrial fibrillation and the patient was given Lovenox and the patient was unable to take Eliquis yesterday. Previous history of UTI with E. coli History of urinary incontinence. History of hypertension. History of degenerative joint disease. History depression. jail resident. Plan Continue using the BiPAP overnight Change the patient to oral Lasix 40 mg by mouth daily Discontinue the IV Solu-Medrol and put the patient on prednisone burst taper The patient did have some issues with atrial fibrillation. Based on that, she was placed on a Cardizem drip at 10 mg an hour. We're going to stop that and put the patient Cardizem CD 240 mg by mouth daily and metoprolol 50 mg by mouth 3 times a day. The patient is also on anticoagulants. Antibiotic can be discontinued Continue anticoagulation with Eliquis Transferred to medical floor
--- NOTE | 2021-10-01 12:53 | P.PN ---
Subjective Progress Note Date: 10/01/21 Principal diagnosis: Acute on chronic hypoxic hypercapnic respiratory failure Patient says that she feels "100%" better. She states that she wore BiPAP for most of the night. Objective - Vital Signs Vital signs: Vital Signs Temp 98.4 F 10/01/21 12:00 Pulse 92 10/01/21 12:00 Resp 19 10/01/21 12:00 BP 108/71 10/01/21 12:00 Pulse Ox 95 10/01/21 12:00 FiO2 45 10/01/21 04:00 Intake & Output 09/30/21 10/01/21 10/01/21 18:59 06:59 18:59 Intake Total 360 579.667 150 Output Total 1060 1035 870 Balance -700 -455.333 -720 Weight 123.8 kg Intake: IV 360 180 150 Sodium Chloride 0.9% 500 360 180 150 ml 500 ml @ 30 mls/hr IV .[id number] [facility] Rx#: [id number] Intake, IV Titration 399.667 Amount Diltiazem 125 mg In 99.667 Sodium Chloride 0.9% 100 ml @ Per Protocol IV .Q0M [facility] Rx#:[id number] Piperacillin-Tazobactam 3 200 .375 gm In Sodium Chloride 0.9% 100 ml @ 25 mls/hr IVPB Q8HR [facility] Rx# :[id number] Potassium Chloride 10 meq 100 In Water For Injection 1 100ml.bag @ 100 mls/hr IVPB Q1HR [facility] Rx#: [id number] Output: Urine 1060 1035 870 Other: Voiding Method Indwelling Catheter Indwelling Catheter Indwelling Catheter # Bowel Movements 1 0 0 ABP, PAP, CO, CI - Last Documented Arterial Blood Pressure 125/82 - Exam General examination - Alert and Oriented 3 in NAD Heart - + S1S2 no murmurs Lungs - diminished sounds bilaterally Abdomen soft NT ND +ve BS, morbidly obese Extremities - No edema [employer] - Moving all 4 extremities spontaneously Psych - Calm and cooperative - Labs CBC & Chem 7: 10/01/21 04:00 10/01/21 04:00 Labs: Abnormal Lab Results - Last 24 Hours (Table) 09/30/21 09/30/21 10/01/21 Range/Units 18:10 23:37 04:00 MCHC 29.9 L (31.0-37.0) g/dL Plt Count 146 L (150-450) k/uL Chloride (98-107) mmol/L Carbon Dioxide (22-30) mmol/L BUN (7-17) mg/dL Glucose (74-99) mg/dL POC Glucose (mg/dL) 148 H 132 H (70-110) mg/dL 10/01/21 10/01/21 10/01/21 Range/Units 04:00 05:41 11:27 MCHC (31.0-37.0) g/dL Plt Count (150-450) k/uL Chloride 89 L (98-107) mmol/L Carbon Dioxide 43 H* (22-30) mmol/L BUN 31 H (7-17) mg/dL Glucose 145 H (74-99) mg/dL POC Glucose (mg/dL) 137 H 220 H (70-110) mg/dL Microbiology - Last 24 Hours (Table) 09/29/21 18:34 Urine Culture - Final Urine,Voided Assessment and Plan Assessment: Acute on chronic hypoxic hypercapnic respiratory failure secondary to BiPAP noncompliance COPD exacerbation Acute on chronic unspecified heart failure CO2 narcosis Morbid obesity with probable pickwickian syndrome -Resume BiPAP at nighttime -Patient 5 L nasal cannula when off BiPAP -Pulmonology following -Resume IV steroids -> patient transition to oral steroids -Resume DuoNeb treatments -Antibiotics discontinued -Patient transition to oral Lasix -Mental status improved -Patient counseled that she needs to wear the BiPAP Metabolic alkalosis secondary to compensation for respiratory acidosis -Pulmonology started the patient on Diamox Atrial fibrillation -Continue diltiazem and Eliquis and metoprolol -Patient will be weaned off of the Cardizem drip today -Heart rate uncontrolled likely physiologic due to hypoxia Hypertension -Controlled. Resume diltiazem and metoprolol Prognosis guarded Anticipated discharge: Anticipate patient be ready for discharge in the next 24 hours Patient will return back to her longterm once medically stable
[2021-10-01] MEDS: methylPREDNISolone SOD SUCCI 40 MG/ML 1 ML VIAL IV SCH (16:46)
[2021-10-01] MEDS: METOPROLOL TARTRATE 5 MG/5 ML VIAL IVP SCH ×2 (16:46→16:47)
[2021-10-01] MEDS: FUROSEMIDE 10 MG/ML 4 ML VIAL IV SCH (16:47)
[2021-10-01 20:04] LABS: Glucose,Whole Blood 121 mg/dL (70-110)
[2021-10-02] MEDS: IPRATROPIUM-ALBUTEROL 3 ML NEB INHALATION SCH ×6 (03:41→23:43)
[2021-10-02] MEDS: SODIUM CHLORIDE 0.9% 500 ML 500 ML IV SCH ×2 (04:48→19:00)
[2021-10-02] MEDS: lisinopriL 10 MG TAB PO SCH ×2 (04:58→17:00)
[2021-10-02 06:15] LABS: Glucose,Whole Blood 86 mg/dL (70-110)
[2021-10-02 09:02] LABS: HCT 41.5 % (34.0-46.0); HGB 12.4 gm/dL (11.4-16.0); Hypochromasia Marked; MCH 30.2 pg (25.0-35.0); MCHC 29.8 g/dL (31.0-37.0); MCV 101.1 fL (80.0-100.0); Mean Platelet Volume 7.8; Platelet Count 158 k/uL (150-450); RDW 12.6 % (11.5-15.5); WBC 8.4 k/uL (3.8-10.6)
[2021-10-02] MEDS: DILTIAZEM CD 240 MG CAP.ER.24H PO SCH (09:18)
[2021-10-02] MEDS: DOCUSATE 100 MG CAP PO SCH (09:18)
[2021-10-02] MEDS: METOPROLOL TARTRATE 50 MG TAB PO SCH ×3 (09:19→20:20)
[2021-10-02] MEDS: FUROSEMIDE 40 MG TAB PO SCH (09:19)
[2021-10-02] MEDS: APIXABAN 5 MG TAB PO SCH ×2 (09:19→20:20)
[2021-10-02] MEDS: PANTOPRAZOLE 40 MG/10 ML VIAL IVP SCH (09:19)
[2021-10-02] MEDS: predniSONE 10 MG TAB PO SCH (09:19)
[2021-10-02] MEDS: PIPERACILLIN-TAZOBACTAM 3.375 GM in SODIUM CHLORIDE 0.9% 100 ML IVPB SCH ×3 (09:20→23:07)
[2021-10-02 09:27] LABS: Potassium 3.6 mmol/L (3.5-5.1)
[2021-10-02 09:28] LABS: Calcium 9.5 mg/dL (8.4-10.2)
[2021-10-02 11:42] LABS: Glucose,Whole Blood 110 mg/dL (70-110)
--- NOTE | 2021-10-02 13:27 | P.PN ---
Subjective Progress Note Date: 10/02/21 Principal diagnosis: Acute on chronic hypoxic hypercapnic respiratory failure Patient states that she feels well. She said that she wear her BiPAP last night. I counseled the patient again on the importance of wearing her BiPAP. I also told nurse to remove Hathaway and do a voiding trial. I discussed the case with binder caser who said that prior authorization has been sent for patient to go to detention facility Objective - Vital Signs Vital signs: Vital Signs Temp 98.0 F 10/02/21 08:10 Pulse 98 10/02/21 11:56 Resp 20 10/02/21 08:10 BP 94/67 10/02/21 08:10 Pulse Ox 91 L 10/02/21 08:10 FiO2 45 10/01/21 23:21 Intake & Output 10/01/21 10/02/21 10/02/21 18:59 06:59 18:59 Intake Total 268 360 Output Total 870 600 950 Balance -602 600 590 Intake: IV 150 Sodium Chloride 0.9% 500 150 ml 500 ml @ 30 mls/hr IV .[id number] [facility] Rx#: [id number] Oral 118 360 Output: Urine 870 600 950 Other: Voiding Method Indwelling Catheter Indwelling Catheter # Bowel Movements 0 ABP, PAP, CO, CI - Last Documented Arterial Blood Pressure 125/82 - Exam General examination - Alert and Oriented 3 in NAD Heart - + S1S2 no murmurs Lungs - diminished sounds bilaterally Abdomen soft NT ND +ve BS, morbidly obese Extremities - No edema [employer] - Moving all 4 extremities spontaneously Psych - Calm and cooperative - Labs CBC & Chem 7: 10/02/21 08:35 10/02/21 08:35 Labs: Abnormal Lab Results - Last 24 Hours (Table) 10/01/21 10/02/21 10/02/21 Range/Units 20:02 08:35 08:35 MCV 101.1 H (80.0-100.0) fL MCHC 29.8 L (31.0-37.0) g/dL Chloride 92 L (98-107) mmol/L Carbon Dioxide 38 H (22-30) mmol/L BUN 32 H (7-17) mg/dL Creatinine 1.10 H (0.52-1.04) mg/dL Glucose 116 H (74-99) mg/dL POC Glucose (mg/dL) 121 H (70-110) mg/dL Assessment and Plan Assessment: Acute on chronic hypoxic hypercapnic respiratory failure secondary to BiPAP noncompliance COPD exacerbation Acute on chronic unspecified heart failure CO2 narcosis Morbid obesity with probable pickwickian syndrome -Resume BiPAP at nighttime -> patient has BiPAP at home but was noncompliant prior to coming in. -Patient 3 L nasal cannula when off BiPAP which is her home O2 -Pulmonology following -Resume IV steroids -> patient transition to oral steroids -Resume DuoNeb treatments -Antibiotics discontinued -Patient transition to oral Lasix -Mental status improved -Patient counseled that she needs to wear the BiPAP Metabolic alkalosis secondary to compensation for respiratory acidosis -improving. Diamox stopped. Atrial fibrillation with RVR -Continue diltiazem and Eliquis and metoprolol -Heart rate controlled this morning Hypertension -Controlled. Resume diltiazem and metoprolol Hathaway catheter placed on admission. We'll do a voiding trial today Prognosis guarded Anticipated discharge: Patient medically stable for discharge back to detention facility. Awaiting for prior authorization
--- NOTE | 2021-10-02 16:01 | P.PN ---
Subjective Progress Note Date: 10/02/21 This is an 81-year-old female patient, morbidly obese with a body mass index of 51. The patient is currently residing at [facility] and the patient got transferred to us because of diminished level of consciousness and altered mentation. Apparently, the patient has not been compliant with her BiPAP device that she was given at the custodial. She was getting more short of breath, confused, altered and she was also having some hallucination. She had diminished level of consciousness. At that point, she was placed on higher levels of oxygen at 6 L and her pulse ox was in the mid 80s. She was given CPAP therapy. She was given a breathing treatment. She was given IV Solu-Medrol and subsequently she got transferred to the emergency department. Here in the emergency, the patient is on BiPAP at a pressure of 16/6 cm of water. I reviewed the chest x-ray shows cardiomegaly, it is a low quality chest x-ray because of her body habitus. Nevertheless, there is increased interstitial markings and is quite suspicious for interstitial edema/CHF. At the same time, the patient is currently on a BiPAP and based on the blood gases. The patient had a pH of 7.29 with a pCO2 of 92 and this was a venous sample. I evaluated this patient in the emergency department. They exchanged tidal volume was suboptimal. I modified the pressures to include pressures of 20/6 cm of water and following that the patient started to exchanged better air exchange, tidal volume was in the order of 175 mL. Respiratory rate still elevated in the mid/low 30s. She started gradually to show some alertness and she was able to wake up. Upon stimulation and follows some simple commands. She has a white cell count of 10.6 with hemoglobin 13.7 and a platelet count of 116. She has a sodium level of 140, serum bicarbonate of 46 with a BUN of 22 and a creatinine of 0.5. She has had multiple UTIs in the past. UA still pending for now. COVID is negative and influenza screen is also negative. According to the family, there has been no focal neurological deficit. She is a full code for now. ProBNP level is 2410. Troponins are negative. On 09/30/2021, the patient is doing extremely well. The patient is awake and alert and following commands and answering questions. Note that overnight, the patient was kept on a BiPAP at a pressure of 20/6 cm of water and this morning she is fully awake and conscious and alert. Based on that, I took of the BiPAP and put the patient 5 L of oxygen by nasal cannula. The patient has nan arterial line. The follow-up blood gas with a pH of 7.3 with a pCO2 of 93 and a pO2 of 100 and this was an FiO2 of 50% while the patient being on a BiPAP. Of significance also has a serum bicarbonate was above 8. The patient's sodium level is at 144. The white cell count is at 6.3 with hemoglobin 12.4. UA was essentially negative. Nevertheless, the urine was cloudy and there was suspicion for infection and was sent for cultures. She remains on bronchodilators patient remains on steroids. She is requesting breakfast. 10/01/2021, the patient is awake and alert and she has no specific complaints. She was able to utilize the BiPAP overnight without any major difficulties and currently she is back on oxygen by nasal cannula. Her serum bicarbonate was imp rovement in the patient's serum bicarb level is back to 43 which is probably to her baseline. She has no chest pain. No altered mentation. She is tolerating her diet. She was given Diamox yesterday. No other significant events overnight. Cultures are negative the patient remains on antibiotic coverage with IV Zosyn. Blood sugars are slightly elevated due to systemic steroid use. Note that the patient also has issues with chronic atrial fibrillation. Yesterday, the patient was having rapid ventricular response and based on that the patient was placed back on Cardizem drip at 10 mg an hour and her heart rate is under much better control for now. Her metoprolol dose was also increased up to 50 mg by mouth 3 times a day. She is on anticoagulants. 10/02/2021, the patient doing extremely well. Communicating. No signs of any CO2 narcosis. No issues with using the BiPAP overnight and the patient utilizes BiPAP without any major difficulties and the patient is currently on 4 L of oxygen by nasal cannula. Note that the patient has a BiPAP machine at the custodial. Serum bicarb was up to 38 and the Diamox was also discontinued. The patient is currently on oral Lasix. No signs of fluid overload. No other significant issues otherwise for now. She is on long-term medical condition with Eliquis 5 mg 2 twice a day. Hemodynamically stable. Blood work was noted. Possible discharge home today. Urine is a 32 with a creatinine 1.1. Serum bicarbonate of 38. Sodium is at 141 and the white cell count is at 3.4 with a hemoglobin of 12.4. Objective - Vital Signs Vital signs: Vital Signs Temp 98.0 F 10/02/21 08:10 Pulse 98 10/02/21 11:56 Resp 20 10/02/21 08:10 BP 94/67 10/02/21 08:10 Pulse Ox 91 L 10/02/21 08:10 FiO2 45 10/01/21 23:21 Intake & Output 10/01/21 10/02/21 10/02/21 18:59 06:59 18:59 Intake Total 268 360 Output Total 870 600 950 Balance -602 -600 -590 Intake: IV 150 Sodium Chloride 0.9% 500 150 ml 500 ml @ 30 mls/hr IV .[id number] [facility] Rx#: [id number] Oral 118 360 Output: Urine 870 600 950 Other: Voiding Method Indwelling Catheter Indwelling Catheter # Bowel Movements 0 ABP, PAP, CO, CI - Last Documented Arterial Blood Pressure 125/82 - Exam Pleasant 81-year-old female patient. On 3 L of nasal cannula The patient is morbidly obese, body mass index of 51 Head exam was generally normal. There was no scleral icterus or corneal arcus. Mucous membranes were moist. Neck is very thick and the patient is a Mallampati class IV. Neck veins cannot be accurately appreciated. Neck supple. Full range of motion. No adenopathy thyromegaly Cardiovascular examination reveals regular rhythm rate. S1-S2 normal. No S3 or S4. No discernible murmur noted. Lungs reveal occasional diffuse bilateral rhonchi. No wheezes or crackles. Breath sounds are equal bilaterally. Breath sounds are quite diminished bilaterally and air entry and exchange is limited as the patient is morbidly obese. Abdomen obese, soft, without masses or tenderness. noted. Organs cannot be accurately palpated as the patient, morbidly obese. No direct tenderness or rebound tensile guarding at this point in time. Extremities are intact. No cyanosis or clubbing. Trace edema. Skin is without rash or lesion. Neurologic examination Neurologically, the patient is awake and alert and the patient does not have any focal neurological deficit. Cranial nerves are essentially intact. - Labs CBC & Chem 7: 10/02/21 08:35 10/02/21 08:35 Labs: Abnormal Lab Results - Last 24 Hours (Table) 10/01/21 10/02/21 10/02/21 Range/Units 20:02 08:35 08:35 MCV 101.1 H (80.0-100.0) fL MCHC 29.8 L (31.0-37.0) g/dL Chloride 92 L (98-107) mmol/L Carbon Dioxide 38 H (22-30) mmol/L BUN 32 H (7-17) mg/dL Creatinine 1.10 H (0.52-1.04) mg/dL Glucose 116 H (74-99) mg/dL POC Glucose (mg/dL) 121 H (70-110) mg/dL Assessment and Plan Plan: Acute mental status changes and confusion, secondary to acute on chronic hypoxemic and hypercapnic respiratory failure. The patient's acid base status improved and neurologically the patient is also improved and the patient is following commands and answering questions patient is currently on a BiPAP pressure of 20 /6 cm of water. 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 History of obstructive sleep apnea syndrome. Morbid obesity, with probable Pickwickian syndrome. The patient not been compliant with her BiPAP machine at the custodial Previous history of tobacco use, with probable underlying COPD. History of atrial fibrillation. The patient is demented on long-term anticoagulation with Eliquis, cardiac rhythm is still atrial fibrillation and the patient was given Lovenox and the patient was unable to take Eliquis yesterday. Previous history of UTI with E. coli History of urinary incontinence. History of hypertension. History of degenerative joint disease. History depression. intermediate resident. Plan Continue using the BiPAP overnight and importance of BiPAP use will be emphasized for the custodial staff Discontinue the Diamox Change the patient to oral Lasix 40 mg by mouth daily Continue anticoagulation with Eliquis Possible home today
[2021-10-02 16:49] LABS: Glucose,Whole Blood 147 mg/dL (70-110)
[2021-10-02 17:22] LABS: Glucose,Whole Blood 150 mg/dL (70-110)
[2021-10-03] MEDS: IPRATROPIUM-ALBUTEROL 3 ML NEB INHALATION SCH ×5 (03:41→20:11)
[2021-10-03] MEDS: lisinopriL 10 MG TAB PO SCH ×2 (06:00→16:40)
[2021-10-03 08:05] LABS: Basophils % (A) 0 %; Eosinophils # (A) 0.1 k/uL (0-0.7); Eosinophils % (A) 1 %; HCT 42.5 % (34.0-46.0); HGB 12.4 gm/dL (11.4-16.0); Hypochromasia Marked; Lymphocytes # (A) 1.3 k/uL (1.0-4.8); Lymphocytes % (A) 19 %; MCH 29.6 pg (25.0-35.0); MCHC 29.3 g/dL (31.0-37.0); MCV 101.1 fL (80.0-100.0); Mean Platelet Volume 7.4; Monocytes # (A) 0.5 k/uL (0-1.0); Monocytes % (A) 8 %; Neutrophils # (A) 5.1 k/uL (1.3-7.7); Neutrophils % (A) 71 %; Platelet Count 149 k/uL (150-450); RDW 12.4 % (11.5-15.5); WBC 7.2 k/uL (3.8-10.6)
[2021-10-03 08:19] LABS: Calcium 9.1 mg/dL (8.4-10.2); Potassium 3.7 mmol/L (3.5-5.1)
[2021-10-03 08:43] LABS: Glucose,Whole Blood 122 mg/dL (70-110)
[2021-10-03] MEDS: PANTOPRAZOLE 40 MG/10 ML VIAL IVP SCH (09:00)
[2021-10-03] MEDS: FUROSEMIDE 40 MG TAB PO SCH (09:00)
[2021-10-03] MEDS: DILTIAZEM CD 240 MG CAP.ER.24H PO SCH (09:00)
[2021-10-03] MEDS: PIPERACILLIN-TAZOBACTAM 3.375 GM in SODIUM CHLORIDE 0.9% 100 ML IVPB SCH ×3 (09:00→23:22)
[2021-10-03] MEDS: APIXABAN 5 MG TAB PO SCH ×2 (09:00→20:43)
[2021-10-03] MEDS: DOCUSATE 100 MG CAP PO SCH (09:00)
[2021-10-03] MEDS: METOPROLOL TARTRATE 50 MG TAB PO SCH ×3 (09:01→20:43)
[2021-10-03] MEDS: predniSONE 10 MG TAB PO SCH (09:01)
[2021-10-03 11:55] LABS: Glucose,Whole Blood 113 mg/dL (70-110)
--- NOTE | 2021-10-03 13:15 | P.DS ---
Providers Date of admission: 09/29/21 15:39 Expected date of discharge: 10/03/21 Attending physician: Saroj Raya MD Consults: 09/29/21 15:39 Consult Physician Stat Consulting Provider: Efren Ponce Consult Reason/Comments: acute/chronic hypoxic resp failure, AECOPD, bipap failure Do you want consulting provider notified?: Already Contacted Primary care physician: [facility] Hospital Course: Acute on chronic hypoxic hypercapnic respiratory failure secondary to BiPAP noncompliance COPD exacerbation Acute on chronic unspecified heart failure CO2 narcosis Morbid obesity with probable pickwickian syndrome Metabolic alkalosis secondary to compensation for respiratory acidosis Atrial fibrillation with RVR Hypertension This is an 81-year-old lady with medical history significant for chronic hypoxic respiratory failure, COPD, JOSIAH, obesity hypoventilation syndrome, hypertension and atrial fibrillation who presented from a nursing facility with altered mentation and difficulty breathing. The emergency room, patient was afebrile, 124/114, heart rate 67, respiratory rate 40 she was saturating 96% on BiPAP with an FiO2 of 60%. Patient was seen in consultation with pulmonary medicine who recommended IV Lasix as well as medical care management. Patient subsequently developed atrial fibrillation with RVR while in the emergency room and cardiology was brought on board. Patient's initial chest x-ray was significant for congestive heart failure exacerbation. Patient had good urine output, and was diuresed for 4 days with return to her baseline oxygen requirement. She was also treated for COPD exacerbation and CO2 narcosis with IV steroids, standing nebulizer treatments. Repeat chest x-ray was done 48 hours after her initial presentation which demonstrated resolving congestive heart failure changes. Patient was ultimately discharged to rehab with plans to follow-up with pulmonary and cardiology. Notably, her diltiazem was increased to 240 from 120 mg, her metoprolol was increased from 25 mg twice a day to 50 mg 3 times a day in order to control her rate. She was also discharged on prednisone taper for 9 additional days. I spent 38 minutes coordinating this complex discharge, discharge date 10/03. Gen: awake, alert HEENT: normocephalic, atraumatic, good hearing acuity, moist mucous membranes Resp: good air exchange, breathing comfortably with no accessory muscle use, CVS: good distal perfusion x 4, GI: soft, NTTP, ND : no SPT, no CVAT, guerrier catheter not present MSK: + pitting edema, no clubbing Neuro: non-focal, moving all extremities Psych: cooperative, euthymic mood Patient Condition at Discharge: Fair Plan - Discharge Summary Discharge Rx Participant: Yes New Discharge Prescriptions: New predniSONE See Rx Instructions .ROUTE .COMPLEX #18 tab Diltiazem Cd [Cardizem CD] 240 mg PO DAILY #30 cap Metoprolol Tartrate [Lopressor] 50 mg PO TID #90 tab Continue Potassium Chloride ER [K-Dur 10] 10 meq PO DAILY lisinopriL [Zestril] 10 mg PO Q12H hydrOXYzine HCL [Atarax] 25 mg PO Q6H PRN PRN Reason: Itching Apixaban [Eliquis] 5 mg PO BID tab Ipratropium-Albuterol Nebulize [Duoneb 0.5 mg-3 mg/3 ml Soln] 3 ml INHALATION RT-QID PRN ml PRN Reason: Shortness Of Breath Or Wheezing Omeprazole 20 mg PO DAILY Multivitamins, Thera [Multivitamin (formulary)] 1 tab PO DAILY Loratadine 10 mg PO DAILY guaiFENesin [guaiFENesin Oral Solution] 200 mg PO Q6H PRN PRN Reason: Cough Docusate [Colace] 100 mg PO DAILY Furosemide [Lasix] 40 mg PO DAILY #0 Benzonatate [Tessalon Perles] 200 mg PO Q8H PRN PRN Reason: Cough Acetaminophen [Tylenol 8 Hour] 650 mg PO Q6H PRN PRN Reason: Pain HYDROcodone/APAP 5-325MG [[place] 5-325] 1 tab PO Q6H PRN #12 tab PRN Reason: Pain Discontinued Metoprolol Tartrate [Lopressor] 25 mg PO BID tab dilTIAZem HCL [Cardizem] 120 mg PO DAILY Discharge Medication List Docusate [Colace] 100 mg PO DAILY 05/07/21 [History] Loratadine 10 mg PO DAILY 05/07/21 [History] Multivitamins, Thera [Multivitamin (formulary)] 1 tab PO DAILY 05/07/21 [History] Omeprazole 20 mg PO DAILY 05/07/21 [History] Potassium Chloride ER [K-Dur 10] 10 meq PO DAILY 05/07/21 [History] guaiFENesin [guaiFENesin Oral Solution] 200 mg PO Q6H PRN 05/07/21 [History] hydrOXYzine HCL [Atarax] 25 mg PO Q6H PRN 05/07/21 [History] lisinopriL [Zestril] 10 mg PO Q12H 05/07/21 [History] Apixaban [Eliquis] 5 mg PO BID tab 05/12/21 [Rx] Furosemide [Lasix] 40 mg PO DAILY #0 05/12/21 [Rx] Acetaminophen [Tylenol 8 Hour] 650 mg PO Q6H PRN 06/12/21 [History] Benzonatate [Tessalon Perles] 200 mg PO Q8H PRN 06/12/21 [History] Ipratropium-Albuterol Nebulize [Duoneb 0.5 mg-3 mg/3 ml Soln] 3 ml INHALATION RT-QID PRN ml 06/18/21 [Rx] Diltiazem Cd [Cardizem CD] 240 mg PO DAILY #30 cap 10/03/21 [Rx] HYDROcodone/APAP 5-325MG [[place] 5-325] 1 tab PO Q6H PRN #12 tab 10/03/21 [Rx] Metoprolol Tartrate [Lopressor] 50 mg PO TID #90 tab 10/03/21 [Rx] predniSONE See Rx Instructions .ROUTE .COMPLEX #18 tab 10/03/21 [Rx] Follow up Appointment(s)/Referral(s): Wyatt Jaffe DO [Primary Care Provider] - 1-2 days Discharge Disposition: TRANSFER TO SNF/ECF
--- NOTE | 2021-10-03 14:35 | P.PN ---
Subjective Progress Note Date: 10/03/21 This is an 81-year-old female patient, morbidly obese with a body mass index of 51. The patient is currently residing at [facility] and the patient got transferred to us because of diminished level of consciousness and altered mentation. Apparently, the patient has not been compliant with her BiPAP device that she was given at the [facility]. She was getting more short of breath, confused, altered and she was also having some hallucination. She had diminished level of consciousness. At that point, she was placed on higher levels of oxygen at 6 L and her pulse ox was in the mid 80s. She was given CPAP therapy. She was given a breathing treatment. She was given IV Solu-Medrol and subsequently she got transferred to the emergency department. Here in the emergency, the patient is on BiPAP at a pressure of 16/6 cm of water. I reviewed the chest x-ray shows cardiomegaly, it is a low quality chest x-ray because of her body habitus. Nevertheless, there is increased interstitial markings and is quite suspicious for interstitial edema/CHF. At the same time, the patient is currently on a BiPAP and based on the blood gases. The patient had a pH of 7.29 with a pCO2 of 92 and this was a venous sample. I evaluated this patient in the emergency department. They exchanged tidal volume was suboptimal. I modified the pressures to include pressures of 20/6 cm of water and following that the patient started to exchanged better air exchange, tidal volume was in the order of 175 mL. Respiratory rate still elevated in the mid/low 30s. She started gradually to show some alertness and she was able to wake up. Upon stimulation and follows some simple commands. She has a white cell count of 10.6 with hemoglobin 13.7 and a platelet count of 116. She has a sodium level of 140, serum bicarbonate of 46 with a BUN of 22 and a creatinine of 0.5. She has had multiple UTIs in the past. UA still pending for now. COVID is negative and influenza screen is also negative. According to the family, there has been no focal neurological deficit. She is a full code for now. ProBNP level is 2410. Troponins are negative. On 09/30/2021, the patient is doing extremely well. The patient is awake and alert and following commands and answering questions. Note that overnight, the patient was kept on a BiPAP at a pressure of 20/6 cm of water and this morning she is fully awake and conscious and alert. Based on that, I took of the BiPAP and put the patient 5 L of oxygen by nasal cannula. The patient has nan arterial line. The follow-up blood gas with a pH of 7.3 with a pCO2 of 93 and a pO2 of 100 and this was an FiO2 of 50% while the patient being on a BiPAP. Of significance also has a serum bicarbonate was above 8. The patient's sodium level is at 144. The white cell count is at 6.3 with hemoglobin 12.4. UA was essentially negative. Nevertheless, the urine was cloudy and there was suspicion for infection and was sent for cultures. She remains on bronchodilators patient remains on steroids. She is requesting breakfast. 10/01/2021, the patient is awake and alert and she has no specific complaints. She was able to utilize the BiPAP overnight without any major difficulties and currently she is back on oxygen by nasal cannula. Her serum bicarbonate was imp rovement in the patient's serum bicarb level is back to 43 which is probably to her baseline. She has no chest pain. No altered mentation. She is tolerating her diet. She was given Diamox yesterday. No other significant events overnight. Cultures are negative the patient remains on antibiotic coverage with IV Zosyn. Blood sugars are slightly elevated due to systemic steroid use. Note that the patient also has issues with chronic atrial fibrillation. Yesterday, the patient was having rapid ventricular response and based on that the patient was placed back on Cardizem drip at 10 mg an hour and her heart rate is under much better control for now. Her metoprolol dose was also increased up to 50 mg by mouth 3 times a day. She is on anticoagulants. 10/02/2021, the patient doing extremely well. Communicating. No signs of any CO2 narcosis. No issues with using the BiPAP overnight and the patient utilizes BiPAP without any major difficulties and the patient is currently on 4 L of oxygen by nasal cannula. Note that the patient has a BiPAP machine at the [facility]. Serum bicarb was up to 38 and the Diamox was also discontinued. The patient is currently on oral Lasix. No signs of fluid overload. No other significant issues otherwise for now. She is on long-term medical condition with Eliquis 5 mg 2 twice a day. Hemodynamically stable. Blood work was noted. Possible discharge home today. Urine is a 32 with a creatinine 1.1. Serum bicarbonate of 38. Sodium is at 141 and the white cell count is at 3.4 with a hemoglobin of 12.4. 10/03/2021, the patient is doing well and the patient has no specific complaints. He denies using the BiPAP regularly and wants off the BiPAP the patient was on oxygen at 4 L. She remains on Lasix 40 mg by mouth daily. She is off Diamox. Serum bicarb is up to 44. Otherwise, the rest of the electrodes are normal. The white cell count is 7.2 with a hemoglobin of 12.4. Patient is alert and awake and communicating. No other issues for now. Cultures are all negative the patient remains on IV Zosyn. Objective - Vital Signs Vital signs: Vital Signs Temp 97.4 F L 10/03/21 11:54 Pulse 100 10/03/21 12:35 Resp 17 10/03/21 11:54 BP 102/59 10/03/21 11:54 Pulse Ox 92 L 10/03/21 11:54 FiO2 45 10/03/21 03:41 Intake & Output 10/02/21 10/03/21 10/03/21 18:59 06:59 18:59 Intake Total 1180 240 360 Output Total 1950 600 Balance -770 -360 360 Intake: IV 20 Invasive Line 3 20 Intake, IV Titration 200 Amount Piperacillin-Tazobactam 3 200 .375 gm In Sodium Chloride 0.9% 100 ml @ 25 mls/hr IVPB Q8HR [facility] Rx# :[id number] Oral 960 240 360 Output: Urine 1950 600 Other: Voiding Method Indwelling Catheter Incontinent Incontinent External Catheter External Catheter ABP, PAP, CO, CI - Last Documented Arterial Blood Pressure 125/82 - Exam Pleasant 81-year-old female patient. On 3 L of nasal cannula The patient is morbidly obese, body mass index of 51 Head exam was generally normal. There was no scleral icterus or corneal arcus. Mucous membranes were moist. Neck is very thick and the patient is a Mallampati class IV. Neck veins cannot be accurately appreciated. Neck supple. Full range of motion. No adenopathy thyromegaly Cardiovascular examination reveals regular rhythm rate. S1-S2 normal. No S3 or S4. No discernible murmur noted. Lungs reveal occasional diffuse bilateral rhonchi. No wheezes or crackles. Breath sounds are equal bilaterally. Breath sounds are quite diminished bilaterally and air entry and exchange is limited as the patient is morbidly obese. Abdomen obese, soft, without masses or tenderness. noted. Organs cannot be accurately palpated as the patient, morbidly obese. No direct tenderness or rebound tensile guarding at this point in time. Extremities are intact. No cyanosis or clubbing. Trace edema. Skin is without rash or lesion. Neurologic examination Neurologically, the patient is awake and alert and the patient does not have any focal neurological deficit. Cranial nerves are essentially intact. - Labs CBC & Chem 7: 10/03/21 07:10/03/21 07:20 Labs: Abnormal Lab Results - Last 24 Hours (Table) 10/02/21 10/02/21 10/03/21 Range/Units 16:47 17:20 07:20 MCV 101.1 H (80.0-100.0) fL MCHC 29.3 L (31.0-37.0) g/dL Plt Count 149 L (150-450) k/uL Chloride (98-107) mmol/L Carbon Dioxide (22-30) mmol/L BUN (7-17) mg/dL Creatinine (0.52-1.04) mg/dL POC Glucose (mg/dL) 147 H 150 H (70-110) mg/dL 10/03/21 10/03/21 10/03/21 Range/Units 07:20 08:41 11:54 MCV (80.0-100.0) fL MCHC (31.0-37.0) g/dL Plt Count (150-450) k/uL Chloride 93 L (98-107) mmol/L Carbon Dioxide 44 H* (22-30) mmol/L BUN 31 H (7-17) mg/dL Creatinine 1.06 H (0.52-1.04) mg/dL POC Glucose (mg/dL) 122 H 113 H (70-110) mg/dL Assessment and Plan Plan: Acute mental status changes and confusion, secondary to acute on chronic hyp oxemic and hypercapnic respiratory failure. The patient's acid base status improved and neurologically the patient is also improved and the patient is following commands and answering questions patient is currently on a BiPAP pressure of 20 /6 cm of water. 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 History of obstructive sleep apnea syndrome. Morbid obesity, with probable Pickwickian syndrome. The patient not been compliant with her BiPAP machine at the [facility] Previous history of tobacco use, with probable underlying COPD. History of atrial fibrillation. The patient is demented on long-term anticoagulation with Eliquis, cardiac rhythm is still atrial fibrillation and the patient was given Lovenox and the patient was unable to take Eliquis yesterday. Previous history of UTI with E. coli History of urinary incontinence. History of hypertension. History of degenerative joint disease. History depression. senior living resident. Plan Clinically unchanged and stable Very compliant is BiPAP overnight Continue using the BiPAP overnight and importance of BiPAP use will be e mphasized for the [facility] staff While off the BiPAP the patient is on 3 L approximately nasal cannula Discontinue the Diamox Continue oral Lasix 40 mg by mouth daily Serum bicarb is at 44 currently at baseline Continue anticoagulation with Eliquis Possible discharge back to [facility]
[2021-10-03 16:39] LABS: Glucose,Whole Blood 154 mg/dL (70-110)
[2021-10-03 17:56] LABS: VBG PH 7.26 (7.31-7.41)
[2021-10-03] MEDS ORDERED: FUROSEMIDE 10 MG/ML 4 ML VIAL IV STA (18:23)
--- NOTE | 2021-10-03 19:42 | XR ---
EXAMINATION TYPE: XR chest 1V DATE OF EXAM: 10/03/2021 6:51 PM COMPARISON: Chest x-ray 10/01/2021, chest x-ray 09/30/2021, chest x-ray 09/29/2021 TECHNIQUE: XR chest 1V . CLINICAL INDICATION:Female, 81 years old with history of CO2 narcosis.; FINDINGS: Lungs/Pleura: Improving bibasilar infiltrates, right greater than left. Persistent minimal infiltrati on of the left lower lobe. Hazy interstitial markings are noted centrally. No pneumothorax. Pulmonary vascularity: Pulmonary vascular congestion. Heart/mediastinum: Cardiomediastinal silhouette is enlarged and stable. Musculoskeletal: No acute osseous pathology. IMPRESSION: Continued interval improvement of congestive heart failure with minimal left basilar infiltrate persi sting.
[2021-10-03 20:29] LABS: ABG Base Excess 15.2 mmol/L; ABG Oxygen Saturation 99.6 % (94-97); ABG PH 7.26 (7.35-7.45); ABG PO2 162 mmHg (83-108); ABG TCO2 45 mmol/L (19-24); Allen Test Performed? Yes
[2021-10-03 20:34] LABS: ABG PCO2 95 mmHg (35-45)
[2021-10-03 20:35] LABS: ABG HCO3 42 mmol/L (21-25)
[2021-10-03] MEDS: SODIUM CHLORIDE 0.9% 500 ML 500 ML IV SCH (22:50)
[2021-10-04] MEDS: IPRATROPIUM-ALBUTEROL 3 ML NEB INHALATION SCH ×6 (00:27→20:49)
[2021-10-04] MEDS: SODIUM CHLORIDE 0.9% 500 ML 500 ML IV SCH ×2 (06:03→22:35)
[2021-10-04] MEDS: lisinopriL 10 MG TAB PO SCH ×2 (06:06→16:23)
[2021-10-04] MEDS: DILTIAZEM CD 240 MG CAP.ER.24H PO SCH (08:35)
[2021-10-04] MEDS: APIXABAN 5 MG TAB PO SCH ×2 (08:35→20:19)
[2021-10-04] MEDS: PIPERACILLIN-TAZOBACTAM 3.375 GM in SODIUM CHLORIDE 0.9% 100 ML IVPB SCH ×3 (08:35→23:36)
[2021-10-04] MEDS: DOCUSATE 100 MG CAP PO SCH (08:35)
[2021-10-04] MEDS: FUROSEMIDE 40 MG TAB PO SCH (08:35)
[2021-10-04] MEDS: METOPROLOL TARTRATE 50 MG TAB PO SCH ×3 (08:36→20:19)
[2021-10-04] MEDS: PANTOPRAZOLE 40 MG/10 ML VIAL IVP SCH (08:36)
[2021-10-04] MEDS: predniSONE 10 MG TAB PO SCH (08:36)
--- NOTE | 2021-10-04 11:13 | P.PN ---
Subjective Progress Note Date: 10/04/21 Patient is doing better today, at her baseline oxygen requirement of 3 L nasal cannula. Had an episode of confusion yesterday and had blood work rechecked which demonstrated refractory hypercarbia back up to 92 with a pH of 7.26. Repeat chest x-ray continued to demonstrate evidence of congestion. Patient was replaced on BiPAP and given additional dose of IV Lasix. Today she is feeling back to her baseline. Gen: awake, alert HEENT: normocephalic, atraumatic, good hearing acuity, moist mucous membranes Resp: Impaired air exchange, no accessory muscle use, basilar crackles CVS: good distal perfusion x 4, GI: soft, NTTP, ND : no SPT, no CVAT, guerrier catheter not present MSK: Bilateral pitting edema, no clubbing Neuro: non-focal, moving all extremities Psych: cooperative, euthymic mood Assessment/plan: Acute on chronic hypoxic hypercapnic respiratory failure secondary to BiPAP noncompliance COPD exacerbation Acute on chronic unspecified heart failure CO2 narcosis Morbid obesity with probable pickwickian syndrome -Resume BiPAP at nighttime -> patient has BiPAP at home but was noncompliant prior to coming in. -Patient 3 L nasal cannula when off BiPAP which is her home O2 -Pulmonology following -Resume IV steroids -> patient transitioned to oral steroids -Resume DuoNeb treatments -Antibiotics discontinued -Patient will receive additional day of IV diuresis, then transition to oral lasix -Mental status improved -Patient counseled that she needs to wear the BiPAP Metabolic alkalosis secondary to compensation for respiratory acidosis -improving. Diamox restarted for now. Atrial fibrillation with RVR -Continue diltiazem and Eliquis and metoprolol -Heart rate controlled this morning Hypertension -Controlled. Resume diltiazem and metoprolol Prognosis guarded Anticipated discharge: Patient has received prior auth, ready for d/c in next 24-48 hours. Objective - Vital Signs Vital signs: Vital Signs Temp 97.8 F 10/04/21 08:18 Pulse 75 10/04/21 08:28 Resp 19 10/04/21 08:18 BP 104/65 10/04/21 08:18 Pulse Ox 92 L 10/04/21 08:18 FiO2 40 10/04/21 04:21 Intake & Output 10/03/21 10/04/2122 18:59 06:59 18:59 Intake Total 1080 236 Output Total 2270 Balance 1080 -2270 236 Intake: Oral 1080 236 Output: Urine 2270 Other: Voiding Method Incontinent Incontinent Incontinent External Catheter External Catheter External Catheter ABP, PAP, CO, CI - Last Documented Arterial Blood Pressure 125/82 - Labs CBC & Chem 7: 10/03/21 07:20 10/03/21 07:20 Labs: Abnormal Lab Results - Last 24 Hours (Table) 10/03/21 10/03/21 10/03/21 Range/Units 11:54 16:37 17:23 ABG pH (7.35-7.45) ABG pCO2 (35-45) mmHg ABG pO2 (83-108) mmHg ABG HCO3 (21-25) mmol/L ABG Total CO2 (19-24) mmol/L ABG O2 Saturation (94-97) % VBG pH 7.26 L (7.31-7.41) VBG pCO2 92 H* (37-51) mmHg VBG HCO3 41 H (24-28) mmol/L POC Glucose (mg/dL) 113 H 154 H (70-110) mg/dL 10/03/21 Range/Units 20:21 ABG pH 7.26 L (7.35-7.45) ABG pCO2 95 H* (35-45) mmHg ABG pO2 162 H (83-108) mmHg ABG HCO3 42 H* (21-25) mmol/L ABG Total CO2 45 H (19-24) mmol/L ABG O2 Saturation 99.6 H (94-97) % VBG pH (7.31-7.41) VBG pCO2 (37-51) mmHg VBG HCO3 (24-28) mmol/L POC Glucose (mg/dL) (70-110) mg/dL
[2021-10-04] MEDS: FUROSEMIDE 10 MG/ML 4 ML VIAL IV SCH (11:42)
--- NOTE | 2021-10-04 11:43 | P.PN ---
Subjective Progress Note Date: 10/04/21 This is an 81-year-old female patient, morbidly obese with a body mass index of 51. The patient is currently residing at [facility] and the patient got transferred to us because of diminished level of consciousness and altered mentation. Apparently, the patient has not been compliant with her [facility]. She was getting more short of breath, confused, altered and she was also having some hallucination. She had diminished level of consciousness. At that point, she was placed on higher levels of oxygen at 6 L and her pulse ox was in the mid 80s. She was given CPAP therapy. She was given a breathing treatment. She was given IV Solu-Medrol and subsequently she got transferred to the emergency department. Here in the emergency, the patient is on BiPAP at a pressure of 16/6 cm of water. I reviewed the chest x-ray shows cardiomegaly, it is a low quality chest x-ray because of her body habitus. Nevertheless, there is increased interstitial markings and is quite suspicious for interstitial edema/CHF. At the same time, the patient is currently on a BiPAP and based on the blood gases. The patient had a pH of 7.29 with a pCO2 of 92 and this was a venous sample. I evaluated this patient in the emergency department. They exchanged tidal volume was suboptimal. I modified the pressures to include pressures of 20/6 cm of water and following that the patient started to exchanged better air exchange, tidal volume was in the order of 175 mL. Respiratory rate still elevated in the mid/low 30s. She started gradually to show some alertness and she was able to wake up. Upon stimulation and follows some simple commands. She has a white cell count of 10.6 with hemoglobin 13.7 and a platelet count of 116. She has a sodium level of 140, serum bicarbonate of 46 with a BUN of 22 and a creatinine of 0.5. She has had multiple UTIs in the past. UA still pending for now. COVID is negative and influenza screen is also negative. According to the family, there has been no focal neurological deficit. She is a full code for now. ProBNP level is 2410. Troponins are negative. On 09/30/2021, the patient is doing extremely well. The patient is awake and alert and following commands and answering questions. Note that overnight, the patient was kept on a BiPAP at a pressure of 20/6 cm of water and this morning she is fully awake and conscious and alert. Based on that, I took of the BiPAP and put the patient 5 L of oxygen by nasal cannula. The patient has nan arterial line. The follow-up blood gas with a pH of 7.3 with a pCO2 of 93 and a pO2 of 100 and this was an FiO2 of 50% while the patient being on a BiPAP. Of significance also has a serum bicarbonate was above 8. The patient's sodium level is at 144. The white cell count is at 6.3 with hemoglobin 12.4. UA was essentially negative. Nevertheless, the urine was cloudy and there was suspicion for infection and was sent for cultures. She remains on bronchodilators patient remains on steroids. She is requesting breakfast. 10/01/2021, the patient is awake and alert and she has no specific complaints. She was able to utilize the BiPAP overnight without any major difficulties and currently she is back on oxygen by nasal cannula. Her serum bicarbonate was imp rovement in the patient's serum bicarb level is back to 43 which is probably to her baseline. She has no chest pain. No altered mentation. She is tolerating her diet. She was given Diamox yesterday. No other significant events overnight. Cultures are negative the patient remains on antibiotic coverage with IV Zosyn. Blood sugars are slightly elevated due to systemic steroid use. Note that the patient also has issues with chronic atrial fibrillation. Yesterday, the patient was having rapid ventricular response and based on that the patient was placed back on Cardizem drip at 10 mg an hour and her heart rate is under much better control for now. Her metoprolol dose was also increased up to 50 mg by mouth 3 times a day. She is on anticoagulants. 10/02/2021, the patient doing extremely well. Communicating. No signs of any CO2 narcosis. No issues with using the BiPAP overnight and the patient utilizes BiPAP without any major difficulties and the patient is currently on 4 L of oxygen by nasal cannula. Note that the patient [facility] a [facility] machine [facility] jail. Serum bicarb was up to 38 and the Diamox was also discontinued. The patient is currently on oral Lasix. No signs of fluid overload. No other significant issues otherwise for now. She is on long-term medical condition with Eliquis 5 mg 2 twice a day. Hemodynamically stable. Blood work was noted. Possible discharge home today. Urine is a 32 with a creatinine 1.1. Serum bicarbonate of 38. Sodium is at 141 and the white cell count is at 3.4 with a hemoglobin of 12.4. 10/03/2021, the patient is doing well and the patient has no specific complaints. He denies using the BiPAP regularly and wants off the BiPAP the patient was on oxygen at 4 L. She remains on Lasix 40 mg by mouth daily. She is off Diamox. Serum bicarb is up to 44. Otherwise, the rest of the electrodes are normal. The white cell count is 7.2 with a hemoglobin of 12.4. Patient is alert and awake and communicating. No other issues for now. Cultures are all negative the patient remains on IV Zosyn. 10/04/2021, the patient is being seen for a follow-up. This morning, she is awake and alert and she has no specific complaints. Overnight, the patient became slightly lethargic. Based on that, chest x-ray was done that showed interstitial edema and some CHF and volume overload. The blood gases showed a pH of 7.26 with a pCO2 of 95 and a pO2 of 162. Based on that, the patient was given a dose of Lasix and the patient diuresed adequately. The patient is currently doing well. No specific complaints. The white cell count is at 7.2 with a hemoglobin 12.4 and a platelet count of 149. BUN is at 31 with a creati nine of 1.06 and the sodium level is at 139 and a potassium level is at 3.7. Objective - Vital Signs Vital signs: Vital Signs Temp 97.8 F 10/04/21 11:24 Pulse 94 10/04/21 11:24 Resp 19 10/04/21 11:24 BP 124/72 10/04/21 11:24 Pulse Ox 91 L 10/04/21 11:24 FiO2 40 10/04/21 04:21 Intake & Output 10/03/21 10/04/21 10/04/21 18:59 06:59 18:59 Intake Total 1080 236 Output Total 2270 Balance 1080 -2270 236 Intake: Oral 1080 236 Output: Urine 2270 Other: Voiding Method Incontinent Incontinent Incontinent External Catheter External Catheter External Catheter ABP, PAP, CO, CI - Last Documented Arterial Blood Pressure 125/82 - Exam Pleasant 81-year-old female patient. On 3 L of nasal cannula The patient is morbidly obese, body mass index of 51 Head exam was generally normal. There was no scleral icterus or corneal arcus. Mucous membranes were moist. Neck is very thick and the patient is a Mallampati class IV. Neck veins cannot be accurately appreciated. Neck supple. Full range of motion. No adenopathy thyromegaly Cardiovascular examination reveals regular rhythm rate. S1-S2 normal. No S3 or S4. No discernible murmur noted. Lungs reveal occasional diffuse bilateral rhonchi. No wheezes or crackles. Breath sounds are equal bilaterally. Breath sounds are quite diminished bilaterally and air entry and exchange is limited as the patient is morbidly obese. Abdomen obese, soft, without masses or tenderness. noted. Organs cannot be accurately palpated as the patient, morbidly obese. No direct tenderness or rebound tensile guarding at this point in time. Extremities are intact. No cyanosis or clubbing. Trace edema. Skin is without rash or lesion. Neurologic examination Neurologically, the patient is awake and alert and the patient does not have any focal neurological deficit. Cranial nerves are essentially intact. - Labs CBC & Chem 7: 10/03/21 07:20 10/03/21 07:20 Labs: Abnormal Lab Results - Last 24 Hours (Table) 10/03/21 10/03/21 10/03/21 Range/Units 11:54 16:37 17:23 ABG pH (7.35-7.45) ABG pCO2 (35-45) mmHg ABG pO2 (83-108) mmHg ABG HCO3 (21-25) mmol/L ABG Total CO2 (19-24) mmol/L ABG O2 Saturation (94-97) % VBG pH 7.26 L (7.31-7.41) VBG pCO2 92 H* (37-51) mmHg VBG HCO3 41 H (24-28) mmol/L POC Glucose (mg/dL) 113 H 154 H (70-110) mg/dL 10/03/21 Range/Units 20:21 ABG pH 7.26 L (7.35-7.45) ABG pCO2 95 H* (35-45) mmHg ABG pO2 162 H (83-108) mmHg ABG HCO3 42 H* (21-25) mmol/L ABG Total CO2 45 H (19-24) mmol/L ABG O2 Saturation 99.6 H (94-97) % VBG pH (7.31-7.41) VBG pCO2 (37-51) mmHg VBG HCO3 (24-28) mmol/L POC Glucose (mg/dL) (70-110) mg/dL Assessment and Plan Plan: Acute mental status changes and confusion, secondary to acute on chronic hypoxemic and hypercapnic respiratory failure. The patient's acid base status improved and neurologically the patient is also improved and the patient is following commands and answering questions patient is currently on a BiPAP pressure of 20 /6 cm of water. 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 History of obstructive sleep apnea syndrome. Morbid obesity, with probable Pickwickian syndrome. The patient not been compliant with her [facility] Previous history of tobacco use, with probable underlying COPD. History of atrial fibrillation. The patient is demented on long-term anticoagulation with Eliquis, cardiac rhythm is still atrial fibrillation and the patient was given Lovenox and the patient was unable to take Eliquis yesterday. Previous history of UTI with E. coli History of urinary incontinence. History of hypertension. History of degenerative joint disease. History depression. [facility] resident. Plan Start the patient on daily Lasix dose is 40 mg IV push Started patient on Diamox and 50 mg IV every 12 hours Monitor fluid balance Radiologic blood gases in the morning Currently on 3 L of oxygen by nasal cannula Clinically unchanged and stable Very compliant is BiPAP overnight Continue using the BiPAP overnight and importance of BiPAP use will be emphasized for the jail staff While off the BiPAP the patient is on 3 L approximately nasal cannula We'll continue to follow
[2021-10-04 12:01] LABS: Glucose,Whole Blood 125 mg/dL (70-110)
[2021-10-04] MEDS: ACETAMINOPHEN TAB 325 MG TAB PO PRN (14:43)
[2021-10-04 16:39] LABS: Glucose,Whole Blood 176 mg/dL (70-110)
[2021-10-05] MEDS ORDERED: IPRATROPIUM-ALBUTEROL 3 ML NEB ONE (00:06)
[2021-10-05] MEDS: IPRATROPIUM-ALBUTEROL 3 ML NEB INHALATION SCH ×6 (00:17→21:03)
[2021-10-05] MEDS: lisinopriL 10 MG TAB PO SCH ×2 (06:20→18:21)
[2021-10-05 10:06] LABS: Calcium 8.7 mg/dL (8.4-10.2); Magnesium 1.8 mg/dL (1.6-2.3); Potassium 3.5 mmol/L (3.5-5.1)
[2021-10-05] MEDS: FUROSEMIDE 10 MG/ML 4 ML VIAL IV SCH (10:15)
[2021-10-05] MEDS: APIXABAN 5 MG TAB PO SCH ×2 (10:15→21:22)
[2021-10-05] MEDS: predniSONE 10 MG TAB PO SCH (10:15)
[2021-10-05] MEDS: METOPROLOL TARTRATE 50 MG TAB PO SCH ×3 (10:15→21:22)
[2021-10-05] MEDS: DILTIAZEM CD 240 MG CAP.ER.24H PO SCH (10:15)
[2021-10-05] MEDS: DOCUSATE 100 MG CAP PO SCH (10:15)
[2021-10-05] MEDS: PANTOPRAZOLE 40 MG/10 ML VIAL IVP SCH (10:16)
--- NOTE | 2021-10-05 11:17 | P.PN ---
Subjective Progress Note Date: 10/05/21 This is an 81-year-old female patient, morbidly obese with a body mass index of 51. The patient is currently residing at [facility] and the patient got transferred to us because of diminished level of consciousness and altered mentation. Apparently, the patient has not been compliant with her BiPAP device that she was given at the snf. She was getting more short of breath, confused, altered and she was also having some hallucination. She had diminished level of consciousness. At that point, she was placed on higher levels of oxygen at 6 L and her pulse ox was in the mid 80s. She was given CPAP therapy. She was given a breathing treatment. She was given IV Solu-Medrol and subsequently she got transferred to the emergency department. Here in the emergency, the patient is on BiPAP at a pressure of 16/6 cm of water. I reviewed the chest x-ray shows cardiomegaly, it is a low quality chest x-ray because of her body habitus. Nevertheless, there is increased interstitial markings and is quite suspicious for interstitial edema/CHF. At the same time, the patient is currently on a BiPAP and based on the blood gases. The patient had a pH of 7.29 with a pCO2 of 92 and this was a venous sample. I evaluated this patient in the emergency department. They exchanged tidal volume was suboptimal. I modified the pressures to include pressures of 20/6 cm of water and following that the patient started to exchanged better air exchange, tidal volume was in the order of 175 mL. Respiratory rate still elevated in the mid/low 30s. She started gradually to show some alertness and she was able to wake up. Upon stimulation and follows some simple commands. She has a white cell count of 10.6 with hemoglobin 13.7 and a platelet count of 116. She has a sodium level of 140, serum bicarbonate of 46 with a BUN of 22 and a creatinine of 0.5. She has had multiple UTIs in the past. UA still pending for now. COVID is negative and influenza screen is also negative. According to the family, there has been no focal neurological deficit. She is a full code for now. ProBNP level is 2410. Troponins are negative. On 09/30/2021, the patient is doing extremely well. The patient is awake and alert and following commands and answering questions. Note that overnight, the patient was kept on a BiPAP at a pressure of 20/6 cm of water and this morning she is fully awake and conscious and alert. Based on that, I took of the BiPAP and put the patient 5 L of oxygen by nasal cannula. The patient has nan arterial line. The follow-up blood gas with a pH of 7.3 with a pCO2 of 93 and a pO2 of 100 and this was an FiO2 of 50% while the patient being on a BiPAP. Of significance also has a serum bicarbonate was above 8. The patient's sodium level is at 144. The white cell count is at 6.3 with hemoglobin 12.4. UA was essentially negative. Nevertheless, the urine was cloudy and there was suspicion for infection and was sent for cultures. She remains on bronchodilators patient remains on steroids. She is requesting breakfast. 10/01/2021, the patient is awake and alert and she has no specific complaints. She was able to utilize the BiPAP overnight without any major difficulties and currently she is back on oxygen by nasal cannula. Her serum bicarbonate was imp rovement in the patient's serum bicarb level is back to 43 which is probably to her baseline. She has no chest pain. No altered mentation. She is tolerating her diet. She was given Diamox yesterday. No other significant events overnight. Cultures are negative the patient remains on antibiotic coverage with IV Zosyn. Blood sugars are slightly elevated due to systemic steroid use. Note that the patient also has issues with chronic atrial fibrillation. Yesterday, the patient was having rapid ventricular response and based on that the patient was placed back on Cardizem drip at 10 mg an hour and her heart rate is under much better control for now. Her metoprolol dose was also increased up to 50 mg by mouth 3 times a day. She is on anticoagulants. 10/02/2021, the patient doing extremely well. Communicating. No signs of any CO2 narcosis. No issues with using the BiPAP overnight and the patient utilizes BiPAP without any major difficulties and the patient is currently on 4 L of oxygen by nasal cannula. Note that the patient has a BiPAP machine at the snf. Serum bicarb was up to 38 and the Diamox was also discontinued. The patient is currently on oral Lasix. No signs of fluid overload. No other significant issues otherwise for now. She is on long-term medical condition with Eliquis 5 mg 2 twice a day. Hemodynamically stable. Blood work was noted. Possible discharge home today. Urine is a 32 with a creatinine 1.1. Serum bicarbonate of 38. Sodium is at 141 and the white cell count is at 3.4 with a hemoglobin of 12.4. 10/03/2021, the patient is doing well and the patient has no specific complaints. He denies using the BiPAP regularly and wants off the BiPAP the patient was on oxygen at 4 L. She remains on Lasix 40 mg by mouth daily. She is off Diamox. Serum bicarb is up to 44. Otherwise, the rest of the electrodes are normal. The white cell count is 7.2 with a hemoglobin of 12.4. Patient is alert and awake and communicating. No other issues for now. Cultures are all negative the patient remains on IV Zosyn. 10/04/2021, the patient is being seen for a follow-up. This morning, she is awake and alert and she has no specific complaints. Overnight, the patient became slightly lethargic. Based on that, chest x-ray was done that showed interstitial edema and some CHF and volume overload. The blood gases showed a pH of 7.26 with a pCO2 of 95 and a pO2 of 162. Based on that, the patient was given a dose of Lasix and the patient diuresed adequately. The patient is currently doing well. No specific complaints. The white cell count is at 7.2 with a hemoglobin 12.4 and a platelet count of 149. BUN is at 31 with a creati nine of 1.06 and the sodium level is at 139 and a potassium level is at 3.7. On 10/05/2021, the patient is awake and alert and there is no signs of any CO2 narcosis. The patient is doing well. She remains on Lasix 40 mg IV every 24 hours. She is diuresing. She is also on Diamox to counteract metabolic alkalosis. She is using the BiPAP at a pressure of 20/7 cm of water overnight and she has got a much more used to BiPAP treatment. On today's blood work, the patient is sodium level of 141, serum bicarb is at 41 with a mean of 28 and a creatinine of 0.8. The patient has become much more compliant to her BiPAP machine overnight. She is producing adequate amount of urine output and the p atient remains in a negative fluid balance. No other significant events otherwise for now. Objective - Vital Signs Vital signs: Vital Signs Temp 98.2 F 10/05/21 07:36 Pulse 100 10/05/21 08:45 Resp 18 10/05/21 07:36 BP 120/81 10/05/21 07:36 Pulse Ox 92 L 10/05/21 08:31 FiO2 40 10/05/21 00:16 Intake & Output 10/04/21 10/05/21 10/05/21 18:59 06:59 18:59 Intake Total 472 358 Output Total 1751949 Balance -1277 358 Intake: Oral 472 358 Output: Urine 1749 1949 Other: Voiding Method Incontinent Incontinent Incontinent External Catheter External Catheter External Catheter ABP, PAP, CO, CI - Last Documented Arterial Blood Pressure 125/82 - Exam Pleasant 81-year-old female patient. On 3 L of nasal cannula The patient is morbidly obese, body mass index of 51 Head exam was generally normal. There was no scleral icterus or corneal arcus. Mucous membranes were moist. Neck is very thick and the patient is a Mallampati class IV. Neck veins cannot be accurately appreciated. Neck supple. Full range of motion. No adenopathy thyromegaly Cardiovascular examination reveals regular rhythm rate. S1-S2 normal. No S3 or S4. No discernible murmur noted. Lungs reveal occasional diffuse bilateral rhonchi. No wheezes or crackles. Breath sounds are equal bilaterally. Breath sounds are quite diminished bilaterally and air entry and exchange is limited as the patient is morbidly obese. Abdomen obese, soft, without masses or tenderness. noted. Organs cannot be accurately palpated as the patient, morbidly obese. No direct tenderness or rebound tensile guarding at this point in time. Extremities are intact. No cyanosis or clubbing. Trace edema. Skin is without rash or lesion. Neurologic examination Neurologically, the patient is awake and alert and the patient does not have any focal neurological deficit. Cranial nerves are essentially intact. - Labs CBC & Chem 7: 10/03/21 07:20 10/05/21 08:19 Labs: Abnormal Lab Results - Last 24 Hours (Table) 10/04/21 10/04/21 10/05/21 Range/Units 11:59 16:37 08:19 Chloride 93 L (98-107) mmol/L Carbon Dioxide 41 H* (22-30) mmol/L BUN 28 H (7-17) mg/dL Glucose 108 H (74-99) mg/dL POC Glucose (mg/dL) 125 H 176 H (70-110) mg/dL Assessment and Plan Plan: Acute mental status changes and confusion, secondary to acute on chronic hypoxemic and hypercapnic respiratory failure. The patient's acid base status improved and neurologically the patient is also improved and the patient is following commands and answering questions patient is currently on a BiPAP pressure of 20 /7 cm of water. The patient's mental status is improved and normalized, the patient is fully awake on 3 L of oxygen nasal cannula, clinically improving and the patient's is utilizing the BiPAP overnight and oxygen by nasal cannula during the day. No signs of any CO2 narcosis. Continues to diurese. 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 History of obstructive sleep apnea syndrome. Morbid obesity, with probable Pickwickian syndrome. The patient not been compliant with her BiPAP machine at the snf Previous history of tobacco use, with probable underlying COPD. History of atrial fibrillation. The patient is demented on long-term anticoagulation with Eliquis, cardiac rhythm is still atrial fibrillation and the patient was given Lovenox and the patient was unable to take Eliquis yesterday. Previous history of UTI with E. coli History of urinary incontinence. History of hypertension. History of degenerative joint disease. History depression. residential resident. Plan We'll continue same treatment for another 24 hours Continue Lasix dose is 40 mg IV push Continue Diamox and 50 mg IV every 12 hours, serum bicarb level is at baseline is 41 Monitor fluid balance Repeat blood gases in the morning Currently on 3 L of oxygen by nasal cannula Clinically unchanged and stable Very compliant is BiPAP overnight Continue using the BiPAP overnight and importance of BiPAP use will be emphasized for the snf staff While off the BiPAP the patient is on 3 L approximately nasal cannula We'll continue to follow
--- NOTE | 2021-10-05 11:29 | P.PN ---
Subjective Progress Note Date: 10/05/21 Patient is doing better today, at her baseline oxygen requirement of 3 L nasal cannula. Expresses the desire to get out of bed and into a chair. Ongoing IV diuretics Gen: awake, alert HEENT: normocephalic, atraumatic, good hearing acuity, moist mucous membranes Resp: Impaired air exchange, no accessory muscle use, basilar crackles CVS: good distal perfusion x 4, GI: soft, NTTP, ND : no SPT, no CVAT, guerrier catheter not present MSK: Bilateral pitting edema, no clubbing Neuro: non-focal, moving all extremities Psych: cooperative, euthymic mood Assessment/plan: Acute on chronic hypoxic hypercapnic respiratory failure secondary to BiPAP noncompliance COPD exacerbation Acute on chronic unspecified heart failure CO2 narcosis Morbid obesity with probable pickwickian syndrome -Resume BiPAP at nighttime -> patient has BiPAP at home but was noncompliant prior to coming in. -Patient 3 L nasal cannula when off BiPAP which is her home O2 -Pulmonology following -Resume IV steroids -> patient transitioned to oral steroids -Resume DuoNeb treatments -Antibiotics discontinued -Patient will receive additional day of IV diuresis, then transition to oral lasix -Mental status improved -Patient counseled that she needs to wear the BiPAP Metabolic alkalosis secondary to compensation for respiratory acidosis -improving. Diamox restarted for now. Atrial fibrillation with RVR -Continue diltiazem and Eliquis and metoprolol -Heart rate controlled this morning Hypertension -Controlled. Resume diltiazem and metoprolol Prognosis guarded Anticipated discharge: Patient has received prior auth, ready for d/c in next 24-48 hours. Objective - Vital Signs Vital signs: Vital Signs Temp 98.2 F 10/05/21 07:36 Pulse 100 10/05/21 08:45 Resp 18 10/05/21 07:36 BP 120/81 10/05/21 07:36 Pulse Ox 92 L 10/05/21 08:31 FiO2 40 10/05/21 00:16 Intake & Output 10/04/21 10/05/21 10/05/21 18:59 06:59 18:59 Intake Total 472 358 Output Total 175 1950 Balance -8 -1949 358 Intake: Oral 472 358 Output: Urine 1749 1949 Other: Voiding Method Incontinent Incontinent Incontinent External Catheter External Catheter External Catheter ABP, PAP, CO, CI - Last Documented Arterial Blood Pressure 125/82 - Labs CBC & Chem 7: 10/03/21 07:20 10/05/21 08:19 Labs: Abnormal Lab Results - Last 24 Hours (Table) 10/04/21 10/04/21 10/05/21 Range/Units 11:59 16:37 08:19 Chloride 93 L (98-107) mmol/L Carbon Dioxide 41 H* (22-30) mmol/L BUN 28 H (7-17) mg/dL Glucose 108 H (74-99) mg/dL POC Glucose (mg/dL) 125 H 176 H (70-110) mg/dL
[2021-10-05 11:47] LABS: Glucose,Whole Blood 102 mg/dL (70-110)
[2021-10-05 12:30] LABS: ABG Base Excess 19.2 mmol/L; ABG Oxygen Saturation 98.1 % (94-97); ABG PH 7.38 (7.35-7.45); ABG PO2 90 mmHg (83-108); ABG TCO2 47 mmol/L (19-24); Allen Test Performed? Yes
[2021-10-05 12:34] LABS: ABG PCO2 75 mmHg (35-45)
[2021-10-05 12:35] LABS: ABG HCO3 44 mmol/L (21-25)
[2021-10-05] MEDS: SODIUM CHLORIDE 0.9% 500 ML 500 ML IV SCH (12:58)
[2021-10-05] MEDS: PIPERACILLIN-TAZOBACTAM 3.375 GM in SODIUM CHLORIDE 0.9% 100 ML IVPB SCH (13:46)
[2021-10-05 16:36] LABS: Glucose,Whole Blood 167 mg/dL (70-110)
[2021-10-05 20:17] LABS: Glucose,Whole Blood 148 mg/dL (70-110)
[2021-10-05] MEDS: ACETAMINOPHEN TAB 325 MG TAB PO PRN (23:32)
[2021-10-06] MEDS: IPRATROPIUM-ALBUTEROL 3 ML NEB INHALATION SCH ×4 (00:39→11:24)
[2021-10-06] MEDS: lisinopriL 10 MG TAB PO SCH (05:15)
[2021-10-06] MEDS: SODIUM CHLORIDE 0.9% 500 ML 500 ML IV SCH (05:16)
[2021-10-06 06:12] LABS: Glucose,Whole Blood 87 mg/dL (70-110)
[2021-10-06] MEDS: DILTIAZEM CD 240 MG CAP.ER.24H PO SCH (08:41)
[2021-10-06] MEDS: DOCUSATE 100 MG CAP PO SCH (08:42)
[2021-10-06] MEDS: FUROSEMIDE 10 MG/ML 4 ML VIAL IV SCH (08:42)
[2021-10-06] MEDS: APIXABAN 5 MG TAB PO SCH (08:42)
[2021-10-06] MEDS: METOPROLOL TARTRATE 50 MG TAB PO SCH (08:42)
[2021-10-06] MEDS: predniSONE 10 MG TAB PO SCH (08:42)
[2021-10-06] MEDS: PANTOPRAZOLE 40 MG/10 ML VIAL IVP SCH (08:43)
[2021-10-06 11:39] LABS: Glucose,Whole Blood 132 mg/dL (70-110)
[2021-10-06 11:56] VITALS: BP 101/64; PULSE 83; RESP 19; TEMP 97.2
--- NOTE | 2021-10-06 12:38 | P.DS ---
Providers Date of admission: 09/29/21 15:39 Expected date of discharge: 10/06/21 Attending physician: Saroj Raya MD Consults: 09/29/21 15:39 Consult Physician Stat Consulting Provider: Efren Ponce Consult Reason/Comments: acute/chronic hypoxic resp failure, AECOPD, bipap failure Do you want consulting provider notified?: Already Contacted Primary care physician: [facility] Course: Acute on chronic hypoxic hypercapnic respiratory failure secondary to BiPAP noncompliance COPD exacerbation Acute on chronic unspecified heart failure CO2 narcosis Morbid obesity with probable pickwickian syndrome Metabolic alkalosis secondary to compensation for respiratory acidosis Atrial fibrillation with RVR Hypertension This is an 81-year-old lady with medical history significant for chronic hypoxic respiratory failure, COPD, JOSIAH, obesity hypoventilation syndrome, hypertension and atrial fibrillation who presented from a nursing facility with altered mentation and difficulty breathing. The emergency room, patient was afebrile, 124/114, heart rate 67, respiratory rate 40 she was saturating 96% on BiPAP with an FiO2 of 60%. Patient was seen in consultation with pulmonary medicine who recommended IV Lasix as well as medical care management. Patient subsequently developed atrial fibrillation with RVR while in the emergency room and cardiology was brought on board. Patient's initial chest x-ray was significant for congestive heart failure exacerbation. Patient had good urine output, and was diuresed for 4 days with return to her baseline oxygen requirement. She was also treated for COPD exacerbation and CO2 narcosis with IV steroids, standing nebulizer treatments. Repeat chest x-ray was done 48 hours after her initial presentation which demonstrated resolving congestive heart failure changes. Original plan was to discharge her on 10/04, however, patient had an episode of increased confusion and developed worsening CO2 retention, therefore, was briefly placed on BiPAP and restarted on IV Lasix. With these interventions, patient returned to her baseline and was discharged on 10/03. Patient was ulti mately discharged to rehab with plans to follow-up with pulmonary and cardiology. Notably, her diltiazem was increased to 240 from 120 mg, her metoprolol was increased from 25 mg twice a day to 50 mg 3 times a day in order to control her rate. She was also discharged on prednisone taper for 9 additional days. I spent 38 minutes coordinating this complex discharge, discharge date 10/06. Gen: awake, alert HEENT: normocephalic, atraumatic, good hearing acuity, moist mucous membranes Resp: good air exchange, breathing comfortably with no accessory muscle use, CVS: good distal perfusion x 4, GI: soft, NTTP, ND : no SPT, no CVAT, guerrier catheter not present MSK: + pitting edema, no clubbing Neuro: non-focal, moving all extremities Psych: cooperative, euthymic mood Patient Condition at Discharge: Fair Plan - Discharge Summary Discharge Rx Participant: Yes New Discharge Prescriptions: New predniSONE See Rx Instructions .ROUTE .COMPLEX #18 tab Diltiazem Cd [Cardizem CD] 240 mg PO DAILY #30 cap Metoprolol Tartrate [Lopressor] 50 mg PO TID #90 tab Continue Potassium Chloride ER [K-Dur 10] 10 meq PO DAILY lisinopriL [Zestril] 10 mg PO Q12H hydrOXYzine HCL [Atarax] 25 mg PO Q6H PRN PRN Reason: Itching Apixaban [Eliquis] 5 mg PO BID tab Ipratropium-Albuterol Nebulize [Duoneb 0.5 mg-3 mg/3 ml Soln] 3 ml INHALATION RT-QID PRN ml PRN Reason: Shortness Of Breath Or Wheezing Omeprazole 20 mg PO DAILY Multivitamins, Thera [Multivitamin (formulary)] 1 tab PO DAILY Loratadine 10 mg PO DAILY guaiFENesin [guaiFENesin Oral Solution] 200 mg PO Q6H PRN PRN Reason: Cough Docusate [Colace] 100 mg PO DAILY Benzonatate [Tessalon Perles] 200 mg PO Q8H PRN PRN Reason: Cough Acetaminophen [Tylenol 8 Hour] 650 mg PO Q6H PRN PRN Reason: Pain HYDROcodone/APAP 5-325MG [[place] 5-325] 1 tab PO Q6H PRN #12 tab PRN Reason: Pain Changed Furosemide [Lasix] 40 mg PO BID #120 tab Discontinued Metoprolol Tartrate [Lopressor] 25 mg PO BID tab dilTIAZem HCL [Cardizem] 120 mg PO DAILY Discharge Medication List Docusate [Colace] 100 mg PO DAILY 05/07/21 [History] Loratadine 10 mg PO DAILY 05/07/21 [History] Multivitamins, Thera [Multivitamin (formulary)] 1 tab PO DAILY 05/07/21 [History] Omeprazole 20 mg PO DAILY 05/07/21 [History] Potassium Chloride ER [K-Dur 10] 10 meq PO DAILY 05/07/21 [History] guaiFENesin [guaiFENesin Oral Solution] 200 mg PO Q6H PRN 05/07/21 [History] hydrOXYzine HCL [Atarax] 25 mg PO Q6H PRN 05/07/21 [History] lisinopriL [Zestril] 10 mg PO Q12H 05/07/21 [History] Apixaban [Eliquis] 5 mg PO BID tab 05/12/21 [Rx] Acetaminophen [Tylenol 8 Hour] 650 mg PO Q6H PRN 06/12/21 [History] Benzonatate [Tessalon Perles] 200 mg PO Q8H PRN 06/12/21 [History] Ipratropium-Albuterol Nebulize [Duoneb 0.5 mg-3 mg/3 ml Soln] 3 ml INHALATION RT-QID PRN ml 06/18/21 [Rx] Diltiazem Cd [Cardizem CD] 240 mg PO DAILY #30 cap 10/03/21 [Rx] HYDROcodone/APAP 5-325MG [[place] 5-325] 1 tab PO Q6H PRN #12 tab 10/03/21 [Rx] Metoprolol Tartrate [Lopressor] 50 mg PO TID #90 tab 10/03/21 [Rx] predniSONE See Rx Instructions .ROUTE .COMPLEX #18 tab 10/03/21 [Rx] Furosemide [Lasix] 40 mg PO BID #120 tab 10/06/21 [Rx] Follow up Appointment(s)/Referral(s): Wyatt Jaffe DO [Primary Care Provider] - 1-2 days Discharge Disposition: TRANSFER TO SNF/ECF
--- NOTE | 2021-10-06 13:32 | P.PN ---
Subjective Progress Note Date: 10/06/21 Principal diagnosis: Acute on chronic hypoxic and hypercapnic respiratory failure, multifactorial. 10/04/2021, the patient is being seen for a follow-up. This morning, she is malika ke and alert and she has no specific complaints. Overnight, the patient became slightly lethargic. Based on that, chest x-ray was done that showed interstitial edema and some CHF and volume overload. The blood gases showed a pH of 7.26 with a pCO2 of 95 and a pO2 of 162. Based on that, the patient was given a dose of Lasix and the patient diuresed adequately. The patient is currently doing well. No specific complaints. The white cell count is at 7.2 with a hemoglobin 12.4 and a platelet count of 149. BUN is at 31 with a creatinine of 1.06 and the sodium level is at 139 and a potassium level is at 3.7. On 10/05/2021, the patient is awake and alert and there is no signs of any CO2 narcosis. The patient is doing well. She remains on Lasix 40 mg IV every 24 hours. She is diuresing. She is also on Diamox to counteract metabolic alkalosis. She is using the BiPAP at a pressure of 20/7 cm of water overnight and she has got a much more used to BiPAP treatment. On today's blood work, the patient is sodium level of 141, serum bicarb is at 41 with a mean of 28 and a creatinine of 0.8. The patient has become much more compliant to her BiPAP machine overnight. She is producing adequate amount of urine output and the patient remains in a negative fluid balance. No other significant events otherwise for now. Reevaluated today on 10/06/21, patient remains on the regular medical floor, intermittently on BiPAP, presently on few liters nasal cannula, seems to be very appropriate, not in any distress, no cough no wheezing no shortness of breath, hence I will clear the patient to be discharged back to alf. Objective - Vital Signs Vital signs: Vital Signs Temp 97.2 F L 10/06/21 11:55 Pulse 83 10/06/21 11:55 Resp 19 10/06/21 11:55 BP 101/64 10/06/21 11:55 Pulse Ox 96 10/06/21 11:55 FiO2 40 10/06/21 04:24 Intake & Output 10/05/21 10/06/21 10/06/21 18:59 06:59 18:59 Intake Total 594 Output Total 1500 1300 1300 Balance -906 -1300 -1300 Intake: Oral 594 Output: Urine 1500 1300 1300 Other: Voiding Method Incontinent Incontinent Incontinent External Catheter External Catheter External Catheter ABP, PAP, CO, CI - Last Documented Arterial Blood Pressure 125/82 - Exam Physical Exam: Revealed 81-year-old female in no distress, morbidly obese. HEENT:[Neck is supple.] [No neck masses.] [No thyromegaly.] [No JVD.] Chest: [Diminished breath sound bilaterally no rhonchi no wheezes Cardiac Exam: [Normal S1 and S2, no S3 gallop, no murmur.] Abdomen: [Soft, nontender, no megaly, no rebound, no guarding, normal bowel sounds.] Extremities: [No clubbing, no edema, no cyanosis.] Neurological Exam: [No focal neurologic deficit.] Alert oriented 3. Psychiatric: Normal mood affect and normal mental status examination. Skin: No rashes. - Labs CBC & Chem 7: 10/03/21 07:20 10/05/21 08:19 Labs: Abnormal Lab Results - Last 24 Hours (Table) 10/05/21 10/05/21 10/06/21 Range/Units 16:35 20:16 11:37 POC Glucose (mg/dL) 167 H 148 H 132 H (70-110) mg/dL Assessment and Plan Assessment: Impression: Acute on chronic hypoxic and hypercapnic respiratory failure secondary to obstructive sleep apnea syndrome, and underlying COPD. Morbid obesity. Obesity/hypoventilation syndrome. History of tobacco dependence syndrome and probable underlying COPD Paroxysmal atrial fibrillation History of urinary tract infection with E. coli. Benign essential hypertension care home resident History of depression Recommendation: Continue bronchodilators Continue diuretics/Diamox and Lasix. Continue BiPAP as needed Close monitoring of fluids Will clear the patient for discharge planning to alf Use BiPAP as needed. Time with Patient: Less than 30
== END 2021-10-06 15:06 | DRG 291 ==
LOC: EC 13:57 → 2SICU 15:39 → 3SCARD 10-01 15:29
PROVIDERS: ADMIT Student in an Organized Health Care Education/Training Program; ATTEND Student in an Organized Health Care Education/Training Program
PROC: 5A09357 Assistance with Respiratory Ventilation, Less than 24 Consecutive Hours, Continuous Positive Airway Pressure (ICD-10-PCS; principal; 2021-09-29)
DX: I11.0 Hypertensive heart disease with heart failure (principal); J96.21 Acute and chronic respiratory failure with hypoxia; J96.22 Acute and chronic respiratory failure with hypercapnia; E66.2 Morbid (severe) obesity with alveolar hypoventilation; Z68.43 Body mass index [BMI] 50.0-59.9, adult; J44.1 Chronic obstructive pulmonary disease with (acute) exacerbation; I48.20 Chronic atrial fibrillation, unspecified; R44.3 Hallucinations, unspecified; G93.40 Encephalopathy, unspecified; E87.4 Mixed disorder of acid-base balance; I50.9 Heart failure, unspecified; Z99.81 Dependence on supplemental oxygen; I10 Essential (primary) hypertension; R13.10 Dysphagia, unspecified; R32 Unspecified urinary incontinence; M19.90 Unspecified osteoarthritis, unspecified site; F32.A Depression, unspecified; F03.90 Unspecified dementia, unspecified severity, without behavioral disturbance, psychotic disturbance, mood disturbance, and anxiety; T38.0X5A Adverse effect of glucocorticoids and synthetic analogues, initial encounter; R73.9 Hyperglycemia, unspecified; R53.81 Other malaise; Z20.822 Contact with and (suspected) exposure to COVID-19; Z91.19 Patient's noncompliance with other medical treatment and regimen; Z79.01 Long term (current) use of anticoagulants; Z99.3 Dependence on wheelchair; Z74.01 Bed confinement status; Z87.891 Personal history of nicotine dependence; Z87.440 Personal history of urinary (tract) infections; Z86.19 Personal history of other infectious and parasitic diseases; Z79.899 Other long term (current) drug therapy; Z91.041 Radiographic dye allergy status; Z86.73 Personal history of transient ischemic attack (TIA), and cerebral infarction without residual deficits
CPT/HCPCS: 36415; 36600; 71045; 80048; 80053; 81001; 82803; 82805; 83605; 83735; 83880; 84484; 85025; 85027; 85610; 85730; 87086; 87502; 87635; 93005; 94640; 94660; 94760; 96365; 96366; 96375; 99291

== ENCOUNTER 2021-10-23 21:57 | Emergency (ER) | payer MEDICARE, OTHER ==
[2021-10-23] MEDS ORDERED: IPRATROPIUM-ALBUTEROL 3 ML NEB INHALATION STA ×2 (22:05→23:00)
[2021-10-23] MEDS ORDERED: methylPREDNISolone SOD SUCCI 125 MG/2 ML VIAL IV STA (22:05)
[2021-10-23 22:10] VITALS: RESP 15; TEMP 97.9
[2021-10-23 22:50] LABS: Basophils % (A) 1 %; Eosinophils # (A) 0.3 k/uL (0-0.7); Eosinophils % (A) 4 %; HCT 38.4 % (34.0-46.0); HGB 11.5 gm/dL (11.4-16.0); Hypochromasia Marked; Lymphocytes # (A) 1.2 k/uL (1.0-4.8); Lymphocytes % (A) 21 %; MCH 29.4 pg (25.0-35.0); MCHC 29.9 g/dL (31.0-37.0); MCV 98.2 fL (80.0-100.0); Monocytes # (A) 0.3 k/uL (0-1.0); Monocytes % (A) 6 %; Neutrophils # (A) 3.8 k/uL (1.3-7.7); Neutrophils % (A) 66 %; Platelet Count 143 k/uL (150-450); RBC 3.91 m/uL (3.80-5.40); RDW 12.6 % (11.5-15.5); WBC 5.8 k/uL (3.8-10.6)
[2021-10-23 22:58] LABS: INR 0.9 (<1.2); Partial Thromboplastin Time 24.8 sec (22.0-30.0); Prothrombin Time 10.2 sec (9.0-12.0)
[2021-10-23 23:12] LABS: Albumin 3.2 g/dL (3.5-5.0); Calcium 8.7 mg/dL (8.4-10.2); Magnesium 1.6 mg/dL (1.6-2.3); Potassium 4.1 mmol/L (3.5-5.1); Total Bilirubin 0.4 mg/dL (0.2-1.3); Total Protein 5.7 g/dL (6.3-8.2)
--- NOTE | 2021-10-24 00:12 | XR ---
EXAMINATION TYPE: XR chest 2V DATE OF EXAM: 10/23/2021 COMPARISON: 10/03/2021 HISTORY: Short of breath TECHNIQUE: FINDINGS: There is some mild atelectasis at the lung bases. There is poor inspiration. Heart appears slightly enlarged. There is mild pulmonary congestion. There is minimal blunting of the costophrenic angles. IMPRESSION: Cardiomegaly and probable minimal heart failure which is improved compared to last exam. There is some clearing of the pleural effusions. Mild atelectasis at the lung bases.
--- NOTE | 2021-10-24 00:26 | ED ---
General Adult HPI - General Chief complaint: Shortness of Breath Stated complaint: Abd Pain Time Seen by Provider: 10/23/21 22:00 Source: EMS Mode of arrival: EMS - History of Present Illness Initial comments: Patient is an 81-year-old female who presents emergency Department complaining of shortness of breath, as well as initially abdominal pain. States abdominal pain resolved. States the pain started when a staff member bumped into her earlier. It lasted momentarily but resolved. Primary complaint is mildly worsening shortness of breath. Is chronically hypoxic on 4 L nasal cannula at home for CHF as well as COPD. States she believes her COPD is acting up. Versus worsening wheezing. Denies any cough or rhinorrhea. Denies any nausea, vomiting, diarrhea, abdominal pain. Denies changes in stooling. Denies any urinary complaints. Denies any current abdominal pain. Denies any chest pain. Denies any headaches. Denies any worsening lower extremity edema. Presents from nursing facility. Uses CPAP at night. - Related Data Home Medications Medication Instructions Recorded Confirmed Docusate [Colace] 100 mg PO DAILY 05/07/21 09/29/21 Loratadine 10 mg PO DAILY 05/07/21 09/29/21 Multivitamins, Thera [Multivitamin 1 tab PO DAILY 05/07/21 09/29/21 (formulary)] Omeprazole 20 mg PO DAILY 05/07/21 09/29/21 Potassium Chloride ER [K-Dur 10] 10 meq PO DAILY 05/07/21 09/29/21 guaiFENesin [guaiFENesin Oral 200 mg PO Q6H PRN 05/07/21 09/29/21 Solution] hydrOXYzine HCL [Atarax] 25 mg PO Q6H PRN 05/07/21 09/29/21 lisinopriL [Zestril] 10 mg PO Q12H 05/07/21 09/29/21 Acetaminophen [Tylenol 8 Hour] 650 mg PO Q6H PRN 06/12/21 09/29/21 Benzonatate [Tessalon Perles] 200 mg PO Q8H PRN 06/12/21 09/29/21 Previous Rx's Medication Instructions Recorded Apixaban [Eliquis] 5 mg PO BID tab 05/12/21 Ipratropium-Albuterol Nebulize 3 ml INHALATION RT-QID PRN ml 06/18/21 [Duoneb 0.5 mg-3 mg/3 ml Soln] Diltiazem Cd [Cardizem CD] 240 mg PO DAILY #30 cap 10/03/21 HYDROcodone/APAP 5-325MG [[place] 1 tab PO Q6H PRN #12 tab 10/03/21 5-325] Metoprolol Tartrate [Lopressor] 50 mg PO TID #90 tab 10/03/21 predniSONE See Rx Instructions .ROUTE 10/03/21 .COMPLEX #18 tab Furosemide [Lasix] 40 mg PO BID #120 tab 10/06/21 predniSONE [Deltasone] 40 mg PO DAILY 5 Days #10 tab 10/24/21 Allergies Allergy/AdvReac Type Severity Reaction Status Date / Time red dye Allergy Rash/Hives Verified 09/29/21 14:42 tositumomab iodine-131 Allergy Unknown Verified 09/29/21 14:42 Review of Systems ROS Statement: Those systems with pertinent positive or pertinent negative responses have been documented in the HPI. Review of Systems: CONST: Denies fever EYES: Denies blurry vision ENT: Denies nasal congestion C/V: Denies Chest pain RESP: Endorses shortness of breath GI: Denies abdominal pain : Denies dysuria SKIN: Denies rash. MSK: Denies joint pain. NEURO: Denies headache ROS Other: All systems not noted in ROS Statement are negative. Past Medical History Past Medical History: Atrial Fibrillation, Heart Failure, COPD Additional Past Medical History / Comment(s): Chronic respiratory failure/oxygen ATC, recent issue with dysphagia, JOSIAH/no device, itching, obesity, edema, weakness-wheelchair, incontinence. History of Any Multi-Drug Resistant Organisms: None Reported Past Surgical History: Orthopedic Surgery Additional Past Surgical History / Comment(s): left knee x2 Past Anesthesia/Blood Transfusion Reactions: No Reported Reaction Smoking Status: Former smoker - Past Family History Father Family Medical History: No Reported History Mother Family Medical History: No Reported History General Exam - General Exam Comments Initial Comments: General: Appears in no acute distress. HEAD: Normal with no signs of head trauma. EYES: PERRLA, EOMI, conjunctiva normal, no discharge. ENT: Hearing grossly intact, normal oropharynx. RESPIRATORY: Bilateral end expiratory wheezing. No obvious rhonchi. No hypoxia on baseline 4 L nasal cannula. No increased work of breathing. C/V: Regular rate and rhythm. S1 and S2 auscultated, no edema, peripheral pulses 2+ and intact throughout ABD: Abd is soft, nontender, nondistended EXT: Normal range of motion, no obvious deformity SKIN: No rashes or lesions observed on exposed skin. NEURO: Alert and oriented 4. Course Vital Signs 10/23/21 10/23/21 10/23/21 22:05 22:24 22:33 Temperature 97.9 F Pulse Rate 88 72 76 Respiratory 15 Rate Blood Pressure 127/67 O2 Sat by Pulse 97 Oximetry 10/24/21 00:59 Temperature Pulse Rate 74 Respiratory 15 Rate Blood Pressure 124/68 O2 Sat by Pulse 95 Oximetry Medical Decision Making - Medical Decision Making Based on the patient's presentation and physical exam, concern for possible cardiopulmonary etiology for her current symptoms. Likely a COPD exacerbation but cannot rule out other causes. Like to obtain cardiac workup, as well as basic abdominal laboratory studies. The patient was in agreement with this plan. She'll be symptomatically treated with IV steroids as well as multiple breathing treatments. Vital signs are within normal limits and a normal 4 L nasal cannula. She is not hypoxic. No worsening breathing or increased work of breathing. EKG shows no signs of acute ischemia. Laboratory studies are remarkable for an elevated CO2 of 47 which is chronically elevated for the patient. BNP is within normal limits for her age. Covid is negative. Remainder the labs are unremarkable. I spoke with the patient regarding the findings. Following multiple breathing treatments, her wheezing is improved. She remains normoxic on her normal 4 L nasal cannula. No increased work of breathing. I discussed admission for mild COPD exacerbation versus discharge back to her facility. She would like to go back. I do believe this is reasonable. She'll be given a prescription for steroids. She was already on DuoNeb updrafts at the facility. Patient's daughter is at bedside and is in agreement this plan. Strict return precautions were discussed. Patient will be transported back to her facility. I will provide the patient with a prescription for prednisone 40 mg daily for 5 days. I instructed the patient to follow up with their PCP in the next 1-3 days. I explained that the patient should return to the emergency department if they experience any worsening symptoms. Strict return precautions were discussed with the patient. The patient expressed understanding of these instructions. I answered all questions that the patient had. The patient was discharged home in good condition with their prescriptions and follow up information. - Lab Data Result diagrams: 10/23/21 22:35 10/23/21 22:35 Lab Results 10/23/21 10/23/21 10/23/21 Range/Units 22:35 22:35 22:35 WBC 5.8 (3.8-10.6) k/uL RBC 3.91 (3.80-5.40) m/uL Hgb 11.5 (11.4-16.0) gm/dL Hct 38.4 (34.0-46.0) % MCV 98.2 (80.0-100.0) fL MCH 29.4 (25.0-35.0) pg MCHC 29.9 L (31.0-37.0) g/dL RDW 12.6 (11.5-15.5) % Plt Count 143 L (150-450) k/uL MPV 7.0 Neutrophils % 66 % Lymphocytes % 21 % Monocytes % 6 % Eosinophils % 4 % Basophils % 1 % Neutrophils # 3.8 (1.3-7.7) k/uL Lymphocytes # 1.2 (1.0-4.8) k/uL Monocytes # 0.3 (0-1.0) k/uL Eosinophils # 0.3 (0-0.7) k/uL Basophils # 0.0 (0-0.2) k/uL Hypochromasia Marked PT 10.2 (9.0-12.0) sec INR 0.9 (<1.2) APTT 24.8 (22.0-30.0) sec Sodium 140 (137-145) mmol/L Potassium 4.1 (3.5-5.1) mmol/L Chloride 88 L (98-107) mmol/L Carbon Dioxide 47 H* (22-30) mmol/L Anion Gap 5 mmol/L BUN 22 H (7-17) mg/dL Creatinine 0.77 (0.52-1.04) mg/dL Est GFR (CKD-EPI)AfAm 84 (>60 ml/min/1.73 sqM) Est GFR (CKD-EPI)NonAf 73 (>60 ml/min/1.73 sqM) Glucose 96 (74-99) mg/dL Calcium 8.7 (8.4-10.2) mg/dL Magnesium 1.6 (1.6-2.3) mg/dL Total Bilirubin 0.4 (0.2-1.3) mg/dL AST 21 (14-36) U/L ALT 17 (4-34) U/L Alkaline Phosphatase 63 (38-126) U/L NT-Pro-B Natriuret Pep pg/mL Total Protein 5.7 L (6.3-8.2) g/dL Albumin 3.2 L (3.5-5.0) g/dL Amylase 48 (30-110) U/L Lipase 101 (23-300) U/L Coronavirus (PCR) (Not Detectd) 10/23/21 10/23/21 Range/Units 22:35 22:35 WBC (3.8-10.6) k/uL RBC (3.80-5.40) m/uL Hgb (11.4-16.0) gm/dL Hct (34.0-46.0) % MCV (80.0-100.0) fL MCH (25.0-35.0) pg MCHC (31.0-37.0) g/dL RDW (11.5-15.5) % Plt Count (150-450) k/uL MPV Neutrophils % % Lymphocytes % % Monocytes % % Eosinophils % % Basophils % % Neutrophils # (1.3-7.7) k/uL Lymphocytes # (1.0-4.8) k/uL Monocytes # (0-1.0) k/uL Eosinophils # (0-0.7) k/uL Basophils # (0-0.2) k/uL Hypochromasia PT (9.0-12.0) sec INR (<1.2) APTT (22.0-30.0) sec Sodium (137-145) mmol/L Potassium (3.5-5.1) mmol/L Chloride (98-107) mmol/L Carbon Dioxide (22-30) mmol/L Anion Gap mmol/L BUN (7-17) mg/dL Creatinine (0.52-1.04) mg/dL Est GFR (CKD-EPI)AfAm (>60 ml/min/1.73 sqM) Est GFR (CKD-EPI)NonAf (>60 ml/min/1.73 sqM) Glucose (74-99) mg/dL Calcium (8.4-10.2) mg/dL Magnesium (1.6-2.3) mg/dL Total Bilirubin (0.2-1.3) mg/dL AST (14-36) U/L ALT (4-34) U/L Alkaline Phosphatase (38-126) U/L NT-Pro-B Natriuret Pep 1380 pg/mL Total Protein (6.3-8.2) g/dL Albumin (3.5-5.0) g/dL Amylase (30-110) U/L Lipase (23-300) U/L Coronavirus (PCR) Not Detected (Not Detectd) Disposition Clinical Impression: COPD exacerbation Disposition: HOME SELF-CARE Condition: Good Instructions (If sedation given, give patient instructions): COPD (Chronic Obstructive Pulmonary Disease) (ED) Prescriptions: predniSONE [Deltasone] 40 mg PO DAILY 5 Days #10 tab Is patient prescribed a controlled substance at d/c from ED?: No Referrals: Wyatt Jaffe DO [Primary Care Provider] - 1-2 days Time of Disposition: 00:15
[2021-10-24 01:00] VITALS: BP 124/68; PULSE 74
== END 2021-10-24 01:31 | disposition home or self-care (01) ==
LOC: EC 21:57
DX: J44.1 Chronic obstructive pulmonary disease with (acute) exacerbation (principal); Z87.891 Personal history of nicotine dependence; Z20.822 Contact with and (suspected) exposure to COVID-19; Z91.041 Radiographic dye allergy status; Z88.8 Allergy status to other drugs, medicaments and biological substances
CPT/HCPCS: 94640; 83880; 80053; 82150; 83690; 83735; 85025; 85610; 85730; 87635; 71046; 99285; 96374; J2930

== ENCOUNTER 2021-10-27 16:34 | Inpatient (IN) | payer MEDICARE, OTHER ==
[2021-10-27] MEDS ORDERED: DILTIAZEM DRIP BOLUS FROM BAG 1 MG SOLN IV ONE (16:43)
[2021-10-27] MEDS: DILTIAZEM 125 MG in SODIUM CHLORIDE 0.9% 100 ML IV SCH (16:59)
--- NOTE | 2021-10-27 17:06 | ED ---
General Adult HPI - General Chief complaint: Arrhythmia/Palpitations Stated complaint: high heart rate Time Seen by Provider: 10/27/21 16:40 Source: patient, EMS, RN notes reviewed, old records reviewed Mode of arrival: EMS Limitations: no limitations - History of Present Illness Initial comments: This is an 81-year-old female presents emergency Department complaining of shortness of breath. According to the longterm she is in atrial fibrillation which is her baseline but it is rapid today. Patient denies any chest pain or feeling any palpitations. Patient denies any fever chills or cough. Patient denies any abdominal pain. Patient denies nausea vomiting diarrhea. Patient is normally on 5 L with a venting mask. Patient refused to wear nasal cannula. Patient denies any lightheadedness or dizziness. - Related Data Home Medications Medication Instructions Recorded Confirmed Docusate [Colace] 100 mg PO DAILY 05/07/21 10/27/21 Loratadine 10 mg PO DAILY 05/07/21 10/27/21 Multivitamins, Thera [Multivitamin 1 tab PO DAILY 05/07/21 10/27/21 (formulary)] Omeprazole 20 mg PO DAILY 05/07/21 10/27/21 Potassium Chloride ER [K-Dur 10] 10 meq PO DAILY 05/07/21 10/27/21 guaiFENesin [guaiFENesin Oral 200 mg PO Q6H PRN 05/07/21 10/27/21 Solution] hydrOXYzine HCL [Atarax] 25 mg PO Q6H PRN 05/07/21 10/27/21 lisinopriL [Zestril] 10 mg PO Q12H 05/07/21 10/27/21 Acetaminophen [Tylenol 8 Hour] 650 mg PO Q6H PRN 06/12/21 10/27/21 Benzonatate [Tessalon Perles] 200 mg PO Q8H PRN 06/12/21 10/27/21 Metoprolol Tartrate [Lopressor] 50 mg PO TID 10/27/21 10/27/21 Previous Rx's Medication Instructions Recorded Apixaban [Eliquis] 5 mg PO BID tab 05/12/21 Ipratropium-Albuterol Nebulize 3 ml INHALATION RT-QID PRN ml 06/18/21 [Duoneb 0.5 mg-3 mg/3 ml Soln] Diltiazem Cd [Cardizem CD] 240 mg PO DAILY #30 cap 10/03/21 HYDROcodone/APAP 5-325MG [[place] 1 tab PO Q6H PRN #12 tab 10/03/21 5-325] Furosemide [Lasix] 40 mg PO BID #120 tab 10/06/21 predniSONE [Deltasone] 40 mg PO DAILY 5 Days #10 tab 10/24/21 Allergies Allergy/AdvReac Type Severity Reaction Status Date / Time red dye Allergy Rash/Hives Verified 10/27/21 17:35 tositumomab iodine-131 Allergy Unknown Verified 10/27/21 17:35 Review of Systems ROS Statement: Those systems with pertinent positive or pertinent negative responses have been documented in the HPI. ROS Other: All systems not noted in ROS Statement are negative. Past Medical History Past Medical History: Atrial Fibrillation, Heart Failure, COPD Additional Past Medical History / Comment(s): Chronic respiratory failure/oxygen ATC, recent issue with dysphagia, JOSIAH/no device, itching, obesity, edema, weakness-wheelchair, incontinence. History of Any Multi-Drug Resistant Organisms: None Reported Past Surgical History: Orthopedic Surgery Additional Past Surgical History / Comment(s): left knee x2 Past Anesthesia/Blood Transfusion Reactions: No Reported Reaction Past Psychological History: No Psychological Hx Reported Smoking Status: Former smoker - Past Family History Father Family Medical History: No Reported History Mother Family Medical History: No Reported History General Exam - General Exam Comments Initial Comments: GENERAL: Patient is well-developed and well-nourished. Patient is nontoxic and well- hydrated and is in mild distress. ENT: Neck is soft and supple. No significant lymphadenopathy is noted. Oropharynx is clear. Moist mucous membranes. Neck has full range of motion without eliciting any pain. EYES: The sclera were anicteric and conjunctiva were pink and moist. Extraocular movements were intact and pupils were equal round and reactive to light. Eyelids were unremarkable. PULMONARY: Unlabored respirations. Good breath sounds bilaterally. No audible rales rhonchi or wheezing was noted. CARDIOVASCULAR: Patient is tachycardic at about 140 beats a minute and the rate is irregular irregular. ABDOMEN: Soft and nontender with normal bowel sounds. SKIN: Skin is clear with no lesions or rashes and otherwise unremarkable. NEUROLOGIC: Patient is alert and oriented x3. Cranial nerves II through XII are grossly intact. Motor and sensory are also intact. Normal speech, volume and content. Symmetrical smile. MUSCULOSKELETAL: Normal extremities with adequate strength and full range of motion. Patient's edema 1+ bilaterally LYMPHATICS: No significant lymphadenopathy is noted PSYCHIATRIC: Normal psychiatric evaluation. Limitations: no limitations Course Vital Signs 10/27/21 10/27/21 10/27/21 16:39 18:01 18:38 Temperature 98.5 F Pulse Rate 125 H 92 122 H Respiratory 22 24 20 Rate Blood Pressure 103/70 111/85 120/99 O2 Sat by Pulse 97 97 97 Oximetry Medical Decision Making - Medical Decision Making EKG shows atrial fibrillation with rapid ventricular response at 138 bpm QRS is 90 QT interval 375 QTC is 356. Patient's EKG shows no ST segment elevation or depression. I started the patient on Cardizem after giving the patient a Cardizem bolus. Chest x-ray shows acute pulmonary edema. I spoke with Dr. chet rosenberg agreed to admit the patient admitted the patient wrote admitting orders - Lab Data Result diagrams: 10/27/21 16:47 10/27/21 16:47 Lab Results 10/27/21 10/27/21 10/27/21 Range/Units 16:47 16:47 16:47 WBC 7.6 (3.8-10.6) k/uL RBC 4.25 (3.80-5.40) m/uL Hgb 12.3 (11.4-16.0) gm/dL Hct 42.8 (34.0-46.0) % MCV 100.6 H (80.0-100.0) fL MCH 29.0 (25.0-35.0) pg MCHC 28.8 L (31.0-37.0) g/dL RDW 12.4 (11.5-15.5) % Plt Count 166 (150-450) k/uL MPV 6.9 Neutrophils % 88 % Lymphocytes % 7 % Monocytes % 3 % Eosinophils % 1 % Basophils % 0 % Neutrophils # 6.7 (1.3-7.7) k/uL Lymphocytes # 0.6 L (1.0-4.8) k/uL Monocytes # 0.2 (0-1.0) k/uL Eosinophils # 0.0 (0-0.7) k/uL Basophils # 0.0 (0-0.2) k/uL Hypochromasia Marked PT 10.3 (9.0-12.0) sec INR 0.9 (<1.2) APTT 22.6 (22.0-30.0) sec Sodium 141 (137-145) mmol/L Potassium 5.0 (3.5-5.1) mmol/L Chloride 84 L (98-107) mmol/L Carbon Dioxide 47 H* (22-30) mmol/L Anion Gap 10 mmol/L BUN 39 H (7-17) mg/dL Creatinine 0.76 (0.52-1.04) mg/dL Est GFR (CKD-EPI)AfAm 86 (>60 ml/min/1.73 sqM) Est GFR (CKD-EPI)NonAf 75 (>60 ml/min/1.73 sqM) Glucose 178 H (74-99) mg/dL Calcium 9.4 (8.4-10.2) mg/dL Magnesium 1.8 (1.6-2.3) mg/dL Total Bilirubin 0.5 (0.2-1.3) mg/dL AST 60 H (14-36) U/L ALT 66 H (4-34) U/L Alkaline Phosphatase 76 (38-126) U/L Troponin I (0.000-0.034) ng/mL NT-Pro-B Natriuret Pep pg/mL Total Protein 6.4 (6.3-8.2) g/dL Albumin 3.6 (3.5-5.0) g/dL 10/27/21 10/27/21 Range/Units 16:47 16:47 WBC (3.8-10.6) k/uL RBC (3.80-5.40) m/uL Hgb (11.4-16.0) gm/dL Hct (34.0-46.0) % MCV (80.0-100.0) fL MCH (25.0-35.0) pg MCHC (31.0-37.0) g/dL RDW (11.5-15.5) % Plt Count (150-450) k/uL MPV Neutrophils % % Lymphocytes % % Monocytes % % Eosinophils % % Basophils % % Neutrophils # (1.3-7.7) k/uL Lymphocytes # (1.0-4.8) k/uL Monocytes # (0-1.0) k/uL Eosinophils # (0-0.7) k/uL Basophils # (0-0.2) k/uL Hypochromasia PT (9.0-12.0) sec INR (<1.2) APTT (22.0-30.0) sec Sodium (137-145) mmol/L Potassium (3.5-5.1) mmol/L Chloride (98-107) mmol/L Carbon Dioxide (22-30) mmol/L Anion Gap mmol/L BUN (7-17) mg/dL Creatinine (0.52-1.04) mg/dL Est GFR (CKD-EPI)AfAm (>60 ml/min/1.73 sqM) Est GFR (CKD-EPI)NonAf (>60 ml/min/1.73 sqM) Glucose (74-99) mg/dL Calcium (8.4-10.2) mg/dL Magnesium (1.6-2.3) mg/dL Total Bilirubin (0.2-1.3) mg/dL AST (14-36) U/L ALT (4-34) U/L Alkaline Phosphatase (38-126) U/L Troponin I <0.012 (0.000-0.034) ng/mL NT-Pro-B Natriuret Pep 3380 pg/mL Total Protein (6.3-8.2) g/dL Albumin (3.5-5.0) g/dL Critical Care Time Critical Care Time: Yes Total Critical Care Time: 35 Disposition Clinical Impression: Atrial fibrillation with rapid ventricular response, Acute pulmonary edema Disposition: ADMITTED IP TO THIS HOSP Referrals: Wyatt Jaffe DO [Primary Care Provider] - 1-2 days Time of Disposition: 18:40
[2021-10-27 17:11] LABS: Basophils % (A) 0 %; Eosinophils % (A) 1 %; HCT 42.8 % (34.0-46.0); HGB 12.3 gm/dL (11.4-16.0); Hypochromasia Marked; Lymphocytes # (A) 0.6 k/uL (1.0-4.8); Lymphocytes % (A) 7 %; MCHC 28.8 g/dL (31.0-37.0); MCV 100.6 fL (80.0-100.0); Mean Platelet Volume 6.9; Monocytes # (A) 0.2 k/uL (0-1.0); Monocytes % (A) 3 %; Neutrophils # (A) 6.7 k/uL (1.3-7.7); Neutrophils % (A) 88 %; Platelet Count 166 k/uL (150-450); RBC 4.25 m/uL (3.80-5.40); RDW 12.4 % (11.5-15.5); WBC 7.6 k/uL (3.8-10.6)
[2021-10-27 17:20] LABS: INR 0.9 (<1.2); Partial Thromboplastin Time 22.6 sec (22.0-30.0); Prothrombin Time 10.3 sec (9.0-12.0)
--- NOTE | 2021-10-27 17:34 | XR ---
EXAMINATION TYPE: XR chest 2V DATE OF EXAM: 10/27/2021 COMPARISON: 10/23/2021 HISTORY: Short of breath TECHNIQUE: FINDINGS: There is poor inspiration. There is pulmonary interstitial and airspace edema. There is lulu nting of the costophrenic angles. There is some linear density at the lung bases. There is significan t arthritic disease in the left shoulder joint. IMPRESSION: There is evidence of congestive heart failure with small pleural effusions. Basilar mild atelectasis but Pleural fluid and pulmonary congestion increased compared to recent exam
[2021-10-27 17:36] LABS: Albumin 3.6 g/dL (3.5-5.0); Calcium 9.4 mg/dL (8.4-10.2); Magnesium 1.8 mg/dL (1.6-2.3); Total Bilirubin 0.5 mg/dL (0.2-1.3); Total Protein 6.4 g/dL (6.3-8.2)
[2021-10-27] MEDS ORDERED: FUROSEMIDE 10 MG/ML 10 ML VIAL IV STA (18:13)
[2021-10-27] MEDS: APIXABAN 5 MG TAB PO SCH (21:28)
[2021-10-27] MEDS: NITROGLYCERIN OINT 1 INCH/GM PACKET TOPICAL SCH (21:29)
[2021-10-28] MEDS ORDERED: FUROSEMIDE 10 MG/ML 4 ML VIAL IV SCH
[2021-10-28] MEDS: FUROSEMIDE 10 MG/ML 10 ML VIAL IV SCH ×3 (02:00→19:37)
[2021-10-28] MEDS: APIXABAN 5 MG TAB PO SCH ×2 (08:14→22:19)
[2021-10-28] MEDS: NITROGLYCERIN OINT 1 INCH/GM PACKET TOPICAL SCH (08:14)
[2021-10-28] MEDS ORDERED: METOPROLOL SUCCINATE (ER) 25 MG TAB.ER.24H PO SCH (09:00)
[2021-10-28] MEDS: DIGOXIN 250 MCG TAB PO SCH (11:59)
[2021-10-28] MEDS: DILTIAZEM 125 MG in SODIUM CHLORIDE 0.9% 100 ML IV SCH (19:37)
--- NOTE | 2021-10-28 21:01 | CONS ---
CONSULTATION CHIEF COMPLAINT: Atrial fibrillation with rapid ventricular rate. HISTORY OF PRESENT ILLNESS: Shalonda is an 81-year-old lady with history of atrial fibrillation, who is currently living in a intermediate complained of shortness of breath and from there was brought into the hospital, was found to be in atrial fibrillation with rapid ventricular rate for which Cardiology has been consulted. She does not have any chest pain and she denies any palpitations. There is no history of fever, chills, or cough, did not have any other symptoms. Her predominant symptom was that she was short of breath and was not feeling well. She normally uses 5 L and seems well oxygenated at the time of my evaluation in the emergency room. She is comfortable at rest. Heart rate is still elevated, but better controlled than when she first came to the hospital. She is currently on intravenous Cardizem at 5 mg. I am increasing it to 7.5 and starting her on digoxin and I am adding Toprol-XL. She is on an anticoagulant in the form of Eliquis 5 b.i.d. She is on nitroglycerin paste, then I asked her nurse to discontinue it. PAST MEDICAL HISTORY: Significant for atrial fibrillation, hypertension, morbid obesity, and COPD, on home O2. MEDICATIONS: Medications at home included, 1. Lasix 20 b.i.d. 2. Cardizem CD 240 daily. 3. Eliquis 5 b.i.d. 4. Omeprazole. 5. Metoprolol 50 t.i.d. 6. Lisinopril 10 mg daily. 7. Prednisone. ALLERGIES: Red dye and IV dye. FAMILY HISTORY: Negative for premature coronary artery disease. SOCIAL HISTORY: Negative for current smoking, EtOH abuse or drug abuse. REVIEW OF SYSTEMS: review of systems has been performed. Pertinents as documented. PHYSICAL EXAMINATION: VITAL SIGNS: Heart rate is 120 beats per minute, blood pressure is 109/63, respiratory rate 18. CHEST: Reveals diminished air entry bilaterally with occasional rhonchi. HEART: Reveals first and second heart sounds, irregular rhythm. ABDOMEN: Soft. EXTREMITIES: Reveal bilateral chronic stasis changes with mild pitting edema and diminished distal pulses. LABORATORY DATA: BNP is elevated at 3380. Troponin is normal. Rhythm strips show that she is in atrial fibrillation with poorly controlled ventricular rate. The chest x-ray showed bilateral congestion. The patient had an echocardiogram not too long ago, back in April, but they could not document the LV function on this study. ASSESSMENT: 1. Shortness of breath secondary to a combination of chronic obstructive pulmonary disease and congestive heart failure exacerbation. 2. Persistent atrial fibrillation with poorly controlled ventricular rate. PLAN: I will treat the patient with IV Lasix, control the heart rate with beta blockers. Resume the anticoagulant. Blood pressure tolerating, started on WEST inhibitors. Obtain a 2D echo and decide on further course of action. MMODL / IJN: [id number] /
[2021-10-28] MEDS ORDERED: IPRATROPIUM-ALBUTEROL 3 ML NEB INHALATION PRN (22:24)
--- NOTE | 2021-10-28 22:36 | P.CNPUL ---
History of Present Illness Consult date: 10/28/21 Requesting physician: Suha Jung Reason for consult: dyspnea, COPD Chief complaint: Shortness of breath History of present illness: This is an 81-year-old female with history of multiple medical problems including chronic hypoxic and hypercapnic respiratory failure, obstructive sleep apnea syndrome, underlying COPD, morbid obesity, obesity hypoventilation syndrome, paroxysmal atrial fibrillation, tobacco dependence syndrome, benign essential hypertension, patient was brought into the ER with mostly few days history of increased shortness of breath. Patient was found to have atrial f ibrillation with RVR, chest x-ray showed evidence of mild congestive heart failure. Patient was admitted, seen by cardiology, started on Cardizem, was also started on diuretics, and beta blockers, and considering her underlying COPD history, we were asked to see the patient on consultation. Patient denies any chest pain, no fever, no chills, no orthopnea, no PND, no hemoptysis, and no symptoms to suggest active pneumonia. Review of Systems Constitutional: Negative HEENT: Negative Pulmonary: Shortness of breath Cardiac: As noted in HPI GI: Negative Genitourinary: Negative Musculoskeletal: Negative Psychiatric: Negative Hematologic: Negative Endocrine: Negative Neurologic: Negative Skin: Negative Past Medical History Past Medical History: Atrial Fibrillation, Heart Failure, COPD Additional Past Medical History / Comment(s): Chronic respiratory failure/oxygen ATC, recent issue with dysphagia, JOSIAH/no device, itching, obesity, edema, weakness-wheelchair, incontinence. History of Any Multi-Drug Resistant Organisms: None Reported Past Surgical History: Orthopedic Surgery Additional Past Surgical History / Comment(s): left knee x2 Past Anesthesia/Blood Transfusion Reactions: No Reported Reaction Past Psychological History: No Psychological Hx Reported Smoking Status: Former smoker - Past Family History Father Family Medical History: No Reported History Mother Family Medical History: No Reported History Medications and Allergies Home Medications Medication Instructions Recorded Confirmed Type Docusate [Colace] 100 mg PO DAILY 05/07/21 10/27/21 History Loratadine 10 mg PO DAILY 05/07/21 10/27/21 History Multivitamins, Thera [Multivitamin 1 tab PO DAILY 05/07/21 10/27/21 History (formulary)] Omeprazole 20 mg PO DAILY 05/07/21 10/27/21 History Potassium Chloride ER [K-Dur 10] 10 meq PO DAILY 05/07/21 10/27/21 History guaiFENesin [guaiFENesin Oral 200 mg PO Q6H PRN 05/07/21 10/27/21 History Solution] hydrOXYzine HCL [Atarax] 25 mg PO Q6H PRN 05/07/21 10/27/21 History lisinopriL [Zestril] 10 mg PO Q12H 05/07/21 10/27/21 History Apixaban [Eliquis] 5 mg PO BID tab 05/12/21 10/27/21 Rx Acetaminophen [Tylenol 8 Hour] 650 mg PO Q6H PRN 06/12/21 10/27/21 History Benzonatate [Tessalon Perles] 200 mg PO Q8H PRN 06/12/21 10/27/21 History Ipratropium-Albuterol Nebulize 3 ml INHALATION RT-QID PRN ml 06/18/21 10/27/21 Rx [Duoneb 0.5 mg-3 mg/3 ml Soln] Diltiazem Cd [Cardizem CD] 240 mg PO DAILY #30 cap 10/03/21 10/27/21 Rx HYDROcodone/APAP 5-325MG [[place] 1 tab PO Q6H PRN #12 tab 10/03/21 10/27/21 Rx 5-325] Furosemide [Lasix] 40 mg PO BID #120 tab 10/06/21 10/27/21 Rx predniSONE [Deltasone] 40 mg PO DAILY 5 Days #10 tab 10/24/21 10/27/21 Rx Metoprolol Tartrate [Lopressor] 50 mg PO TID 10/27/21 10/27/21 History Allergies Allergy/AdvReac Type Severity Reaction Status Date / Time red dye Allergy Rash/Hives Verified 10/27/21 17:35 tositumomab iodine-131 Allergy Unknown Verified 10/27/21 17:35 Physical Exam Vitals: Vital Signs Temp Pulse Resp BP Pulse Ox FiO2 10/28/21 19:26 70 10/28/21 15:01 70 10/28/21 12:01 98.3 F 110 H 18 117/107 95 10/28/21 11:07 98.4 F 122 H 18 92 L 10/28/21 09:47 98.9 F 110 H 18 96/76 92 L 10/28/21 08:19 98.6 F 128 H 18 109/63 95 10/28/21 05:00 111 H 20 99/88 93 L 10/28/21 03:00 102 H 20 122/98 93 L 10/28/21 02:00 74 22 170/100 92 L Intake and Output 10/28/21 10/28/21 10/28/21 06:59 14:59 22:59 Intake Total 115.083 Balance 115.083 Intake: Intake, IV Titration 115.083 Amount Diltiazem 125 mg In 115.083 Sodium Chloride 0.9% 100 ml @ 7.5 MG/HR 7.5 mls/hr IV .[id number] [facility] Rx#: [id number] Physical Exam: Revealed 81-year-old female in no distress on 6 L nasal cannula with O2 sats is 95% Head: Atraumatic, normocephalic. HEENT:[Neck is supple.] [No neck masses.] [No thyromegaly.] [No JVD.] Chest: [Symmetrical chest expansion, diminished breath sound bilaterally with occasional rhonchi bilaterally. Cardiac Exam irregular irregular rhythm.: [Normal S1 and S2, no S3 gallop, no murmur.] Abdomen: [Soft, nontender, no megaly, no rebound, no guarding, normal bowel sounds.] Extremities: [Bilateral chronic venous stasis changes with mild pitting edema and diminished distal pulses Neurological Exam: [No focal neurologic deficit.] Alert oriented 3. Psychiatric: Normal mood affect and normal mental status examination. Musculoskeletal: No deformities and no limitation in range of motion Results - Laboratory Findings CBC and BMP: 10/27/21 16:47 10/27/21 16:47 PT/INR, D-dimer PT 10.3 sec (9.0-12.0) 10/27/21 16:47 INR 0.9 (<1.2) 10/27/21 16:47 Abnormal lab findings: Abnormal Labs 10/27/21 10/27/21 16:47 16:47 MCV 100.6 H MCHC 28.8 L Lymphocytes # 0.6 L Chloride 84 L Carbon Dioxide 47 H* BUN 39 H Glucose 178 H AST 60 H ALT 66 H - Diagnostic Findings Chest x-ray: image reviewed (As noted in HPI, chest x-ray is suggestive of congestive heart failure, small pleural effusions and pulmonary vascular congest ion.) Assessment and Plan Assessment: Impression: Acute on chronic hypoxic respiratory failure secondary to acute diastolic congestive heart failure exacerbated by atrial fibrillation with RVR and underlying COPD. Persistent atrial fibrillation with RVR Morbid obesity/pickwickian syndrome Chronic hypercapnic respiratory failure Chronic hypoxic respiratory failure Benign essential hypertension Obstructive sleep apnea syndrome History of depression group home resident History of urinary incontinence Recommendation: Continue diuretics Continue bronchodilators/DuoNeb Continue oxygen and titrate accordingly Patient has been noncompliant with BiPAP, could be used if needed Continue anticoagulation therapy, patient is normally on eliquis Follow-up chest x-ray in a.m. We'll continue to follow Time with Patient: Greater than 30
[2021-10-29] MEDS: FUROSEMIDE 10 MG/ML 10 ML VIAL IV SCH ×4 (00:36→23:55)
[2021-10-29] MEDS: DILTIAZEM 125 MG in SODIUM CHLORIDE 0.9% 100 ML IV SCH ×3 (06:34→16:42)
--- NOTE | 2021-10-29 07:36 | P.HPIM ---
History of Present Illness H&P Date: 10/28/21 Chief Complaint: sob 81-year-old female with history of chronic hypoxic and hypercapnic respiratory failure, obstructive sleep apnea syndrome, underlying COPD on home oxygen 3L, morbid obesity, obesity hypoventilation syndrome, paroxysmal atrial fibrillation, benign essential hypertension, was brought into the ER from the residential with increased shortness of breath. Patient was just discharged from the hospital after a similar admission. She was just discharged from the hospital last month after she was treated for COPD and CHF exacerbation, required bipap briefly. Patient denied having any fevers or chills. She has chronic cough without recent changes. She did mention some pleuritic chest pain on the right side this was all. No nausea or vomiting. No abdominal pain. No urinary symptoms. She told me she has not been ambulatory for the past year and a half. She has been wheelchair-bound since that time. Evaluation in the emergency department revealed atrial fibrillation with RVR, chest x-ray showed evidence of mild congestive heart failure. She was started on Cardizem drip in the emergency department. She was subsequently admitted to medicine for further evaluation and management. Review of Systems Complete review of system performed, pertinent positives per HPI, otherwise negative Past Medical History Past Medical History: Atrial Fibrillation, Heart Failure, COPD Additional Past Medical History / Comment(s): Chronic respiratory failure/oxygen ATC, recent issue with dysphagia, JOSIAH/no device, itching, obesity, edema, weakness-wheelchair, incontinence. History of Any Multi-Drug Resistant Organisms: None Reported Past Surgical History: Orthopedic Surgery Additional Past Surgical History / Comment(s): left knee x2 Past Anesthesia/Blood Transfusion Reactions: No Reported Reaction Past Psychological History: No Psychological Hx Reported Smoking Status: Former smoker - Past Family History Father Family Medical History: No Reported History Mother Family Medical History: No Reported History Medications and Allergies Home Medications Medication Instructions Recorded Confirmed Type Docusate [Colace] 100 mg PO DAILY 05/07/21 10/27/21 History Loratadine 10 mg PO DAILY 05/07/21 10/27/21 History Multivitamins, Thera [Multivitamin 1 tab PO DAILY 05/07/21 10/27/21 History (formulary)] Omeprazole 20 mg PO DAILY 05/07/21 10/27/21 History Potassium Chloride ER [K-Dur 10] 10 meq PO DAILY 05/07/21 10/27/21 History guaiFENesin [guaiFENesin Oral 200 mg PO Q6H PRN 05/07/21 10/27/21 History Solution] hydrOXYzine HCL [Atarax] 25 mg PO Q6H PRN 05/07/21 10/27/21 History lisinopriL [Zestril] 10 mg PO Q12H 05/07/21 10/27/21 History Apixaban [Eliquis] 5 mg PO BID tab 05/12/21 10/27/21 Rx Acetaminophen [Tylenol 8 Hour] 650 mg PO Q6H PRN 06/12/21 10/27/21 History Benzonatate [Tessalon Perles] 200 mg PO Q8H PRN 06/12/21 10/27/21 History Ipratropium-Albuterol Nebulize 3 ml INHALATION RT-QID PRN ml 06/18/21 10/27/21 Rx [Duoneb 0.5 mg-3 mg/3 ml Soln] Diltiazem Cd [Cardizem CD] 240 mg PO DAILY #30 cap 10/03/21 10/27/21 Rx HYDROcodone/APAP 5-325MG [[place] 1 tab PO Q6H PRN #12 tab 10/03/21 10/27/21 Rx 5-325] Furosemide [Lasix] 40 mg PO BID #120 tab 10/06/21 10/27/21 Rx predniSONE [Deltasone] 40 mg PO DAILY 5 Days #10 tab 10/24/21 10/27/21 Rx Metoprolol Tartrate [Lopressor] 50 mg PO TID 10/27/21 10/27/21 History Allergies Allergy/AdvReac Type Severity Reaction Status Date / Time red dye Allergy Rash/Hives Verified 10/27/21 17:35 tositumomab iodine-131 Allergy Unknown Verified 10/27/21 17:35 Physical Exam Vitals: Vital Signs Temp Pulse Pulse Resp BP BP Pulse Ox 10/29/21 03:15 97.1 F L 81 16 123/85 99 10/29/21 03:02 10/29/21 00:30 94 20 100/67 97 10/28/21 23:50 10/28/21 19:50 98.2 F 111 H 26 H 106/65 99 10/28/21 19:26 10/28/21 15:01 10/28/21 12:01 98.3 F 110 H 18 117/107 95 10/28/21 11:07 98.4 F 122 H 18 92 L 10/28/21 09:47 98.9 F 110 H 18 96/76 92 L 10/28/21 08:19 98.6 F 128 H 18 109/63 95 FiO2 10/29/21 03:15 70 10/29/21 03:02 70 10/29/21 00:30 70 10/28/21 23:50 70 10/28/21 19:50 70 10/28/21 19:26 70 10/28/21 15:01 70 10/28/21 12:01 10/28/21 11:07 10/28/21 09:47 10/28/21 08:19 Intake and Output 10/28/21 10/29/21 10/29/21 22:59 06:59 14:59 Intake Total 125.000 Output Total 700 2200 Balance -575.000 -2200 Intake: Intake, IV Titration 125.000 Amount Diltiazem 125 mg In 125.000 Sodium Chloride 0.9% 100 ml @ 7.5 MG/HR 7.5 mls/hr IV .[id number] [facility] Rx#: [id number] Output: Urine 700 2200 Other: Voiding Method External Catheter External Catheter Weight 124 kg Constitutional: No acute distress, conversant, pleasant Eyes:Anicteric sclerae, moist conjunctiva, no lid-lag, PERRLA, ENMT: Oropharynx clear, no erythema, exudates Neck: Supple, FROM, no masses, or JVD, No carotid bruits, No thyromegaly Lungs: Diminished breath sounds bilaterally, bilateral rhonchi, Clear to percussion, Normal respiratory effort, no accessory muscle use Cardiovascular: Heart regular in rate and rhythm, No murmurs, gallops, or rubs, No peripheral edema Abdominal: Soft, Nontender, no guarding, rebound or rigidity, Normoactive bowel sounds, No hepatomegaly, No splenomegaly, No palpable mass Skin: Normal temperature, tone, texture, turgor, no induration, No subcutaneous nodules, No rash, lesions, No ulcers Extremities: No digital cyanosis, No clubbing, Pedal pulses intact and symmetrical, Radial pulses intact and symmetrical, No calf tenderness Psychiatric: Alert and oriented to person, place and time, appropriate affect, intact judgement Neuro: Muscles Strength 5/5 in all 4 extremities, Sensation to light touch grossly present throughout, Cranial nerves II-XII grossly intact, no focal sensory deficits Results CBC & Chem 7: 10/27/21 16:47 10/27/21 16:47 Assessment and Plan Plan: Acute on chronic hypoxic respiratory failure Acute COPD exacerbation Patient was seen by pulmonary Bronchodilators and DuoNeb's BiPAP as needed Check procal Acute diastolic CHF exacerbation Check echo Seen by cardio IV diuresis Persistent atrial fibrillation with RVR Cardizem gtt Home metoprolol will be ordered Continue eliquis Morbid obesity/pickwickian syndrome Benign essential hypertension Obstructive sleep apnea syndrome History of depression Stable resume meds DVT prophylaxis Already on eliquis Admit to inpatient, expected length of stay more than 2 midnights
[2021-10-29] MEDS ORDERED: BENZONATATE 100 MG CAP PO PRN (07:41)
[2021-10-29] MEDS ORDERED: HYDROcodone/APAP 5-325MG 1 EACH TAB PO PRN (07:41)
[2021-10-29] MEDS ORDERED: hydrOXYzine HCL 25 MG TAB PO PRN (07:41)
[2021-10-29] MEDS ORDERED: guaiFENesin SYRUP 100MG/5ML 200 MG/10 ML CUP PO PRN (07:41)
[2021-10-29] MEDS: IPRATROPIUM-ALBUTEROL 3 ML NEB INHALATION PRN ×4 (07:56→20:06)
[2021-10-29 08:03] LABS: Basophils # (A) 0.1 k/uL (0-0.2); Basophils % (A) 1 %; Eosinophils # (A) 0.2 k/uL (0-0.7); Eosinophils % (A) 3 %; HCT 42.6 % (34.0-46.0); HGB 12.5 gm/dL (11.4-16.0); Hypochromasia Marked; Lymphocytes # (A) 1.4 k/uL (1.0-4.8); Lymphocytes % (A) 21 %; MCH 29.4 pg (25.0-35.0); MCHC 29.4 g/dL (31.0-37.0); MCV 99.8 fL (80.0-100.0); Mean Platelet Volume 6.7; Monocytes # (A) 0.5 k/uL (0-1.0); Monocytes % (A) 7 %; Neutrophils # (A) 4.4 k/uL (1.3-7.7); Neutrophils % (A) 67 %; Platelet Count 181 k/uL (150-450); RBC 4.27 m/uL (3.80-5.40); RDW 12.5 % (11.5-15.5); WBC 6.5 k/uL (3.8-10.6)
[2021-10-29 08:20] LABS: Calcium 8.8 mg/dL (8.4-10.2); Magnesium 1.5 mg/dL (1.6-2.3); Phosphorus 3.5 mg/dL (2.5-4.5); Potassium 3.4 mmol/L (3.5-5.1)
[2021-10-29] MEDS ORDERED: lisinopriL 10 MG TAB PO SCH (09:00)
[2021-10-29] MEDS ORDERED: METOPROLOL SUCCINATE (ER) 100 MG TAB.ER.24H PO SCH (09:00)
[2021-10-29] MEDS ORDERED: DILTIAZEM CD 240 MG CAP.ER.24H PO SCH (09:00)
[2021-10-29] MEDS: APIXABAN 5 MG TAB PO SCH ×2 (09:31→20:37)
[2021-10-29] MEDS: DIGOXIN 250 MCG TAB PO SCH (09:32)
[2021-10-29] MEDS: DOCUSATE 100 MG CAP PO SCH (09:52)
[2021-10-29] MEDS: POTASSIUM CHLORIDE ER 10 MEQ TAB.ER.PRT PO SCH (09:52)
[2021-10-29] MEDS: PANTOPRAZOLE 40 MG TABLET PO SCH (09:52)
[2021-10-29] MEDS: LORATADINE 10 MG TAB PO SCH (09:52)
[2021-10-29] MEDS ORDERED: METOPROLOL SUCCINATE (ER) 50 MG TAB.ER.24H PO STA (10:36)
--- NOTE | 2021-10-29 10:43 | CA ---
Transthoracic Echo Report Name: Shalonda Chen Age: 81 Gender: F : 1940 Exam Date: 10/29/2021 08:36 Exam Location: [place] [facility] Ht (in): 61 Wt (lb): 273 Ordering Physician: Feng Bowles MD ([id number]) Attending/Referring Phys: Jelena CONTEH [employer] Supervisor Zenobia Field RDCS Procedure CPT: Indications: ADRIANA Cardiac Hx: Technical Quality: Technically difficult study Contrast 1: Lumason Total Dose (mL): 4 Contrast 2: Total Dose (mL): MEASUREMENTS (Male / Female) Normal Values 2D ECHO LV Diastolic Diameter PLAX 5.5 cm 4.2 - 5.9 / 3.9 - 5.3 cm LV Systolic Diameter PLAX 3.7 cm IVS Diastolic Thickness 1.6 cm 0.6 - 1.0 / 0.6 - 0.9 cm LVPW Diastolic Thickness 1.6 cm 0.6 - 1.0 / 0.6 - 0.9 cm LV Relative Wall Thickness 0.6 RV Internal Dim ED PLAX 3.2 cm LA Systolic Diameter LX 4.1 cm 3.0 - 4.0 / 2.7 - 3.8 cm M-MODE Aortic Root Diameter MM 3.9 cm MV E Point Septal Separation 0.5 cm AV Cusp Separation MM 1.8 cm DOPPLER AV Peak Velocity 151.7 cm/s AV Peak Gradient 9.2 mmHg MV Area PHT 4.4 cm??? MV Deceleration Time 178.9 ms TR Peak Velocity 265.0 cm/s TR Peak Gradient 28.1 mmHg Right Ventricular Systolic Press 42.7 mmHg FINDINGS Left Ventricle Left ventricular ejection fraction is estimated at 40-45 %. Mild concentric LVH with some diastolic dysfunction. This is a difficult study with poor visualization of endocardial margins. Right Ventricle Normal right ventricular size and function. Mild pulmonary hypertension. Right Atrium Normal right atrial size. Left Atrium Mildly increased left atrial diameter. Mitral Valve Mitral valve not well visualized. Aortic Valve Aortic valve not well visualized. Tricuspid Valve Mild tricuspid regurgitation. Pulmonic Valve Pulmonic valve not well visualized. Pericardium Normal pericardium. No pericardial effusion. Aorta Moderate aortic dilatation at the level of the sinuses of valsalva 39 mm CONCLUSIONS Technically difficult and suboptimal study with fairly well-preserved LV systolic function and ejection fraction of 45% with poor visualization of valve structures Previewed by: Dr. Dameon Cameron MD (Electronically Signed) Final Date: 29 October 2021 10:42
--- NOTE | 2021-10-29 10:44 | P.PN ---
Subjective Progress Note Date: 10/29/21 HISTORY OF PRESENT ILLNESS: This is an 81-year-old female who is admitted to the hospital secondary to atrial fibrillation with RVR and congestive heart failure. Patient examined thi s morning at the bedside. Patient denies chest pain or pressure. She denies shortness of breath. She is currently on nasal cannula with oxygen saturations greater than 92%. Telemetry reveals atrial fibrillation with a heart rate in the 110s. She is currently on a Cardizem drip at 10 mg an hour. PHYSICAL EXAM: VITAL SIGNS: Reviewed. GENERAL: Well-developed in no acute distress. NECK: Supple. No JVD or thyromegaly LUNGS: Respirations even and unlabored. Lungs diminished with scattered rhonchi HEART: Tachycardic. Irregular rate and rhythm. S1 and S2 heard. EXTREMITIES: Normal range of motion. No clubbing or cyanosis. Peripheral pulses intact. 1+ Bilateral lower extremity edema ASSESSMENT: Shortness of breath Acute COPD exacerbation Acute on chronic heart failure, type unknown Persistent atrial fibrillation with RVR Chronic hypoxic respiratory failure on home oxygen Hypertension Morbid obesity PLAN: Continue telemetry monitoring Decrease Cardizem drip to 5 mg an hour Continue oral digoxin and metoprolol Increase metoprolol dosing to 150 mg daily Decrease lisinopril to daily dosing instead of twice a day Continue IV Lasix Further recommendations pending patient's course Nurse practitioner note has been reviewed by physician. Signing provider agrees with the documented findings, assessment, and plan of care. Objective - Vital Signs Vital signs: Vital Signs Temp 98.1 F 10/29/21 09:26 Pulse 91 10/29/21 09:26 Resp 18 10/29/21 09:26 BP 112/55 10/29/21 09:26 Pulse Ox 92 L 10/29/21 09:26 FiO2 70 10/29/21 07:58 Intake & Output 10/28/21 10/29/21 10/29/21 18:59 06:59 18:59 Intake Total 125.000 Output Total 2900 Balance 125.000 -2900 Weight 124 kg Intake: Intake, IV Titration 125.000 Amount Diltiazem 125 mg In 125.000 Sodium Chloride 0.9% 100 ml @ 7.5 MG/HR 7.5 mls/hr IV .[id number] [facility] Rx#: [id number] Output: Urine 2900 Other: Voiding Method External Catheter External Catheter - Labs CBC & Chem 7: 10/29/21 07:37 10/29/21 07:37 Labs: Abnormal Lab Results - Last 24 Hours (Table) 10/29/21 10/29/21 Range/Units 07:37 07:37 MCHC 29.4 L (31.0-37.0) g/dL Potassium 3.4 L (3.5-5.1) mmol/L Chloride 75 L (98-107) mmol/L Carbon Dioxide 62 H* (22-30) mmol/L BUN 30 H (7-17) mg/dL Magnesium 1.5 L (1.6-2.3) mg/dL
[2021-10-29] MEDS ORDERED: POTASSIUM CHLORIDE ER 20 MEQ TAB.ER PO STA (11:42)
--- NOTE | 2021-10-29 11:47 | P.PN ---
Subjective Progress Note Date: 10/29/21 Principal diagnosis: sob Feeling alot better today compared to yesterday. She is currently off bipap which she was requiring the last 24 hours. No chest pain. No fevers. Objective - Vital Signs Vital signs: Vital Signs Temp 98.1 F 10/29/21 09:26 Pulse 80 10/29/21 11:23 Resp 18 10/29/21 09:26 BP 112/55 10/29/21 09:26 Pulse Ox 92 L 10/29/21 09:26 FiO2 50 10/29/21 11:18 Intake & Output 10/28/21 10/29/21 10/29/21 18:59 06:59 18:59 Intake Total 125.000 Output Total 2900 Balance 125.000 -2900 Weight 124 kg Intake: Intake, IV Titration 125.000 Amount Diltiazem 125 mg In 125.000 Sodium Chloride 0.9% 100 ml @ 7.5 MG/HR 7.5 mls/hr IV .[id number] [facility] Rx#: [id number] Output: Urine 2900 Other: Voiding Method External Catheter External Catheter - Exam Constitutional: No acute distress, conversant, pleasant Eyes:Anicteric sclerae, moist conjunctiva, no lid-lag, PERRLA, ENMT: Oropharynx clear, no erythema, exudates Neck: Supple, FROM, no masses, or JVD, No carotid bruits, No thyromegaly Lungs: Diminished breath sounds bilaterally, bilateral rhonchi, Clear to percussion, Normal respiratory effort, no accessory muscle use Cardiovascular: Heart regular in rate and rhythm, No murmurs, gallops, or rubs, No peripheral edema Abdominal: Soft, Nontender, no guarding, rebound or rigidity, Normoactive bowel sounds, No hepatomegaly, No splenomegaly, No palpable mass Skin: Normal temperature, tone, texture, turgor, no induration, No subcutaneous nodules, No rash, lesions, No ulcers Extremities: No digital cyanosis, No clubbing, Pedal pulses intact and symmetrical, Radial pulses intact and symmetrical, No calf tenderness Psychiatric: Alert and oriented to person, place and time, appropriate affect, intact judgement Neuro: Muscles Strength 5/5 in all 4 extremities, Sensation to light touch grossly present throughout, Cranial nerves II-XII grossly intact, no focal sensory deficits - Labs CBC & Chem 7: 10/29/21 07:37 10/29/21 07:37 Labs: Abnormal Lab Results - Last 24 Hours (Table) 10/29/21 10/29/21 10/29/21 Range/Units 07:37 07:37 07:37 MCHC 29.4 L (31.0-37.0) g/dL Potassium 3.4 L (3.5-5.1) mmol/L Chloride 75 L (98-107) mmol/L Carbon Dioxide 62 H* (22-30) mmol/L BUN 30 H (7-17) mg/dL Magnesium 1.5 L (1.6-2.3) mg/dL Procalcitonin 0.10 H (0.02-0.09) ng/mL Assessment and Plan Plan: Acute on chronic hypoxic respiratory failure Acute COPD exacerbation Patient was seen by pulmonary Bronchodilators and DuoNeb's BiPAP as needed Procal elevated but minimally no need for abx for now. Acute systolic CHF exacerbation Echo showing EF 45% Seen by cardio IV diuresis Persistent atrial fibrillation with RVR Cardizem gtt off, metoprolol dose was increased to 150mg daily. Continue eliquis Morbid obesity/pickwickian syndrome Benign essential hypertension Obstructive sleep apnea syndrome History of depression Stable resume meds DVT prophylaxis Already on eliquis
[2021-10-29] MEDS: MAGNESIUM SULFATE-D5W PMX 1 GM in DEXTROSE/WATER 1 100ML.BAG IVPB SCH ×2 (12:37→14:00)
--- NOTE | 2021-10-29 14:06 | P.PN ---
Subjective Progress Note Date: 10/29/21 This is an 81-year-old female with history of multiple medical problems including chronic hypoxic and hypercapnic respiratory failure, obstructive sleep apnea syndrome, underlying COPD, morbid obesity, obesity hypoventilation syndrome, paroxysmal atrial fibrillation, tobacco dependence syndrome, benign es sential hypertension, patient was brought into the ER with mostly few days history of increased shortness of breath. Patient was found to have atrial fibrillation with RVR, chest x-ray showed evidence of mild congestive heart failure. Patient was admitted, seen by cardiology, started on Cardizem, was also started on diuretics, and beta blockers, and considering her underlying COPD history, we were asked to see the patient on consultation. Patient denies any chest pain, no fever, no chills, no orthopnea, no PND, no hemoptysis, and no symptoms to suggest active pneumonia. The patient is seen today 10/29/2021 in follow-up on the selective care unit. She is currently sitting up in bed. Awake and alert in no acute distress. Maintaining O2 saturation in the low 90s on 4 L/m per nasal cannula. She's been alternating with BiPAP 12/6 and 50% FiO2. She remains on a Cardizem drip at 5 mg per hour. She remains on IV diuretics of Lasix 80 mg every 12 Q8 hours. Currently in a -2.7 mL balance. Anticoagulated with Eliquis. Breathing quite a bit better today compared to yesterday. White count 6.5. Hemoglobin 12.5. Platelets 181. Sodium 140. Potassium 3.4. Chloride 75. Bicarb 62. BUN 30. Creatinine 0.74. Pro-calcitonin 0.10. Objective - Vital Signs Vital signs: Vital Signs Temp 98.1 F 10/29/21 09:26 Pulse 78 10/29/21 12:00 Resp 16 10/29/21 12:00 BP 108/73 10/29/21 12:00 Pulse Ox 98 10/29/21 12:00 FiO2 50 10/29/21 12:00 Intake & Output 10/28/21 10/29/21 10/29/21 18:59 06:59 18:59 Intake Total 125.000 Output Total 2900 2 Balance 125.000 -2900 -2 Weight 124 kg Intake: Intake, IV Titration 125.000 Amount Diltiazem 125 mg In 125.000 Sodium Chloride 0.9% 100 ml @ 7.5 MG/HR 7.5 mls/hr IV .[id number] [facility] Rx#: [id number] Output: Urine 2900 Stool 2 Other: Voiding Method External Catheter External Catheter - Exam GENERAL EXAM: Alert, pleasant 81-year-old female patient, morbidly obese, on oxygen at 2 L/m alternating with BiPAP at 50% FiO2, comfortable in no apparent distress. HEAD: Normocephalic. EYES: Normal reaction of pupils, equal size. NOSE: Clear with pink turbinates. THROAT: No erythema or exudates. NECK: No masses, no JVD. CHEST: No chest wall deformity. LUNGS: Equal air entry with crackles in the bilateral bases, diminished CVS: S1 and S2 normal with no audible murmur, irregular rhythm. ABDOMEN: No hepatosplenomegaly, normal bowel sounds, no guarding or rigidity. SPINE: No scoliosis or deformity SKIN: No rashes CENTRAL NERVOUS SYSTEM: No focal deficits, tone is normal in all 4 extremities. EXTREMITIES: There is 1-2+ peripheral edema. No clubbing, no cyanosis. Peripheral pulses are intact. - Labs CBC & Chem 7: 10/29/21 07:37 10/29/21 07:37 Labs: Abnormal Lab Results - Last 24 Hours (Table) 10/29/21 10/29/21 10/29/21 Range/Units 07:37 07:37 07:37 MCHC 29.4 L (31.0-37.0) g/dL Potassium 3.4 L (3.5-5.1) mmol/L Chloride 75 L (98-107) mmol/L Carbon Dioxide 62 H* (22-30) mmol/L BUN 30 H (7-17) mg/dL Magnesium 1.5 L (1.6-2.3) mg/dL Procalcitonin 0.10 H (0.02-0.09) ng/mL Assessment and Plan Assessment: Acute on chronic hypoxic respiratory failure secondary to acute diastolic congestive heart failure exacerbated by atrial fibrillation with RVR and underlying COPD. Persistent atrial fibrillation with RVR remains on a Cardizem drip at 5 mg an hour and anticoagulated with Eliquis Morbid obesity/pickwickian syndrome Chronic hypercapnic respiratory failure Chronic hypoxic respiratory failure Benign essential hypertension Obstructive sleep apnea syndrome History of depression [facility] resident History of urinary incontinence Plan: The patient was seen and evaluated Labs and medications reviewed Remains hypercapnic, continue BiPAP in the evenings and throughout the day while napping Continue the current treatment plan We'll continue to follow I have personally seen and examined the patient, performed the documentation and the assessment and plan as written. Number of minutes spent on the visit: 10.
[2021-10-29 17:11] VITALS: BMI 51.6
[2021-10-29] MEDS: ACETAMINOPHEN TAB 325 MG TAB PO PRN (20:36)
[2021-10-30] MEDS: ACETAMINOPHEN TAB 325 MG TAB PO PRN (02:11)
[2021-10-30] MEDS: IPRATROPIUM-ALBUTEROL 3 ML NEB INHALATION PRN ×4 (08:20→19:59)
[2021-10-30] MEDS: DIGOXIN 250 MCG TAB PO SCH (10:00)
[2021-10-30] MEDS: FUROSEMIDE 10 MG/ML 10 ML VIAL IV SCH ×2 (10:01→20:44)
[2021-10-30] MEDS: DOCUSATE 100 MG CAP PO SCH (10:01)
[2021-10-30] MEDS: POTASSIUM CHLORIDE ER 10 MEQ TAB.ER.PRT PO SCH (10:01)
[2021-10-30] MEDS: DILTIAZEM CD 240 MG CAP.ER.24H PO SCH (10:01)
[2021-10-30] MEDS: lisinopriL 10 MG TAB PO SCH (10:01)
[2021-10-30] MEDS: PANTOPRAZOLE 40 MG TABLET PO SCH (10:01)
[2021-10-30] MEDS: APIXABAN 5 MG TAB PO SCH ×2 (10:01→20:45)
[2021-10-30] MEDS: METOPROLOL SUCCINATE (ER) 50 MG TAB.ER.24H PO SCH (10:10)
[2021-10-30] MEDS: LORATADINE 10 MG TAB PO SCH (10:10)
--- NOTE | 2021-10-30 10:57 | P.PN ---
Subjective Progress Note Date: 10/30/21 HISTORY OF PRESENT ILLNESS: This is an 81-year-old female who is admitted to the hospital secondary to atrial fibrillation with RVR and congestive heart failure. Patient examined thi s morning at the bedside. Patient denies chest pain or pressure. She denies shortness of breath. She is currently on nasal cannula with oxygen saturations greater than 92%. Telemetry reveals atrial fibrillation with a heart rate in the 110s. She is currently on a Cardizem drip at 10 mg an hour. 10/30/2021 Patient examined this morning at the bedside. Patient denies chest pain or pressure. She denies shortness of breath. Telemetry reveals atrial fibrillation with a heart rate in the 90s. Her Cardizem drip has been turned off per nursing. She reports improvement in her lower extremity edema. No signs are stable. PHYSICAL EXAM: VITAL SIGNS: Reviewed. GENERAL: Well-developed in no acute distress. NECK: Supple. No JVD or thyromegaly LUNGS: Respirations even and unlabored. Lungs diminished with scattered rhonchi HEART: Irregular rate and rhythm. S1 and S2 heard. EXTREMITIES: Normal range of motion. No clubbing or cyanosis. Peripheral pulses intact. 1+ Bilateral lower extremity edema ASSESSMENT: Shortness of breath Acute COPD exacerbation Acute on chronic heart failure, type unknown Persistent atrial fibrillation with RVR Chronic hypoxic respiratory failure on home oxygen Hypertension Morbid obesity PLAN: Continue telemetry monitoring Resume home dose of oral Cardizem Continue oral digoxin and metoprolol Continue IV Lasix. Decrease dosing to every 12 hours. Further recommendations pending patient's course Nurse practitioner note has been reviewed by physician. Signing provider agrees with the documented findings, assessment, and plan of care. Objective - Vital Signs Vital signs: Vital Signs Temp 97.8 F 10/30/21 09:59 Pulse 122 H 10/30/21 09:59 Resp 20 10/30/21 09:59 BP 111/69 10/30/21 09:59 Pulse Ox 89 L 10/30/21 09:59 FiO2 50 10/30/21 08:21 Intake & Output 10/29/21 10/30/21 10/30/21 18:59 06:59 18:59 Intake Total 540 Output Total 2 700 Balance -2 -160 Weight 124 kg 116 kg Intake: Oral 540 Output: Urine 700 Stool 2 Other: Voiding Method External Catheter External Catheter - Labs CBC & Chem 7: 10/29/21 07:37 10/29/21 07:37 Labs: Abnormal Lab Results - Last 24 Hours (Table) 10/29/21 Range/Units 07:37 Procalcitonin 0.10 H (0.02-0.09) ng/mL
[2021-10-30 11:16] LABS: ABG Hematocrit 40 % (34.0-46.0); ABG PH 7.45 (7.35-7.45); ABG PO2 61 mmHg (83-108); ABG TCO2 64 mmol/L (19-24); Allen Test Performed? Yes
[2021-10-30 11:22] LABS: ABG HCO3 61 mmol/L (21-25); ABG PCO2 88 mmHg (35-45)
[2021-10-30 11:23] LABS: ABG Base Excess 36.9 mmol/L
[2021-10-30] MEDS: acetaZOLAMIDE 250 MG TAB PO SCH ×2 (11:49→20:45)
--- NOTE | 2021-10-30 12:41 | P.PN ---
Subjective Progress Note Date: 10/30/21 This is an 81-year-old female with history of multiple medical problems including chronic hypoxic and hypercapnic respiratory failure, obstructive sleep apnea syndrome, underlying COPD, morbid obesity, obesity hypoventilation syndrome, paroxysmal atrial fibrillation, tobacco dependence syndrome, benign es sential hypertension, patient was brought into the ER with mostly few days history of increased shortness of breath. Patient was found to have atrial fibrillation with RVR, chest x-ray showed evidence of mild congestive heart failure. Patient was admitted, seen by cardiology, started on Cardizem, was also started on diuretics, and beta blockers, and considering her underlying COPD history, we were asked to see the patient on consultation. Patient denies any chest pain, no fever, no chills, no orthopnea, no PND, no hemoptysis, and no symptoms to suggest active pneumonia. The patient is seen today 10/29/2021 in follow-up on the selective care unit. She is currently sitting up in bed. Awake and alert in no acute distress. Maintaining O2 saturation in the low 90s on 4 L/m per nasal cannula. She's been alternating with BiPAP 12/6 and 50% FiO2. She remains on a Cardizem drip at 5 mg per hour. She remains on IV diuretics of Lasix 80 mg every 12 Q8 hours. Currently in a -2.7 mL balance. Anticoagulated with Eliquis. Breathing quite a bit better today compared to yesterday. White count 6.5. Hemoglobin 12.5. Platelets 181. Sodium 140. Potassium 3.4. Chloride 75. Bicarb 62. BUN 30. Creatinine 0.74. Pro-calcitonin 0.10. The patient is seen today 10/30/2021 in follow-up on the selective care unit. She is currently resting comfortably in bed. Awake and alert in no acute distress. She is currently on 4 L of oxygen per nasal cannula. She did utilize the BiPAP throughout the night at 12/6 and 50% FiO2. Morning blood gases revealed pO2 of 61, pCO2 of 88 and a pH of 7.44. That was on 4 L nasal cannula. She is off the Cardizem drip and transitioned to oral Cardizem. She remains on IV Lasix 80 mg every 8 hours. She is currently in a -2.2 L balance. She remai ns on DuoNeb inhalations. Anticoagulated with Eliquis. Objective - Vital Signs Vital signs: Vital Signs Temp 97.9 F 10/30/21 11:48 Pulse 88 10/30/21 12:11 Resp 15 10/30/21 11:48 BP 101/62 10/30/21 11:48 Pulse Ox 94 L 10/30/21 11:48 FiO2 50 10/30/21 08:21 Intake & Output 10/29/21 10/30/21 10/30/21 18:59 06:59 18:59 Intake Total 540 Output Total 2 700 Balance -2 -160 Weight 124 kg 116 kg Intake: Oral 540 Output: Urine 700 Stool 2 Other: Voiding Method External Catheter External Catheter - Exam GENERAL EXAM: Alert, pleasant 81-year-old female patient, morbidly obese, on oxygen at 4 L/m alternating with BiPAP at 12/6 and 50% FiO2, comfortable in no apparent distress. HEAD: Normocephalic. EYES: Normal reaction of pupils, equal size. NOSE: Clear with pink turbinates. THROAT: No erythema or exudates. NECK: No masses, no JVD. CHEST: No chest wall deformity. LUNGS: Equal air entry with crackles in the bilateral bases, diminished CVS: S1 and S2 normal with no audible murmur, irregular rhythm. ABDOMEN: No hepatosplenomegaly, normal bowel sounds, no guarding or rigidity. SPINE: No scoliosis or deformity SKIN: No rashes CENTRAL NERVOUS SYSTEM: No focal deficits, tone is normal in all 4 extremities. EXTREMITIES: There is 1-2+ peripheral edema. No clubbing, no cyanosis. Peripheral pulses are intact. - Labs CBC & Chem 7: 10/29/21 07:37 10/29/21 07:37 Labs: Abnormal Lab Results - Last 24 Hours (Table) 10/30/21 Range/Units 11:10 ABG pCO2 88 H* (35-45) mmHg ABG pO2 61 L (83-108) mmHg ABG HCO3 61 H* (21-25) mmol/L ABG Total CO2 64 H (19-24) mmol/L ABG O2 Saturation 92.0 L (94-97) % Assessment and Plan Assessment: Acute on chronic hypoxic respiratory failure secondary to acute diastolic congestive heart failure exacerbated by atrial fibrillation with RVR and underlying COPD. Persistent atrial fibrillation with RVR transitioned to oral Cardizem and anticoagulated with Eliquis Morbid obesity/pickwickian syndrome Chronic hypercapnic respiratory failure Chronic hypoxic respiratory failure Benign essential hypertension Obstructive sleep apnea syndrome History of depression [facility] History of urinary incontinence Plan: The patient was seen and evaluated ABGs and medications reviewed Remains hypercapnic, continue BiPAP in the evenings and throughout the day while napping Continue the current treatment plan Add Diamox 250 mg twice a day Cleared for transfer back to [facility] once cleared by cardiology I have personally seen and examined the patient, performed the documentation and the assessment and plan as written. Number of minutes spent on the visit: 10.
--- NOTE | 2021-10-30 12:52 | P.PN ---
Subjective Progress Note Date: 10/30/21 Principal diagnosis: sob Patient resting comfortably in bed, denied sob or pain. She is currently on 4 L of oxygen per nasal cannula. She did utilize the BiPAP throughout the night Objective - Vital Signs Vital signs: Vital Signs Temp 97.9 F 10/30/21 11:48 Pulse 88 10/30/21 12:11 Resp 15 10/30/21 11:48 BP 101/62 10/30/21 11:48 Pulse Ox 94 L 10/30/21 11:48 FiO2 50 10/30/21 08:21 Intake & Output 10/29/21 10/30/21 10/30/21 18:59 06:59 18:59 Intake Total 540 Output Total 2 700 Balance -2 -160 Weight 124 kg 116 kg Intake: Oral 540 Output: Urine 700 Stool 2 Other: Voiding Method External Catheter External Catheter - Exam Constitutional: No acute distress, conversant, pleasant Eyes:Anicteric sclerae, moist conjunctiva, no lid-lag, PERRLA, ENMT: Oropharynx clear, no erythema, exudates Neck: Supple, FROM, no masses, or JVD, No carotid bruits, No thyromegaly Lungs: Diminished breath sounds bilaterally, bilateral rhonchi, Clear to percussion, Normal respiratory effort, no accessory muscle use Cardiovascular: Heart regular in rate and rhythm, No murmurs, gallops, or rubs, No peripheral edema Abdominal: Soft, Nontender, no guarding, rebound or rigidity, Normoactive bowel sounds, No hepatomegaly, No splenomegaly, No palpable mass Skin: Normal temperature, tone, texture, turgor, no induration, No subcutaneous nodules, No rash, lesions, No ulcers Extremities: No digital cyanosis, No clubbing, Pedal pulses intact and symmetrical, Radial pulses intact and symmetrical, No calf tenderness Psychiatric: Alert and oriented to person, place and time, appropriate affect, intact judgement Neuro: Muscles Strength 5/5 in all 4 extremities, Sensation to light touch grossly present throughout, Cranial nerves II-XII grossly intact, no focal sensory deficits - Labs CBC & Chem 7: 10/29/21 07:37 10/29/21 07:37 Labs: Abnormal Lab Results - Last 24 Hours (Table) 10/30/21 Range/Units 11:10 ABG pCO2 88 H* (35-45) mmHg ABG pO2 61 L (83-108) mmHg ABG HCO3 61 H* (21-25) mmol/L ABG Total CO2 64 H (19-24) mmol/L ABG O2 Saturation 92.0 L (94-97) % Assessment and Plan Plan: Acute on chronic hypoxic and hypercarbic respiratory failure Acute COPD exacerbation Patient was seen by pulmonary Bronchodilators and DuoNeb's BiPAP as needed ABG repeated continues to be hypercarbic, will add diamox to coverage. Procal elevated but minimally no need for abx for now. Acute systolic CHF exacerbation Echo showing EF 45% Seen by cardio IV diuresis Persistent atrial fibrillation with RVR Currently on P.o cardizem, metoprolol dose was increased to 150mg daily. Continue eliquis Morbid obesity/pickwickian syndrome Benign essential hypertension Obstructive sleep apnea syndrome History of depression Stable resume meds DVT prophylaxis Already on eliquis Cleared by pulm for discharge, will likely send back to [facility] tomorrow.
[2021-10-30 16:00] LABS: Magnesium 1.7 mg/dL (1.6-2.3); Potassium 3.9 mmol/L (3.5-5.1)
[2021-10-31] MEDS: IPRATROPIUM-ALBUTEROL 3 ML NEB INHALATION PRN ×3 (07:41→15:35)
[2021-10-31 08:50] VITALS: TEMP 98.3
[2021-10-31] MEDS: PANTOPRAZOLE 40 MG TABLET PO SCH (09:57)
[2021-10-31] MEDS: POTASSIUM CHLORIDE ER 10 MEQ TAB.ER.PRT PO SCH (09:57)
[2021-10-31] MEDS: LORATADINE 10 MG TAB PO SCH (09:57)
[2021-10-31] MEDS: acetaZOLAMIDE 250 MG TAB PO SCH (09:57)
[2021-10-31] MEDS: lisinopriL 10 MG TAB PO SCH (09:57)
[2021-10-31] MEDS: APIXABAN 5 MG TAB PO SCH (09:57)
[2021-10-31] MEDS: METOPROLOL SUCCINATE (ER) 50 MG TAB.ER.24H PO SCH (09:57)
[2021-10-31] MEDS: DOCUSATE 100 MG CAP PO SCH (09:58)
[2021-10-31] MEDS: FUROSEMIDE 10 MG/ML 10 ML VIAL IV SCH (09:58)
[2021-10-31] MEDS: ACETAMINOPHEN TAB 325 MG TAB PO PRN (09:58)
[2021-10-31] MEDS: DILTIAZEM CD 240 MG CAP.ER.24H PO SCH (09:58)
[2021-10-31] MEDS: DIGOXIN 250 MCG TAB PO SCH (10:03)
--- NOTE | 2021-10-31 12:02 | P.PN ---
Subjective Progress Note Date: 10/31/21 HISTORY OF PRESENT ILLNESS: This is an 81-year-old female who is admitted to the hospital secondary to atrial fibrillation with RVR and congestive heart failure. Patient examined thi s morning at the bedside. Patient denies chest pain or pressure. She denies shortness of breath. She is currently on nasal cannula with oxygen saturations greater than 92%. Telemetry reveals atrial fibrillation with a heart rate in the 110s. She is currently on a Cardizem drip at 10 mg an hour. 10/30/2021 Patient examined this morning at the bedside. Patient denies chest pain or pressure. She denies shortness of breath. Telemetry reveals atrial fibrillation with a heart rate in the 90s. Her Cardizem drip has been turned off per nursing. She reports improvement in her lower extremity edema. No signs are stable. 10/31/2021 Patient examined this morning at the bedside. Patient denies chest pain or pressure. She denies shortness of breath. Her lower extremities edema has significantly improved. Telemetry reveals atrial fibrillation with controlled ventricular rates. Vital signs are stable. PHYSICAL EXAM: VITAL SIGNS: Reviewed. GENERAL: Well-developed in no acute distress. NECK: Supple. No JVD or thyromegaly LUNGS: Respirations even and unlabored. Lungs diminished HEART: Irregular rate and rhythm. S1 and S2 heard. EXTREMITIES: Normal range of motion. No clubbing or cyanosis. Peripheral pulses intact. 1+ Bilateral lower extremity edema ASSESSMENT: Shortness of breath Acute COPD exacerbation Acute on chronic heart failure, type unknown Persistent atrial fibrillation with RVR Chronic hypoxic respiratory failure on home oxygen Hypertension Morbid obesity PLAN: Continue telemetry monitoring Continue current dose of Cardizem, metoprolol, and digoxin Discontinue IV Lasix. Begin oral Lasix 60 mg twice a day Possible discharge to [facility] today Further recommendations pending patient's course Nurse practitioner note has been reviewed by physician. Signing provider agrees with the documented findings, assessment, and plan of care. Objective - Vital Signs Vital signs: Vital Signs Temp 98.3 F 10/31/21 08:49 Pulse 82 10/31/21 11:56 Resp 21 10/31/21 08:49 BP 94/55 10/31/21 08:49 Pulse Ox 90 L 10/31/21 08:49 FiO2 50 10/31/21 07:41 Intake & Output 10/30/21 10/31/21 10/31/21 18:59 06:59 18:59 Intake Total 358 Output Total 1202 1400 377 Balance -1202 -1400 -19 Weight 119 kg Intake: Oral 358 Output: Urine 1200 1400 375 Stool 2 2 Other: Voiding Method External Catheter External Catheter External Catheter - Labs CBC & Chem 7: 10/29/21 07:37 10/30/21 15:35 Labs: Abnormal Lab Results - Last 24 Hours (Table) 10/30/21 Range/Units 15:35 Chloride 78 L (98-107) mmol/L Carbon Dioxide 52 H* (22-30) mmol/L BUN 24 H (7-17) mg/dL Glucose 134 H (74-99) mg/dL
[2021-10-31 12:07] VITALS: BP 95/60; RESP 18
--- NOTE | 2021-10-31 12:44 | P.DS ---
Providers Date of admission: 10/27/21 18:41 Expected date of discharge: 10/31/21 Attending physician: Suha Jung MD Consults: 10/27/21 18:40 Consult Physician Routine Consulting Provider: [facility] Consult Reason/Comments: A. fib with rapid ventricular response, acute pulmonary edema Do you want consulting provider notified?: Yes 10/28/21 19:23 Consult Physician Routine Consulting Provider: Louise Duncan Consult Reason/Comments: bipap at [facility], copd, shortness of breath, pulm edema Do you want consulting provider notified?: Yes, Notify in am Primary care physician: [facility] Course: 81-year-old female with history of chronic hypoxic and hypercapnic respiratory failure, obstructive sleep apnea syndrome, underlying COPD on home oxygen 3L, morbid obesity, obesity hypoventilation syndrome, paroxysmal atrial fibrillation, benign essential hypertension, [facility] with increased shortness of breath. Patient was just discharged from the hospital after a similar admission. She was just discharged from the hospital last month after she was treated for COPD and CHF exacerbation, required bipap briefly. Patient denied having any fevers or chills. She has chronic cough without recent changes. She did mention some pleuritic chest pain on the right side this was all. No nausea or vomiting. No abdominal pain. No urinary symptoms. She told me she has not been ambulatory for the past year and a half. She has been wheelchair-bound since that time. Evaluation in the emergency department revealed atrial fibrillation with RVR, chest x-ray showed evidence of mild congestive heart failure. She was started on Cardizem drip in the emergency department. She was subsequently admitted to medicine for further evaluation and management. Patient was evaluated by cardiology, her metoprolol dose was escalated to 150 mg daily extended release. Cardizem 240 mg daily was resumed. She was also initiated on digoxin. She was subsequently weaned off Cardizem drip. Heart rate remained controlled. During the hospitalization she required BiPAP on and off for CO2 retention, especially at night. [facility] the [facility] while [facility]. Because of chronic CO2 retention in severe respiratory acidosis and metabolic alkalosis she was started on Diamox. Due to COPD she was treated with bronchodilators. However due to lack of wheezing she was not given steroids. ProBNP was elevated at 3380, CHF was suspected, due to that she was diuresed with Lasix IV. Had an echocardiogram that showed EF 45%. She is currently feeling much better. Back at her baseline. Denied any symptoms currently. [facility] in a stable condition. Time for discharge 35 minutes Plan - Discharge Summary New Discharge Prescriptions: New acetaZOLAMIDE [Diamox] 250 mg PO BID 30 Days #60 tab Digoxin [Lanoxin] 250 mcg PO DAILY 30 Days #30 tab Furosemide [Lasix] 60 mg PO BID@0900,1600 30 Days #60 tab Metoprolol Succinate (ER) [Toprol XL] 150 mg PO DAILY 30 Days #30 tab Continue Potassium Chloride ER [K-Dur 10] 10 meq PO DAILY lisinopriL [Zestril] 10 mg PO Q12H hydrOXYzine HCL [Atarax] 25 mg PO Q6H PRN PRN Reason: Itching Apixaban [Eliquis] 5 mg PO BID tab Ipratropium-Albuterol Nebulize [Duoneb 0.5 mg-3 mg/3 ml Soln] 3 ml INHALATION RT-QID PRN ml PRN Reason: Shortness Of Breath Or Wheezing Omeprazole 20 mg PO DAILY Multivitamins, Thera [Multivitamin (formulary)] 1 tab PO DAILY Loratadine 10 mg PO DAILY guaiFENesin [guaiFENesin Oral Solution] 200 mg PO Q6H PRN PRN Reason: Cough Docusate [Colace] 100 mg PO DAILY Benzonatate [Tessalon Perles] 200 mg PO Q8H PRN PRN Reason: Cough Acetaminophen [Tylenol 8 Hour] 650 mg PO Q6H PRN PRN Reason: Pain Diltiazem Cd [Cardizem CD] 240 mg PO DAILY #30 cap HYDROcodone/APAP 5-325MG [Rogers 5-325] 1 tab PO Q6H PRN #12 tab PRN Reason: Pain Discontinued Furosemide [Lasix] 40 mg PO BID #120 tab predniSONE [Deltasone] 40 mg PO DAILY 5 Days #10 tab Metoprolol Tartrate [Lopressor] 50 mg PO TID Discharge Medication List Docusate [Colace] 100 mg PO DAILY 05/07/21 [History] Loratadine 10 mg PO DAILY 05/07/21 [History] Multivitamins, Thera [Multivitamin (formulary)] 1 tab PO DAILY 05/07/21 [History] Omeprazole 20 mg PO DAILY 05/07/21 [History] Potassium Chloride ER [K-Dur 10] 10 meq PO DAILY 05/07/21 [History] guaiFENesin [guaiFENesin Oral Solution] 200 mg PO Q6H PRN 05/07/21 [History] hydrOXYzine HCL [Atarax] 25 mg PO Q6H PRN 05/07/21 [History] lisinopriL [Zestril] 10 mg PO Q12H 05/07/21 [History] Apixaban [Eliquis] 5 mg PO BID tab 05/12/21 [Rx] Acetaminophen [Tylenol 8 Hour] 650 mg PO Q6H PRN 06/12/21 [History] Benzonatate [Tessalon Perles] 200 mg PO Q8H PRN 06/12/21 [History] Ipratropium-Albuterol Nebulize [Duoneb 0.5 mg-3 mg/3 ml Soln] 3 ml INHALATION RT-QID PRN ml 06/18/21 [Rx] Diltiazem Cd [Cardizem CD] 240 mg PO DAILY #30 cap 10/03/21 [Rx] HYDROcodone/APAP 5-325MG [Rogers 5-325] 1 tab PO Q6H PRN #12 tab 10/03/21 [Rx] Digoxin [Lanoxin] 250 mcg PO DAILY 30 Days #30 tab 10/31/21 [Rx] Furosemide [Lasix] 60 mg PO BID@0900,1600 30 Days #60 tab 10/31/21 [Rx] Metoprolol Succinate (ER) [Toprol XL] 150 mg PO DAILY 30 Days #30 tab 10/31/21 [Rx] acetaZOLAMIDE [Diamox] 250 mg PO BID 30 Days #60 tab 10/31/21 [Rx] Follow up Appointment(s)/Referral(s): Wyatt Jaffe DO [Primary Care Provider] - 1-2 days
--- NOTE | 2021-10-31 13:36 | P.PN ---
Subjective Progress Note Date: 10/31/21 This is an 81-year-old female with history of multiple medical problems including chronic hypoxic and hypercapnic respiratory failure, obstructive sleep apnea syndrome, underlying COPD, morbid obesity, obesity hypoventilation syndrome, paroxysmal atrial fibrillation, tobacco dependence syndrome, benign es sential hypertension, patient was brought into the ER with mostly few days history of increased shortness of breath. Patient was found to have atrial fibrillation with RVR, chest x-ray showed evidence of mild congestive heart failure. Patient was admitted, seen by cardiology, started on Cardizem, was also started on diuretics, and beta blockers, and considering her underlying COPD history, we were asked to see the patient on consultation. Patient denies any chest pain, no fever, no chills, no orthopnea, no PND, no hemoptysis, and no symptoms to suggest active pneumonia. The patient is seen today 10/29/2021 in follow-up on the selective care unit. She is currently sitting up in bed. Awake and alert in no acute distress. Maintaining O2 saturation in the low 90s on 4 L/m per nasal cannula. She's been alternating with BiPAP 12/6 and 50% FiO2. She remains on a Cardizem drip at 5 mg per hour. She remains on IV diuretics of Lasix 80 mg every 12 Q8 hours. Currently in a -2.7 mL balance. Anticoagulated with Eliquis. Breathing quite a bit better today compared to yesterday. White count 6.5. Hemoglobin 12.5. Platelets 181. Sodium 140. Potassium 3.4. Chloride 75. Bicarb 62. BUN 30. Creatinine 0.74. Pro-calcitonin 0.10. The patient is seen today 10/30/2021 in follow-up on the selective care unit. She is currently resting comfortably in bed. Awake and alert in no acute distress. She is currently on 4 L of oxygen per nasal cannula. She did utilize the BiPAP throughout the night at 12/6 and 50% FiO2. Morning blood gases revealed pO2 of 61, pCO2 of 88 and a pH of 7.44. That was on 4 L nasal cannula. She is off the Cardizem drip and transitioned to oral Cardizem. She remains on IV Lasix 80 mg every 8 hours. She is currently in a -2.2 L balance. She remai ns on DuoNeb inhalations. Anticoagulated with Eliquis. The patient is seen today 10/31/2021 in follow-up on the selective care unit. She is currently sitting up in bed. Awake and alert in no acute distress. Denies any worsening shortness of breath, cough or congestion. She is feeling nearly back to her baseline. She is on oxygen at 4 L/m per nasal cannula with O2 saturations in the 90s. She remains on DuoNeb inhalations. Anticoagulated with Eliquis. Objective - Vital Signs Vital signs: Vital Signs Temp 98.3 F 10/31/21 08:49 Pulse 84 10/31/21 12:05 Resp 18 10/31/21 12:05 BP 95/60 10/31/21 12:05 Pulse Ox 95 10/31/21 12:05 FiO2 50 10/31/21 07:41 Intake & Output 10/30/21 10/31/21 10/31/21 18:59 06:59 18:59 Intake Total 358 Output Total 1202 1400 377 Balance -1202 -1400 -19 Weight 119 kg Intake: Oral 358 Output: Urine 1200 1400 375 Stool 2 2 Other: Voiding Method External Catheter External Catheter External Catheter - Exam GENERAL EXAM: Alert, pleasant 81-year-old female patient, morbidly obese, on oxygen at 4 L/m alternating with BiPAP at 12/6 and 50% FiO2, comfortable in no apparent distress. HEAD: Normocephalic. EYES: Normal reaction of pupils, equal size. NOSE: Clear with pink turbinates. THROAT: No erythema or exudates. NECK: No masses, no JVD. CHEST: No chest wall deformity. LUNGS: Equal air entry with crackles in the bilateral bases, diminished CVS: S1 and S2 normal with no audible murmur, irregular rhythm. ABDOMEN: No hepatosplenomegaly, normal bowel sounds, no guarding or rigidity. SPINE: No scoliosis or deformity SKIN: No rashes CENTRAL NERVOUS SYSTEM: No focal deficits, tone is normal in all 4 extremities. EXTREMITIES: There is 1-2+ peripheral edema. No clubbing, no cyanosis. Peripheral pulses are intact. - Labs CBC & Chem 7: 10/29/21 07:37 10/30/21 15:35 Labs: Abnormal Lab Results - Last 24 Hours (Table) 10/30/21 Range/Units 15:35 Chloride 78 L (98-107) mmol/L Carbon Dioxide 52 H* (22-30) mmol/L BUN 24 H (7-17) mg/dL Glucose 134 H (74-99) mg/dL Assessment and Plan Assessment: Acute on chronic hypoxic respiratory failure secondary to acute diastolic congestive heart failure exacerbated by atrial fibrillation with RVR and underlying COPD. Persistent atrial fibrillation with RVR transitioned to oral Cardizem and ant icoagulated with Eliquis Morbid obesity/pickwickian syndrome Chronic hypercapnic respiratory failure Chronic hypoxic respiratory failure Benign essential hypertension Obstructive sleep apnea syndrome History of depression [facility] resident History of urinary incontinence Plan: The patient was seen and evaluated Medications and labs reviewed Current treatment plan Cleared for transfer back to [facility] I have personally seen and examined the patient, performed the documentation and the assessment and plan as written. Number of minutes spent on the visit: 10.
[2021-10-31 15:45] VITALS: PULSE 70
[2021-10-31] MEDS ORDERED: FUROSEMIDE 20 MG TAB PO SCH (16:00)
== END 2021-10-31 18:30 | DRG 291 ==
LOC: EC 16:34 → 3SCARD 18:41
PROVIDERS: ADMIT Internal Medicine; ATTEND Internal Medicine
DX: I11.0 Hypertensive heart disease with heart failure (principal); I50.33 Acute on chronic diastolic (congestive) heart failure; J96.21 Acute and chronic respiratory failure with hypoxia; J96.12 Chronic respiratory failure with hypercapnia; I48.19 Other persistent atrial fibrillation; E66.2 Morbid (severe) obesity with alveolar hypoventilation; Z68.43 Body mass index [BMI] 50.0-59.9, adult; J44.1 Chronic obstructive pulmonary disease with (acute) exacerbation; E87.4 Mixed disorder of acid-base balance; R13.10 Dysphagia, unspecified; R32 Unspecified urinary incontinence; Z99.81 Dependence on supplemental oxygen; Z79.01 Long term (current) use of anticoagulants; Z79.899 Other long term (current) drug therapy; Z87.891 Personal history of nicotine dependence; Z99.3 Dependence on wheelchair; Z71.3 Dietary counseling and surveillance; Z91.02 Food additives allergy status; Z88.8 Allergy status to other drugs, medicaments and biological substances
CPT/HCPCS: 36415; 36600; 71046; 80048; 80053; 82805; 83735; 83880; 84100; 84145; 84484; 85025; 85610; 85730; 93005; 93306; 94640; 94660; 96365; 96366; 96375; 96376; 99291

== ENCOUNTER 2021-12-01 23:41 | Inpatient (IN) | payer MEDICARE, OTHER ==
[2021-12-02] MEDS ORDERED: IPRATROPIUM 0.5 MG/2.5 ML NEBU INHALATION STA (00:02)
[2021-12-02] MEDS ORDERED: ALBUTEROL NEBULIZED 2.5 MG/3 ML INHALATION STA (00:02)
[2021-12-02] MEDS ORDERED: SODIUM CHLORIDE 0.9% 1,000 ML IV STA (00:02)
--- NOTE | 2021-12-02 00:17 | ED ---
SOB HPI - General Chief Complaint: Shortness of Breath Stated Complaint: SOB Source: EMS, RN notes reviewed, old records reviewed Mode of arrival: EMS Limitations: altered mental status - History of Present Illness Initial Comments: This is a 81-year-old female to the ED for evaluation. She is unable to provide history severe shortness of breath, patient is on a nonrebreather unable to catch her breath significant hypoxia upon EMS arrival MD Complaint: shortness of breath, "asthma attack" -: unknown Severity: severe Severity scale (1-10): 10 Consistency: constant Improves With: oxygen, rest, bronchodilators, upright position Worsens With: exertion, movement Known History Of: COPD, congestive heart failure Context: recent URI, anxiety, recent illness Associated Symptoms: cough, sputum production Treatments Prior to Arrival: oxygen, NIPPV - Related Data Home Medications Medication Instructions Recorded Confirmed Docusate [Colace] 100 mg PO DAILY 05/07/21 10/27/21 Loratadine 10 mg PO DAILY 05/07/21 10/27/21 Multivitamins, Thera [Multivitamin 1 tab PO DAILY 05/07/21 10/27/21 (formulary)] Omeprazole 20 mg PO DAILY 05/07/21 10/27/21 Potassium Chloride ER [K-Dur 10] 10 meq PO DAILY 05/07/21 10/27/21 guaiFENesin [guaiFENesin Oral 200 mg PO Q6H PRN 05/07/21 10/27/21 Solution] hydrOXYzine HCL [Atarax] 25 mg PO Q6H PRN 05/07/21 10/27/21 lisinopriL [Zestril] 10 mg PO Q12H 05/07/21 10/27/21 Acetaminophen [Tylenol 8 Hour] 650 mg PO Q6H PRN 06/12/21 10/27/21 Benzonatate [Tessalon Perles] 200 mg PO Q8H PRN 06/12/21 10/27/21 Previous Rx's Medication Instructions Recorded Apixaban [Eliquis] 5 mg PO BID tab 05/12/21 Ipratropium-Albuterol Nebulize 3 ml INHALATION RT-QID PRN ml 06/18/21 [Duoneb 0.5 mg-3 mg/3 ml Soln] Diltiazem Cd [Cardizem CD] 240 mg PO DAILY #30 cap 10/03/21 HYDROcodone/APAP 5-325MG [[place] 1 tab PO Q6H PRN #12 tab 10/03/21 5-325] Digoxin [Lanoxin] 250 mcg PO DAILY 30 Days #30 tab 10/31/21 Furosemide [Lasix] 60 mg PO BID@0900,1600 30 Days #60 10/31/21 tab Metoprolol Succinate (ER) [Toprol 150 mg PO DAILY 30 Days #30 tab 10/31/21 XL] acetaZOLAMIDE [Diamox] 250 mg PO BID 30 Days #60 tab 10/31/21 Allergies Allergy/AdvReac Type Severity Reaction Status Date / Time red dye Allergy Rash/Hives Verified 10/27/21 17:35 tositumomab iodine-131 Allergy Unknown Verified 10/27/21 17:35 Review of Systems ROS Statement: Those systems with pertinent positive or pertinent negative responses have been documented in the HPI. ROS Other: All systems not noted in ROS Statement are negative. Past Medical History Past Medical History: Atrial Fibrillation, Heart Failure, COPD Additional Past Medical History / Comment(s): Chronic respiratory failure/oxygen ATC, recent issue with dysphagia, JOSIAH/no device, itching, obesity, edema, weakness-wheelchair, incontinence. History of Any Multi-Drug Resistant Organisms: None Reported Past Surgical History: Orthopedic Surgery Additional Past Surgical History / Comment(s): left knee x2 Past Anesthesia/Blood Transfusion Reactions: No Reported Reaction Past Psychological History: No Psychological Hx Reported Smoking Status: Former smoker - Past Family History Father Family Medical History: No Reported History Mother Family Medical History: No Reported History General Exam Limitations: altered mental status General appearance: alert, anxious, in distress, obese Head exam: Present: atraumatic, normocephalic, normal inspection Eye exam: Present: normal appearance, PERRL, EOMI. Absent: scleral icterus, conjunctival injection, periorbital swelling ENT exam: Present: normal exam, mucous membranes moist Neck exam: Present: normal inspection. Absent: tenderness, meningismus, lymphadenopathy Respiratory exam: Present: respiratory distress, wheezes, accessory muscle use, decreased breath sounds, prolonged expiratory. Absent: rales, rhonchi, stridor Cardiovascular Exam: Present: regular rate, normal rhythm, normal heart sounds. Absent: systolic murmur, diastolic murmur, rubs, gallop, clicks GI/Abdominal exam: Present: soft, normal bowel sounds. Absent: distended, tenderness, guarding, rebound, rigid Extremities exam: Present: normal inspection, full ROM, normal capillary refill. Absent: tenderness, pedal edema, joint swelling, calf tenderness Back exam: Present: normal inspection Neurological exam: Present: alert, oriented X3, CN II-XII intact Psychiatric exam: Present: normal affect, normal mood Skin exam: Present: warm, dry, intact, normal color. Absent: rash Course Vital Signs 12/01/21 12/01/21 12/02/21 23:44 23:52 00:09 Pulse Rate 76 68 Respiratory 21 21 Rate Blood Pressure 125/81 O2 Sat by Pulse 96 Oximetry Fraction of 65 Inspired Oxygen (FIO2) - Reevaluation(s) Reevaluation #1: 12/02/21 00:48 Medical records reviewed Reevaluation #2: 12/02/21 01:30 no real improvement here in the ER Reevaluation #3: 12/02/21 01:30 patient informed of results and questions answered - Consultations Consultation #1: spoke with sound who agrees to admit this patient Medical Decision Making - Medical Decision Making 81 female to the emergency departmentF for evaluation for severe shortness of breath and hypoxia. Respiratory failure on BiPAP. Patient will be admitted for further evaluation management, supportive care - Lab Data Result diagrams: 12/02/21 00:02 12/02/21 00:02 Lab Results 12/02/21 12/02/21 12/02/21 Range/Units 00:02 00:02 00:02 WBC 8.0 (3.8-10.6) k/uL RBC 4.28 (3.80-5.40) m/uL Hgb 13.5 (11.4-16.0) gm/dL Hct 42.0 (34.0-46.0) % MCV 98.1 (80.0-100.0) fL MCH 31.4 (25.0-35.0) pg MCHC 32.1 (31.0-37.0) g/dL RDW 13.0 (11.5-15.5) % Plt Count 183 (150-450) k/uL MPV 7.2 Neutrophils % 65 % Lymphocytes % 21 % Monocytes % 7 % Eosinophils % 4 % Basophils % 1 % Neutrophils # 5.2 (1.3-7.7) k/uL Lymphocytes # 1.7 (1.0-4.8) k/uL Monocytes # 0.6 (0-1.0) k/uL Eosinophils # 0.3 (0-0.7) k/uL Basophils # 0.0 (0-0.2) k/uL Hypochromasia Marked PT 10.4 (9.0-12.0) sec INR 0.9 (<1.2) APTT 23.9 (22.0-30.0) sec Sodium 141 (137-145) mmol/L Potassium 4.1 (3.5-5.1) mmol/L Chloride 92 L (98-107) mmol/L Carbon Dioxide 42 H* (22-30) mmol/L Anion Gap 7 mmol/L BUN 17 (7-17) mg/dL Creatinine 0.95 (0.52-1.04) mg/dL Est GFR (CKD-EPI)AfAm 66 (>60 ml/min/1.73 sqM) Est GFR (CKD-EPI)NonAf 57 (>60 ml/min/1.73 sqM) Glucose 131 H (74-99) mg/dL Plasma Lactic Acid James (0.7-2.0) mmol/L Calcium 9.3 (8.4-10.2) mg/dL Magnesium 1.9 (1.6-2.3) mg/dL Total Bilirubin 0.4 (0.2-1.3) mg/dL AST 33 (14-36) U/L ALT 26 (4-34) U/L Alkaline Phosphatase 65 (38-126) U/L Troponin I (0.000-0.034) ng/mL NT-Pro-B Natriuret Pep pg/mL Total Protein 6.5 (6.3-8.2) g/dL Albumin 3.8 (3.5-5.0) g/dL 12/02/21 12/02/21 12/02/21 Range/Units 00:02 00:02 00:02 WBC (3.8-10.6) k/uL RBC (3.80-5.40) m/uL Hgb (11.4-16.0) gm/dL Hct (34.0-46.0) % MCV (80.0-100.0) fL MCH (25.0-35.0) pg MCHC (31.0-37.0) g/dL RDW (11.5-15.5) % Plt Count (150-450) k/uL MPV Neutrophils % % Lymphocytes % % Monocytes % % Eosinophils % % Basophils % % Neutrophils # (1.3-7.7) k/uL Lymphocytes # (1.0-4.8) k/uL Monocytes # (0-1.0) k/uL Eosinophils # (0-0.7) k/uL Basophils # (0-0.2) k/uL Hypochromasia PT (9.0-12.0) sec INR (<1.2) APTT (22.0-30.0) sec Sodium (137-145) mmol/L Potassium (3.5-5.1) mmol/L Chloride (98-107) mmol/L Carbon Dioxide (22-30) mmol/L Anion Gap mmol/L BUN (7-17) mg/dL Creatinine (0.52-1.04) mg/dL Est GFR (CKD-EPI)AfAm (>60 ml/min/1.73 sqM) Est GFR (CKD-EPI)NonAf (>60 ml/min/1.73 sqM) Glucose (74-99) mg/dL Plasma Lactic Acid James 1.5 (0.7-2.0) mmol/L Calcium (8.4-10.2) mg/dL Magnesium (1.6-2.3) mg/dL Total Bilirubin (0.2-1.3) mg/dL AST (14-36) U/L ALT (4-34) U/L Alkaline Phosphatase (38-126) U/L Troponin I 0.017 (0.000-0.034) ng/mL NT-Pro-B Natriuret Pep 730 pg/mL Total Protein (6.3-8.2) g/dL Albumin (3.5-5.0) g/dL - EKG Data -: EKG Interpreted by Me (EKG is sinus rhythm 78 ID [id number] QRS 120 QTc 343) - Radiology Data Radiology results: report reviewed (chest x-ray shows improved pulmonary edema), image reviewed Critical Care Time Critical Care Time: Yes Total Critical Care Time: 31 Disposition Clinical Impression: Acute exacerbation of chronic obstructive pulmonary disease, Hypoxia, Hypoventilation, Acute pulmonary edema, Acute respiratory failure Disposition: ADMITTED IP TO THIS HOSP Condition: Serious Is patient prescribed a controlled substance at d/c from ED?: No Referrals: Wyatt Jaffe DO [Primary Care Provider] - 1-2 days
[2021-12-02 00:21] LABS: Basophils % (A) 1 %; Eosinophils # (A) 0.3 k/uL (0-0.7); Eosinophils % (A) 4 %; HGB 13.5 gm/dL (11.4-16.0); Hypochromasia Marked; Lymphocytes # (A) 1.7 k/uL (1.0-4.8); Lymphocytes % (A) 21 %; MCH 31.4 pg (25.0-35.0); MCHC 32.1 g/dL (31.0-37.0); MCV 98.1 fL (80.0-100.0); Mean Platelet Volume 7.2; Monocytes # (A) 0.6 k/uL (0-1.0); Monocytes % (A) 7 %; Neutrophils # (A) 5.2 k/uL (1.3-7.7); Neutrophils % (A) 65 %; Platelet Count 183 k/uL (150-450); RBC 4.28 m/uL (3.80-5.40)
[2021-12-02 00:37] LABS: INR 0.9 (<1.2); Partial Thromboplastin Time 23.9 sec (22.0-30.0); Prothrombin Time 10.4 sec (9.0-12.0)
[2021-12-02 00:38] LABS: Albumin 3.8 g/dL (3.5-5.0); Calcium 9.3 mg/dL (8.4-10.2); Magnesium 1.9 mg/dL (1.6-2.3); Potassium 4.1 mmol/L (3.5-5.1); Total Bilirubin 0.4 mg/dL (0.2-1.3); Total Protein 6.5 g/dL (6.3-8.2)
--- NOTE | 2021-12-02 00:59 | XR ---
EXAMINATION TYPE: XR chest 1V portable DATE OF EXAM: 12/02/2021 COMPARISON: 10/27/2021 HISTORY: Short of breath TECHNIQUE: Single view FINDINGS: Heart appears enlarged. There is no gross heart failure. There is coarsening of the interst itial markings. Thoracic aorta is atheromatous. IMPRESSION: Cardiomegaly and pulmonary fibrosis. There is improvement in the pulmonary congestion and pulmonary infiltrates compared to the old exam. No obvious heart failure.
[2021-12-02] MEDS ORDERED: IPRATROPIUM-ALBUTEROL 3 ML NEB INHALATION STA (01:26)
[2021-12-02] MEDS ORDERED: MORPHINE SULFATE 4 MG/ML SYRINGE IV PRN (01:26)
[2021-12-02] MEDS ORDERED: NALOXONE 0.4 MG/ML 1 ML VIAL IV PRN (01:26)
[2021-12-02] MEDS ORDERED: methylPREDNISolone SOD SUCCI 125 MG/2 ML VIAL IV STA (01:26)
[2021-12-02] MEDS ORDERED: ONDANSETRON 4 MG/2 ML VIAL IVP PRN (01:26)
[2021-12-02] MEDS: SODIUM CHLORIDE 0.9% 1,000 ML IV SCH ×2 (02:15→23:20)
[2021-12-02] MEDS: ALBUTEROL NEBULIZED 2.5 MG/3 ML INHALATION SCH ×2 (04:22→07:22)
[2021-12-02] MEDS ORDERED: methylPREDNISolone SOD SUCCI 125 MG/2 ML VIAL IV SCH (06:00)
[2021-12-02 06:47] LABS: VBG PH 7.29 (7.31-7.41)
[2021-12-02] MEDS: APIXABAN 5 MG TAB PO SCH ×2 (08:46→21:37)
[2021-12-02] MEDS ORDERED: ACETAMINOPHEN TAB 325 MG TAB PO PRN (09:35)
[2021-12-02] MEDS ORDERED: DILTIAZEM CD 240 MG CAP.ER.24H PO SCH (09:45)
[2021-12-02] MEDS ORDERED: IPRATROPIUM-ALBUTEROL 3 ML NEB INHALATION PRN (10:45)
--- NOTE | 2021-12-02 10:46 | P.CNPUL ---
History of Present Illness Consult date: 12/02/21 Reason for consult: dyspnea History of present illness: This is an 81-year-old morbidly obese female patient IS A BODY MASS INDEX OF ABOVE 50. THE PATIENT GOT TRANSFERRED TO US AGAIN FROM [facility] for worsening shortness of breath emergency and I was also asked to immediately evaluate this patient in emergency department the patient was becoming more lethargic this morning. She came in yesterday to the emergency department. She was unable to provide much history. Apparently she was found to be short of breath and she was also hypoxic. She was brought into the emergency department and she was immediately placed on BiPAP which is currently running at pressures of 14/5 cm of water with FiO2 of 50%. Chest x-ray showed small lung volumes, there was pulmonary vascular congestions on the position of the left lung base. There is a venous blood gas that showed a pH of 7.29 with a pCO2 of 77. Normal coagulation profile. Normal CBC. Serum bicarb is at 42 with a sodium level of 141 and a BUN of 19 with a creatinine of 0.9. ProBNP level was 730 and a troponin is were 0.01 respectively 3. The patient is able to tolerate the BiPAP without any major difficulties. Headaches changed tidal volume is also on 40 mL and her current respiratory rate is around 22. The daughter is at the bedside and the patient is found to be more lethargic compared to her baseline. She is known to have chronic hypoxic and hypercapnic respiratory failure and she has obstructive sleep apnea along with obesity hypoventilation syndrome. She has a normal sinus rhythm for now. Her other comorbid conditions include episodic UTI, episodes of atrial fibrillation for which the patient has been given anticoagulants, hypertension, depression, and degenerative arthritis. She is sedentary. She is a longterm resident. She has been receiving Lasix 60 mg by mouth twice a day on an outpatient basis. She has been also on [place] for pain control. She was given Diamox to counteract her chronic metabolic alkalosis at a dose of 250 mg by mouth twice a day. She has a maternal oximetry coagulation with Lynda course. Rest of the longterm medications were noted. For now, she is being seen in consultation in the emergency department. Her most recent echocardiogram from 10/29/2021 showed a preserved LV function or relatively preserved LV function with an ejection fraction was mildly impaired at 40-45%. There was concentric LV hypertrophy with some diastolic dysfunction. No other structural abnormalities. No other valvular abnormalities and the pulmonary artery pressure as estimated by the echocardiogram was essentially mi ld. I started following her September hospitalization, the patient had another hospital admission and October 2021 for recurrent acute on top of chronic hypercapnic respiratory failure. Review of Systems Unable to bear full review of system because of her mental status. Nevertheless, based on my knowledge of this patient, she is quite debilitated, bedridden, obese and typical features of sleep apnea, obesity hypoventilation syndrome was present. This patient. She doesn't was admission regular basis. No fever. No chills. No emesis. No aspiration. No other significant events otherwise for now. Past Medical History Past Medical History: Atrial Fibrillation, Heart Failure, COPD Additional Past Medical History / Comment(s): Chronic respiratory failure/oxygen ATC, recent issue with dysphagia, JOSIAH has cpap, itching, obesity, edema, weakness-wheelchair, incontinence. History of Any Multi-Drug Resistant Organisms: None Reported Past Surgical History: Orthopedic Surgery Additional Past Surgical History / Comment(s): left knee x2 Past Anesthesia/Blood Transfusion Reactions: No Reported Reaction Past Psychological History: No Psychological Hx Reported Additional Psychological History / Comment(s): Pt resides at [facility] in [place]. Staff assist her to wheelchair. Smoking Status: Former smoker Past Alcohol Use History: None Reported Additional Past Alcohol Use History / Comment(s): Daughter states pt smoked in the past but quit over 20 yrs ago. Past Drug Use History: None Reported - Past Family History Father Family Medical History: No Reported History Mother Family Medical History: No Reported History Medications and Allergies Home Medications Medication Instructions Recorded Confirmed Type Docusate [Colace] 100 mg PO DAILY 05/07/21 12/02/21 History Loratadine 10 mg PO DAILY 05/07/21 12/02/21 History Multivitamins, Thera [Multivitamin 1 tab PO DAILY 05/07/21 12/02/21 History (formulary)] Omeprazole 20 mg PO DAILY 05/07/21 12/02/21 History Potassium Chloride ER [K-Dur 10] 10 meq PO DAILY 05/07/21 12/02/21 History guaiFENesin [guaiFENesin Oral 200 mg PO Q6H PRN 05/07/21 12/02/21 History Solution] hydrOXYzine HCL [Atarax] 25 mg PO Q6H PRN 05/07/21 12/02/21 History lisinopriL [Zestril] 10 mg PO BID 05/07/21 12/02/21 History Apixaban [Eliquis] 5 mg PO BID tab 05/12/21 12/02/21 Rx Acetaminophen [Tylenol 8 Hour] 650 mg PO Q6H PRN 06/12/21 12/02/21 History Benzonatate [Tessalon Perles] 200 mg PO Q8H PRN 06/12/21 12/02/21 History Ipratropium-Albuterol Nebulize 3 ml INHALATION RT-QID PRN ml 06/18/21 12/02/21 Rx [Duoneb 0.5 mg-3 mg/3 ml Soln] Diltiazem Cd [Cardizem CD] 240 mg PO DAILY #30 cap 10/03/21 12/02/21 Rx HYDROcodone/APAP 5-325MG [[place] 1 tab PO Q6H PRN #12 tab 10/03/21 12/02/21 Rx 5-325] Digoxin [Lanoxin] 250 mcg PO DAILY 30 Days #30 tab 10/31/21 12/02/21 Rx Metoprolol Succinate (ER) [Toprol 150 mg PO DAILY 30 Days #30 tab 10/31/21 12/02/21 Rx XL] acetaZOLAMIDE [Diamox] 250 mg PO BID 30 Days #60 tab 10/31/21 12/02/21 Rx ALPRAZolam [Xanax] 0.25 mg PO BID PRN 12/02/21 12/02/21 History Furosemide [Lasix] 60 mg PO BID@0900,1700 12/02/21 12/02/21 History Allergies Allergy/AdvReac Type Severity Reaction Status Date / Time red dye Allergy Rash/Hives Verified 12/02/21 06:56 tositumomab iodine-131 Allergy Unknown Verified 12/02/21 06:56 Physical Exam Vitals: Vital Signs Pulse Pulse Resp BP BP Pulse Ox FiO2 12/02/21 07:45 67 13 120/55 98 50 12/02/21 07:36 70 12/02/21 07:25 74 50 12/02/21 07:22 73 22 118/76 95 12/02/21 04:40 71 12/02/21 04:22 69 50 12/02/21 03:30 66 15 118/68 95 12/02/21 02:35 84 50 12/02/21 02:15 62 12/02/21 00:50 87 12/02/21 00:09 68 65 12/01/21 23:52 21 12/01/21 23:44 76 21 125/81 96 Intake and Output 12/01/21 12/02/21 12/02/21 22:59 06:59 14:59 Other: Weight 136.078 kg 136.078 kg Pleasant 81-year-old female patient. Patient is very much lethargic at this point in time. The patient is on a BiPAP at a pressure of 14/5 cm of water The patient is morbidly obese, body mass index of 51 Head exam was generally normal. There was no scleral icterus or corneal arcus. Mucous membranes were moist. Neck is very thick and the patient is a Mallampati class IV. Patient is currently tolerating a full face BiPAP mask. Neck veins cannot be accurately appreciated. Neck supple. Full range of motion. No adenopathy thyromegaly Cardiovascular examination reveals regular rhythm rate. S1-S2 normal. No S3 or S4. No discernible murmur noted. Lungs reveal occasional diffuse bilateral rhonchi. No wheezes or crackles. Breath sounds are equal bilaterally. Breath sounds are quite diminished bilaterally and air entry and exchange is limited as the patient is morbidly obese. Abdomen obese, soft, without masses or tenderness. noted. Organs cannot be accurately palpated as the patient, morbidly obese. No direct tenderness or rebound tensile guarding at this point in time. Extremities are intact. No cyanosis or clubbing. Trace edema. Skin is without rash or lesion. Neurologic examination is brief but nonfocal. Patient was aroused upon stimulation. She was able to withdraw to painful stimulation all 4 extremities. Neurologic exam is nonfocal. Psychiatric evaluation cannot be done at this point in time. Results - Laboratory Findings CBC and BMP: 12/02/21 00:02 12/02/21 00:02 PT/INR, D-dimer PT 10.4 sec (9.0-12.0) 12/02/21 00:02 INR 0.9 (<1.2) 12/02/21 00:02 Abnormal lab findings: Abnormal Labs 12/02/21 12/02/21 00:02 06:24 VBG pH 7.29 L VBG pCO2 77 H* VBG HCO3 37 H Chloride 92 L Carbon Dioxide 42 H* Glucose 131 H - Diagnostic Findings Chest x-ray: image reviewed Assessment and Plan Plan: Acute mental status changes and confusion, secondary to acute on chronic hypoxemic and hypercapnic respiratory failure. The exact cause for this acute on top of chronic respiratory failure is not clear and still under i nvestigation. During this current admission, there are no obvious signs of fluid overload. No obvious signs of any bronchospasm or wheezing. There may be some left lower lobe pulmonary infiltration/pneumonia. Urine infection needs to be also ruled out. The patient is currently on a BiPAP and I made some adjustments on a BiPAP to include a pressure of 16/5 cm of water with an FiO2 of 50%. She is more arousable at the time of my evaluation. Chronic hypercapnic respiratory failure with an obvious component of obesity hypoventilation syndrome Chronic hypoxic respiratory failure Old right temporal lobe infarct. History of obstructive sleep apnea syndrome. Morbid obesity, with probable Pickwickian syndrome. The patient not been compliant with her BiPAP machine at the longterm her BiPAP machine at the longterm is set at a pressure of 14 over 4 cm of water Previous history of tobacco use, with probable underlying COPD. History of atrial fibrillation. The patient is demented on long-term anticoagulation with Eliquis, cardiac rhythm is sinus Previous history of UTI with E. coli History of urinary incontinence. History of hypertension. History of degenerative joint disease. History depression. correction resident. Plan Admit this patient to the intensive care unit Keep the patient on BiPAP at a pressure of 16 / 5 cm of water and titrate FiO2 to maintain saturation above 90% Repeated blood gases in the intensive care unit, patient noted development of v enous gas Suggest inserting a [place] catheter and obtaining a UA Obtain a UA Check pro calcitonin level Cover this patient with IV Zosyn Restart Lasix 40 mg every 12 hours and continue Diamox for now Put the patient on DuoNeb nebulized treatments around the clock IV Solu-Medrol can be discontinued Eliquis to be continued Cardiac rhythm is sinus Lovenox therapeutic doses 120 mg subcu every 12 hours Condition is critical. High likelihood for ventilator dependence and her CODE STATUS is full. This is discussed with the family. We'll continue to follow. Time with Patient: Greater than 30
[2021-12-02] MEDS: IPRATROPIUM-ALBUTEROL 3 ML NEB INHALATION SCH ×4 (10:54→23:40)
--- NOTE | 2021-12-02 11:31 | P.CRDCN ---
History of Present Illness History of present illness: HISTORY OF PRESENTING ILLNESS This is a pleasant 81-year-old female past medical history significant for persistent atrial fibrillation on Eliquis, COPD, former nicotine dependence, obesity, CVA. She does not follow with a comb winder. We have been asked to see in consultation for congestive heart failure. Patient presents to the emergency department being transferred from [facility] for worsening shortness of breath and hypoxia and increased lethargy. She was placed on BiPAP in the emergency department. Patient is lethargic, unable to give accurate history or state why she is in the hospital. She was recently in the hospital in 10/2021 and cardiology saw the patient for A fib with RVR. She had a recent echocardiogram from 10/29/2021 showed a relatively preserved LV function with an ejection fraction was mildly impaired at 40-45%. DIAGNOSTICS * EKG reveals sinus rhythm with PACs, HR 78 * Chest xray cardiomegaly, pulmonary fibrosis, improvement in the pulmonary congestion and pulmonary infiltrates. No obvious heart failure. * Laboratory reviewed, troponin negative 3, sodium 141, potassium 4.1, BUN 17, serum crit 0.9, pCO2 77, magnesium 1.9, proBNP 7:30, CBC unremarkable * Current home cardiac medications include digoxin 250mcg daily, Cardizem 240 mg daily, metoprolol 6 850 mg daily, Eliquis 5 mg twice a day, lisinopril 10 mg twice a day, Lasix 60 mg twice a day REVIEW OF SYSTEMS At the time of my exam: Unable to complete accurately secondary to mental status PHYSICAL EXAMINATION Blood pressure 120/55, heart 67, afebrile, oxygen saturation 98% on BiPAP CONSTITUTIONAL: No apparent distress. HEENT: Head is normocephalic. Pupils are equal, round. Sclerae anicteric. Mucous membranes of the mouth are moist. No JVD. CHEST EXAMINATION: Lungs are diminished bilaterally to auscultation. No chest wall tenderness is noted on palpation or with deep breathing. HEART EXAMINATION: Regular rate and rhythm. S1, S2 heard. No murmurs, gallops or rub. ABDOMEN: Soft, nontender. Positive bowel sounds. EXTREMITIES: 2+ peripheral pulses, no lower extremity edema and no calf tenderness. NEUROLOGIC EXAMINATION: Patient is lethargic, not oriented. ASSESSMENT Altered mental status Acute hypoxic and hypercapnic respiratory failure, patient does not appear to be in acute heart failure on exam Chronic heart failure with mildly reduced EF 45% Chronic respiratory failure COPD History of CVA Persistent atrial fibrillatio Eliquis Morbid Obesity Former tobacco use PLAN From a cardiology perspective, she does not appear to be in acute fluid overload. Recommend stopping Cardizem and increase beta lori 150mg BID. Continue other home cardiac medications Continue anticoagulation Pulmonary following Further recommendations based on clinical course Nurse practitioner note has been reviewed by physician. Signing provider agrees with the documented findings, assessment, and plan of care. Past Medical History Past Medical History: Atrial Fibrillation, Heart Failure, COPD Additional Past Medical History / Comment(s): Chronic respiratory failure/oxygen ATC, recent issue with dysphagia, JOSIAH/no device, itching, obesity, edema, weakness-wheelchair, incontinence. History of Any Multi-Drug Resistant Organisms: None Reported Past Surgical History: Orthopedic Surgery Additional Past Surgical History / Comment(s): left knee x2 Past Anesthesia/Blood Transfusion Reactions: No Reported Reaction Past Psychological History: No Psychological Hx Reported Smoking Status: Former smoker - Past Family History Father Family Medical History: No Reported History Mother Family Medical History: No Reported History Medications and Allergies Home Medications Medication Instructions Recorded Confirmed Type Docusate [Colace] 100 mg PO DAILY 05/07/21 12/02/21 History Loratadine 10 mg PO DAILY 05/07/21 12/02/21 History Multivitamins, Thera [Multivitamin 1 tab PO DAILY 05/07/21 12/02/21 History (formulary)] Omeprazole 20 mg PO DAILY 05/07/21 12/02/21 History Potassium Chloride ER [K-Dur 10] 10 meq PO DAILY 05/07/21 12/02/21 History guaiFENesin [guaiFENesin Oral 200 mg PO Q6H PRN 05/07/21 12/02/21 History Solution] hydrOXYzine HCL [Atarax] 25 mg PO Q6H PRN 05/07/21 12/02/21 History lisinopriL [Zestril] 10 mg PO BID 05/07/21 12/02/21 History Apixaban [Eliquis] 5 mg PO BID tab 05/12/21 12/02/21 Rx Acetaminophen [Tylenol 8 Hour] 650 mg PO Q6H PRN 06/12/21 12/02/21 History Benzonatate [Tessalon Perles] 200 mg PO Q8H PRN 06/12/21 12/02/21 History Ipratropium-Albuterol Nebulize 3 ml INHALATION RT-QID PRN ml 06/18/21 12/02/21 Rx [Duoneb 0.5 mg-3 mg/3 ml Soln] Diltiazem Cd [Cardizem CD] 240 mg PO DAILY #30 cap 10/03/21 12/02/21 Rx HYDROcodone/APAP 5-325MG [[place] 1 tab PO Q6H PRN #12 tab 10/03/21 12/02/21 Rx 5-325] Digoxin [Lanoxin] 250 mcg PO DAILY 30 Days #30 tab 10/31/21 12/02/21 Rx Metoprolol Succinate (ER) [Toprol 150 mg PO DAILY 30 Days #30 tab 10/31/21 12/02/21 Rx XL] acetaZOLAMIDE [Diamox] 250 mg PO BID 30 Days #60 tab 10/31/21 12/02/21 Rx ALPRAZolam [Xanax] 0.25 mg PO BID PRN 12/02/21 12/02/21 History Furosemide [Lasix] 60 mg PO BID@0900,1700 12/02/21 12/02/21 History Allergies Allergy/AdvReac Type Severity Reaction Status Date / Time red dye Allergy Rash/Hives Verified 12/02/21 06:56 tositumomab iodine-131 Allergy Unknown Verified 12/02/21 06:56 Physical Exam Vitals: Vital Signs Pulse Resp BP Pulse Ox FiO2 12/02/21 07:36 70 12/02/21 07:25 74 50 12/02/21 07:22 73 22 118/76 95 12/02/21 04:40 71 12/02/21 04:22 69 50 12/02/21 03:30 66 15 118/68 95 12/02/21 02:35 84 50 12/02/21 02:15 62 12/02/21 00:50 87 12/02/21 00:09 68 65 12/01/21 23:52 21 12/01/21 23:44 76 21 125/81 96 Intake and Output 12/01/21 12/02/21 12/02/21 22:59 06:59 14:59 Other: Weight 136.078 kg Results 12/02/21 00:02 12/02/21 00:02 Cardiac Enzymes 12/02/21 12/02/21 12/02/21 Range/Units 00:02 00:02 03:47 AST 33 (14-36) U/L Troponin I 0.017 0.014 (0.000-0.034) ng/mL 12/02/21 Range/Units 06:04 AST (14-36) U/L Troponin I 0.013 (0.000-0.034) ng/mL Coagulation 12/02/21 Range/Units 00:02 PT 10.4 (9.0-12.0) sec APTT 23.9 (22.0-30.0) sec CBC 12/02/21 Range/Units 00:02 WBC 8.0 (3.8-10.6) k/uL RBC 4.28 (3.80-5.40) m/uL Hgb 13.5 (11.4-16.0) gm/dL Hct 42.0 (34.0-46.0) % Plt Count 183 (150-450) k/uL Comprehensive Metabolic Panel 12/02/21 Range/Units 00:02 Sodium 141 (137-145) mmol/L Potassium 4.1 (3.5-5.1) mmol/L Chloride 92 L (98-107) mmol/L Carbon Dioxide 42 H* (22-30) mmol/L BUN 17 (7-17) mg/dL Creatinine 0.95 (0.52-1.04) mg/dL Glucose 131 H (74-99) mg/dL Calcium 9.3 (8.4-10.2) mg/dL AST 33 (14-36) U/L ALT 26 (4-34) U/L Alkaline Phosphatase 65 (38-126) U/L Total Protein 6.5 (6.3-8.2) g/dL Albumin 3.8 (3.5-5.0) g/dL Current Medications Generic Name Dose Route Start Last Admin Trade Name Freq PRN Reason Stop Dose Admin Albuterol Sulfate 5 mg 12/02/21 04:00 12/02/21 07:22 Albuterol Nebulized 2.5 Mg/3 Ml INHALATION 5 mg RT-Q4H DANIELLA Administration Apixaban 5 mg 12/02/21 09:00 Apixaban 5 Mg Tab PO BID DANIELLA Protocol Sodium Chloride 1,000 mls @ 20 mls/hr 12/02/21 00:02 12/02/21 00:24 Saline 0.9% IV 12/03/21 00:01 20 mls/hr .Q24H STA Administration Sodium Chloride 1,000 mls @ 20 mls/hr 12/02/21 01:30 12/02/21 02:15 Saline 0.9% IV 20 mls/hr .Q24H DANIELLA Administration Methylprednisolone Sodium Succinate 60 mg 12/02/21 06:00 Methylprednisolone Sod Succi 125 Mg/2 Ml Vial IV Q6HR DANIELLA Morphine Sulfate 4 mg 12/02/21 01:26 Morphine Sulfate 4 Mg/Ml Syringe IV Q4HR PRN Severe Pain (Scale 7 to 10) Naloxone HCl 0.2 mg 12/02/21 01:26 Naloxone 0.4 Mg/Ml 1 Ml Vial IV Q2M PRN Opioid Reversal Ondansetron HCl 4 mg 12/02/21 01:26 Ondansetron 4 Mg/2 Ml Vial IVP Q8HR PRN Nausea And Vomiting Intake and Output 12/01/21 12/02/21 12/02/21 22:59 06:59 14:59 Other: Weight 136.078 kg 12/02/21 00:02 12/02/21 00:02
[2021-12-02] MEDS: DIGOXIN 125 MCG TAB PO SCH (13:08)
[2021-12-02] MEDS: PANTOPRAZOLE 40 MG TABLET PO SCH (13:08)
[2021-12-02] MEDS: FUROSEMIDE 10 MG/ML 4 ML VIAL IV SCH ×2 (13:08→20:37)
[2021-12-02] MEDS: acetaZOLAMIDE 250 MG TAB PO SCH ×2 (13:09→21:37)
[2021-12-02 14:22] LABS: Glucose,Whole Blood 203 mg/dL (70-110)
[2021-12-02 15:09] LABS: Appearance,Urine Turbid (Clear); Bacteria,Urine Few /hpf; Bilirubin,Urine Negative (Negative); Blood,Urine Small (Negative); Color,Urine Yellow; Glucose,Urine (UA) Negative (Negative); Hyaline Casts,Urine 70 /lpf (0-2); Ketones,Urine Negative (Negative); Leukocyte Esterase,Urine Large (Negative); Mucus,Urine Occasional /hpf; Nitrite,Urine Negative (Negative); Protein,Urine Trace (Negative); RBC,Urine 22 /hpf (0-5); Specific Gravity,Urine 1.013 (1.001-1.035); Squamous Epithelial Cell,Urine 6 /hpf (0-4); Urobilinogen,Urine <2.0 mg/dL (<2.0); WBC,Urine >182 /hpf (0-5)
[2021-12-02] MEDS: PIPERACILLIN-TAZOBACTAM 3.375 GM in SODIUM CHLORIDE 0.9% 100 ML IVPB SCH ×2 (16:47→23:20)
[2021-12-02] MEDS: lisinopriL 10 MG TAB PO SCH (21:37)
[2021-12-02] MEDS: METOPROLOL SUCCINATE (ER) 50 MG TAB.ER.24H PO SCH (21:38)
--- NOTE | 2021-12-02 22:12 | P.HPIM ---
History of Present Illness H&P Date: 12/02/21 Chief Complaint: Difficulty in breathing Patient is a 81-year-old female with a known history of COPD, CHF, chronic hypoxic respiratory failure, obstructive sleep apnea on CPAP, generalized weakness and wheelchair-bound, atrial fibrillation on anticoagulation with Eliquis and other multiple medical problems was transferred from extended-care facility due to patient being more lethargic and short of breath. Patient was found to be hypoxic and was placed on BiPAP in the ER. Patient has been afebrile. No nausea vomiting or abdominal pain or diarrhea. Chest x-ray showed cardiomegaly and pulmonary fibrosis. There is improvement in the pulmonary congestion and pulmonary infiltrates compared to old exam. EKG showed sinus rhythm with frequent supraventricular premature complexes. Laboratory data showed WBC 8.0 hemoglobin 13.4 and platelets 183. Venous blood gas showed pH of 7.29 PCO2 77 and bicarb 27 Sodium 141 potassium 4.1 chloride 92 bicarb 22 BUN 17 and creatinine 0.95 blood sugar 131 Troponin x3 negative and proBNP 730 and procalcitonin elevated 0.08 Urinalysis showed turbid with nitrate negative. Large leukocyte esterase with elevated RBCs and WBCs. Review of Systems Complete review of systems could not be obtained from the patient Past Medical History Past Medical History: Atrial Fibrillation, Heart Failure, COPD Additional Past Medical History / Comment(s): Chronic respiratory failure/oxygen ATC, recent issue with dysphagia, JOSIAH has cpap, itching, obesity, edema, weakness-wheelchair, incontinence. History of Any Multi-Drug Resistant Organisms: None Reported Past Surgical History: Orthopedic Surgery Additional Past Surgical History / Comment(s): left knee x2 Past Anesthesia/Blood Transfusion Reactions: No Reported Reaction Past Psychological History: No Psychological Hx Reported Additional Psychological History / Comment(s): Pt resides at [facility]. Staff assist her to wheelchair. Smoking Status: Former smoker Past Alcohol Use History: None Reported Additional Past Alcohol Use History / Comment(s): Daughter states pt smoked in the past but quit over 20 yrs ago. Past Drug Use History: None Reported - Past Family History Father Family Medical History: No Reported History Mother Family Medical History: No Reported History Medications and Allergies Home Medications Medication Instructions Recorded Confirmed Type Docusate [Colace] 100 mg PO DAILY 05/07/21 12/02/21 History Loratadine 10 mg PO DAILY 05/07/21 12/02/21 History Multivitamins, Thera [Multivitamin 1 tab PO DAILY 05/07/21 12/02/21 History (formulary)] Omeprazole 20 mg PO DAILY 05/07/21 12/02/21 History Potassium Chloride ER [K-Dur 10] 10 meq PO DAILY 05/07/21 12/02/21 History guaiFENesin [guaiFENesin Oral 200 mg PO Q6H PRN 05/07/21 12/02/21 History Solution] hydrOXYzine HCL [Atarax] 25 mg PO Q6H PRN 05/07/21 12/02/21 History lisinopriL [Zestril] 10 mg PO BID 05/07/21 12/02/21 History Apixaban [Eliquis] 5 mg PO BID tab 05/12/21 12/02/21 Rx Acetaminophen [Tylenol 8 Hour] 650 mg PO Q6H PRN 06/12/21 12/02/21 History Benzonatate [Tessalon Perles] 200 mg PO Q8H PRN 06/12/21 12/02/21 History Ipratropium-Albuterol Nebulize 3 ml INHALATION RT-QID PRN ml 06/18/21 12/02/21 Rx [Duoneb 0.5 mg-3 mg/3 ml Soln] Diltiazem Cd [Cardizem CD] 240 mg PO DAILY #30 cap 10/03/21 12/02/21 Rx HYDROcodone/APAP 5-325MG [[place] 1 tab PO Q6H PRN #12 tab 10/03/21 12/02/21 Rx 5-325] Digoxin [Lanoxin] 250 mcg PO DAILY 30 Days #30 tab 10/31/21 12/02/21 Rx Metoprolol Succinate (ER) [Toprol 150 mg PO DAILY 30 Days #30 tab 10/31/21 12/02/21 Rx XL] acetaZOLAMIDE [Diamox] 250 mg PO BID 30 Days #60 tab 10/31/21 12/02/21 Rx ALPRAZolam [Xanax] 0.25 mg PO BID PRN 12/02/21 12/02/21 History Furosemide [Lasix] 60 mg PO BID@0900,1700 12/02/21 12/02/21 History Allergies Allergy/AdvReac Type Severity Reaction Status Date / Time red dye Allergy Rash/Hives Verified 12/02/21 06:56 tositumomab iodine-131 Allergy Unknown Verified 12/02/21 06:56 Physical Exam Vitals: Vital Signs Pulse Pulse Resp BP BP Pulse Ox FiO2 12/02/21 07:45 67 13 120/55 98 50 12/02/21 07:36 70 12/02/21 07:25 74 50 12/02/21 07:22 73 22 118/76 95 12/02/21 04:40 71 12/02/21 04:22 69 50 12/02/21 03:30 66 15 118/68 95 12/02/21 02:35 84 50 12/02/21 02:15 62 12/02/21 00:50 87 12/02/21 00:09 68 65 12/01/21 23:52 21 12/01/21 23:44 76 21 125/81 96 Intake and Output 12/01/21 12/02/21 12/02/21 22:59 06:59 14:59 Other: Weight 136.078 kg 136.078 kg PHYSICAL EXAMINATION: Patient is lying in the bed. Awake alert but confused and lethargic. On BiPAP. HEENT: Normocephalic. Neck is supple. Pupils reactive. Nostrils clear. Oral cavity is moist. Neck reveals no JVD, carotid bruits, or thyromegaly. CHEST EXAMINATION: Trachea is central. Symmetrical expansion. Bibasilar diminished sounds. No wheezing or rhonchi.. CARDIAC: Normal S1, S2 with no gallops. No murmurs ABDOMEN: Soft. Bowel sounds present. Nontender. No organomegaly. No abdominal bruits. Extremities: Bilateral trace edema pedal edema. No clubbing or cyanosis Neurologically awake, alert but confused. No gross focal deficits noted Skin: No rash or skin lesions. Psychiatric: Coperative. Could not be assessed completely musculoskeletal: No joint swelling or deformity. Results CBC & Chem 7: 12/02/21 00:02 12/02/21 00:02 Labs: Abnormal Lab Results - Last 24 Hours (Table) 12/02/21 12/02/21 Range/Units 00:02 06:24 VBG pH 7.29 L (7.31-7.41) VBG pCO2 77 H* (37-51) mmHg VBG HCO3 37 H (24-28) mmol/L Chloride 92 L (98-107) mmol/L Carbon Dioxide 42 H* (22-30) mmol/L Glucose 131 H (74-99) mg/dL Thrombosis Risk Factor Assmnt - DVT/VTE Prophylaxis DVT/VTE Prophylaxis: Pharmacologic Prophylaxis ordered - Choose All That Apply Each Factor Represents 1 point: Abnormal pulmonary function (COPD), Heart fail ure (<1month), Obesity (BMI >25), Swollen legs (current) Each Risk Factor Represents 3 Points: Age 75 years or older Other congenital or acquired thrombophilia - If yes, enter type in comment: No Thrombosis Risk Factor Assessment Total Risk Factor Score: 7 Thrombosis Risk Factor Assessment Level: High Risk Assessment and Plan Assessment: Acute on chronic hypoxic and hypercapnic respiratory failure Possible left lower lobe pneumonia Altered mental status likely due to metabolic encephalopathy Acute urinary tract infection with history of E. coli UTI Chronic hypoxic and hypercapnic respiratory failure with component of hypoventilation syndrome Obstructive sleep apnea on CPAP Morbid obesity BMI 54.9 Proximal atrial fibrillation on anticoagulation with Eliquis Hypertension Osteoarthritis Depression Medical debility and wheelchair-bound History of fall right temporal infarct Plan: Patient be continued on oxygen for mentation and is being maintained on BiPAP. Started on empiric in the form of Zosyn. Follow-up urine culture and blood cultures. Patient was started on Lasix 40 mg twice daily. Cardiology and pulmonary is on board. Current with home medications and anticoagulation with Eliquis. Prognosis is guarded with multiple medical problems and comorbid conditions. Time with Patient: Greater than 30
[2021-12-03] MEDS: IPRATROPIUM-ALBUTEROL 3 ML NEB INHALATION SCH ×6 (03:07→23:29)
[2021-12-03 04:43] LABS: Albumin 3.5 g/dL (3.5-5.0); Calcium 9.1 mg/dL (8.4-10.2); Magnesium 1.9 mg/dL (1.6-2.3); Phosphorus 3.9 mg/dL (2.5-4.5); Potassium 4.2 mmol/L (3.5-5.1); Total Bilirubin 0.4 mg/dL (0.2-1.3)
[2021-12-03 04:49] LABS: Basophils % (A) 0 %; Eosinophils % (A) 0 %; HGB 12.7 gm/dL (11.4-16.0); Hypochromasia Marked; Lymphocytes # (A) 0.7 k/uL (1.0-4.8); Lymphocytes % (A) 8 %; MCH 29.8 pg (25.0-35.0); MCHC 30.3 g/dL (31.0-37.0); MCV 98.5 fL (80.0-100.0); Mean Platelet Volume 7.7; Monocytes # (A) 0.3 k/uL (0-1.0); Monocytes % (A) 4 %; Neutrophils # (A) 7.9 k/uL (1.3-7.7); Neutrophils % (A) 87 %; Platelet Count 154 k/uL (150-450); RBC 4.26 m/uL (3.80-5.40); WBC 9.1 k/uL (3.8-10.6)
[2021-12-03] MEDS ORDERED: Magnesium Replacement Protocol 1 EACH MISC MISCELLANE PRN (06:09)
[2021-12-03 06:11] LABS: ABG Base Excess 16.6 mmol/L; ABG Oxygen Saturation 98.7 % (94-97); ABG PH 7.26 (7.35-7.45); ABG PO2 102 mmHg (83-108); ABG TCO2 47 mmol/L (19-24); Allen Test Performed? Yes
[2021-12-03 06:14] LABS: ABG HCO3 44 mmol/L (21-25); ABG PCO2 98 mmHg (35-45)
[2021-12-03] MEDS: PANTOPRAZOLE 40 MG TABLET PO SCH (06:21)
[2021-12-03] MEDS: MAGNESIUM SULFATE-D5W PMX 1 GM in DEXTROSE/WATER 1 100ML.BAG IVPB SCH ×2 (06:22→08:34)
--- NOTE | 2021-12-03 07:53 | XR ---
EXAMINATION TYPE: XR chest 1V portable DATE OF EXAM: 12/03/2021 Comparison: 12/02/2021 Clinical History: 81-year-old female COPD ex Findings: Heart remains moderately enlarged. Diffuse interstitial and vascular density persists. Some patchy re trocardiac opacity persist. On the frontal view, no sizable pleural effusion. Sclerosis at the left g lenoid humeral joint suggesting underlying degenerative change. Impression: Similar exam with cardiomegaly and likely pulmonary vascular congestion. Patchy retrocardiac atelecta sis versus airspace disease is similar as well.
[2021-12-03] MEDS: PIPERACILLIN-TAZOBACTAM 3.375 GM in SODIUM CHLORIDE 0.9% 100 ML IVPB SCH ×3 (08:32→23:47)
[2021-12-03] MEDS ORDERED: METOPROLOL SUCCINATE (ER) 50 MG TAB.ER.24H PO SCH (09:00)
[2021-12-03] MEDS: APIXABAN 5 MG TAB PO SCH ×2 (09:12→20:09)
[2021-12-03] MEDS: METOPROLOL SUCCINATE (ER) 50 MG TAB.ER.24H PO SCH ×2 (09:13→20:05)
[2021-12-03] MEDS: lisinopriL 10 MG TAB PO SCH ×2 (09:13→20:04)
[2021-12-03] MEDS: DIGOXIN 125 MCG TAB PO SCH (09:13)
[2021-12-03] MEDS: POTASSIUM CHLORIDE ER 10 MEQ TAB.ER.PRT PO SCH (09:13)
[2021-12-03] MEDS: FUROSEMIDE 10 MG/ML 4 ML VIAL IV SCH ×2 (09:13→20:09)
[2021-12-03] MEDS: DOCUSATE 100 MG CAP PO SCH (09:13)
[2021-12-03] MEDS: acetaZOLAMIDE 250 MG TAB PO SCH ×2 (09:14→20:10)
--- NOTE | 2021-12-03 10:21 | P.PN ---
Subjective Progress Note Date: 12/03/21 This is an 81-year-old morbidly obese female patient IS A BODY MASS INDEX OF AB OVE 50. THE PATIENT GOT TRANSFERRED TO US AGAIN FROM [facility] for worsening shortness of breath emergency and I was also asked to immediately evaluate this patient in emergency department the patient was becoming more lethargic this morning. She came in yesterday to the emergency department. She was unable to provide much history. Apparently she was found to be short of breath and she was also hypoxic. She was brought into the emergency department and she was immediately placed on BiPAP which is currently running at pressures of 14/5 cm of water with FiO2 of 50%. Chest x-ray showed small lung volumes, there was pulmonary vascular congestions on the position of the left lung base. There is a venous blood gas that showed a pH of 7.29 with a pCO2 of 77. Normal coagulation profile. Normal CBC. Serum bicarb is at 42 with a sodium level of 141 and a BUN of 19 with a creatinine of 0.9. ProBNP level was 730 and a troponin is were 0.01 respectively 3. The patient is able to tolerate the BiPAP without any major difficulties. Headaches changed tidal volume is also on 40 mL and her current respiratory rate is around 22. The daughter is at the bedside and the patient is found to be more lethargic compared to her baseline. She is known to have chronic hypoxic and hypercapnic respiratory failure and she has obstructive sleep apnea along with obesity hypoventilation syndrome. She has a normal sinus rhythm for now. Her other comorbid conditions include episodic UTI, episodes of atrial fibrillation for which the patient has been given anticoagulants, hypertension, depression, and degenerative arthritis. She is sedentary. She is a [facility] resident. She has been receiving Lasix 60 mg by mouth twice a day on an outpatient basis. She has been also on [place] for pain control. She was given Diamox to counteract her chronic metabolic alkalosis at a dose of 250 mg by mouth twice a day. She has a maternal oximetry coagulation with Lynda course. Rest of the [facility] medications were noted. For now, she is being seen in consultation in the emergency department. Her most recent echocardiogram from 10/29/2021 showed a preserved LV function or relatively preserved LV function with an ejection fraction was mildly impaired at 40-45%. There was concentric LV hypertrophy with some diastolic dysfunction. No other structural abnormalities. No other valvular abnormalities and the pulmonary artery pressure as estimated by the echocardiogram was essentially mild. I started following her September hospitalization, the patient had another hospital admission and October 2021 for recurrent acute on top of chronic hypercapnic respiratory failure. 12/03/2021, the patient is being seen in the intensive care unit. She is currently on a BiPAP at a pressure of 16/5 cm of water, generating tidal volumes of about 400 and her respiratory rate is around 13. Her blood gas from today while on the BiPAP showed a pH of 7.26 with a pCO2 of 98 and pO2 of 102. She is on Lasix. She is on Aldactone. She was found to have a urinary tract infection she's currently on IV Zosyn. Serum bicarbonate of 43. Sodium levels of 141. The white cell count today is at 9.1 with a hemoglobin of 12.7 and a platelet count of 154. She is tolerating the BiPAP without any major difficulties. IV fluids are currently at KVO and the patient has a Hathaway catheter in place. Fluid balance has been negative. She is being given brief time off the BiPAP for oral intake. Objective - Vital Signs Vital signs: Vital Signs Temp 97.8 F 12/03/21 09:00 Pulse 75 12/03/21 10:00 Resp 13 12/03/21 10:00 BP 105/66 12/03/21 10:00 Pulse Ox 94 L 12/03/21 10:00 FiO2 50 12/03/21 09:00 Intake & Output 12/02/21 12/03/21 12/03/21 18:59 06:59 18:59 Intake Total 180 240 220 Output Total 535 890 220 Balance -355 -650 0 Weight 136.078 kg 136.07 kg Intake: IV 180 240 220 Magnesium Sulfate-D5w Pmx 100 1 gm In Dextrose/Water 1 100ml.bag @ 100 mls/hr IVPB Q1H [facility] Rx#: [id number] Piperacillin-Tazobactam 3 100 100 .375 gm In Sodium Chloride 0.9% 100 ml @ 25 mls/hr IVPB Q8HR [facility] Rx# :[id number] Sodium Chloride 0.9% 1, 80 240 20 000 ml @ 20 mls/hr IV . Q24H [facility] Rx#:[id number] Output: Urine 535 890 220 Other: Voiding Method Indwelling Catheter Indwelling Catheter # Bowel Movements 1 - Exam Pleasant 81-year-old female patient. Patient is very much lethargic at this point in time. The patient is on a BiPAP at a pressure of 16/5 cm of water The patient is morbidly obese, body mass index of 51 Head exam was generally normal. There was no scleral icterus or corneal arcus. Mucous membranes were moist. Neck is very thick and the patient is a Mallampati class IV. Patient is currently tolerating a full face BiPAP mask. Neck veins cannot be accurately appreciated. Neck supple. Full range of motion. No adenopathy thyromegaly Cardiovascular examination reveals regular rhythm rate. S1-S2 normal. No S3 or S4. No discernible murmur noted. Lungs reveal occasional diffuse bilateral rhonchi. No wheezes or crackles. Breath sounds are equal bilaterally. Breath sounds are quite diminished bilaterally and air entry and exchange is limited as the patient is morbidly obese. Abdomen obese, soft, without masses or tenderness. noted. Organs cannot be accurately palpated as the patient, morbidly obese. No direct tenderness or rebound tensile guarding at this point in time. Extremities are intact. No cyanosis or clubbing. Trace edema. Skin is without rash or lesion. Neurologic examination is brief but nonfocal. Patient was aroused upon stimulation. She was able to withdraw to painful stimulation all 4 extremities. Neurologic exam is nonfocal. Psychiatric evaluation cannot be done at this point in time. - Labs CBC & Chem 7: 12/03/21 03:44 12/03/21 03:44 Labs: Abnormal Lab Results - Last 24 Hours (Table) 12/02/21 12/02/21 12/03/21 Range/Units 14:19 14:20 03:44 MCHC 30.3 L (31.0-37.0) g/dL Neutrophils # 7.9 H (1.3-7.7) k/uL Lymphocytes # 0.7 L (1.0-4.8) k/uL ABG pH (7.35-7.45) ABG pCO2 (35-45) mmHg ABG HCO3 (21-25) mmol/L ABG Total CO2 (19-24) mmol/L ABG O2 Saturation (94-97) % Chloride (98-107) mmol/L Carbon Dioxide (22-30) mmol/L BUN (7-17) mg/dL Glucose (74-99) mg/dL POC Glucose (mg/dL) 203 H (70-110) mg/dL Total Protein (6.3-8.2) g/dL Urine Appearance Turbid H (Clear) Urine Protein Trace H (Negative) Urine Blood Small H (Negative) Ur Leukocyte Esterase Large H (Negative) Urine RBC 22 H (0-5) /hpf Urine WBC >182 H (0-5) /hpf Urine WBC Clumps Many H (None) /hpf Ur Squamous Epith Cells 6 H (0-4) /hpf Urine Bacteria Few H (None) /hpf Hyaline Casts 70 H (0-2) /lpf Urine Mucus Occasional H (None) /hpf 12/03/21 12/03/21 Range/Units 03:44 06:10 MCHC (31.0-37.0) g/dL Neutrophils # (1.3-7.7) k/uL Lymphocytes # (1.0-4.8) k/uL ABG pH 7.26 L (7.35-7.45) ABG pCO2 98 H* (35-45) mmHg ABG HCO3 44 H* (21-25) mmol/L ABG Total CO2 47 H (19-24) mmol/L ABG O2 Saturation 98.7 H (94-97) % Chloride 91 L (98-107) mmol/L Carbon Dioxide 43 H* (22-30) mmol/L BUN 20 H (7-17) mg/dL Glucose 151 H (74-99) mg/dL POC Glucose (mg/dL) (70-110) mg/dL Total Protein 6.0 L (6.3-8.2) g/dL Urine Appearance (Clear) Urine Protein (Negative) Urine Blood (Negative) Ur Leukocyte Esterase (Negative) Urine RBC (0-5) /hpf Urine WBC (0-5) /hpf Urine WBC Clumps (None) /hpf Ur Squamous Epith Cells (0-4) /hpf Urine Bacteria (None) /hpf Hyaline Casts (0-2) /lpf Urine Mucus (None) /hpf Assessment and Plan Plan: Acute mental status changes and confusion, secondary to acute on chronic hypoxemic and hypercapnic respiratory failure. The exact cause for this acute on top of chronic respiratory failure is not clear and still under investigation. During this current admission, there are no obvious signs of fluid overload. No obvious signs of any bronchospasm or wheezing. There may be some left lower lobe pulmonary infiltration/pneumonia. There is also the indication of a recurrent UTI. The blood gases showing a component of acute respiratory acidosis. We'll continue the BiPAP treatment for now. We'll contin ue the IV Zosyn for now. Overall rest or status is stable. She remains on a BiPAP of 16/5 cm of water. Chronic hypercapnic respiratory failure with an obvious component of obesity hypoventilation syndrome Chronic hypoxic respiratory failure Old right temporal lobe infarct. History of obstructive sleep apnea syndrome. Morbid obesity, with probable Pickwickian syndrome. The patient not been compliant with her BiPAP machine at the [facility] her BiPAP machine at the [facility] is set at a pressure of 14 over 4 cm of water Previous history of tobacco use, with probable underlying COPD. History of atrial fibrillation. The patient is demented on long-term anticoagulation with Eliquis, cardiac rhythm is sinus Previous history of UTI with E. coli History of urinary incontinence. History of hypertension. History of degenerative joint disease. History depression[facility] Plan Admit this patient to the intensive care unit Keep the patient on BiPAP at a pressure of 16 / 5 cm of water and titrate FiO2 to maintain saturation above 90% Suspect a UTI awaiting getting cultures and the patient is on IV Zosyn Check pro calcitonin level was low at 0.08 Cover this patient with IV Zosyn Continue Lasix 40 mg every 12 hours and continue Diamox for now DuoNeb nebulized treatments around the clock IV Solu-Medrol can be discontinued Eliquis to be continued Cardiac rhythm is sinus Condition is critical. High likelihood for ventilator dependence and her CODE STATUS is full. This is discussed with the family. We'll continue to follow. Time with Patient: Greater than 30
--- NOTE | 2021-12-03 10:27 | P.PN ---
Subjective Progress Note Date: 12/03/21 The patient is an 81-year-old female with multiple comorbid conditions, who presented to the hospital with mental status changes and respiratory distress. Cardiology was consulted for congestive heart failure with BNP of 700. Clinically she did not appear to be in acute heart failure and home medications were resumed. She does have persistent atrial fibrillation and has been rate controlled since her admission. The patient was interviewed and examined resting comfortably on BiPAP. She states her breathing is better. She denies any chest pain. GENERAL: Well-appearing, obese female in no acute distress. NECK: Supple without JVD or thyromegaly. LUNGS: Breath sounds diminished to auscultation bilaterally. Respiration equal and unlabored. No wheezes, rales or rhonchi. HEART: Irregular rate and rhythm without murmurs, rubs or gallops. S1 and S2 heard. EXTREMITIES: Normal range of motion, mild bilateral edema. No clubbing or cyanosis. Peripheral pulses intact and strong. VITALS: Blood pressure 105/66, pulse 75, respiratory rate 13, SpO2 94% on 50% BiPAP, afebrile TELEMETRY: Persistent atrial fibrillation LABS: WBC 9.1, hemoglobin 10.7, hematocrit 42.0, platelet 154, sodium 141, potassium 4.2, BUN 20, creatinine 1.03, magnesium 1.9, AST 27, ALT 24 IMPRESSION: Acute hypoxic and hypercapnic respiratory failure, on BiPAP Chronic heart failure with mildly reduced EF, currently euvolemic Chronic respiratory failure with history of COPD History of CVA Persistent atrial fibrillation, rate controlled, on anticoagulation Morbid obesity PLAN: Check TSH level No further recommendations cardiac standpoint I am dictating on behalf of Dr Yinka Rockwell's history/physical and assessment /plan. Objective - Vital Signs Vital signs: Vital Signs Temp 97.8 F 12/03/21 09:00 Pulse 75 12/03/21 10:00 Resp 13 12/03/21 10:00 BP 105/66 12/03/21 10:00 Pulse Ox 94 L 12/03/21 10:00 FiO2 50 12/03/21 09:00 Intake & Output 12/02/21 12/03/21 12/03/21 18:59 06:59 18:59 Intake Total 180 240 220 Output Total 535 890 220 Balance -355 -650 0 Weight 136.078 kg 136.07 kg Intake: IV 180 240 220 Magnesium Sulfate-D5w Pmx 100 1 gm In Dextrose/Water 1 100ml.bag @ 100 mls/hr IVPB Q1H [facility] Rx#: [id number] Piperacillin-Tazobactam 3 100 100 .375 gm In Sodium Chloride 0.9% 100 ml @ 25 mls/hr IVPB Q8HR [facility] Rx# :[id number] Sodium Chloride 0.9% 1, 80 240 20 000 ml @ 20 mls/hr IV . Q24H [facility] Rx#:[id number] Output: Urine 535 890 220 Other: Voiding Method Indwelling Catheter Indwelling Catheter # Bowel Movements 1 - Labs CBC & Chem 7: 12/03/21 03:44 12/03/21 03:44 Labs: Abnormal Lab Results - Last 24 Hours (Table) 12/02/21 12/02/21 12/03/21 Range/Units 14:19 14:20 03:44 MCHC 30.3 L (31.0-37.0) g/dL Neutrophils # 7.9 H (1.3-7.7) k/uL Lymphocytes # 0.7 L (1.0-4.8) k/uL ABG pH (7.35-7.45) ABG pCO2 (35-45) mmHg ABG HCO3 (21-25) mmol/L ABG Total CO2 (19-24) mmol/L ABG O2 Saturation (94-97) % Chloride (98-107) mmol/L Carbon Dioxide (22-30) mmol/L BUN (7-17) mg/dL Glucose (74-99) mg/dL POC Glucose (mg/dL) 203 H (70-110) mg/dL Total Protein (6.3-8.2) g/dL Urine Appearance Turbid H (Clear) Urine Protein Trace H (Negative) Urine Blood Small H (Negative) Ur Leukocyte Esterase Large H (Negative) Urine RBC 22 H (0-5) /hpf Urine WBC >182 H (0-5) /hpf Urine WBC Clumps Many H (None) /hpf Ur Squamous Epith Cells 6 H (0-4) /hpf Urine Bacteria Few H (None) /hpf Hyaline Casts 70 H (0-2) /lpf Urine Mucus Occasional H (None) /hpf 12/03/21 12/03/21 Range/Units 03:44 06:10 MCHC (31.0-37.0) g/dL Neutrophils # (1.3-7.7) k/uL Lymphocytes # (1.0-4.8) k/uL ABG pH 7.26 L (7.35-7.45) ABG pCO2 98 H* (35-45) mmHg ABG HCO3 44 H* (21-25) mmol/L ABG Total CO2 47 H (19-24) mmol/L ABG O2 Saturation 98.7 H (94-97) % Chloride 91 L (98-107) mmol/L Carbon Dioxide 43 H* (22-30) mmol/L BUN 20 H (7-17) mg/dL Glucose 151 H (74-99) mg/dL POC Glucose (mg/dL) (70-110) mg/dL Total Protein 6.0 L (6.3-8.2) g/dL Urine Appearance (Clear) Urine Protein (Negative) Urine Blood (Negative) Ur Leukocyte Esterase (Negative) Urine RBC (0-5) /hpf Urine WBC (0-5) /hpf Urine WBC Clumps (None) /hpf Ur Squamous Epith Cells (0-4) /hpf Urine Bacteria (None) /hpf Hyaline Casts (0-2) /lpf Urine Mucus (None) /hpf
[2021-12-03 12:37] LABS: T4, Free (Free Thyroxine) 1.13 ng/dL (0.78-2.19)
[2021-12-03] MEDS: SODIUM CHLORIDE 0.9% 1,000 ML IV SCH (23:47)
[2021-12-04] MEDS: IPRATROPIUM-ALBUTEROL 3 ML NEB INHALATION SCH ×5 (04:00→19:40)
[2021-12-04] MEDS: PANTOPRAZOLE 40 MG TABLET PO SCH (06:39)
[2021-12-04 07:51] LABS: HCT 38.3 % (34.0-46.0); Hypochromasia Marked; MCH 30.6 pg (25.0-35.0); MCHC 31.2 g/dL (31.0-37.0); MCV 97.8 fL (80.0-100.0); Mean Platelet Volume 7.7; Platelet Count 173 k/uL (150-450); RBC 3.92 m/uL (3.80-5.40); RDW 12.8 % (11.5-15.5); WBC 8.5 k/uL (3.8-10.6)
[2021-12-04 08:06] LABS: Calcium 8.5 mg/dL (8.4-10.2); Potassium 3.2 mmol/L (3.5-5.1)
[2021-12-04] MEDS ORDERED: Potassium Replacement Protocol 1 EACH MISC MISCELLANE PRN (08:29)
--- NOTE | 2021-12-04 08:41 | P.PN ---
Subjective Progress Note Date: 12/04/21 This is an 81-year-old morbidly obese female patient IS A BODY MASS INDEX OF AB OVE 50. THE PATIENT GOT TRANSFERRED TO US AGAIN FROM [facility] for worsening shortness of breath emergency and I was also asked to immediately evaluate this patient in emergency department the patient was becoming more lethargic this morning. She came in yesterday to the emergency department. She was unable to provide much history. Apparently she was found to be short of breath and she was also hypoxic. She was brought into the emergency department and she was immediately placed on BiPAP which is currently running at pressures of 14/5 cm of water with FiO2 of 50%. Chest x-ray showed small lung volumes, there was pulmonary vascular congestions on the position of the left lung base. There is a venous blood gas that showed a pH of 7.29 with a pCO2 of 77. Normal coagulation profile. Normal CBC. Serum bicarb is at 42 with a sodium level of 141 and a BUN of 19 with a creatinine of 0.9. ProBNP level was 730 and a troponin is were 0.01 respectively 3. The patient is able to tolerate the BiPAP without any major difficulties. Headaches changed tidal volume is also on 40 mL and her current respiratory rate is around 22. The daughter is at the bedside and the patient is found to be more lethargic compared to her baseline. She is known to have chronic hypoxic and hypercapnic respiratory failure and she has obstructive sleep apnea along with obesity hypoventilation syndrome. She has a normal sinus rhythm for now. Her other comorbid conditions include episodic UTI, episodes of atrial fibrillation for which the patient has been given anticoagulants, hypertension, depression, and degenerative arthritis. She is sedentary. She is a [facility] resident. She has been receiving Lasix 60 mg by mouth twice a day on an outpatient basis. She has been also on [place] for pain control. She was given Diamox to counteract her chronic metabolic alkalosis at a dose of 250 mg by mouth twice a day. She has a maternal oximetry coagulation with Lynda course. Rest of the [facility] medications were noted. For now, she is being seen in consultation in the emergency department. Her most recent echocardiogram from 10/29/2021 showed a preserved LV function or relatively preserved LV function with an ejection fraction was mildly impaired at 40-45%. There was concentric LV hypertrophy with some diastolic dysfunction. No other structural abnormalities. No other valvular abnormalities and the pulmonary artery pressure as estimated by the echocardiogram was essentially mild. I started following her September hospitalization, the patient had another hospital admission and October 2021 for recurrent acute on top of chronic hypercapnic respiratory failure. 12/03/2021, the patient is being seen in the intensive care unit. She is currently on a BiPAP at a pressure of 16/5 cm of water, generating tidal volumes of about 400 and her respiratory rate is around 13. Her blood gas from today while on the BiPAP showed a pH of 7.26 with a pCO2 of 98 and pO2 of 102. She is on Lasix. She is on Aldactone. She was found to have a urinary tract infection she's currently on IV Zosyn. Serum bicarbonate of 43. Sodium levels of 141. The white cell count today is at 9.1 with a hemoglobin of 12.7 and a platelet count of 154. She is tolerating the BiPAP without any major difficulties. IV fluids are currently at KVO and the patient has a Hathaway catheter in place. Fluid balance has been negative. She is being given brief time off the BiPAP for oral intake. 12/04 2021, the patient is wide awake, joking, communicating, and when she is fully alert and with excellent sense of humor without any focal neurological deficits. She is currently on oxygen at 5 L. On her blood work, the white cell count of 8.5 with a hemoglobin of 12 and a platelet count of 173. Sodium is at 138 and a serum bicarbonate is 42 with a BUN of 23 and a creatinine of 1.07. She got diabetes with IV Lasix and she is also on Diamox. Overall fluid balance over the past 24 hours has been -1 L. Note that the patient was not having any major signs of clinical fluid overload. In terms of infection, the patient was suspected to have a UTI. Urine cultures are still pending. Meanwhile the patient remains on IV Zosyn. A chest x-ray was done yesterday that was consistent with colovesical congestion and possible left lower lobe pneumonia and cardiomegaly. Repeat x-ray was not obtained today and a follow-up x-ray will be obtained tomorrow. Overnight, the patient slept on a bilevel pressure of 16/5 with an FiO2 of 40%. She is ready for breakfast. All Objective - Vital Signs Vital signs: Vital Signs Temp 97.8 F 12/04/21 04:00 Pulse 79 12/04/21 07:29 Resp 17 12/04/21 07:00 BP 97/76 12/04/21 07:00 Pulse Ox 96 12/04/21 07:22 FiO2 40 12/04/21 04:00 Intake & Output 12/03/21 12/04/21 12/04/21 18:59 06:59 18:59 Intake Total 820 700 20 Output Total 695 835 45 Balance 125 -135 -25 Weight 123.3 kg Intake: IV 340 Magnesium Sulfate-D5w Pmx 100 1 gm In Dextrose/Water 1 100ml.bag @ 100 mls/hr IVPB Q1H [facility] Rx#: [id number] Piperacillin-Tazobactam 3 200 .375 gm In Sodium Chloride 0.9% 100 ml @ 25 mls/hr IVPB Q8HR [facility] Rx# :[id number] Sodium Chloride 0.9% 1, 40 000 ml @ 20 mls/hr IV . Q24H [facility] Rx#:[id number] Intake, IV Titration 220 20 Amount Sodium Chloride 0.9% 1, 220 20 000 ml @ 20 mls/hr IV . Q24H [facility] Rx#:[id number] Oral 480 480 Output: Urine 695 835 45 Other: Voiding Method Indwelling Catheter Indwelling Catheter - Exam Pleasant 81-year-old female patient. Patient is very much lethargic at this point in time. The patient is on a BiPAP at a pressure of 16/5 cm of water The patient is morbidly obese, body mass index of 51 Head exam was generally normal. There was no scleral icterus or corneal arcus. Mucous membranes were moist. Neck is very thick and the patient is a Mallampati class IV. Patient is currently tolerating a full face BiPAP mask. Neck veins cannot be accurately appreciated. Neck supple. Full range of motion. No adenopathy thyromegaly Cardiovascular examination reveals regular rhythm rate. S1-S2 normal. No S3 or S4. No discernible murmur noted. Lungs reveal occasional diffuse bilateral rhonchi. No wheezes or crackles. Breath sounds are equal bilaterally. Breath sounds are quite diminished bilaterally and air entry and exchange is limited as the patient is morbidly obese. Abdomen obese, soft, without masses or tenderness. noted. Organs cannot be accurately palpated as the patient, morbidly obese. No direct tenderness or rebound tensile guarding at this point in time. Extremities are intact. No cyanosis or clubbing. Trace edema. Skin is without rash or lesion. Neurologic examination is brief but nonfocal. Patient was aroused upon stimulation. She was able to withdraw to painful stimulation all 4 extremities. Neurologic exam is nonfocal. Psychiatric evaluation cannot be done at this point in time. - Labs CBC & Chem 7: 12/04/21 07:07 12/04/21 07:07 Labs: Abnormal Lab Results - Last 24 Hours (Table) 12/03/21 12/04/21 Range/Units 03:44 07:07 Potassium 3.2 L (3.5-5.1) mmol/L Chloride 91 L (98-107) mmol/L Carbon Dioxide 42 H* (22-30) mmol/L BUN 23 H (7-17) mg/dL Creatinine 1.07 H (0.52-1.04) mg/dL Glucose 104 H (74-99) mg/dL TSH 0.135 L (0.465-4.680) mIU/L Microbiology - Last 24 Hours (Table) 12/03/21 10:00 Urine Culture - Preliminary Urine,Catheterized Assessment and Plan Plan: Acute mental status changes and confusion, secondary to acute on chronic hypoxemic and hypercapnic respiratory failure. The exact cause for this acute on top of chronic respiratory failure is not clear and still under investigation. During this current admission, there are no obvious signs of fluid overload. No obvious signs of any bronchospasm or wheezing. There may be some left lower lobe pulmonary infiltration/pneumonia. There is also the indication of a recurrent UTI. The blood gases showing a component of acute respiratory acidosis. We'll continue the BiPAP treatment for now. We'll continue the IV Zosyn for now. Overall rest or status is stable. She remains on a BiPAP of 16/5 cm of water. Clinically much improved and the patient is currently on oxygen at 5 L. The current pulse ox is 97%. Accidental Tylenol signs of any CO2 narcosis on today's evaluation and workup is in progress. Chronic hypercapnic respiratory failure with an obvious component of obesity hypoventilation syndrome Chronic hypoxic respiratory failure Old right temporal lobe infarct. History of obstructive sleep apnea syndrome. Morbid obesity, with probable Pickwickian syndrome. The patient not been compliant with her BiPAP machine at the [facility] her BiPAP machine at the [facility] is set at a pressure of 14 over 4 cm of water Previous history of tobacco use, with probable underlying COPD. History of atrial fibrillation. The patient is demented on long-term anticoa gulation with Eliquis, cardiac rhythm is sinus Previous history of UTI with E. coli History of urinary incontinence. History of hypertension. History of degenerative joint disease. History depression. [facility] resident. Plan Continue same management Switch to oral Lasix 40 mg every 12 hours Continue Zosyn pending further cultures Continue BiPAP overnight the same pressures BiPAP at a pressure of 16 / 5 cm of water and titrate FiO2 to maintain saturation above 90% Suspect a UTI awaiting getting cultures and the patient is on IV Zosyn Check pro calcitonin level was low at 0.08 Cover this patient with IV Zosyn DuoNeb nebulized treatments around the clock Eliquis to be continued Cardiac rhythm is sinus We'll continue to follow. transfer out
[2021-12-04] MEDS: PIPERACILLIN-TAZOBACTAM 3.375 GM in SODIUM CHLORIDE 0.9% 100 ML IVPB SCH ×2 (08:49→16:59)
[2021-12-04] MEDS: APIXABAN 5 MG TAB PO SCH ×2 (10:00→20:16)
[2021-12-04] MEDS: DOCUSATE 100 MG CAP PO SCH (10:00)
[2021-12-04] MEDS: POTASSIUM CHLORIDE ER 10 MEQ TAB.ER.PRT PO SCH (10:00)
[2021-12-04] MEDS: POTASSIUM CHLORIDE ER 20 MEQ TAB.ER PO SCH ×2 (10:00→16:59)
[2021-12-04] MEDS: FUROSEMIDE 40 MG TAB PO SCH ×2 (10:00→16:59)
[2021-12-04] MEDS: acetaZOLAMIDE 250 MG TAB PO SCH ×2 (10:01→20:16)
[2021-12-04] MEDS: DIGOXIN 125 MCG TAB PO SCH (10:09)
[2021-12-04] MEDS: METOPROLOL SUCCINATE (ER) 50 MG TAB.ER.24H PO SCH ×2 (10:09→20:16)
--- NOTE | 2021-12-04 11:53 | P.PN ---
Subjective Progress Note Date: 12/04/21 The patient is an 81-year-old female with multiple comorbid conditions, who presented to the hospital with mental status changes and respiratory distress. Cardiology was consulted for congestive heart failure with BNP of 700. Clinically she did not appear to be in acute heart failure and home medications were resumed. She does have persistent atrial fibrillation and has been rate controlled since her admission. The patient was interviewed and examined resting comfortably on nasal cannula. She states her breathing is better. She denies any chest pain. GENERAL: Well-appearing, obese female in no acute distress. NECK: Supple without JVD or thyromegaly. LUNGS: Breath sounds diminished to auscultation bilaterally. Respiration equal and unlabored. No wheezes, rales or rhonchi. HEART: Irregular rate and rhythm without murmurs, rubs or gallops. S1 and S2 heard. EXTREMITIES: Normal range of motion, generalized bilateral edema. No clubbing or cyanosis. Peripheral pulses intact and strong. VITALS: Blood pressure 95/43, SpO2 97%, pulse 97, respiratory rate 20 TELEMETRY: Persistent atrial fibrillation LABS: WBC 9.1, hemoglobin 10.7, hematocrit 42.0, platelet 154, sodium 141, potassium 4.2, BUN 20, creatinine 1.03, magnesium 1.9, AST 27, ALT 24 IMPRESSION: Acute hypoxic and hypercapnic respiratory failure, on BiPAP Chronic heart failure with mildly reduced EF, currently euvolemic Chronic respiratory failure with history of COPD Hypotension, discontinue WEST inhibitor History of CVA Persistent atrial fibrillation, rate controlled, on anticoagulation Morbid obesity PLAN: Discontinue lisinopril Continue digoxin and metoprolol for rate control. Do not hold for hypotension. Continue aggressive pulmonary hygiene No further recommendations cardiac standpoint I am dictating on behalf of Dr Yinka Rockwell's history/physical and assessment/plan. Objective - Vital Signs Vital signs: Vital Signs Temp 97.9 F 12/04/21 08:00 Pulse 84 12/04/21 11:16 Resp 22 12/04/21 11:00 BP 100/58 12/04/21 11:00 Pulse Ox 95 12/04/21 11:00 FiO2 40 12/04/21 04:00 Intake & Output 12/03/21 12/04/21 12/04/21 18:59 06:59 18:59 Intake Total 820 700 980 Output Total 695 835 195 Balance 125 -135 785 Weight 123.3 kg Intake: IV 340 120 Magnesium Sulfate-D5w Pmx 100 1 gm In Dextrose/Water 1 100ml.bag @ 100 mls/hr IVPB Q1H [facility] Rx#: [id number] Piperacillin-Tazobactam 3 200 100 .375 gm In Sodium Chloride 0.9% 100 ml @ 25 mls/hr IVPB Q8HR [facility] Rx# :[id number] Sodium Chloride 0.9% 1, 40 20 000 ml @ 20 mls/hr IV . Q24H [facility] Rx#:[id number] Intake, IV Titration 220 20 Amount Sodium Chloride 0.9% 1, 220 20 000 ml @ 20 mls/hr IV . Q24H [facility] Rx#:[id number] Oral 480 480 840 Output: Urine 695 835 195 Other: Voiding Method Indwelling Catheter Indwelling Catheter Indwelling Catheter - Labs CBC & Chem 7: 12/04/21 07:07 12/04/21 07:07 Labs: Abnormal Lab Results - Last 24 Hours (Table) 12/04/21 Range/Units 07:07 Potassium 3.2 L (3.5-5.1) mmol/L Chloride 91 L (98-107) mmol/L Carbon Dioxide 42 H* (22-30) mmol/L BUN 23 H (7-17) mg/dL Creatinine 1.07 H (0.52-1.04) mg/dL Glucose 104 H (74-99) mg/dL Microbiology - Last 24 Hours (Table) 12/03/21 10:00 Urine Culture - Preliminary Urine,Catheterized
[2021-12-04] MEDS ORDERED: LORazepam 0.5 MG TAB PO PRN (21:04)
[2021-12-04] MEDS ORDERED: IPRATROPIUM-ALBUTEROL 3 ML NEB ONE (23:55)
[2021-12-05] MEDS: SODIUM CHLORIDE 0.9% 1,000 ML IV SCH ×2 (04:58→23:39)
[2021-12-05] MEDS: PIPERACILLIN-TAZOBACTAM 3.375 GM in SODIUM CHLORIDE 0.9% 100 ML IVPB SCH ×4 (04:59→23:39)
[2021-12-05] MEDS: PANTOPRAZOLE 40 MG TABLET PO SCH (06:44)
--- NOTE | 2021-12-05 07:45 | XR ---
EXAMINATION TYPE: XR chest 1V portable DATE OF EXAM: 12/05/2021 COMPARISON: 12/03/2021 INDICATION: CHF TECHNIQUE: Single frontal view of the chest is obtained. FINDINGS: The heart size is large. The pulmonary vasculature is somewhat prominent, improved from comparison. Some platelike atelectasis in the left midlung. No suspicious infiltrates are evident. Prior increase d lung markings have improved IMPRESSION: 1. Improving congestive heart failure. 2. Some mild plate atelectasis in the left midlung.
[2021-12-05] MEDS: APIXABAN 5 MG TAB PO SCH ×2 (08:14→21:46)
[2021-12-05] MEDS: METOPROLOL SUCCINATE (ER) 50 MG TAB.ER.24H PO SCH ×2 (08:14→21:46)
[2021-12-05] MEDS: acetaZOLAMIDE 250 MG TAB PO SCH ×2 (08:14→21:45)
[2021-12-05] MEDS: FUROSEMIDE 40 MG TAB PO SCH ×2 (08:14→16:40)
[2021-12-05] MEDS: DOCUSATE 100 MG CAP PO SCH (08:14)
[2021-12-05] MEDS: POTASSIUM CHLORIDE ER 10 MEQ TAB.ER.PRT PO SCH (08:15)
[2021-12-05] MEDS: DIGOXIN 125 MCG TAB PO SCH (08:15)
[2021-12-05] MEDS: IPRATROPIUM-ALBUTEROL 3 ML NEB INHALATION SCH ×4 (08:23→20:13)
--- NOTE | 2021-12-05 09:25 | P.PN ---
Subjective Progress Note Date: 12/05/21 This is an 81-year-old morbidly obese female patient IS A BODY MASS INDEX OF AB OVE 50. THE PATIENT GOT TRANSFERRED TO US AGAIN FROM [facility] for worsening shortness of breath emergency and I was also asked to immediately evaluate this patient in emergency department the patient was becoming more lethargic this morning. She came in yesterday to the emergency department. She was unable to provide much history. Apparently she was found to be short of breath and she was also hypoxic. She was brought into the emergency department and she was immediately placed on BiPAP which is currently running at pressures of 14/5 cm of water with FiO2 of 50%. Chest x-ray showed small lung volumes, there was pulmonary vascular congestions on the position of the left lung base. There is a venous blood gas that showed a pH of 7.29 with a pCO2 of 77. Normal coagulation profile. Normal CBC. Serum bicarb is at 42 with a sodium level of 141 and a BUN of 19 with a creatinine of 0.9. ProBNP level was 730 and a troponin is were 0.01 respectively 3. The patient is able to tolerate the BiPAP without any major difficulties. Headaches changed tidal volume is also on 40 mL and her current respiratory rate is around 22. The daughter is at the bedside and the patient is found to be more lethargic compared to her baseline. She is known to have chronic hypoxic and hypercapnic respiratory failure and she has obstructive sleep apnea along with obesity hypoventilation syndrome. She has a normal sinus rhythm for now. Her other comorbid conditions include episodic UTI, episodes of atrial fibrillation for which the patient has been given anticoagulants, hypertension, depression, and degenerative arthritis. She is sedentary. She is a long term resident. She has been receiving Lasix 60 mg by mouth twice a day on an outpatient basis. She has been also on [place] for pain control. She was given Diamox to counteract her chronic metabolic alkalosis at a dose of 250 mg by mouth twice a day. She has a maternal oximetry coagulation with Lynda course. Rest of the long term medications were noted. For now, she is being seen in consultation in the emergency department. Her most recent echocardiogram from 10/29/2021 showed a preserved LV function or relatively preserved LV function with an ejection fraction was mildly impaired at 40-45%. There was concentric LV hypertrophy with some diastolic dysfunction. No other structural abnormalities. No other valvular abnormalities and the pulmonary artery pressure as estimated by the echocardiogram was essentially mild. I started following her September hospitalization, the patient had another hospital admission and October 2021 for recurrent acute on top of chronic hypercapnic respiratory failure. 12/03/2021, the patient is being seen in the intensive care unit. She is currently on a BiPAP at a pressure of 16/5 cm of water, generating tidal volumes of about 400 and her respiratory rate is around 13. Her blood gas from today while on the BiPAP showed a pH of 7.26 with a pCO2 of 98 and pO2 of 102. She is on Lasix. She is on Aldactone. She was found to have a urinary tract infection she's currently on IV Zosyn. Serum bicarbonate of 43. Sodium levels of 141. The white cell count today is at 9.1 with a hemoglobin of 12.7 and a platelet count of 154. She is tolerating the BiPAP without any major difficulties. IV fluids are currently at KVO and the patient has a Hathaway catheter in place. Fluid balance has been negative. She is being given brief time off the BiPAP for oral intake. 12/04 2021, the patient is wide awake, joking, communicating, and when she is fully alert and with excellent sense of humor without any focal neurological deficits. She is currently on oxygen at 5 L. On her blood work, the white cell count of 8.5 with a hemoglobin of 12 and a platelet count of 173. Sodium is at 138 and a serum bicarbonate is 42 with a BUN of 23 and a creatinine of 1.07. She got diabetes with IV Lasix and she is also on Diamox. Overall fluid balance over the past 24 hours has been -1 L. Note that the patient was not having any major signs of clinical fluid overload. In terms of infection, the patient was suspected to have a UTI. Urine cultures are still pending. Meanwhile the patient remains on IV Zosyn. A chest x-ray was done yesterday that was consistent with colovesical congestion and possible left lower lobe pneumonia and cardiomegaly. Repeat x-ray was not obtained today and a follow-up x-ray will be obtained tomorrow. Overnight, the patient slept on a bilevel pressure of 16/5 with an FiO2 of 40%. She is ready for breakfast. 12/05/2021, the patient continues to be wide awake and alert and communicating. warned the BiPAP overnight and this morning she is on oxygen at 4 L. no respiratory distress. she remains on a combination of oral Lasix and Diamox. the paatient's BUN is at 23 with a creatinine of 1.07. the patient has no new labs from today. She is tolerating her diet. She is using the incentive spirometer. IV fluids are currently at KVO. She has gram-negative bacillus in her urine and the patient is on IV Zosyn. no other significant events overnight. We are awaiting a medical bed for this patient. Objective - Vital Signs Vital signs: Vital Signs Temp 97.7 F 12/05/21 08:00 Pulse 68 12/05/21 08:32 Resp 15 12/05/21 08:00 BP 110/63 12/05/21 08:00 Pulse Ox 91 L 12/05/21 08:23 FiO2 40 12/05/21 02:30 Intake & Output 12/04/21 12/05/21 12/05/21 18:59 06:59 18:59 Intake Total 1600 880 Output Total 1195 1015 Balance 405 -135 Intake: IV 260 340 Piperacillin-Tazobactam 3 200 100 .375 gm In Sodium Chloride 0.9% 100 ml @ 25 mls/hr IVPB Q8HR [facility] Rx# :[id number] Sodium Chloride 0.9% 1, 60 240 000 ml @ 20 mls/hr IV . Q24H [facility] Rx#:[id number] Intake, IV Titration 20 Amount Sodium Chloride 0.9% 1, 20 000 ml @ 20 mls/hr IV . Q24H [facility] Rx#:[id number] Oral 1320 540 Output: Urine 1195 1015 Other: Voiding Method Indwelling Catheter Indwelling Catheter Indwelling Catheter - Exam Pleasant 81-year-old female patient. Patient is very much lethargic at this point in time. The patient is on a BiPAP at a pressure of 16/5 cm of water The patient is morbidly obese, body mass index of 51 Head exam was generally normal. There was no scleral icterus or corneal arcus. Mucous membranes were moist. Neck is very thick and the patient is a Mallampati class IV. Patient is currently tolerating a full face BiPAP mask. Neck veins cannot be accurately appreciated. Neck supple. Full range of motion. No adenopathy thyromegaly Cardiovascular examination reveals regular rhythm rate. S1-S2 normal. No S3 or S4. No discernible murmur noted. Lungs reveal occasional diffuse bilateral rhonchi. No wheezes or crackles. Breath sounds are equal bilaterally. Breath sounds are quite diminished bilaterally and air entry and exchange is limited as the patient is morbidly obese. Abdomen obese, soft, without masses or tenderness. noted. Organs cannot be accurately palpated as the patient, morbidly obese. No direct tenderness or rebound tensile guarding at this point in time. Extremities are intact. No cyanosis or clubbing. Trace edema. Skin is without rash or lesion. Neurologic examination is brief but nonfocal. Patient was aroused upon stimulation. She was able to withdraw to painful stimulation all 4 extremities. Neurologic exam is nonfocal. Psychiatric evaluation cannot be done at this point in time. - Labs CBC & Chem 7: 12/04/21 07:07 12/04/21 07:07 Labs: Microbiology - Last 24 Hours (Table) 12/03/21 10:00 Urine Culture - Preliminary Urine,Catheterized Gram Neg Bacilli Assessment and Plan Plan: Acute mental status changes and confusion, secondary to acute on chronic hypoxemic and hypercapnic respiratory failure. The exact cause for this acute on top of chronic respiratory failure is not clear and still under investigation. During this current admission, there are no obvious signs of fluid overload. No obvious signs of any bronchospasm or wheezing. There may be some left lower lobe pulmonary infiltration/pneumonia. There is also the indication of a recurrent UTI. The blood gases showing a component of acute respiratory acidosis. We'll continue the BiPAP treatment for now. We'll cont inue the IV Zosyn for now. Overall rest or status is stable. She remains on a BiPAP of 16/5 cm of water. Clinically much improved and the patient is currently on oxygen at 4 L. The current pulse ox is 97%. No signs of any CO2 narcosis on today's evaluation and workup is in progress. Chronic hypercapnic respiratory failure with an obvious component of obesity hypoventilation syndrome Chronic hypoxic respiratory failure Old right temporal lobe infarct. History of obstructive sleep apnea syndrome. Morbid obesity, with probable Pickwickian syndrome. The patient not been compliant with her BiPAP machine at the long term her BiPAP machine at the long term is set at a pressure of 14 over 4 cm of water Previous history of tobacco use, with probable underlying COPD. History of atrial fibrillation. The patient is anticoagulated on long-term anticoagulation with Eliquis, cardiac rhythm is sinus Previous history of UTI with E. coli History of urinary incontinence. History of hypertension. History of degenerative joint disease. History depression. senior living resident. Plan Continue same management Oral Lasix 40 mg every 12 hours Continue Zosyn pending further cultures, growing gram-negative bacillus in her urine Continue BiPAP overnight the same pressures BiPAP at a pressure of 16 / 5 cm of water and titrate FiO2 to maintain saturation above 90% Suspect a UTI awaiting getting cultures and the patient is on IV Zosyn Check pro calcitonin level was low at 0.08 DuoNeb nebulized treatments around the clock Eliquis to be continued Cardiac rhythm is sinus no major change in her condition. She is fairly stable at this point in time. We'll continue to follow. transfer out all the intensive care units once beds available. I'm quite happy with her progress. I'm going to switch her to oral antibiotics once the cultures are not available.
[2021-12-05] MEDS: lisinopriL 10 MG TAB PO SCH (09:57)
[2021-12-06] MEDS: HYDROcodone/APAP 5-325MG 1 EACH TAB PO PRN ×2 (00:49→08:57)
[2021-12-06] MEDS: PANTOPRAZOLE 40 MG TABLET PO SCH (06:45)
[2021-12-06] MEDS: IPRATROPIUM-ALBUTEROL 3 ML NEB INHALATION SCH ×4 (08:21→20:03)
[2021-12-06] MEDS: PIPERACILLIN-TAZOBACTAM 3.375 GM in SODIUM CHLORIDE 0.9% 100 ML IVPB SCH ×3 (08:55→23:53)
[2021-12-06] MEDS: acetaZOLAMIDE 250 MG TAB PO SCH ×2 (08:56→20:45)
[2021-12-06] MEDS: DOCUSATE 100 MG CAP PO SCH (08:56)
[2021-12-06] MEDS: POTASSIUM CHLORIDE ER 10 MEQ TAB.ER.PRT PO SCH (08:56)
[2021-12-06] MEDS: FUROSEMIDE 40 MG TAB PO SCH ×2 (08:57→16:03)
[2021-12-06] MEDS: APIXABAN 5 MG TAB PO SCH ×2 (08:57→20:45)
[2021-12-06] MEDS: METOPROLOL SUCCINATE (ER) 50 MG TAB.ER.24H PO SCH ×2 (08:57→20:45)
[2021-12-06] MEDS: DIGOXIN 125 MCG TAB PO SCH (08:57)
--- NOTE | 2021-12-06 12:54 | P.PN ---
Subjective Progress Note Date: 12/06/21 This is an 81-year-old morbidly obese female patient IS A BODY MASS INDEX OF AB OVE 50. THE PATIENT GOT TRANSFERRED TO US AGAIN FROM [facility] for worsening shortness of breath emergency and I was also asked to immediately evaluate this patient in emergency department the patient was becoming more lethargic this morning. She came in yesterday to the emergency department. She was unable to provide much history. Apparently she was found to be short of breath and she was also hypoxic. She was brought into the emergency department and she was immediately placed on BiPAP which is currently running at pressures of 14/5 cm of water with FiO2 of 50%. Chest x-ray showed small lung volumes, there was pulmonary vascular congestions on the position of the left lung base. There is a venous blood gas that showed a pH of 7.29 with a pCO2 of 77. Normal coagulation profile. Normal CBC. Serum bicarb is at 42 with a sodium level of 141 and a BUN of 19 with a creatinine of 0.9. ProBNP level was 730 and a troponin is were 0.01 respectively 3. The patient is able to tolerate the BiPAP without any major difficulties. Headaches changed tidal volume is also on 40 mL and her current respiratory rate is around 22. The daughter is at the bedside and the patient is found to be more lethargic compared to her baseline. She is known to have chronic hypoxic and hypercapnic respiratory failure and she has obstructive sleep apnea along with obesity hypoventilation syndrome. She has a normal sinus rhythm for now. Her other comorbid conditions include episodic UTI, episodes of atrial fibrillation for which the patient has been given anticoagulants, hypertension, depression, and degenerative arthritis. She is sedentary. She is a longterm resident. She has been receiving Lasix 60 mg by mouth twice a day on an outpatient basis. She has been also on [place] for pain control. She was given Diamox to counteract her chronic metabolic alkalosis at a dose of 250 mg by mouth twice a day. She has a maternal oximetry coagulation with Lynda course. Rest of the longterm medications were noted. For now, she is being seen in consultation in the emergency department. Her most recent echocardiogram from 10/29/2021 showed a preserved LV function or relatively preserved LV function with an ejection fraction was mildly impaired at 40-45%. There was concentric LV hypertrophy with some diastolic dysfunction. No other structural abnormalities. No other valvular abnormalities and the pulmonary artery pressure as estimated by the echocardiogram was essentially mild. I started following her September hospitalization, the patient had another hospital admission and October 2021 for recurrent acute on top of chronic hypercapnic respiratory failure. 12/03/2021, the patient is being seen in the intensive care unit. She is currently on a BiPAP at a pressure of 16/5 cm of water, generating tidal volumes of about 400 and her respiratory rate is around 13. Her blood gas from today while on the BiPAP showed a pH of 7.26 with a pCO2 of 98 and pO2 of 102. She is on Lasix. She is on Aldactone. She was found to have a urinary tract infection she's currently on IV Zosyn. Serum bicarbonate of 43. Sodium levels of 141. The white cell count today is at 9.1 with a hemoglobin of 12.7 and a platelet count of 154. She is tolerating the BiPAP without any major difficulties. IV fluids are currently at KVO and the patient has a Hathaway catheter in place. Fluid balance has been negative. She is being given brief time off the BiPAP for oral intake. 12/04 2021, the patient is wide awake, joking, communicating, and when she is fully alert and with excellent sense of humor without any focal neurological deficits. She is currently on oxygen at 5 L. On her blood work, the white cell count of 8.5 with a hemoglobin of 12 and a platelet count of 173. Sodium is at 138 and a serum bicarbonate is 42 with a BUN of 23 and a creatinine of 1.07. She got diabetes with IV Lasix and she is also on Diamox. Overall fluid balance over the past 24 hours has been -1 L. Note that the patient was not having any major signs of clinical fluid overload. In terms of infection, the patient was suspected to have a UTI. Urine cultures are still pending. Meanwhile the patient remains on IV Zosyn. A chest x-ray was done yesterday that was consistent with colovesical congestion and possible left lower lobe pneumonia and cardiomegaly. Repeat x-ray was not obtained today and a follow-up x-ray will be obtained tomorrow. Overnight, the patient slept on a bilevel pressure of 16/5 with an FiO2 of 40%. She is ready for breakfast. 12/05/2021, the patient continues to be wide awake and alert and communicating. warned the BiPAP overnight and this morning she is on oxygen at 4 L. no respiratory distress. she remains on a combination of oral Lasix and Diamox. the paatient's BUN is at 23 with a creatinine of 1.07. the patient has no new labs from today. She is tolerating her diet. She is using the incentive spirometer. IV fluids are currently at KVO. She has gram-negative bacillus in her urine and the patient is on IV Zosyn. no other significant events overnight. We are awaiting a medical bed for this patient. 12/06/2021, the patient awake and alert without any signs of the CO2 narcosis. The patient using BiPAP overnight. Currently on 4 L. Got transferred out of the intensive care unit yesterday. Remains on Lasix 40 mg twice a day and the patient is also on IV Zosyn and the urine cultures positive for Klebsiella and E. coli. No fever. No chills and hypotension. No altered mentation. Blood work from today is still pending. Objective - Vital Signs Vital signs: Vital Signs Temp 98.1 F 12/06/21 08:00 Pulse 70 12/06/21 08:32 Resp 19 12/06/21 08:00 BP 110/70 12/06/21 08:00 Pulse Ox 95 12/06/21 08:00 FiO2 40 12/06/21 04:00 Intake & Output 12/05/21 12/06/21 12/06/21 18:59 06:59 18:59 Intake Total 840 240 Output Total 1200 Balance -1200 840 240 Intake: IV 300 Piperacillin-Tazobactam 3 100 .375 gm In Sodium Chloride 0.9% 100 ml @ 25 mls/hr IVPB Q8HR [facility] Rx# :[id number] Sodium Chloride 0.9% 1, 200 000 ml @ 20 mls/hr IV . Q24H [facility] Rx#:[id number] Oral 540 240 Output: Urine 1200 Other: Voiding Method Indwelling Catheter External Catheter External Catheter # Bowel Movements 1 - Exam Pleasant 81-year-old female patient. Patient is very much lethargic at this point in time. The patient is on a BiPAP at a pressure of 16/5 cm of water The patient is morbidly obese, body mass index of 51 Head exam was generally normal. There was no scleral icterus or corneal arcus. Mucous membranes were moist. Neck is very thick and the patient is a Mallampati class IV. Patient is cu rrently tolerating a full face BiPAP mask. Neck veins cannot be accurately appreciated. Neck supple. Full range of motion. No adenopathy thyromegaly Cardiovascular examination reveals regular rhythm rate. S1-S2 normal. No S3 or S4. No discernible murmur noted. Lungs reveal occasional diffuse bilateral rhonchi. No wheezes or crackles. Breath sounds are equal bilaterally. Breath sounds are quite diminished bilaterally and air entry and exchange is limited as the patient is morbidly o bese. Abdomen obese, soft, without masses or tenderness. noted. Organs cannot be accurately palpated as the patient, morbidly obese. No direct tenderness or rebound tensile guarding at this point in time. Extremities are intact. No cyanosis or clubbing. Trace edema. Skin is without rash or lesion. Neurologic examination is brief but nonfocal. Patient was aroused upon stimulation. She was able to withdraw to painful stimulation all 4 extremities. Neurologic exam is nonfocal. Psychiatric evaluation cannot be done at this point in time. - Labs CBC & Chem 7: 12/04/21 07:07 12/04/21 07:07 Labs: Microbiology - Last 24 Hours (Table) 12/03/21 10:00 Urine Culture - Final Urine,Catheterized Escherichia coli Klebsiella pneumoniae Assessment and Plan Plan: Acute mental status changes and confusion, secondary to acute on chronic hypoxemic and hypercapnic respiratory failure. The exact cause for this acute on top of chronic respiratory failure is not clear and still under investigation. During this current admission, there are no obvious signs of fluid overload. No obvious signs of any bronchospasm or wheezing. There may be some left lower lobe pulmonary infiltration/pneumonia. There is also the indication of a recurrent UTI. The blood gases showing a component of acute respiratory acidosis. We'll continue the BiPAP treatment for now. We'll continue the IV Zosyn for now. Overall rest or status is stable. She remains on a BiPAP of 16/5 cm of water. Clinically much improved and the patient is currently on oxygen at 4 L. The current pulse ox is 97%. No signs of any CO2 narcosis on today's evaluation and workup is in progress. Chronic hypercapnic respiratory failure with an obvious component of obesity hypoventilation syndrome Chronic hypoxic respiratory failure Old right temporal lobe infarct. History of obstructive sleep apnea syndrome. Morbid obesity, with probable Pickwickian syndrome. The patient not been compliant with her BiPAP machine at the longterm her BiPAP machine at the longterm is set at a pressure of 14 over 4 cm of water Previous history of tobacco use, with probable underlying COPD. History of atrial fibrillation. The patient is anticoagulated on long-term anticoagulation with Eliquis, cardiac rhythm is sinus Previous history of UTI with E. coli. The patient has another UTI with Klebsiella and E. coli. Currently on IV Zosyn. History of urinary incontinence. History of hypertension. History of degenerative joint disease. History depression. intermediate resident. Plan Transferred outside the intensive care unit yesterday The patient has no signs of any CO2 narcosis Continuous and diuretics with Lasix 40 mg by mouth twice a day Continue IV Zosyn gram-negative UTI/ Continue same management Continue BiPAP overnight the same pressures BiPAP at a pressure of 16 DuoNeb nebulized treatments around the clock Eliquis to be continued Cardiac rhythm is sinus no major change in her condition. She is fairly stable at this point in time. We'll continue to follow.
[2021-12-07] MEDS: DOCUSATE 100 MG CAP PO SCH (07:14)
[2021-12-07] MEDS: POTASSIUM CHLORIDE ER 10 MEQ TAB.ER.PRT PO SCH (07:14)
[2021-12-07] MEDS: FUROSEMIDE 40 MG TAB PO SCH ×2 (07:14→16:29)
[2021-12-07] MEDS: APIXABAN 5 MG TAB PO SCH ×2 (07:15→22:36)
[2021-12-07] MEDS: PIPERACILLIN-TAZOBACTAM 3.375 GM in SODIUM CHLORIDE 0.9% 100 ML IVPB SCH ×2 (07:15→16:30)
[2021-12-07] MEDS: METOPROLOL SUCCINATE (ER) 50 MG TAB.ER.24H PO SCH ×2 (07:15→22:36)
[2021-12-07] MEDS: PANTOPRAZOLE 40 MG TABLET PO SCH (07:15)
[2021-12-07] MEDS: SODIUM CHLORIDE 0.9% 1,000 ML IV SCH (07:18)
[2021-12-07] MEDS: acetaZOLAMIDE 250 MG TAB PO SCH ×2 (08:12→22:37)
[2021-12-07] MEDS: DIGOXIN 125 MCG TAB PO SCH (08:12)
[2021-12-07] MEDS: HYDROcodone/APAP 5-325MG 1 EACH TAB PO PRN ×2 (08:16→13:30)
[2021-12-07] MEDS: IPRATROPIUM-ALBUTEROL 3 ML NEB INHALATION SCH ×4 (08:37→19:24)
--- NOTE | 2021-12-07 12:01 | P.PN ---
Subjective Progress Note Date: 12/07/21 This is an 81-year-old morbidly obese female patient IS A BODY MASS INDEX OF AB OVE 50. THE PATIENT GOT TRANSFERRED TO US AGAIN FROM [facility] for worsening shortness of breath emergency and I was also asked to immediately evaluate this patient in emergency department the patient was becoming more lethargic this morning. She came in yesterday to the emergency department. She was unable to provide much history. Apparently she was found to be short of breath and she was also hypoxic. She was brought into the emergency department and she was immediately placed on BiPAP which is currently running at pressures of 14/5 cm of water with FiO2 of 50%. Chest x-ray showed small lung volumes, there was pulmonary vascular congestions on the position of the left lung base. There is a venous blood gas that showed a pH of 7.29 with a pCO2 of 77. Normal coagulation profile. Normal CBC. Serum bicarb is at 42 with a sodium level of 141 and a BUN of 19 with a creatinine of 0.9. ProBNP level was 730 and a troponin is were 0.01 respectively 3. The patient is able to tolerate the BiPAP without any major difficulties. Headaches changed tidal volume is also on 40 mL and her current respiratory rate is around 22. The daughter is at the bedside and the patient is found to be more lethargic compared to her baseline. She is known to have chronic hypoxic and hypercapnic respiratory failure and she has obstructive sleep apnea along with obesity hypoventilation syndrome. She has a normal sinus rhythm for now. Her other comorbid conditions include episodic UTI, episodes of atrial fibrillation for which the patient has been given anticoagulants, hypertension, depression, and degenerative arthritis. She is sedentary. [facility] is a [facility]. She has been receiving Lasix 60 mg by mouth twice a day on an outpatient basis. She has been also on [place] for pain control. She was given Diamox to counteract her chronic metabolic alkalosis at a dose of 250 mg by mouth twice a day. She has a maternal oximetry coagulation with Lynda course. Rest of the [facility] medications were noted. For now, she is being seen in consultation in the emergency department. Her most recent echocardiogram from 10/29/2021 showed a preserved LV function or relatively preserved LV function with an ejection fraction was mildly impaired at 40-45%. There was concentric LV hypertrophy with some diastolic dysfunction. No other structural abnormalities. No other valvular abnormalities and the pulmonary artery pressure as estimated by the echocardiogram was essentially mild. I started following her September hospitalization, the patient had another hospital admission and October 2021 for recurrent acute on top of chronic hypercapnic respiratory failure. 12/03/2021, the patient is being seen in the intensive care unit. She is currently on a BiPAP at a pressure of 16/5 cm of water, generating tidal volumes of about 400 and her respiratory rate is around 13. Her blood gas from today while on the BiPAP showed a pH of 7.26 with a pCO2 of 98 and pO2 of 102. She is on Lasix. She is on Aldactone. She was found to have a urinary tract infection she's currently on IV Zosyn. Serum bicarbonate of 43. Sodium levels of 141. The white cell count today is at 9.1 with a hemoglobin of 12.7 and a platelet count of 154. She is tolerating the BiPAP without any major difficulties. IV fluids are currently at KVO and the patient has a Hathaway catheter in place. Fluid balance has been negative. She is being given brief time off the BiPAP for oral intake. 12/04 2021, the patient is wide awake, joking, communicating, and when she is fully alert and with excellent sense of humor without any focal neurological deficits. She is currently on oxygen at 5 L. On her blood work, the white cell count of 8.5 with a hemoglobin of 12 and a platelet count of 173. Sodium is at 138 and a serum bicarbonate is 42 with a BUN of 23 and a creatinine of 1.07. She got diabetes with IV Lasix and she is also on Diamox. Overall fluid balance over the past 24 hours has been -1 L. Note that the patient was not having any major signs of clinical fluid overload. In terms of infection, the patient was suspected to have a UTI. Urine cultures are still pending. Meanwhile the patient remains on IV Zosyn. A chest x-ray was done yesterday that was consistent with colovesical congestion and possible left lower lobe pneumonia and cardiomegaly. Repeat x-ray was not obtained today and a follow-up x-ray will be obtained tomorrow. Overnight, the patient slept on a bilevel pressure of 16/5 with an FiO2 of 40%. She is ready for breakfast. 12/05/2021, the patient continues to be wide awake and alert and communicating. warned the BiPAP overnight and this morning she is on oxygen at 4 L. no respiratory distress. she remains on a combination of oral Lasix and Diamox. the paatient's BUN is at 23 with a creatinine of 1.07. the patient has no new labs from today. She is tolerating her diet. She is using the incentive spirometer. IV fluids are currently at KVO. She has gram-negative bacillus in her urine and the patient is on IV Zosyn. no other significant events overnight. We are awaiting a medical bed for this patient. 12/06/2021, the patient awake and alert without any signs of the CO2 narcosis. The patient using BiPAP overnight. Currently on 4 L. Got transferred out of the intensive care unit yesterday. Remains on Lasix 40 mg twice a day and the patient is also on IV Zosyn and the urine cultures positive for Klebsiella and E. coli. No fever. No chills and hypotension. No altered mentation. Blood work from today is still pending. 2031, no complaints, alert and awake. No signs of any CO2 narcosis. No signs of any fluid overload. Remains on anticoagulation. Remains on IV Zosyn. Remains on oral Diamox. Remains on Lasix 40 mg by mouth twice a day. She is on 4 L O2 nasal cannula. Objective - Vital Signs Vital signs: Vital Signs Temp 97.9 F 12/07/21 07:11 Pulse 76 12/07/21 11:48 Resp 16 12/07/21 08:00 BP 102/64 12/07/21 07:11 Pulse Ox 94 L 12/07/21 07:11 FiO2 40 12/07/21 00:04 Intake & Output 12/06/21 12/07/21 12/07/21 18:59 06:59 18:59 Intake Total 1040 360 Balance 1040 360 Intake: IV 200 Piperacillin-Tazobactam 3 200 .375 gm In Sodium Chloride 0.9% 100 ml @ 25 mls/hr IVPB Q8HR [facility] Rx# :[id number] Oral 840 360 Other: Voiding Method External Catheter External Catheter External Catheter - Exam Pleasant 81-year-old female patient. Patient is very much lethargic at this point in time. The patient is on a BiPAP at a pressure of 16/5 cm of water The patient is morbidly obese, body mass index of 51 Head exam was generally normal. There was no scleral icterus or corneal arcus. Mucous membranes were moist. Neck is very thick and the patient is a Mallampati class IV. Patient is currently tolerating a full face BiPAP mask. Neck veins cannot be accurately appreciated. Neck supple. Full range of motion. No adenopathy thyromegaly Cardiovascular examination reveals regular rhythm rate. S1-S2 normal. No S3 or S4. No discernible murmur noted. Lungs reveal occasional diffuse bilateral rhonchi. No wheezes or crackles. Breath sounds are equal bilaterally. Breath sounds are quite diminished bilaterally and air entry and exchange is limited as the patient is morbidly obese. Abdomen obese, soft, without masses or tenderness. noted. Organs cannot be accurately palpated as the patient, morbidly obese. No direct tenderness or rebound tensile guarding at this point in time. Extremities are intact. No cyanosis or clubbing. Trace edema. Skin is without rash or lesion. Neurologic examination is brief but nonfocal. Patient was aroused upon stimulation. She was able to withdraw to painful stimulation all 4 extremities. Neurologic exam is nonfocal. Psychiatric evaluation cannot be done at this point in time. - Labs CBC & Chem 7: 12/04/21 07:07 12/04/21 07:07 Labs: Microbiology - Last 24 Hours (Table) 12/03/21 10:00 Urine Culture - Final Urine,Catheterized Escherichia coli Klebsiella pneumoniae Assessment and Plan Plan: Acute mental status changes and confusion, secondary to acute on chronic hypoxemic and hypercapnic respiratory failure. The exact cause for this acute on top of chronic respiratory failure is not clear and still under investigation. During this current admission, there are no obvious signs of fluid overload. No obvious signs of any bronchospasm or wheezing. There may be some left lower lobe pulmonary infiltration/pneumonia. There is also the indication of a recurrent UTI. The blood gases showing a component of acute respiratory acidosis. We'll continue the BiPAP treatment for now. We'll continue the IV Zosyn for now. Overall rest or status is stable. She remains on a BiPAP of 16/5 cm of water. Clinically much improved and the patient is currently on oxygen at 4 L. The current pulse ox is 97%. No signs of any CO2 narcosis on today's evaluation and workup is in progress. Chronic hypercapnic respiratory failure with an obvious component of obesity hypoventilation syndrome Chronic hypoxic respiratory failure Old right temporal lobe infarct. History of obstructive sleep apnea syndrome. Morbid obesity, with probable Pickwickian syndrome. The patient not been compliant with [facility] is set at a pressure of 14 over 4 cm of water Previous history of tobacco use, with probable underlying COPD. History of atrial fibrillation. The patient is anticoagulated on long-term anticoagulation with Eliquis, cardiac rhythm is sinus Previous history of UTI with E. coli. The patient has another UTI with Klebsiella and E. coli. Currently on IV Zosyn. History of urinary incontinence. History of hypertension. History of degenerative joint disease. History depression. custodial resident. Plan Clinically very stable change the patient's oral antibiotics regarding UTI and the patient can be switched to ciprofloxacin or Levaquin Continue BiPAP overnight the same pressures BiPAP at a pressure of 16 /5 DuoNeb nebulized treatments around the clock Eliquis to be continued Cardiac rhythm is sinus no major change in her condition. She is fairly stable at this point in time. We'll continue to follow. We are going to sign off the case. The patient, discharged from the pulmonary standpoint
[2021-12-08] MEDS: PIPERACILLIN-TAZOBACTAM 3.375 GM in SODIUM CHLORIDE 0.9% 100 ML IVPB SCH ×3 (00:06→16:46)
--- NOTE | 2021-12-08 01:08 | P.PN ---
Subjective Progress Note Date: 12/03/21 Patient is a 81-year-old female with a known history of COPD, CHF, chronic hypoxic respiratory failure, obstructive sleep apnea on CPAP, generalized weakness and wheelchair-bound, atrial fibrillation on anticoagulation with Eliquis and other multiple medical problems was transferred from [facility]care facility due to patient being more lethargic and short of breath. Patient was found to be hypoxic and was placed on BiPAP in the ER. Patient has been afebrile. No nausea vomiting or abdominal pain or diarrhea. Chest x-ray showed cardiomegaly and pulmonary fibrosis. There is improvement in the pulmonary congestion and pulmonary infiltrates compared to old exam. EKG showed sinus rhythm with frequent supraventricular premature complexes. Laboratory data showed WBC 8.0 hemoglobin 13.4 and platelets 183. Venous blood gas showed pH of 7.29 PCO2 77 and bicarb 27 Sodium 141 potassium 4.1 chloride 92 bicarb 22 BUN 17 and creatinine 0.95 blood sugar 131 Troponin x3 negative and proBNP 730 and procalcitonin elevated 0.08 Urinalysis showed turbid with nitrate negative. Large leukocyte esterase with elevated RBCs and WBCs. 12/03/2021 Patient is in the intensive care unit. Currently on BiPAP. Awake alert and oriented x3. No complaints of chest pain. No nausea vomiting abdominal pain or diarrhea. Patient is being current on antibiotics in the form of Zosyn for urinary tract infection. Laboratory data showed WBC 9.1 hemoglobin 12.7 and platelets 154 ABG showed pH 7.26 PCO2 98 and PO2 102 Sodium 141 potassium 4.2 chloride 91 bicarb is 43 BUN 20 and creatinine 1.03 Free T4 within normal limits. Pulmonary is on board. current medications reviewed. Objective - Vital Signs Vital signs: Vital Signs Temp 98.0 F 12/03/21 16:00 Pulse 77 12/03/21 21:00 Resp 24 12/03/21 21:00 BP 85/64 12/03/21 21:00 Pulse Ox 97 12/03/21 21:00 FiO2 40 12/03/21 16:00 Intake & Output 12/03/21 12/03/21 12/04/21 06:59 18:59 06:59 Intake Total 240 820 520 Output Total 890 695 285 Balance -650 125 235 Weight 136.07 kg Intake: IV 240 340 Magnesium Sulfate-D5w Pmx 100 1 gm In Dextrose/Water 1 100ml.bag @ 100 mls/hr IVPB Q1H [facility] Rx#: [id number] Piperacillin-Tazobactam 3 200 .375 gm In Sodium Chloride 0.9% 100 ml @ 25 mls/hr IVPB Q8HR [facility] Rx# :[id number] Sodium Chloride 0.9% 1, 240 40 000 ml @ 20 mls/hr IV . Q24H [facility] Rx#:[id number] Intake, IV Titration 40 Amount Sodium Chloride 0.9% 1, 40 000 ml @ 20 mls/hr IV . Q24H [facility] Rx#:[id number] Oral 480 480 Output: Urine 890 695 285 Other: Voiding Method Indwelling Catheter Indwelling Catheter Indwelling Catheter # Bowel Movements 1 - Exam PHYSICAL EXAMINATION: Patient is lying in the bed. Awake alert but confused and lethargic. On BiPAP. HEENT: Normocephalic. Neck is supple. Pupils reactive. Nostrils clear. Oral cavity is moist. Neck reveals no JVD, carotid bruits, or thyromegaly. CHEST EXAMINATION: Trachea is central. Symmetrical expansion. Bibasilar diminished sounds. No wheezing or rhonchi.. CARDIAC: Normal S1, S2 with no gallops. No murmurs ABDOMEN: Soft. Bowel sounds present. Nontender. No organomegaly. No abdominal bruits. Extremities: Bilateral trace edema pedal edema. No clubbing or cyanosis Neurologically awake, alert but confused. No gross focal deficits noted Skin: No rash or skin lesions. Psychiatric: Coperative. Could not be assessed completely musculoskeletal: No joint swelling or deformity. - Labs CBC & Chem 7: 12/04/21 07:07 12/04/21 07:07 Labs: Abnormal Lab Results - Last 24 Hours (Table) 12/03/21 12/03/21 12/03/21 Range/Units 03:44 03:44 03:44 MCHC 30.3 L (31.0-37.0) g/dL Neutrophils # 7.9 H (1.3-7.7) k/uL Lymphocytes # 0.7 L (1.0-4.8) k/uL ABG pH (7.35-7.45) ABG pCO2 (35-45) mmHg ABG HCO3 (21-25) mmol/L ABG Total CO2 (19-24) mmol/L ABG O2 Saturation (94-97) % Chloride 91 L (98-107) mmol/L Carbon Dioxide 43 H* (22-30) mmol/L BUN 20 H (7-17) mg/dL Glucose 151 H (74-99) mg/dL Total Protein 6.0 L (6.3-8.2) g/dL TSH 0.135 L (0.465-4.680) mIU/L 12/03/21 Range/Units 06:10 MCHC (31.0-37.0) g/dL Neutrophils # (1.3-7.7) k/uL Lymphocytes # (1.0-4.8) k/uL ABG pH 7.26 L (7.35-7.45) ABG pCO2 98 H* (35-45) mmHg ABG HCO3 44 H* (21-25) mmol/L ABG Total CO2 47 H (19-24) mmol/L ABG O2 Saturation 98.7 H (94-97) % Chloride (98-107) mmol/L Carbon Dioxide (22-30) mmol/L BUN (7-17) mg/dL Glucose (74-99) mg/dL Total Protein (6.3-8.2) g/dL TSH (0.465-4.680) mIU/L Microbiology - Last 24 Hours (Table) 12/03/21 10:00 Urine Culture - Preliminary Urine,Catheterized Assessment and Plan Assessment: Acute on chronic hypoxic and hypercapnic respiratory failure Possible left lower lobe pneumonia Altered mental status likely due to metabolic encephalopathy Acute urinary tract infection with history of E. coli UTI Chronic hypoxic and hypercapnic respiratory failure with component of hypoventilation syndrome Obstructive sleep apnea on CPAP Morbid obesity BMI 54.9 Proximal atrial fibrillation on anticoagulation with Eliquis Hypertension Osteoarthritis Depression Medical debility and wheelchair-bound History of fall right temporal infarct Plan: Patient be continued on oxygen for mentation and is being maintained on BiPAP. Started on empiric in the form of Zosyn. Follow-up urine culture and blood cultures. Patient was started on Lasix 40 mg twice daily. Cardiology and pulmonary is on board. Current with home medications and anticoagulation with Eliquis. Prognosis is guarded with multiple medical problems and comorbid conditions. Time with Patient: Greater than 30
--- NOTE | 2021-12-08 01:12 | P.PN ---
Subjective Progress Note Date: 12/04/21 Patient is a 81-year-old female with a known history of COPD, CHF, chronic hypoxic respiratory failure, obstructive sleep apnea on CPAP, generalized weakness and wheelchair-bound, atrial fibrillation on anticoagulation with Eliquis and other multiple medical problems was transferred from [facility] [place]care facility due to patient being more lethargic and short of breath. Patient was found to be hypoxic and was placed on BiPAP in the ER. Patient has been afebrile. No nausea vomiting or abdominal pain or diarrhea. Chest x-ray showed cardiomegaly and pulmonary fibrosis. There is improvement in the pulmonary congestion and pulmonary infiltrates compared to old exam. EKG showed sinus rhythm with frequent supraventricular premature complexes. Laboratory data showed WBC 8.0 hemoglobin 13.4 and platelets 183. Venous blood gas showed pH of 7.29 PCO2 77 and bicarb 27 Sodium 141 potassium 4.1 chloride 92 bicarb 22 BUN 17 and creatinine 0.95 blood sugar 131 Troponin x3 negative and proBNP 730 and procalcitonin elevated 0.08 Urinalysis showed turbid with nitrate negative. Large leukocyte esterase with elevated RBCs and WBCs. 12/03/2021 Patient is in the intensive care unit. Currently on BiPAP. Awake alert and oriented x3. No complaints of chest pain. No nausea vomiting abdominal pain or diarrhea. Patient is being current on antibiotics in the form of Zosyn for urinary tract infection. Laboratory data showed WBC 9.1 hemoglobin 12.7 and platelets 154 ABG showed pH 7.26 PCO2 98 and PO2 102 Sodium 141 potassium 4.2 chloride 91 bicarb is 43 BUN 20 and creatinine 1.03 Free T4 within normal limits. Pulmonary is on board. 12/04/2021 Patient is awake and able to communicate. BiPAP is off and currently on 5 L oxygen via nasal cannula. Patient was given a dose of IV Lasix and also on Diamox. No complaints of chest pain. No nausea vomiting abdominal pain or diarrhea. Tolerating oral diet. Cough without any sputum production. Patient still having exertional dyspnea. No fever no chills Laboratory data showed WBC 8.4 hemoglobin 12.0 and platelets 173 Sodium 138 potassium 3.2 chloride 91 bicarb is 42 BUN 23 and creatinine 1.07 and blood sugar is 104 current medications reviewed. Objective - Vital Signs Vital signs: Vital Signs Temp 98.3 F 12/04/21 14:00 Pulse 84 12/04/21 19:40 Resp 18 12/04/21 14:00 BP 98/57 12/04/21 14:00 Pulse Ox 95 12/04/21 14:00 FiO2 40 12/04/21 04:00 Intake & Output 12/04/21 12/04/21 12/05/21 06:59 18:59 06:59 Intake Total 700 1600 Output Total 835 1195 Balance -135 405 Weight 123.3 kg Intake: IV 260 Piperacillin-Tazobactam 3 200 .375 gm In Sodium Chloride 0.9% 100 ml @ 25 mls/hr IVPB Q8HR [facility] Rx# :[id number] Sodium Chloride 0.9% 1, 60 000 ml @ 20 mls/hr IV . Q24H [facility] Rx#:[id number] Intake, IV Titration 220 20 Amount Sodium Chloride 0.9% 1, 220 20 000 ml @ 20 mls/hr IV . Q24H [facility] Rx#:[id number] Oral 480 1320 Output: Urine 835 1195 Other: Voiding Method Indwelling Catheter Indwelling Catheter - Exam PHYSICAL EXAMINATION: Patient is lying in the bed. Awake alert but confused and lethargic. off BiPAP. HEENT: Normocephalic. Neck is supple. Pupils reactive. Nostrils clear. Oral cavity is moist. Neck reveals no JVD, carotid bruits, or thyromegaly. CHEST EXAMINATION: Trachea is central. Symmetrical expansion. Bibasilar diminished sounds. No wheezing or rhonchi.. CARDIAC: Normal S1, S2 with no gallops. No murmurs ABDOMEN: Soft. Bowel sounds present. Nontender. No organomegaly. No abdominal bruits. Extremities: Bilateral trace edema pedal edema. No clubbing or cyanosis Neurologically awake, alert but confused. No gross focal deficits noted Skin: No rash or skin lesions. Psychiatric: Coperative. Could not be assessed completely musculoskeletal: No joint swelling or deformity. - Labs CBC & Chem 7: 12/04/21 07:07 12/04/21 07:07 Labs: Abnormal Lab Results - Last 24 Hours (Table) 12/04/21 Range/Units 07:07 Potassium 3.2 L (3.5-5.1) mmol/L Chloride 91 L (98-107) mmol/L Carbon Dioxide 42 H* (22-30) mmol/L BUN 23 H (7-17) mg/dL Creatinine 1.07 H (0.52-1.04) mg/dL Glucose 104 H (74-99) mg/dL Microbiology - Last 24 Hours (Table) 12/03/21 10:00 Urine Culture - Preliminary Urine,Catheterized Gram Neg Bacilli Assessment and Plan Assessment: Acute on chronic hypoxic and hypercapnic respiratory failure Possible left lower lobe pneumonia Altered mental status likely due to metabolic encephalopathy Acute urinary tract infection with history of E. coli UTI Chronic hypoxic and hypercapnic respiratory failure with component of hypoventilation syndrome Obstructive sleep apnea on CPAP Morbid obesity BMI 54.9 Proximal atrial fibrillation on anticoagulation with Eliquis Hypertension Osteoarthritis Depression Medical debility and wheelchair-bound History of fall right temporal infarct Plan: Patient be continued on oxygen for mentation and is being maintained on BiPAP. [place] to [place]. Started on empiric in the form of Zosyn. Follow-up urine culture and blood cultures. Patient was started on Lasix 40 mg twice daily. Cardiology and pulmonary is on board. Current with home medications and anticoagulation with Eliquis. Prognosis is guarded with multiple medical problems and comorbid conditions. Time with Patient: Greater than 30
--- NOTE | 2021-12-08 01:14 | P.PN ---
Subjective Progress Note Date: 12/05/21 Patient is a 81-year-old female with a known history of COPD, CHF, chronic hypoxic respiratory failure, obstructive sleep apnea on CPAP, generalized weakness and wheelchair-bound, atrial fibrillation on anticoagulation with Eliquis and other multiple medical problems was transferred from [facility]-care facility due to patient being more lethargic and short of breath. Patient was found to be hypoxic and was placed on BiPAP in the ER. Patient has been afebrile. No nausea vomiting or abdominal pain or diarrhea. Chest x-ray showed cardiomegaly and pulmonary fibrosis. There is improvement in the pulmonary congestion and pulmonary infiltrates compared to old exam. EKG showed sinus rhythm with frequent supraventricular premature complexes. Laboratory data showed WBC 8.0 hemoglobin 13.4 and platelets 183. Venous blood gas showed pH of 7.29 PCO2 77 and bicarb 27 Sodium 141 potassium 4.1 chloride 92 bicarb 22 BUN 17 and creatinine 0.95 blood sugar 131 Troponin x3 negative and proBNP 730 and procalcitonin elevated 0.08 Urinalysis showed turbid with nitrate negative. Large leukocyte esterase with elevated RBCs and WBCs. 12/03/2021 Patient is in the intensive care unit. Currently on BiPAP. Awake alert and oriented x3. No complaints of chest pain. No nausea vomiting abdominal pain or diarrhea. Patient is being current on antibiotics in the form of Zosyn for urinary tract infection. Laboratory data showed WBC 9.1 hemoglobin 12.7 and platelets 154 ABG showed pH 7.26 PCO2 98 and PO2 102 Sodium 141 potassium 4.2 chloride 91 bicarb is 43 BUN 20 and creatinine 1.03 Free T4 within normal limits. Pulmonary is on board. 12/04/2021 Patient is awake and able to communicate. BiPAP is off and currently on 5 L oxygen via nasal cannula. Patient was given a dose of IV Lasix and also on Diamox. No complaints of chest pain. No nausea vomiting abdominal pain or diarrhea. Tolerating oral diet. Cough without any sputum production. Patient still having exertional dyspnea. No fever no chills Laboratory data showed WBC 8.4 hemoglobin 12.0 and platelets 173 Sodium 138 potassium 3.2 chloride 91 bicarb is 42 BUN 23 and creatinine 1.07 and blood sugar is 104 12/05/2021 Patient is currently awake alert and oriented x3. Patient did require BiPAP overnight. Currently on oxygen at 4 L via nasal cannula. Patient is being continued on Lasix and Diamox. Laboratory data reviewed. Patient is also using incentive spirometry. Urine culture showed gram-negative bacilli and is being continued on Zosyn. Follow-up final culture report. No complaints of abdominal pain. No nausea vomiting abdominal pain or diarrhea. Tolerating oral diet. Patient is being transferred to medical floor today. current medications reviewed. Objective - Vital Signs Vital signs: Vital Signs Temp 97.8 F 12/05/21 20:00 Pulse 74 12/05/21 20:23 Resp 18 12/05/21 20:00 BP 112/73 12/05/21 20:00 Pulse Ox 95 12/05/21 20:00 FiO2 40 12/05/21 02:30 Intake & Output 12/05/21 12/05/21 12/06/21 06:59 18:59 06:59 Intake Total 880 Output Total 1015 1200 Balance -135 -1200 Intake: IV 340 Piperacillin-Tazobactam 3 100 .375 gm In Sodium Chloride 0.9% 100 ml @ 25 mls/hr IVPB Q8HR [facility] Rx# :[id number] Sodium Chloride 0.9% 1, 240 000 ml @ 20 mls/hr IV . Q24H [facility] Rx#:[id number] Oral 540 Output: Urine 1015 1200 Other: Voiding Method Indwelling Catheter Indwelling Catheter External Catheter # Bowel Movements 1 - Exam PHYSICAL EXAMINATION: Patient is lying in the bed. Awake alert but confused and lethargic. off BiPAP. HEENT: Normocephalic. Neck is supple. Pupils reactive. Nostrils clear. Oral cavity is moist. Neck reveals no JVD, carotid bruits, or thyromegaly. CHEST EXAMINATION: Trachea is central. Symmetrical expansion. Bibasilar diminished sounds. No wheezing or rhonchi.. CARDIAC: Normal S1, S2 with no gallops. No murmurs ABDOMEN: Soft. Bowel sounds present. Nontender. No organomegaly. No abdominal bruits. Extremities: Bilateral trace edema pedal edema. No clubbing or cyanosis Neurologically awake, alert but confused. No gross focal deficits noted Skin: No rash or skin lesions. Psychiatric: Coperative. Could not be assessed completely musculoskeletal: No joint swelling or deformity. - Labs CBC & Chem 7: 12/04/21 07:07 12/04/21 07:07 Labs: Microbiology - Last 24 Hours (Table) 12/03/21 10:00 Urine Culture - Preliminary Urine,Catheterized Escherichia coli Assessment and Plan Assessment: Acute on chronic hypoxic and hypercapnic respiratory failure Possible left lower lobe pneumonia Altered mental status likely due to metabolic encephalopathy Acute urinary tract infection with history of E. coli UTI Chronic hypoxic and hypercapnic respiratory failure with component of hypoventilation syndrome Obstructive sleep apnea on CPAP Morbid obesity BMI 54.9 Proximal atrial fibrillation on anticoagulation with Eliquis Hypertension Osteoarthritis Depression Medical debility and wheelchair-bound History of fall right temporal infarct Plan: Patient be continued on oxygen chnage d to [place]. off BIPAP ..Continue with Zosyn for gram-negative bacilli urinary tract infection Patient was started on Lasix 40 mg twice daily. Cardiology and pulmonary is on board. Current with home medications and anticoagulation with Eliquis. Prognosis is guarded with multiple medical problems and comorbid conditions. Time with Patient: Greater than 30
--- NOTE | 2021-12-08 01:16 | P.PN ---
Subjective Progress Note Date: 12/06/21 Patient is a 81-year-old female with a known history of COPD, CHF, chronic hypoxic respiratory failure, obstructive sleep apnea on CPAP, generalized weakness and wheelchair-bound, atrial fibrillation on anticoagulation with Eliquis and other multiple medical problems was transferred from [facility]-care facility due to patient being more lethargic and short of breath. Patient was found to be hypoxic and was placed on BiPAP in the ER. Patient has been afebrile. No nausea vomiting or abdominal pain or diarrhea. Chest x-ray showed cardiomegaly and pulmonary fibrosis. There is improvement in the pulmonary congestion and pulmonary infiltrates compared to old exam. EKG showed sinus rhythm with frequent supraventricular premature complexes. Laboratory data showed WBC 8.0 hemoglobin 13.4 and platelets 183. Venous blood gas showed pH of 7.29 PCO2 77 and bicarb 27 Sodium 141 potassium 4.1 chloride 92 bicarb 22 BUN 17 and creatinine 0.95 blood sugar 131 Troponin x3 negative and proBNP 730 and procalcitonin elevated 0.08 Urinalysis showed turbid with nitrate negative. Large leukocyte esterase with elevated RBCs and WBCs. 12/03/2021 Patient is in the intensive care unit. Currently on BiPAP. Awake alert and oriented x3. No complaints of chest pain. No nausea vomiting abdominal pain or diarrhea. Patient is being current on antibiotics in the form of Zosyn for urinary tract infection. Laboratory data showed WBC 9.1 hemoglobin 12.7 and platelets 154 ABG showed pH 7.26 PCO2 98 and PO2 102 Sodium 141 potassium 4.2 chloride 91 bicarb is 43 BUN 20 and creatinine 1.03 Free T4 within normal limits. Pulmonary is on board. 12/04/2021 Patient is awake and able to communicate. BiPAP is off and currently on 5 L oxygen via nasal cannula. Patient was given a dose of IV Lasix and also on Diamox. No complaints of chest pain. No nausea vomiting abdominal pain or diarrhea. Tolerating oral diet. Cough without any sputum production. Patient still having exertional dyspnea. No fever no chills Laboratory data showed WBC 8.4 hemoglobin 12.0 and platelets 173 Sodium 138 potassium 3.2 chloride 91 bicarb is 42 BUN 23 and creatinine 1.07 and blood sugar is 104 12/05/2021 Patient is currently awake alert and oriented x3. Patient did require BiPAP overnight. Currently on oxygen at 4 L via nasal cannula. Patient is being continued on Lasix and Diamox. Laboratory data reviewed. Patient is also using incentive spirometry. Urine culture showed gram-negative bacilli and is being continued on Zosyn. Follow-up final culture report. No complaints of abdominal pain. No nausea vomiting abdominal pain or diarrhea. Tolerating oral diet. Patient is being transferred to medical floor today. 12/06/2021 Patient is awake alert and oriented x3. No complaints of chest pain or worsening shortness of breath. Currently on oxygen via nasal cannula at 4 L. Patient has been using BiPAP overnight. Patient is being current on Lasix 40 mg twice daily and also on antibiotics in the form of Zosyn for Klebsiella and E. coli urinary tract infection. Last dose tomorrow. Patient has been afebrile. No nausea vomiting abdominal diarrhea. Tolerating oral diet. current medications reviewed. Objective - Vital Signs Vital signs: Vital Signs Temp 97.8 F 12/06/21 13:08 Pulse 68 12/06/21 13:08 Resp 20 12/06/21 13:08 BP 113/71 12/06/21 13:08 Pulse Ox 96 12/06/21 13:08 FiO2 40 12/06/21 04:00 Intake & Output 12/05/21 12/06/21 12/06/21 18:59 06:59 18:59 Intake Total 840 480 Output Total 1200 Balance -1200 840 480 Intake: IV 300 Piperacillin-Tazobactam 3 100 .375 gm In Sodium Chloride 0.9% 100 ml @ 25 mls/hr IVPB Q8HR [facility] Rx# :[id number] Sodium Chloride 0.9% 1, 200 000 ml @ 20 mls/hr IV . Q24H [facility] Rx#:[id number] Oral 540 480 Output: Urine 1200 Other: Voiding Method Indwelling Catheter External Catheter External Catheter # Bowel Movements 1 - Exam PHYSICAL EXAMINATION: Patient is lying in the bed. Awake alert but confused and lethargic. off BiPAP. HEENT: Normocephalic. Neck is supple. Pupils reactive. Nostrils clear. Oral cavity is moist. Neck reveals no JVD, carotid bruits, or thyromegaly. CHEST EXAMINATION: Trachea is central. Symmetrical expansion. Bibasilar diminished sounds. No wheezing or rhonchi.. CARDIAC: Normal S1, S2 with no gallops. No murmurs ABDOMEN: Soft. Bowel sounds present. Nontender. No organomegaly. No abdominal bruits. Extremities: Bilateral trace edema pedal edema. No clubbing or cyanosis Neurologically awake, alert but confused. No gross focal deficits noted Skin: No rash or skin lesions. Psychiatric: Coperative. Could not be assessed completely musculoskeletal: No joint swelling or deformity. - Labs CBC & Chem 7: 12/04/21 07:07 12/04/21 07:07 Labs: Microbiology - Last 24 Hours (Table) 12/03/21 10:00 Urine Culture - Final Urine,Catheterized Escherichia coli Klebsiella pneumoniae Assessment and Plan Assessment: Acute on chronic hypoxic and hypercapnic respiratory failure Possible left lower lobe pneumonia Altered mental status likely due to metabolic encephalopathy Acute urinary tract infection with history of E. coli UTI Chronic hypoxic and hypercapnic respiratory failure with component of hypoventilation syndrome Obstructive sleep apnea on CPAP Morbid obesity BMI 54.9 Proximal atrial fibrillation on anticoagulation with Eliquis Hypertension Osteoarthritis Depression Medical debility and wheelchair-bound History of fall right temporal infarct Plan: Patient be continued on oxygen chnage d to [place]. off BIPAP ..Continue with Zosyn for gram-negative bacilli urinary tract infection Patient was started on Lasix 40 mg twice daily. Cardiology and pulmonary is on board. Current with home medications and anticoagulation with Eliquis. Prognosis is guarded with multiple medical problems and comorbid conditions. Time with Patient: Greater than 30
--- NOTE | 2021-12-08 01:17 | P.PN ---
Subjective Progress Note Date: 12/07/21 Patient is a 81-year-old female with a known history of COPD, CHF, chronic hypoxic respiratory failure, obstructive sleep apnea on CPAP, generalized weakness and wheelchair-bound, atrial fibrillation on anticoagulation with Eliquis and other multiple medical problems was transferred from [facility] due to patient being more lethargic and short of breath. Patient was found to be hypoxic and was placed on BiPAP in the ER. Patient has been afebrile. No nausea vomiting or abdominal pain or diarrhea. Chest x-ray showed cardiomegaly and pulmonary fibrosis. There is improvement in the pulmonary congestion and pulmonary infiltrates compared to old exam. EKG showed sinus rhythm with frequent supraventricular premature complexes. Laboratory data showed WBC 8.0 hemoglobin 13.4 and platelets 183. Venous blood gas showed pH of 7.29 PCO2 77 and bicarb 27 Sodium 141 potassium 4.1 chloride 92 bicarb 22 BUN 17 and creatinine 0.95 blood sugar 131 Troponin x3 negative and proBNP 730 and procalcitonin elevated 0.08 Urinalysis showed turbid with nitrate negative. Large leukocyte esterase with elevated RBCs and WBCs. 12/03/2021 Patient is in the intensive care unit. Currently on BiPAP. Awake alert and oriented x3. No complaints of chest pain. No nausea vomiting abdominal pain or diarrhea. Patient is being current on antibiotics in the form of Zosyn for urinary tract infection. Laboratory data showed WBC 9.1 hemoglobin 12.7 and platelets 154 ABG showed pH 7.26 PCO2 98 and PO2 102 Sodium 141 potassium 4.2 chloride 91 bicarb is 43 BUN 20 and creatinine 1.03 Free T4 within normal limits. Pulmonary is on board. 12/04/2021 Patient is awake and able to communicate. BiPAP is off and currently on 5 L oxygen via nasal cannula. Patient was given a dose of IV Lasix and also on Diamox. No complaints of chest pain. No nausea vomiting abdominal pain or diarrhea. Tolerating oral diet. Cough without any sputum production. Patient still having exertional dyspnea. No fever no chills Laboratory data showed WBC 8.4 hemoglobin 12.0 and platelets 173 Sodium 138 potassium 3.2 chloride 91 bicarb is 42 BUN 23 and creatinine 1.07 and blood sugar is 104 12/05/2021 Patient is currently awake alert and oriented x3. Patient did require BiPAP overnight. Currently on oxygen at 4 L via nasal cannula. Patient is being continued on Lasix and Diamox. Laboratory data reviewed. Patient is also using incentive spirometry. Urine culture showed gram-negative bacilli and is being continued on Zosyn. Follow-up final culture report. No complaints of abdominal pain. No nausea vomiting abdominal pain or diarrhea. Tolerating oral diet. Patient is being transferred to medical floor today. 12/06/2021 Patient is awake alert and oriented x3. No complaints of chest pain or worsening shortness of breath. Currently on oxygen via nasal cannula at 4 L. Patient has been using BiPAP overnight. Patient is being current on Lasix 40 mg twice daily and also on antibiotics in the form of Zosyn for Klebsiella and E. coli urinary tract infection. Last dose tomorrow. Patient has been afebrile. No nausea vomiting abdominal diarrhea. Tolerating oral diet. 12/07/2021 Patient is sitting in chair. Awake alert and oriented x3. No complaints of chest pain or worsening shortness of breath. Currently on 4 L oxygen via nasal cannula. Patient is being current on Lasix 40 mg by mouth twice daily and also on Diamox. No fever no chills. No cough or sputum production. Was able to use BiPAP last night. No cough or sputum production. Follow-up CBC and BMP tomorrow. Patient is being continued on Zosyn. Last dose 12/08/2021. Pulmonary is on board. current medications reviewed. Objective - Vital Signs Vital signs: Vital Signs Temp 98.7 F 12/07/21 14:00 Pulse 77 12/07/21 15:50 Resp 17 12/07/21 14:00 BP 115/65 12/07/21 14:00 Pulse Ox 94 L 12/07/21 14:00 FiO2 40 12/07/21 00:04 Intake & Output 12/06/21 12/07/21 12/07/21 18:59 06:59 18:59 Intake Total 1040 480 Balance 1040 480 Intake: IV 200 Piperacillin-Tazobactam 3 200 .375 gm In Sodium Chloride 0.9% 100 ml @ 25 mls/hr IVPB Q8HR [facility] Rx# :[id number] Oral 840 480 Other: Voiding Method External Catheter External Catheter External Catheter - Exam PHYSICAL EXAMINATION: Patient is lying in the bed. Awake alert but confused and lethargic. off BiPAP. HEENT: Normocephalic. Neck is supple. Pupils reactive. Nostrils clear. Oral cavity is moist. Neck reveals no JVD, carotid bruits, or thyromegaly. CHEST EXAMINATION: Trachea is central. Symmetrical expansion. Bibasilar diminished sounds. No wheezing or rhonchi.. CARDIAC: Normal S1, S2 with no gallops. No murmurs ABDOMEN: Soft. Bowel sounds present. Nontender. No organomegaly. No abdominal bruits. Extremities: Bilateral trace edema pedal edema. No clubbing or cyanosis Neurologically awake, alert but confused. No gross focal deficits noted Skin: No rash or skin lesions. Psychiatric: Coperative. Could not be assessed completely musculoskeletal: No joint swelling or deformity. - Labs CBC & Chem 7: 12/04/21 07:07 12/04/21 07:07 Assessment and Plan Assessment: Acute on chronic hypoxic and hypercapnic respiratory failure Possible left lower lobe pneumonia Altered mental status likely due to metabolic encephalopathy Acute urinary tract infection with history of E. coli UTI Chronic hypoxic and hypercapnic respiratory failure with component of hypoventilation syndrome Obstructive sleep apnea on CPAP Morbid obesity BMI 54.9 Proximal atrial fibrillation on anticoagulation with Eliquis Hypertension Osteoarthritis Depression Medical debility and wheelchair-bound History of fall right temporal infarct Plan: Patient be continued on oxygen chnage d to [place]. off BIPAP ..Continue with Zosyn for gram-negative bacilli urinary tract infection Patient was started on Lasix 40 mg twice daily. Cardiology and pulmonary is on board. Current with home medications and anticoagulation with Eliquis. Prognosis is guarded with multiple medical problems and comorbid conditions. Time with Patient: Greater than 30
[2021-12-08] MEDS: SODIUM CHLORIDE 0.9% 1,000 ML IV SCH (03:21)
[2021-12-08] MEDS: PANTOPRAZOLE 40 MG TABLET PO SCH (07:09)
[2021-12-08] MEDS: APIXABAN 5 MG TAB PO SCH (07:09)
[2021-12-08] MEDS: POTASSIUM CHLORIDE ER 10 MEQ TAB.ER.PRT PO SCH (07:09)
[2021-12-08] MEDS: FUROSEMIDE 40 MG TAB PO SCH ×2 (07:09→15:59)
[2021-12-08] MEDS: DOCUSATE 100 MG CAP PO SCH (07:09)
[2021-12-08] MEDS: acetaZOLAMIDE 250 MG TAB PO SCH (07:10)
[2021-12-08] MEDS: METOPROLOL SUCCINATE (ER) 50 MG TAB.ER.24H PO SCH (07:10)
[2021-12-08] MEDS: DIGOXIN 125 MCG TAB PO SCH (07:10)
[2021-12-08 07:50] VITALS: RESP 18
[2021-12-08] MEDS: HYDROcodone/APAP 5-325MG 1 EACH TAB PO PRN ×2 (07:52→15:59)
[2021-12-08 09:20] LABS: Basophils # (A) 0.03 X 10*3/uL (0.00-0.10); Basophils % (A) 0.4 %; Eosinophils # (A) 0.32 X 10*3/uL (0.04-0.35); Eosinophils % (A) 3.9 %; HCT 41.1 % (37.2-46.3); HGB 12.7 g/dL (12.0-15.0); Immature Grans, Automated 0.2 %; Lymphocytes # (A) 2.34 X 10*3/uL (0.90-5.00); Lymphocytes % (A) 28.3 %; MCH 29.7 pg (27.0-32.0); MCHC 30.9 g/dL (32.0-37.0); Mean Platelet Volume 9.7 fL (9.5-12.2); Monocytes # (A) 0.62 X 10*3/uL (0.20-1.00); Monocytes % (A) 7.5 %; NRBC Per 100 WBC 0 /100 WBCS (0.0-0.0); Neutrophils # (A) 4.94 X 10*3/uL (1.80-7.70); Neutrophils % (A) 59.7 %; Platelet Count 167 X 10*3/uL (140-440); RBC 4.28 X 10*6/uL (4.10-5.20); RDW 13.2 % (11.5-14.5); WBC 8.27 X 10*3/uL (4.50-10.00)
[2021-12-08] MEDS: IPRATROPIUM-ALBUTEROL 3 ML NEB INHALATION SCH ×3 (09:24→16:30)
[2021-12-08 10:04] LABS: Anion Gap 6.9 mmol/L (10.00-18.00); BUN/Creat Ratio 21.64 Ratio (12.00-20.00); Blood Urea Nitrogen 15.6 mg/dL (9.0-27.0); Calcium 8.9 mg/dL (8.7-10.3); Carbon Dioxide 40.4 mmol/L (20.0-27.5); Potassium 3.4 mmol/L (3.5-5.5)
[2021-12-08 10:13] LABS: African American GFR (CKD) 91.5 (60.0-200.0)
[2021-12-08 14:14] VITALS: TEMP 98.6
[2021-12-08 14:34] VITALS: BP 103/68
[2021-12-08] MEDS ORDERED: POTASSIUM CHLORIDE ER 20 MEQ TAB.ER PO STA (15:37)
--- NOTE | 2021-12-08 15:46 | P.DS ---
Providers Date of admission: 12/02/21 01:27 Expected date of discharge: 12/08/21 Attending physician: Jessie Brown Consults: 12/02/21 01:26 Consult Physician Routine Consulting Provider: Chanel Smith Consult Reason/Comments: chf Do you want consulting provider notified?: Yes Consult Physician Routine Consulting Provider: Efren Ponce Consult Reason/Comments: copd Do you want consulting provider notified?: Yes Primary care physician: [facility] Course: Final diagnosis Acute on chronic hypoxic and hypercapnic respiratory failure Possible left lower lobe pneumonia Altered mental status likely due to metabolic encephalopathy Acute urinary tract infection with history of E. coli UTI Chronic hypoxic and hypercapnic respiratory failure with component of hypoventilation syndrome Obstructive sleep apnea on CPAP Morbid obesity BMI 54.9 Proximal atrial fibrillation on anticoagulation with Eliquis Hypertension Osteoarthritis Depression Medical debility and wheelchair-bound History of fall right temporal infarct Discharge disposition Patient is being discharged in a stable condition with guarded prognosis to [facility] . Patient will follow-up with Dr. Pitt in the outpatient setting upon discharge. Patient is to follow-up with cardiology as scheduled. Patient to continue on oral Cipro twice daily for the next one week to complete the course Total time taken is greater than 35 minutes. Hospital course This is a 81-year-old male who was recently admitted with hypoxia and shortness of breath. Patient was placed on bipap and evaluated by pulmonary. Patient has been slow to improve and has been cleared by pulmonary for discharge to [facility]. Patient is to continue with duonebs and abx in the form of cipro for the next 7 days to complete the course. Patient needs cardio and pulm follow up in 2-3 weeks. Patient to continue with bipap at night. Currently no reports of chest pain, worsening shortness of breath, or palpitations. Patient is afebrile. No reports of nausea or vomiting and patient is tolerating diet. Patient will be going to [facility] today. Guarded prognosis Physical exam: Gen: This is a 81 year old male who is awake, alert, and oriented x2-3. well developed, well nourished, morbidly obese HEENT: Head is atraumatic, normocephalic. Pupils equal, round. Sclerae is anicteric. NECK: Supple. No JVD. No lymphadenopathy. No thyromegaly. LUNGS: diminished breath sounds bilaterally with some scattered rhonchi. No intercostal retractions. HEART: Regular rate and rhythm. No murmur. ABDOMEN: Soft. obese. Bowel sounds are present. No masses. No tenderness. EXTREMITIES: No pedal edema. No calf tenderness. NEUROLOGICAL: Patient is awake, alert and oriented x3. Cranial nerves 2 through 12 are grossly intact. diffusely weak Please refer to medication reconciliation sheet for a list of medications. The impression and plan of care has been dictated by Venecia Hernandes, Nurse Practitioner as directed. Dr. Kevin MD I have performed a history and examination and MDM of this patient, discussed the same with the dictator, and agree with the dictator's assessment and plan as written ,documented as a scribe. Based on total visit time, I have performed more than 50% of the visit. Patient Condition at Discharge: Fair Plan - Discharge Summary Discharge Rx Participant: No New Discharge Prescriptions: Discontinued Diltiazem Cd [Cardizem CD] 240 mg PO DAILY #30 cap No Action Potassium Chloride ER [K-Dur 10] 10 meq PO DAILY lisinopriL [Zestril] 10 mg PO BID hydrOXYzine HCL [Atarax] 25 mg PO Q6H PRN PRN Reason: Itching Apixaban [Eliquis] 5 mg PO BID tab Ipratropium-Albuterol Nebulize [Duoneb 0.5 mg-3 mg/3 ml Soln] 3 ml INHALATION RT-QID PRN ml PRN Reason: Shortness Of Breath Or Wheezing acetaZOLAMIDE [Diamox] 250 mg PO BID 30 Days #60 tab Digoxin [Lanoxin] 250 mcg PO DAILY 30 Days #30 tab Furosemide [Lasix] 60 mg PO BID@0900,1700 Omeprazole 20 mg PO DAILY Multivitamins, Thera [Multivitamin (formulary)] 1 tab PO DAILY Loratadine 10 mg PO DAILY guaiFENesin [guaiFENesin Oral Solution] 200 mg PO Q6H PRN PRN Reason: Cough Docusate [Colace] 100 mg PO DAILY Benzonatate [Tessalon Perles] 200 mg PO Q8H PRN PRN Reason: Cough Acetaminophen [Tylenol 8 Hour] 650 mg PO Q6H PRN PRN Reason: Pain HYDROcodone/APAP 5-325MG [[place] 5-325] 1 tab PO Q6H PRN #12 tab PRN Reason: Pain Metoprolol Succinate (ER) [Toprol XL] 150 mg PO DAILY 30 Days #30 tab ALPRAZolam [Xanax] 0.25 mg PO BID PRN PRN Reason: Anxiety Discharge Medication List Docusate [Colace] 100 mg PO DAILY 05/07/21 [History] Loratadine 10 mg PO DAILY 05/07/21 [History] Multivitamins, Thera [Multivitamin (formulary)] 1 tab PO DAILY 05/07/21 [History] Omeprazole 20 mg PO DAILY 05/07/21 [History] Potassium Chloride ER [K-Dur 10] 10 meq PO DAILY 05/07/21 [History] guaiFENesin [guaiFENesin Oral Solution] 200 mg PO Q6H PRN 05/07/21 [History] hydrOXYzine HCL [Atarax] 25 mg PO Q6H PRN 05/07/21 [History] lisinopriL [Zestril] 10 mg PO BID 05/07/21 [History] Apixaban [Eliquis] 5 mg PO BID tab 05/12/21 [Rx] Acetaminophen [Tylenol 8 Hour] 650 mg PO Q6H PRN 06/12/21 [History] Benzonatate [Tessalon Perles] 200 mg PO Q8H PRN 06/12/21 [History] Ipratropium-Albuterol Nebulize [Duoneb 0.5 mg-3 mg/3 ml Soln] 3 ml INHALATION RT-QID PRN ml 06/18/21 [Rx] HYDROcodone/APAP 5-325MG [[place] 5-325] 1 tab PO Q6H PRN #12 tab 10/03/21 [Rx] Digoxin [Lanoxin] 250 mcg PO DAILY 30 Days #30 tab 10/31/21 [Rx] Metoprolol Succinate (ER) [Toprol XL] 150 mg PO DAILY 30 Days #30 tab 10/31/21 [Rx] acetaZOLAMIDE [Diamox] 250 mg PO BID 30 Days #60 tab 10/31/21 [Rx] ALPRAZolam [Xanax] 0.25 mg PO BID PRN 12/02/21 [History] Furosemide [Lasix] 60 mg PO BID@0900,1700 12/02/21 [History] Follow up Appointment(s)/Referral(s): Wyatt Jaffe DO [Primary Care Provider] - 1-2 days Feng Bowles MD [STAFF PHYSICIAN] - 3 Weeks
[2021-12-08 16:41] VITALS: PULSE 70
== END 2021-12-08 19:30 | DRG 189 ==
LOC: EC 23:41 → 3SCARD 12-02 01:27 → 2SICU 12-02 13:01 → 3SCARD 12-05 21:39 → 4SSUR 12-06 23:44
PROVIDERS: ADMIT Hospitalist; ATTEND Hospitalist
PROC: 5A09457 Assistance with Respiratory Ventilation, 24-96 Consecutive Hours, Continuous Positive Airway Pressure (ICD-10-PCS; principal; 2021-12-02)
DX: J96.21 Acute and chronic respiratory failure with hypoxia (principal); G93.41 Metabolic encephalopathy; J18.9 Pneumonia, unspecified organism; N39.0 Urinary tract infection, site not specified; E66.2 Morbid (severe) obesity with alveolar hypoventilation; J44.1 Chronic obstructive pulmonary disease with (acute) exacerbation; I50.22 Chronic systolic (congestive) heart failure; I48.19 Other persistent atrial fibrillation; Z68.43 Body mass index [BMI] 50.0-59.9, adult; E87.4 Mixed disorder of acid-base balance; J96.22 Acute and chronic respiratory failure with hypercapnia; B96.1 Klebsiella pneumoniae [K. pneumoniae] as the cause of diseases classified elsewhere; B96.20 Unspecified Escherichia coli [E. coli] as the cause of diseases classified elsewhere; M19.90 Unspecified osteoarthritis, unspecified site; F32.A Depression, unspecified; I95.9 Hypotension, unspecified; R53.81 Other malaise; R13.10 Dysphagia, unspecified; R32 Unspecified urinary incontinence; I11.0 Hypertensive heart disease with heart failure; E11.9 Type 2 diabetes mellitus without complications; I49.1 Atrial premature depolarization; J84.10 Pulmonary fibrosis, unspecified; F41.9 Anxiety disorder, unspecified; Z91.199 Patient's noncompliance with other medical treatment and regimen due to unspecified reason; Z91.81 History of falling; Z79.01 Long term (current) use of anticoagulants; Z99.3 Dependence on wheelchair; Z87.891 Personal history of nicotine dependence; Z87.440 Personal history of urinary (tract) infections; Z79.899 Other long term (current) drug therapy; Z86.73 Personal history of transient ischemic attack (TIA), and cerebral infarction without residual deficits; Z88.8 Allergy status to other drugs, medicaments and biological substances
CPT/HCPCS: 36415; 36600; 71045; 80048; 80053; 81001; 82803; 82805; 83605; 83735; 83880; 84100; 84145; 84439; 84443; 84484; 85025; 85027; 85610; 85730; 87077; 87086; 87186; 93005; 94640; 94660; 94760; 96374; 99291

== ENCOUNTER 2021-12-19 01:06 | Inpatient (IN) | payer MEDICARE, OTHER ==
--- NOTE | 2021-12-19 01:22 | ED ---
SOB HPI - General Chief Complaint: Shortness of Breath Stated Complaint: SOB Time Seen by Provider: 12/19/21 01:21 Source: patient, EMS, RN notes reviewed, old records reviewed, Caregiver Mode of arrival: EMS Limitations: no limitations, altered mental status - History of Present Illness Initial Comments: This is an 81-year-old female to the emergency department for evaluation. Patient is brought in for evaluation of low oxygen levels. Patient has COPD and CHF prior admissions for same. Patient states she has generalized body aches and pains no specific chest pain no headache no specific abdominal pain or other complaint. MD Complaint: shortness of breath, cough, anxiety -: hour(s) Severity: moderate Severity scale (1-10): 4 Quality: dull, aching Consistency: constant Improves With: oxygen, rest, upright position, medication Worsens With: exertion Known History Of: COPD, congestive heart failure Associated Symptoms: cough, sputum production Treatments Prior to Arrival: none - Related Data Home Medications Medication Instructions Recorded Confirmed Docusate [Colace] 100 mg PO DAILY 05/07/21 12/02/21 Loratadine 10 mg PO DAILY 05/07/21 12/02/21 Multivitamins, Thera [Multivitamin 1 tab PO DAILY 05/07/21 12/02/21 (formulary)] Omeprazole 20 mg PO DAILY 05/07/21 12/02/21 Potassium Chloride ER [K-Dur 10] 10 meq PO DAILY 05/07/21 12/02/21 guaiFENesin [guaiFENesin Oral 200 mg PO Q6H PRN 05/07/21 12/02/21 Solution] hydrOXYzine HCL [Atarax] 25 mg PO Q6H PRN 05/07/21 12/02/21 Acetaminophen [Tylenol 8 Hour] 650 mg PO Q6H PRN 06/12/21 12/02/21 Benzonatate [Tessalon Perles] 200 mg PO Q8H PRN 06/12/21 12/02/21 Previous Rx's Medication Instructions Recorded Apixaban [Eliquis] 5 mg PO BID tab 05/12/21 Ipratropium-Albuterol Nebulize 3 ml INHALATION RT-QID PRN ml 06/18/21 [Duoneb 0.5 mg-3 mg/3 ml Soln] acetaZOLAMIDE [Diamox] 250 mg PO BID 30 Days #60 tab 10/31/21 Ciprofloxacin HCl [Cipro] 500 mg PO BID 7 Days #14 tab 12/08/21 Digoxin [Lanoxin] 125 mcg PO DAILY tab 12/08/21 Furosemide [Lasix] 40 mg PO BID@0900,1600 tab 12/08/21 HYDROcodone/APAP 5-325MG [[place] 1 tab PO Q6H PRN #6 tab 12/08/21 5-325] Ipratropium-Albuterol Nebulize 3 ml INHALATION RT-QID each 12/08/21 [Duoneb 0.5 mg-3 mg/3 ml Soln] LORazepam [Ativan] 0.5 mg PO HS PRN #3 tab 12/08/21 Metoprolol Succinate (ER) [Toprol 150 mg PO BID tab 12/08/21 XL] Allergies Allergy/AdvReac Type Severity Reaction Status Date / Time red dye Allergy Rash/Hives Verified 12/02/21 06:56 tositumomab iodine-131 Allergy Unknown Verified 12/02/21 06:56 Review of Systems ROS Statement: Those systems with pertinent positive or pertinent negative responses have been documented in the HPI. ROS Other: All systems not noted in ROS Statement are negative. Past Medical History Past Medical History: Atrial Fibrillation, Heart Failure, COPD Additional Past Medical History / Comment(s): Chronic respiratory failure/oxygen ATC, recent issue with dysphagia, JOSIAH has cpap, itching, obesity, edema, weakness-wheelchair, incontinence. History of Any Multi-Drug Resistant Organisms: None Reported Past Surgical History: Orthopedic Surgery Additional Past Surgical History / Comment(s): left knee x2 Past Anesthesia/Blood Transfusion Reactions: No Reported Reaction Past Psychological History: No Psychological Hx Reported Additional Psychological History / Comment(s): Pt resides at [facility]. Staff assist her to wheelchair. Smoking Status: Former smoker Past Alcohol Use History: None Reported Additional Past Alcohol Use History / Comment(s): Daughter states pt smoked in the past but quit over 20 yrs ago. Past Drug Use History: None Reported - Past Family History Father Family Medical History: No Reported History Mother Family Medical History: No Reported History General Exam Limitations: no limitations, altered mental status General appearance: alert, in no apparent distress, anxious, in distress, obese Head exam: Present: atraumatic, normocephalic, normal inspection Eye exam: Present: normal appearance, PERRL, EOMI. Absent: scleral icterus, c onjunctival injection, periorbital swelling ENT exam: Present: normal exam, mucous membranes moist Neck exam: Present: normal inspection. Absent: tenderness, meningismus, lymphadenopathy Respiratory exam: Present: respiratory distress, wheezes, accessory muscle use, decreased breath sounds, prolonged expiratory. Absent: rales, rhonchi, stridor Cardiovascular Exam: Present: regular rate, normal rhythm, normal heart sounds. Absent: systolic murmur, diastolic murmur, rubs, gallop, clicks GI/Abdominal exam: Present: soft, normal bowel sounds. Absent: distended, tenderness, guarding, rebound, rigid Extremities exam: Present: normal inspection, full ROM, normal capillary refill. Absent: tenderness, pedal edema, joint swelling, calf tenderness Back exam: Present: normal inspection Neurological exam: Present: alert, oriented X3, CN II-XII intact Psychiatric exam: Present: normal affect, normal mood Skin exam: Present: warm, dry, intact, normal color. Absent: rash Course Vital Signs 12/19/21 12/19/21 12/19/21 01:10 01:26 03:09 Temperature 97.8 F Pulse Rate 112 H 110 H Respiratory 20 20 22 Rate Blood Pressure 140/101 126/65 O2 Sat by Pulse 90 L 93 L Oximetry - Reevaluation(s) Reevaluation #1: 12/19/21 03:19 Record is reviewed Reevaluation #2: 12/19/21 03:19 Patient is no improvement here in the ER Reevaluation #3: 12/19/21 03:19 Patient informed results and questions answered - Consultations Consultation #1: Spoke with sound physicians agree to admit the patient Medical Decision Making - Medical Decision Making 81 female to the emergency department for evaluation we will admit this patient for severe COPD and see if H combination resulting hypoxia. Patient be admitted for continued supportive care - Lab Data Result diagrams: 12/19/21 01:21 12/19/21 02:01 Lab Results 12/19/21 12/19/21 12/19/21 Range/Units 01:21 01:21 01:21 WBC 7.8 (3.8-10.6) k/uL RBC 4.48 (3.80-5.40) m/uL Hgb 13.7 (11.4-16.0) gm/dL Hct 43.7 (34.0-46.0) % MCV 97.6 (80.0-100.0) fL MCH 30.6 (25.0-35.0) pg MCHC 31.4 (31.0-37.0) g/dL RDW 13.1 (11.5-15.5) % Plt Count 181 (150-450) k/uL MPV 7.9 Neutrophils % 64 % Lymphocytes % 23 % Monocytes % 6 % Eosinophils % 4 % Basophils % 0 % Neutrophils # 5.0 (1.3-7.7) k/uL Lymphocytes # 1.8 (1.0-4.8) k/uL Monocytes # 0.5 (0-1.0) k/uL Eosinophils # 0.3 (0-0.7) k/uL Basophils # 0.0 (0-0.2) k/uL Hypochromasia Marked PT 10.1 (9.0-12.0) sec INR 0.9 (<1.2) APTT 23.7 (22.0-30.0) sec Sodium (137-145) mmol/L Potassium (3.5-5.1) mmol/L Chloride (98-107) mmol/L Carbon Dioxide (22-30) mmol/L Anion Gap mmol/L BUN (7-17) mg/dL Creatinine (0.52-1.04) mg/dL Est GFR (CKD-EPI)AfAm (>60 ml/min/1.73 sqM) Est GFR (CKD-EPI)NonAf (>60 ml/min/1.73 sqM) Glucose (74-99) mg/dL Calcium (8.4-10.2) mg/dL Magnesium (1.6-2.3) mg/dL Total Bilirubin (0.2-1.3) mg/dL AST (14-36) U/L ALT (4-34) U/L Alkaline Phosphatase (38-126) U/L Troponin I 0.028 (0.000-0.034) ng/mL NT-Pro-B Natriuret Pep pg/mL Total Protein (6.3-8.2) g/dL Albumin (3.5-5.0) g/dL 12/19/21 12/19/21 Range/Units 01:21 02:01 WBC (3.8-10.6) k/uL RBC (3.80-5.40) m/uL Hgb (11.4-16.0) gm/dL Hct (34.0-46.0) % MCV (80.0-100.0) fL MCH (25.0-35.0) pg MCHC (31.0-37.0) g/dL RDW (11.5-15.5) % Plt Count (150-450) k/uL MPV Neutrophils % % Lymphocytes % % Monocytes % % Eosinophils % % Basophils % % Neutrophils # (1.3-7.7) k/uL Lymphocytes # (1.0-4.8) k/uL Monocytes # (0-1.0) k/uL Eosinophils # (0-0.7) k/uL Basophils # (0-0.2) k/uL Hypochromasia PT (9.0-12.0) sec INR (<1.2) APTT (22.0-30.0) sec Sodium 139 (137-145) mmol/L Potassium 4.0 (3.5-5.1) mmol/L Chloride 92 L (98-107) mmol/L Carbon Dioxide 38 H (22-30) mmol/L Anion Gap 9 mmol/L BUN 15 (7-17) mg/dL Creatinine 0.73 (0.52-1.04) mg/dL Est GFR (CKD-EPI)AfAm >90 (>60 ml/min/1.73 sqM) Est GFR (CKD-EPI)NonAf 78 (>60 ml/min/1.73 sqM) Glucose 132 H (74-99) mg/dL Calcium 8.6 (8.4-10.2) mg/dL Magnesium 1.8 (1.6-2.3) mg/dL Total Bilirubin 0.7 (0.2-1.3) mg/dL AST 44 H (14-36) U/L ALT 28 (4-34) U/L Alkaline Phosphatase 44 (38-126) U/L Troponin I (0.000-0.034) ng/mL NT-Pro-B Natriuret Pep 1120 pg/mL Total Protein 6.4 (6.3-8.2) g/dL Albumin 3.7 (3.5-5.0) g/dL - EKG Data -: EKG Interpreted by Me (EKG shows Afibrillation, rate 97 QRS 100 QTc 372) - Radiology Data Radiology results: report reviewed (Chest x-rays positive for CHF), image reviewed Critical Care Time Critical Care Time: Yes Total Critical Care Time: 31 Disposition Clinical Impression: Acute exacerbation of chronic obstructive pulmonary disease, Hypoxia, Hypoventilation, Altered mental state, Acute pulmonary edema Disposition: ADMITTED IP TO THIS HOSP Condition: Fair Is patient prescribed a controlled substance at d/c from ED?: No Referrals: Wyatt Jaffe DO [Primary Care Provider] - 1-2 days Time of Disposition: 03:20
[2021-12-19] MEDS ORDERED: IPRATROPIUM-ALBUTEROL 3 ML NEB INHALATION STA (01:42)
[2021-12-19] MEDS ORDERED: SODIUM CHLORIDE 0.9% 1,000 ML IV STA (01:42)
[2021-12-19] MEDS ORDERED: LORazepam 2 MG/ML INJ IV STA (01:58)
[2021-12-19] MEDS ORDERED: HYDROmorphone 1 MG/ML 1 ML SYRINGE IVP STA (01:58)
[2021-12-19 02:16] LABS: Basophils % (A) 0 %; Eosinophils # (A) 0.3 k/uL (0-0.7); Eosinophils % (A) 4 %; HCT 43.7 % (34.0-46.0); HGB 13.7 gm/dL (11.4-16.0); Hypochromasia Marked; Lymphocytes # (A) 1.8 k/uL (1.0-4.8); Lymphocytes % (A) 23 %; MCH 30.6 pg (25.0-35.0); MCHC 31.4 g/dL (31.0-37.0); MCV 97.6 fL (80.0-100.0); Mean Platelet Volume 7.9; Monocytes # (A) 0.5 k/uL (0-1.0); Monocytes % (A) 6 %; Neutrophils % (A) 64 %; Platelet Count 181 k/uL (150-450); RBC 4.48 m/uL (3.80-5.40); RDW 13.1 % (11.5-15.5); WBC 7.8 k/uL (3.8-10.6)
[2021-12-19 02:29] LABS: INR 0.9 (<1.2); Partial Thromboplastin Time 23.7 sec (22.0-30.0); Prothrombin Time 10.1 sec (9.0-12.0)
--- NOTE | 2021-12-19 02:31 | XR ---
EXAMINATION TYPE: XR chest 1V portable DATE OF EXAM: 12/19/2021 COMPARISON: 12/05/2021 HISTORY: Short of breath TECHNIQUE: FINDINGS: Heart is enlarged. There is some pulmonary vascular congestion. There is subsegmental atele ctasis left mid lung field. No definite pleural effusion. IMPRESSION: The pulmonary vascularity is increased compared to last exam and could be some mild heart failure.
[2021-12-19 02:32] LABS: ALT 28 U/L (4-34); AST 44 U/L (14-36); African American GFR (CKD) >90 (>60 ml/min/1.73 sqM); Albumin 3.7 g/dL (3.5-5.0); Alkaline Phosphatase 44 U/L (38-126); Blood Urea Nitrogen 15 mg/dL (7-17); Calcium 8.6 mg/dL (8.4-10.2); Chloride 92 mmol/L (98-107); Glucose 132 mg/dL (74-99); Magnesium 1.8 mg/dL (1.6-2.3); Non-African American GFR(CKD) 78 (>60 ml/min/1.73 sqM); Sodium 139 mmol/L (137-145); Total Bilirubin 0.7 mg/dL (0.2-1.3); Total Protein 6.4 g/dL (6.3-8.2)
[2021-12-19 02:38] LABS: Anion Gap 9 mmol/L; Carbon Dioxide 38 mmol/L (22-30)
[2021-12-19] MEDS ORDERED: NALOXONE 0.4 MG/ML 1 ML VIAL IVP PRN (03:16)
[2021-12-19 03:37] LABS: ABG Oxygen Saturation 89.2 % (94-97); ABG PO2 67 mmHg (83-108); Allen Test Performed? Yes
[2021-12-19 03:48] LABS: ABG PCO2 >120 mmHg (35-45); ABG PH 7.13 (7.35-7.45)
--- NOTE | 2021-12-19 04:06 | P.HPIM ---
History of Present Illness H&P Date: 12/19/21 The patient is an 81-year-old female with a PMH of CHF, COPD with chronic hypoxic and hypercapnic respiratory failure, paroxysmal A. fib on Eliquis, hypertension, and obstructive sleep apnea who was brought into the emergency room by EMS from home for shortness of breath and hypoxia. History obtained from the chart and from the ED physician is a patient was somnolent at the time of interview after having received Ativan and Dilaudid in the emergency room. The patient had reportedly endorsed diffuse body aches as well as shortness of breath with no additional complaints. The patient was hypoxic in the emergency room upon presentation with SpO2 90% on room air. Chest x-ray had revealed findings consistent with mild congestive heart failure. EKG had revealed A. fib at 97 bpm with poor baseline. Laboratory evaluation was remarkable for CO2 38, troponin 0.028, and proBNP 1120. Review of systems: Unable to assess due to mental status. Physical examination: General: Disheveled, no distress, appears at stated age, morbidly obese Derm: Lower extremity onychomycosis noted, warm Head: atraumatic, normocephalic, symmetric Eyes: Anicteric sclera, pupils equal round reactive to light ENT: Nose and ears atraumatic Neck: No cervical lymphadenopathy, trachea midline, supple Mouth: no lip lesion Cardiovascular: Irregularly irregular, no murmur, positive dorsalis pedis pulse bilateral, 1+ bilateral lower extremity pitting edema with chronic venous stasis changes Lungs: Scattered rales and rhonchi with poor air entry, no accessory muscle use Abdominal: soft, nontender to palpation, no guarding Ext: no gross muscle atrophy, no contractures Neuro: Unable to assess this patient somnolent at time of interview Psych: Somnolent Assessment/plan Acute hypoxic respiratory failure likely multifactorial with acute COPD and CHF exacerbations -Continue with Solu-Medrol -Continue with Lasix -Intake and output -Cardiac monitoring -Obtain ABG due to suspicion of hypercapnic respiratory failure Chronic conditions: Afib, HTN, HLD -C/w home meds DVT prophylaxis -Eliquis The patient is admitted with an anticipated greater than 2 midnight stay for evaluation of respiratory failure CODE STATUS: Full Code Anticipated discharge date: 3-[address]: Home Past Medical History Past Medical History: Atrial Fibrillation, Heart Failure, COPD Additional Past Medical History / Comment(s): Chronic respiratory failure/oxygen ATC, recent issue with dysphagia, JOSIAH has cpap, itching, obesity, edema, weakness-wheelchair, incontinence. History of Any Multi-Drug Resistant Organisms: None Reported Past Surgical History: Orthopedic Surgery Additional Past Surgical History / Comment(s): left knee x2 Past Anesthesia/Blood Transfusion Reactions: No Reported Reaction Past Psychological History: No Psychological Hx Reported Additional Psychological History / Comment(s): Pt resides at [facility] in [place]. Staff assist her to wheelchair. Smoking Status: Former smoker Past Alcohol Use History: None Reported Additional Past Alcohol Use History / Comment(s): Daughter states pt smoked in the past but quit over 20 yrs ago. Past Drug Use History: None Reported - Past Family History Father Family Medical History: No Reported History Mother Family Medical History: Unable to Obtain Additional Family Medical History / Comment(s): Due to mental status Medications and Allergies Home Medications Medication Instructions Recorded Confirmed Type Docusate [Colace] 100 mg PO DAILY 05/07/21 12/02/21 History Loratadine 10 mg PO DAILY 05/07/21 12/02/21 History Multivitamins, Thera [Multivitamin 1 tab PO DAILY 05/07/21 12/02/21 History (formulary)] Omeprazole 20 mg PO DAILY 05/07/21 12/02/21 History Potassium Chloride ER [K-Dur 10] 10 meq PO DAILY 05/07/21 12/02/21 History guaiFENesin [guaiFENesin Oral 200 mg PO Q6H PRN 05/07/21 12/02/21 History Solution] hydrOXYzine HCL [Atarax] 25 mg PO Q6H PRN 05/07/21 12/02/21 History Apixaban [Eliquis] 5 mg PO BID tab 05/12/21 12/02/21 Rx Acetaminophen [Tylenol 8 Hour] 650 mg PO Q6H PRN 06/12/21 12/02/21 History Benzonatate [Tessalon Perles] 200 mg PO Q8H PRN 06/12/21 12/02/21 History Ipratropium-Albuterol Nebulize 3 ml INHALATION RT-QID PRN ml 06/18/21 12/02/21 Rx [Duoneb 0.5 mg-3 mg/3 ml Soln] acetaZOLAMIDE [Diamox] 250 mg PO BID 30 Days #60 tab 10/31/21 12/02/21 Rx Ciprofloxacin HCl [Cipro] 500 mg PO BID 7 Days #14 tab 12/08/21 Rx Digoxin [Lanoxin] 125 mcg PO DAILY tab 12/08/21 Rx Furosemide [Lasix] 40 mg PO BID@0900,1600 tab 12/08/21 Rx HYDROcodone/APAP 5-325MG [[place] 1 tab PO Q6H PRN #6 tab 12/08/21 Rx 5-325] Ipratropium-Albuterol Nebulize 3 ml INHALATION RT-QID each 12/08/21 Rx [Duoneb 0.5 mg-3 mg/3 ml Soln] LORazepam [Ativan] 0.5 mg PO HS PRN #3 tab 12/08/21 Rx Metoprolol Succinate (ER) [Toprol 150 mg PO BID tab 12/08/21 Rx XL] Allergies Allergy/AdvReac Type Severity Reaction Status Date / Time red dye Allergy Rash/Hives Verified 12/02/21 06:56 tositumomab iodine-131 Allergy Unknown Verified 12/02/21 06:56 Physical Exam Vitals: Vital Signs Temp Pulse Resp BP Pulse Ox FiO2 12/19/21 03:59 112 H 12/19/21 03:51 50 12/19/21 03:09 110 H 22 126/65 93 L 12/19/21 01:26 20 12/19/21 01:10 97.8 F 112 H 20 140/101 90 L Intake and Output 12/18/21 12/18/21 12/19/21 14:59 22:59 06:59 Other: Weight 113.398 kg Results CBC & Chem 7: 12/19/21 01:21 12/19/21 02:01 Labs: Abnormal Lab Results - Last 24 Hours (Table) 12/19/21 12/19/21 Range/Units 02:01 03:34 ABG pH 7.13 L* (7.35-7.45) ABG pCO2 >120 H* (35-45) mmHg ABG pO2 67 L (83-108) mmHg ABG O2 Saturation 89.2 L (94-97) % Chloride 92 L (98-107) mmol/L Carbon Dioxide 38 H (22-30) mmol/L Glucose 132 H (74-99) mg/dL AST 44 H (14-36) U/L
[2021-12-19] MEDS: FUROSEMIDE 10 MG/ML 4 ML VIAL IV SCH ×3 (04:10→20:48)
[2021-12-19 05:09] LABS: ABG Base Excess 12.3 mmol/L; ABG HCO3 39 mmol/L (21-25); ABG Oxygen Saturation 98.4 % (94-97); ABG PH 7.26 (7.35-7.45); ABG PO2 106 mmHg (83-108); ABG TCO2 42 mmol/L (19-24); Allen Test Performed? Yes
[2021-12-19 05:13] LABS: ABG PCO2 87 mmHg (35-45)
[2021-12-19] MEDS: methylPREDNISolone SOD SUCCI 125 MG/2 ML VIAL IV SCH ×4 (05:49→17:20)
[2021-12-19] MEDS: IPRATROPIUM-ALBUTEROL 3 ML NEB INHALATION SCH ×4 (07:53→20:01)
[2021-12-19 10:38] LABS: HCT 44.7 % (37.2-46.3); HGB 13.7 g/dL (12.0-15.0); MCH 30.2 pg (27.0-32.0); MCHC 30.6 g/dL (32.0-37.0); MCV 98.5 fL (80.0-97.0); Mean Platelet Volume 9.8 fL (9.5-12.2); NRBC Per 100 WBC 0 /100 WBCS (0.0-0.0); Platelet Count 159 X 10*3/uL (140-440); RBC 4.54 X 10*6/uL (4.10-5.20); RDW 13.5 % (11.5-14.5); WBC 8.74 X 10*3/uL (4.50-10.00)
--- NOTE | 2021-12-19 11:50 | P.CNPUL ---
History of Present Illness Consult date: 12/19/21 Requesting physician: Marilu Shaikh Reason for consult: dyspnea, hypoxemia Chief complaint: Lethargy, hypoxemia History of present illness: This is an 81-year-old female patient who resides at [facility] and he has had frequent admissions to the hospital for hypercapnic and hypoxemic respi ratory failure. She was here earlier this month. Chest has a history of old right temporal lobe infarct, obstructive sleep apnea, morbid obesity with suspected pickwickian syndrome, maintained on BiPAP at the custodial 14 over 4, chronic obstructive pulmonary disease, previous tobacco dependence, atrial fibrillation maintained on Eliquis, urinary incontinence with frequent UTIs secondary to Klebsiella pneumonia, E. coli, hypertension, degenerative joint disease, depression. She was brought back to the emergency room again yesterday with increasing shortness of breath, altered mental status. He is seen in consultation in the emergency department. Currently on BiPAP 16/5 on 40% FiO2. Mostly obtunded. No history to be obtained from the patient. Chest x-ray revealed increased pulmonary vascularity with some mild congestive heart failure. EKG reveals atrial fibrillation with a controlled ventricular response. White count 8.7. Hemoglobin 13.7. Sodium 139. Potassium 4.0. BUN 15. Creatinine 0.73. Glucose 132. ProBNP 1120. Prior to BiPAP arterial blood gases revealed a PaO2 67, pCO2 120 and a pH of 7.13 on 36% FiO2. Arterial blood gases on 50% FiO2 revealed a pO2 of 106, pCO2 87, pH 7.26. She was initiated on Lasix 40 mg IV every 12 hours, IV Solu- Medrol, bronchodilators. Review of Systems ROS unobtainable: due to mental status Past Medical History Past Medical History: Atrial Fibrillation, Heart Failure, COPD Additional Past Medical History / Comment(s): Chronic respiratory failure/oxygen ATC, recent issue with dysphagia, JOSIAH has cpap, itching, obesity, edema, weakness-wheelchair, incontinence. History of Any Multi-Drug Resistant Organisms: None Reported Past Surgical History: Orthopedic Surgery Additional Past Surgical History / Comment(s): left knee x2 Past Anesthesia/Blood Transfusion Reactions: No Reported Reaction Past Psychological History: No Psychological Hx Reported Additional Psychological History / Comment(s): Pt resides at [facility] in [place]. Staff assist her to wheelchair. Smoking Status: Former smoker Past Alcohol Use History: None Reported Additional Past Alcohol Use History / Comment(s): Daughter states pt smoked in the past but quit over 20 yrs ago. Past Drug Use History: None Reported - Past Family History Father Family Medical History: No Reported History Mother Family Medical History: Unable to Obtain Additional Family Medical History / Comment(s): Due to mental status Medications and Allergies Home Medications Medication Instructions Recorded Confirmed Type Docusate [Colace] 100 mg PO DAILY 05/07/21 12/19/21 History Loratadine 10 mg PO DAILY 05/07/21 12/19/21 History Multivitamins, Thera [Multivitamin 1 tab PO DAILY 05/07/21 12/19/21 History (formulary)] Omeprazole 20 mg PO DAILY 05/07/21 12/19/21 History Potassium Chloride ER [K-Dur 10] 10 meq PO DAILY 05/07/21 12/19/21 History hydrOXYzine HCL [Atarax] 25 mg PO Q6H PRN 05/07/21 12/19/21 History Apixaban [Eliquis] 5 mg PO BID tab 05/12/21 12/19/21 Rx Acetaminophen [Tylenol 8 Hour] 650 mg PO Q6H PRN 06/12/21 12/19/21 History Benzonatate [Tessalon Perles] 200 mg PO Q8H PRN 06/12/21 12/19/21 History acetaZOLAMIDE [Diamox] 250 mg PO BID 30 Days #60 tab 10/31/21 12/19/21 Rx Digoxin [Lanoxin] 125 mcg PO DAILY tab 12/08/21 12/19/21 Rx Furosemide [Lasix] 40 mg PO BID@0900,1600 tab 12/08/21 12/19/21 Rx HYDROcodone/APAP 5-325MG [[place] 1 tab PO Q6H PRN #6 tab 12/08/21 12/19/21 Rx 5-325] Metoprolol Succinate (ER) [Toprol 150 mg PO BID tab 12/08/21 12/19/21 Rx XL] LORazepam [Ativan] 0.5 mg PO Q8H PRN 12/19/21 12/19/21 History Allergies Allergy/AdvReac Type Severity Reaction Status Date / Time red dye Allergy Rash/Hives Verified 12/19/21 10:25 tositumomab iodine-131 Allergy Unknown Verified 12/19/21 10:25 Physical Exam Vitals: Vital Signs Temp Pulse Resp BP Pulse Ox FiO2 12/19/21 11:31 105 H 40 12/19/21 10:39 112 H 22 119/79 93 L 12/19/21 09:23 113 H 22 119/79 95 12/19/21 08:30 115 H 20 119/79 92 L 12/19/21 08:03 105 H 12/19/21 07:53 117 H 97 40 12/19/21 06:13 112 H 22 119/79 98 12/19/21 05:14 40 12/19/21 04:10 122 H 20 112/84 12/19/21 04:09 20 12/19/21 03:59 112 H 12/19/21 03:51 50 12/19/21 03:09 110 H 22 126/65 93 L 12/19/21 01:26 20 12/19/21 01:10 97.8 F 112 H 20 140/101 90 L Intake and Output 12/18/21 12/19/21 12/19/21 22:59 06:59 14:59 Other: Weight 113.398 kg Obtunded, morbidly obese 81-year-old female patient. Patient is very much lethargic at this point in time. The patient is on a BiPAP at a pressure of 16/5 cm of water The patient is morbidly obese, body mass index of 51 Head exam was generally normal. There was no scleral icterus or corneal arcus. Mucous membranes were moist. Neck is very thick and the patient is a Mallampati class IV. Patient is currently tolerating a full face BiPAP mask. Neck veins cannot be accurately appreciated. Neck supple. Full range of motion. No adenopathy thyromegaly Cardiovascular examination reveals regular rhythm rate. S1-S2 normal. No S3 or S4. No discernible murmur noted. Lungs reveal occasional diffuse bilateral rhonchi. No wheezes or crackles. Breath sounds are equal bilaterally. Breath sounds are quite diminished bilaterally and air entry and exchange is limited as the patient is morbidly obese. Abdomen obese, soft, without masses or tenderness. noted. Organs cannot be accurately palpated as the patient, morbidly obese. No direct tenderness or rebound tensile guarding at this point in time. Extremities are intact. No cyanosis or clubbing. Trace edema. Skin is without rash or lesion. Neurologic examination is brief but nonfocal. Patient was aroused upon stimulation. She was able to withdraw to painful stimulation all 4 extremities. Neurologic exam is nonfocal. Psychiatric evaluation cannot be done at this point in time. Results - Laboratory Findings CBC and BMP: 12/19/21 07:20 12/19/21 02:01 ABG ABG pH 7.26 (7.35-7.45) L 12/19/21 05:04 ABG pCO2 87 mmHg (35-45) H* 12/19/21 05:04 ABG pO2 106 mmHg (83-108) 12/19/21 05:04 ABG O2 Saturation 98.4 % (94-97) H 12/19/21 05:04 PT/INR, D-dimer PT 10.1 sec (9.0-12.0) 12/19/21 01:21 INR 0.9 (<1.2) 12/19/21 01:21 Abnormal lab findings: Abnormal Labs 12/19/21 12/19/21 12/19/21 02:01 03:34 05:04 MCV MCHC ABG pH 7.13 L* 7.26 L ABG pCO2 >120 H* 87 H* ABG pO2 67 L ABG HCO3 39 H ABG Total CO2 42 H ABG O2 Saturation 89.2 L 98.4 H Chloride 92 L Carbon Dioxide 38 H Glucose 132 H AST 44 H 12/19/21 07:20 MCV 98.5 H MCHC 30.6 L ABG pH ABG pCO2 ABG pO2 ABG HCO3 ABG Total CO2 ABG O2 Saturation Chloride Carbon Dioxide Glucose AST - Diagnostic Findings Chest x-ray: image reviewed Assessment and Plan Assessment: Altered mental status secondary to acute on chronic hypoxemic and hypercapnic respiratory failure secondary to an acute exacerbation of chronic systolic congestive heart failure with an ejection fraction of 40-45%. The patient is currently on a BiPAP and a pressure of 16/5 cm of water with an FiO2 of 40%. Currently obtunded. Chronic hypercapnic respiratory failure with an obvious component of obesity hypoventilation syndrome Chronic hypoxic respiratory failure Old right temporal lobe infarct. History of obstructive sleep apnea syndrome. Morbid obesity, with probable Pickwickian syndrome. BiPAP machine at the custodial her BiPAP machine at the custodial is set at a pressure of 14 over 4 cm of water Previous history of tobacco use, with probable underlying COPD. History of atrial fibrillation. The patient is on long-term anticoagulation with Eliquis Previous history of UTI with E. coli, Klebsiella pneumoniae History of urinary incontinence. History of hypertension. History of degenerative joint disease. History depression. retirement resident. Plan: The patient was seen and evaluated Arterial blood gases, chest x-ray, labs and medications reviewed Continue BiPAP support 16/5 and 40% FiO2 Continue DuoNeb inhalations, Solu-Medrol, add Pulmicort and Perforomist inhalations Continue IV diuretics Check pro calcitonin CODE STATUS to be addressed per primary services Eight admissions to the hospital so far this year Would consider palliative care and/or hospice care We will continue to follow and make further recommendations based on her clinical status I have personally seen and examined the patient, performed the documentation and the assessment and plan as written. Number of minutes spent on the visit: 20.
[2021-12-19 11:54] LABS: African American GFR (CKD) 94.8 (60.0-200.0); Anion Gap 12.1 mmol/L (10.00-18.00); Blood Urea Nitrogen 13.3 mg/dL (9.0-27.0); Carbon Dioxide 33.9 mmol/L (20.0-27.5); Non-African American GFR(CKD) 81.8 (60.0-200.0); Potassium 4.1 mmol/L (3.5-5.5)
--- NOTE | 2021-12-19 13:30 | CDI ---
Documentation Clarification Form Date: 12/19/2021 01:01:11 PM From: Chacha Rodarte RN CCDS Admit Date: 12/19/2021 03:16:00 AM Patient Name: Shalonda Chen Visit Number: [id number] Discharge Date: ATTENTION: The Clinical Documentation Specialists (CDI) and [facility] Coding Staff appreciate your assistance in clarifying documentation. Please respond to the clarification below the line at the bottom and electronically sign. The CDI & [facility] Coding staff will review the response and follow-up if needed. Please note: Queries are made part of the Legal Health Record. If you have any questions, please contact the author of this message via ITS. Dr. Wyatt Greer The patient has the documented symptom of Altered Mental Status 12/19, Pulmonary consult. Additional clarification regarding the etiology/cause of this symptom is requested. History/Risk Factors:81-year-old female presents to the ED for evaluation of low oxygen levels and AMS. Medical history: COPD, CHF, chronic resp failure with home oxygen ATC and obesity. 12/19, ED Note. Clinical Indicators: Labs: ABG 12/19 : pH 7.13; pCO2 >120; pO2 67; O2 Sat 89.2 FiO2 36 VSS: 11/2802:09 B/P 126/65; HR 110; SpO2 97.8F Oral; RR 22; SpO2 93% 4L nasal cannula 12/19 04:10 RR 20; FiO2 40 on BiPAP; 06:13 RR 22; SpO2 95% BiPap FiO2 40 CXR: 12/19 Pulmonary vascular congestion. Subsegmental atelectasis left mid lung field Respiratory exam: 12/19 ED: Respiratory distress, wheezes, accessory muscle use, decreased breath sounds, prolonged expiratory . Pulmonary Consult 12/19: Altered mental status secondary to acute on chronic hypoxemic and hypercapnic respiratory failure secondary to an acute exacerbation of chronic systolic congestive heart failure with an ejection fraction of 40- 45%.The patient is currently on a BiPAP and a pressure of 16/5 cm of water with an FiO2 of 40%. Currently obtunded. Treatment: 4L nasal cannula oxygen; BiPAP; Duonebs, Pulmicort, Lasix IV Q12HR; Solumedrol IV. Please clarify the etiology of the symptom of Altered Mental Status: [x ] Acute Metabolic Encephalopathy due to Acute on chronic Hypoxemic and Hypercapnic Respiratory Failure secondary to Acute exacerbation of chronic systolic congestive heart failure. [ ] Other condition (please specify) [ ] Unable to determine (Template Last Revised: March 2020) MTDD
[2021-12-19 14:28] LABS: ABG Base Excess 13.5 mmol/L; ABG Oxygen Saturation 97.2 % (94-97); ABG PH 7.27 (7.35-7.45); ABG PO2 97 mmHg (83-108); ABG TCO2 43 mmol/L (19-24); Allen Test Performed? Yes
[2021-12-19 14:33] LABS: ABG HCO3 41 mmol/L (21-25); ABG PCO2 89 mmHg (35-45)
--- NOTE | 2021-12-19 16:46 | P.PN ---
Progress Note - Text Progress Note Date: 12/19/21 The patient is obtunded and on BiPAP. Spoke with the patient's daughter and POAurelio, Fabiola, via the telephone. Code status discussed in detail. She stated that in the past her mother has wanted to remain a full code and be placed on the ventilator until it is determined that she is not improving and has no chance of getting off the ventilator. Fabiola stated that she and her sisters do not want to see her intubated and put on the ventilator. They believe it will cause more suffering for their mother and know that she is now at the point that she will never get off the ventilator if intubated. She stated the doctors have all told her the same thing. She was reassured that as MANJIT, her mother trusted to make the best medical decisions for her when she is unable to do so. She will call her sisters tonight and make sure they all are in agreement and then come to the hospital tomorrow with a final decision. Theresa Hancock [facility] Palliative Care/Urology [facility] [id number] Email: [email or web address]
--- NOTE | 2021-12-19 16:54 | P.PN ---
Progress Note - Text Progress Note Date: 12/19/21 ACP note: Lengthy discussion was had with the POA Fabiola. Fabiola is her daughter. We discussed the fact that patient has been on continuous BiPAP since admission to the ED. Her pCO2 has not improved much. Discussed the fact that if she was to get intubated, there is a slim chance that she would be able to come off the ventilator. As of now, Fabiola with like the patient to be FULL CODE. Fabiola states that if she was to get intubated and did not improve over a couple of days they would consider terminally weaning her. Fabiola states her mother would want all heroic measures. She will come to the hospital tomorrow to discuss her mother's CODE STATUS further. The case was discussed with Dr. Greer, classer who is agreeable to accept the patient into ICU for continuous BiPAP. Palliative care will be consulted. This discussion took 18 minutes over the phone.
[2021-12-19 19:23] LABS: Glucose,Whole Blood 148 mg/dL (70-110)
[2021-12-19] MEDS: FORMOTEROL FUMARATE 20 MCG/2 ML NEBU INHALATION SCH (20:01)
[2021-12-19] MEDS: BUDESONIDE 1 MG/2 ML NEBU INHALATION SCH (20:02)
[2021-12-19] MEDS: METOPROLOL SUCCINATE (ER) 50 MG TAB.ER.24H PO SCH (22:29)
[2021-12-19] MEDS: acetaZOLAMIDE 250 MG TAB PO SCH (22:29)
[2021-12-19] MEDS: APIXABAN 5 MG TAB PO SCH (22:29)
[2021-12-19] MEDS: IPRATROPIUM-ALBUTEROL 3 ML NEB INHALATION PRN (23:45)
[2021-12-20] MEDS: IPRATROPIUM-ALBUTEROL 3 ML NEB INHALATION PRN ×2 (03:28→23:56)
[2021-12-20 04:20] LABS: HCT 38.9 % (34.0-46.0); HGB 12.6 gm/dL (11.4-16.0); Hypochromasia Slight; MCH 31.1 pg (25.0-35.0); MCHC 32.4 g/dL (31.0-37.0); MCV 95.9 fL (80.0-100.0); Mean Platelet Volume 7.8; Platelet Count 168 k/uL (150-450); RBC 4.06 m/uL (3.80-5.40); RDW 13.1 % (11.5-15.5); WBC 7.2 k/uL (3.8-10.6)
[2021-12-20 04:54] LABS: African American GFR (CKD) >90 (>60 ml/min/1.73 sqM); Blood Urea Nitrogen 17 mg/dL (7-17); Calcium 8.4 mg/dL (8.4-10.2); Chloride 90 mmol/L (98-107); Glucose 157 mg/dL (74-99); Non-African American GFR(CKD) 84 (>60 ml/min/1.73 sqM); Potassium 3.2 mmol/L (3.5-5.1); Sodium 139 mmol/L (137-145)
[2021-12-20 05:01] LABS: Anion Gap 8 mmol/L
[2021-12-20 05:05] LABS: Carbon Dioxide 41 mmol/L (22-30)
[2021-12-20] MEDS: methylPREDNISolone SOD SUCCI 125 MG/2 ML VIAL IV SCH ×2 (05:59→06:01)
[2021-12-20] MEDS: PANTOPRAZOLE 40 MG TABLET PO SCH (06:35)
[2021-12-20] MEDS: BUDESONIDE 1 MG/2 ML NEBU INHALATION SCH ×2 (07:33→20:31)
[2021-12-20] MEDS: FORMOTEROL FUMARATE 20 MCG/2 ML NEBU INHALATION SCH ×2 (07:33→20:42)
[2021-12-20] MEDS: IPRATROPIUM-ALBUTEROL 3 ML NEB INHALATION SCH ×4 (07:34→20:31)
[2021-12-20] MEDS ORDERED: POTASSIUM CHLORIDE 10 MEQ in WATER FOR INJECTION 1 100ML.BAG IVPB SCH (08:00)
--- NOTE | 2021-12-20 08:07 | P.PN ---
Subjective Progress Note Date: 12/20/21 The patient is an 81-year-old female with a PMH of CHF, COPD with chronic hypoxic and hypercapnic respiratory failure, paroxysmal A. fib on Eliquis, hypertension, and obstructive sleep apnea who was brought into the emergency room by EMS from home for shortness of breath and hypoxia. History obtained fro m the chart and from the ED physician is a patient was somnolent at the time of interview after having received Ativan and Dilaudid in the emergency room. The patient had reportedly endorsed diffuse body aches as well as shortness of breath with no additional complaints. The patient was hypoxic in the emergency room upon presentation with SpO2 90% on room air. Chest x-ray had revealed findings consistent with mild congestive heart failure. EKG had revealed A. fib at 97 bpm with poor baseline. Laboratory evaluation was remarkable for CO2 38, troponin 0.028, and proBNP 1120. Patient was started on continuous BiPAP. Serial ABGs were done. Initial ABG showed pH of 7.13 with pCO2 greater than 120. Subsequent ABG showed pH of 7.26 with pCO2 of 87. Repeat ABG around 2 PM showed pH of 7.27 with pCO2 of 89. CODE STATUS was discussed with her daughter Fabiola who confirmed that her mother wanted to be FULL CODE. The case was discussed with Dr. Greer, numerical analysis group manager who is agreeable to accept the patient into ICU for continuous BiPAP. Patient was seen and examined this morning. She continues to be on continuous BiPAP, 16/5 with FiO2 of 40%. BMP shows potassium 3.2, chloride of 90, glucose of 157 and bicarb of 41. General: Disheveled, no distress, appears at stated age, morbidly obese Derm: Lower extremity onychomycosis noted, warm Head: atraumatic, normocephalic, symmetric Eyes: Anicteric sclera, pupils equal round reactive to light ENT: Nose and ears atraumatic Neck: No cervical lymphadenopathy, trachea midline, supple Mouth: no lip lesion Cardiovascular: Irregularly irregular, no murmur, positive dorsalis pedis pulse bilateral, 1+ bilateral lower extremity pitting edema with chronic venous stasis changes Lungs: Scattered rales and rhonchi with poor air entry, no accessory muscle use Abdominal: soft, nontender to palpation, no guarding Ext: no gross muscle atrophy, no contractures Neuro: Unable to assess this patient somnolent at time of interview Psych: Somnolent Assessment/plan #Acute hypoxic respiratory failure likely multifactorial #Acute on chronic COPD #Acute on chronic systolic/diastolic CHF exacerbation with EF of 40-45% -Continue with Solu-Medrol, DuoNeb scheduled and as needed. Continue Pulmicort. Continue Performist. Supplemental O2 to maintain O2 saturation greater than 92%. -Continue with Lasix. Intake and output. Daily weights. -Cardiac monitoring -Serial ABGs -Pulmonology on board. -Palliative care consulted. #Hypokalemia -Replace via protocol. -Repeat BMP tomorrow morning. Chronic conditions: Afib, HTN, HLD -Continue with home meds DVT prophylaxis -Eliquis The patient is admitted with an anticipated greater than 2 midnight stay for evaluation of respiratory failure CODE STATUS: FULL CODE. Objective - Vital Signs Vital signs: Vital Signs Temp 98.3 F 12/20/21 01:00 Pulse 92 12/20/21 07:53 Resp 15 12/20/21 07:00 BP 105/70 12/20/21 07:00 Pulse Ox 91 L 12/20/21 07:00 FiO2 40 12/20/21 07:25 Intake & Output 12/19/21 12/20/21 12/20/21 18:59 06:59 18:59 Weight 115.3 kg Other: Voiding Method Incontinent External Catheter - Labs CBC & Chem 7: 12/20/21 04:02 12/20/21 04:02 Labs: Abnormal Lab Results - Last 24 Hours (Table) 12/19/21 12/19/21 12/19/21 Range/Units 07:20 07:20 14:14 MCV 98.5 H (80.0-97.0) fL MCHC 30.6 L (32.0-37.0) g/dL ABG pH 7.27 L (7.35-7.45) ABG pCO2 89 H* (35-45) mmHg ABG HCO3 41 H* (21-25) mmol/L ABG Total CO2 43 H (19-24) mmol/L ABG O2 Saturation 97.2 H (94-97) % Potassium (3.5-5.1) mmol/L Chloride (98-107) mmol/L Carbon Dioxide 33.9 H (20.0-27.5) mmol/L Glucose 171 H (70-110) mg/dL POC Glucose (mg/dL) (70-110) mg/dL 12/19/21 12/20/21 Range/Units 19:22 04:02 MCV (80.0-97.0) fL MCHC (32.0-37.0) g/dL ABG pH (7.35-7.45) ABG pCO2 (35-45) mmHg ABG HCO3 (21-25) mmol/L ABG Total CO2 (19-24) mmol/L ABG O2 Saturation (94-97) % Potassium 3.2 L (3.5-5.1) mmol/L Chloride 90 L (98-107) mmol/L Carbon Dioxide 41 H* (20.0-27.5) mmol/L Glucose 157 H (70-110) mg/dL POC Glucose (mg/dL) 148 H (70-110) mg/dL
[2021-12-20 08:37] LABS: ABG Base Excess 17.3 mmol/L; ABG Oxygen Saturation 96.6 % (94-97); ABG PH 7.36 (7.35-7.45); ABG PO2 77 mmHg (83-108); ABG TCO2 45 mmol/L (19-24); Allen Test Performed? Yes
[2021-12-20 08:39] LABS: ABG HCO3 43 mmol/L (21-25); ABG PCO2 75 mmHg (35-45)
[2021-12-20] MEDS ORDERED: Potassium Replacement Protocol 1 EACH MISC MISCELLANE PRN (08:41)
[2021-12-20] MEDS: APIXABAN 5 MG TAB PO SCH ×2 (08:55→20:58)
[2021-12-20] MEDS: POTASSIUM CHLORIDE ER 20 MEQ TAB.ER PO SCH ×2 (08:55→10:28)
[2021-12-20] MEDS: FUROSEMIDE 10 MG/ML 4 ML VIAL IV SCH ×2 (08:56→20:58)
[2021-12-20] MEDS: LORATADINE 10 MG TAB PO SCH (08:56)
[2021-12-20] MEDS: DIGOXIN 125 MCG TAB PO SCH (09:28)
[2021-12-20] MEDS: acetaZOLAMIDE 250 MG TAB PO SCH ×2 (09:29→22:07)
[2021-12-20] MEDS: METOPROLOL SUCCINATE (ER) 50 MG TAB.ER.24H PO SCH ×2 (10:29→22:07)
--- NOTE | 2021-12-20 12:08 | P.PN ---
Subjective Progress Note Date: 12/20/21 This is an 81-year-old female patient who resides at [facility] and he has had frequent admissions to the hospital for hypercapnic and hypoxemic respiratory failure. She was here earlier this month. Chest has a history of old right temporal lobe infarct, obstructive sleep apnea, morbid obesity with suspected pickwickian syndrome, maintained on BiPAP at the snf 14 over 4, chronic obstructive pulmonary disease, previous tobacco dependence, atrial fibrillation maintained on Eliquis, urinary incontinence with frequent UTIs secondary to Klebsiella pneumonia, E. coli, hypertension, degenerative joint disease, depression. She was brought back to the emergency room again yesterday with increasing shortness of breath, altered mental status. He is seen in consultation in the emergency department. Currently on BiPAP 16/ on 40% FiO2. Mostly obtunded. No history to be obtained from the patient. Chest x-ray revealed increased pulmonary vascularity with some mild congestive heart failure. EKG reveals atrial fibrillation with a controlled ventricular response. White count 8.7. Hemoglobin 13.7. Sodium 139. Potassium 4.0. BUN 15. Creatinine 0.73. Glucose 132. ProBNP 1120. Prior to BiPAP arterial blood gases revealed a PaO2 67, pCO2 120 and a pH of 7.13 on 36% FiO2. Arterial blood gases on 50% FiO2 revealed a pO2 of 106, pCO2 87, pH 7.26. She was initiated on Lasix 40 mg IV every 12 hours, IV Solu- Medrol, bronchodilators. The patient is seen today 12/20/2021 in follow-up in the intensive care unit. She is currently sitting up in bed. Awake and alert oriented. She is maintaining O2 saturations in the 90s on 5 L/m per nasal cannula. She did remain on BiPAP throughout the night at 16/5-40% FiO2. Normal saline at KVO. White count 7.2. Hemoglobin 12.6. Platelets 168. Sodium 139. Potassium 3.2. Bicarb 41. BUN 17. Creatinine 0.66. Glucose 157. Morning blood gases reveal a P O2 of 77, pCO2 75, pH 7.36 on 40% FiO2. She is continued on Diamox, IV diuretics, IV Solu-Medrol and bronchodilators. Anticoagulated with Eliquis. Pro-calcitonin was 0.05. Chest x-ray shows improvement in the pulmonary vascular congestion. Objective - Vital Signs Vital signs: Vital Signs Temp 97.6 F 12/20/21 08:00 Pulse 111 H 12/20/21 11:00 Resp 20 12/20/21 11:00 BP 118/78 12/20/21 11:00 Pulse Ox 97 12/20/21 11:00 FiO2 40 12/20/21 08:00 Intake & Output 12/19/21 12/20/21 12/20/21 18:59 06:59 18:59 Weight 115.3 kg Other: Voiding Method Incontinent Incontinent External Catheter External Catheter # Bowel Movements 1 - Exam Awake, alert, morbidly obese 81-year-old female patient. Patient is more alert at this time. The patient is on a BiPAP at a pressure of 16/5 cm of water The patient is morbidly obese, body mass index of 48 Head exam was generally normal. There was no scleral icterus or corneal arcus. Mucous membranes were moist. Neck is very thick and the patient is a Mallampati class IV. Patient is currently tolerating liters nasal cannula alternating with a full face BiPAP mask. Neck veins cannot be accurately appreciated. Neck supple. Full range of motion. No adenopathy thyromegaly Cardiovascular examination reveals regular rhythm rate. S1-S2 normal. No S3 or S4. No discernible murmur noted. Lungs reveal occasional diffuse bilateral rhonchi. No wheezes or crackles. Br eath sounds are equal bilaterally. Breath sounds are quite diminished bilaterally and air entry and exchange is limited as the patient is morbidly obese. Abdomen obese, soft, without masses or tenderness. noted. Organs cannot be accurately palpated as the patient, morbidly obese. No direct tenderness or rebound tensile guarding at this point in time. Extremities are intact. No cyanosis or clubbing. Trace edema. Skin is without rash or lesion. Neurologic examination is brief but nonfocal. Patient is alert and oriented. She was able to move all 4 extremities. Neurologic exam is nonfocal. Psychiatric evaluation stable and cooperative. - Labs CBC & Chem 7: 12/20/21 04:02 12/20/21 04:02 Labs: Abnormal Lab Results - Last 24 Hours (Table) 12/19/21 12/19/21 12/20/21 Range/Units 14:14 19:22 04:02 ABG pH 7.27 L (7.35-7.45) ABG pCO2 89 H* (35-45) mmHg ABG pO2 (83-108) mmHg ABG HCO3 41 H* (21-25) mmol/L ABG Total CO2 43 H (19-24) mmol/L ABG O2 Saturation 97.2 H (94-97) % Potassium 3.2 L (3.5-5.1) mmol/L Chloride 90 L (98-107) mmol/L Carbon Dioxide 41 H* (22-30) mmol/L Glucose 157 H (74-99) mg/dL POC Glucose (mg/dL) 148 H (70-110) mg/dL 12/20/21 Range/Units 08:36 ABG pH (7.35-7.45) ABG pCO2 75 H* (35-45) mmHg ABG pO2 77 L (83-108) mmHg ABG HCO3 43 H* (21-25) mmol/L ABG Total CO2 45 H (19-24) mmol/L ABG O2 Saturation (94-97) % Potassium (3.5-5.1) mmol/L Chloride (98-107) mmol/L Carbon Dioxide (22-30) mmol/L Glucose (74-99) mg/dL POC Glucose (mg/dL) (70-110) mg/dL Assessment and Plan Assessment: Altered mental status secondary to acute on chronic hypoxemic and hypercapnic respiratory failure secondary to an acute exacerbation of chronic systolic congestive heart failure with an ejection fraction of 40-45%. The patient is currently on IV liters nasal cannula alternating with a BiPAP and a pressure of 16/5 cm of water with an FiO2 of 40%. Currently awake, alert, oriented. Chronic hypercapnic respiratory failure with an obvious component of obesity hypoventilation syndrome Chronic hypoxic respiratory failure Old right temporal lobe infarct. History of obstructive sleep apnea syndrome. Morbid obesity, with probable Pickwickian syndrome. BiPAP machine at the snf her BiPAP machine at the snf is set at a pressure of 14 over 4 cm of water Previous history of tobacco use, with probable underlying COPD. History of atrial fibrillation. The patient is on long-term anticoagulation with Eliquis Previous history of UTI with E. coli, Klebsiella pneumoniae History of urinary incontinence. History of hypertension. History of degenerative joint disease. History depression. detention resident. Plan: The patient was seen and evaluated Arterial blood gases, chest x-ray, labs and medications reviewed Continue 5 L nasal cannula alternating with BiPAP support 16/5 and 40% FiO2 Continue DuoNeb inhalations, Solu-Medrol, add Pulmicort and Perforomist inhalations Continue IV diuretics Patient is to remain a full code per patient and family wishes Could be transferred to the regular medical floor with telemetry We will continue to follow and make further recommendations based on her clinical status I have personally seen and examined the patient, performed the documentation and the assessment and plan as written. Number of minutes spent on the visit: 10.
[2021-12-20 13:29] VITALS: BMI 48.0
--- NOTE | 2021-12-20 14:29 | XR ---
EXAMINATION TYPE: XR chest 1V portable DATE OF EXAM: 12/20/2021 COMPARISON: 12/19/2021 INDICATION: Short of breath TECHNIQUE: Single frontal view of the chest is obtained. FINDINGS: The heart size is mild the prominent. The pulmonary vasculature is normal. The lungs are clear. Advanced degenerative changes at the left shoulder. IMPRESSION: 1. No acute pulmonary process.
[2021-12-21] MEDS: IPRATROPIUM-ALBUTEROL 3 ML NEB INHALATION PRN (03:18)
[2021-12-21 04:03] LABS: Calcium 8.4 mg/dL (8.4-10.2); Potassium 3.1 mmol/L (3.5-5.1)
[2021-12-21 04:27] LABS: Basophils % (A) 0 %; Eosinophils % (A) 0 %; HCT 37.6 % (34.0-46.0); HGB 12.2 gm/dL (11.4-16.0); Hypochromasia Moderate; Lymphocytes # (A) 1.3 k/uL (1.0-4.8); Lymphocytes % (A) 14 %; MCH 31.5 pg (25.0-35.0); MCHC 32.6 g/dL (31.0-37.0); MCV 96.8 fL (80.0-100.0); Mean Platelet Volume 7.9; Monocytes # (A) 0.6 k/uL (0-1.0); Monocytes % (A) 7 %; Neutrophils % (A) 77 %; Platelet Count 172 k/uL (150-450); RBC 3.88 m/uL (3.80-5.40); RDW 13.1 % (11.5-15.5); WBC 9.1 k/uL (3.8-10.6)
[2021-12-21] MEDS ORDERED: Potassium Replacement Protocol 1 EACH MISC MISCELLANE PRN (06:37)
[2021-12-21] MEDS: PANTOPRAZOLE 40 MG TABLET PO SCH (06:47)
[2021-12-21] MEDS ORDERED: POTASSIUM BICARBONATE/CIT AC 20 MEQ TABLET.EFF NG-TUBE SCH (07:00)
[2021-12-21] MEDS ORDERED: POTASSIUM CHLORIDE ER 20 MEQ TAB.ER PO STA (07:15)
[2021-12-21] MEDS: BUDESONIDE 1 MG/2 ML NEBU INHALATION SCH ×2 (07:33→19:45)
[2021-12-21] MEDS: FORMOTEROL FUMARATE 20 MCG/2 ML NEBU INHALATION SCH ×2 (07:33→19:46)
[2021-12-21] MEDS: IPRATROPIUM-ALBUTEROL 3 ML NEB INHALATION SCH ×4 (07:33→19:45)
[2021-12-21] MEDS ORDERED: POTASSIUM CHLORIDE 10 MEQ in WATER FOR INJECTION 1 100ML.BAG IVPB SCH (08:00)
--- NOTE | 2021-12-21 08:36 | P.PN ---
Subjective Progress Note Date: 12/21/21 Principal diagnosis: Shortness of breath. This is an 81-year-old female patient who resides at [facility] and he has had frequent admissions to the hospital for hypercapnic and hypoxemic respiratory failure. She was here earlier this month. Chest has a history of old right temporal lobe infarct, obstructive sleep apnea, morbid obesity with suspected pickwickian syndrome, maintained on BiPAP at the retirement 14 over 4, chronic obstructive pulmonary disease, previous tobacco dependence, atrial fibrillation maintained on Eliquis, urinary incontinence with frequent UTIs secondary to Klebsiella pneumonia, E. coli, hypertension, degenerative joint disease, depression. She was brought back to the emergency room again yesterday with increasing shortness of breath, altered mental status. He is seen in consultation in the emergency department. Currently on BiPAP 16/5 on 40% FiO2. Mostly obtunded. No history to be obtained from the patient. Chest x-ray revealed increased pulmonary vascularity with some mild congestive heart failure. EKG reveals atrial fibrillation with a controlled ventricular response. White count 8.7. Hemoglobin 13.7. Sodium 139. Potassium 4.0. BUN 15. Creatinine 0.73. Glucose 132. ProBNP 1120. Prior to BiPAP arterial blood gases revealed a PaO2 67, pCO2 120 and a pH of 7.13 on 36% FiO2. Arterial blood gases on 50% FiO2 revealed a pO2 of 106, pCO2 87, pH 7.26. She was initiated on Lasix 40 mg IV every 12 hours, IV Solu- Medrol, bronchodilators. The patient is seen today 12/20/2021 in follow-up in the intensive care unit. She is currently sitting up in bed. Awake and alert oriented. She is maintaining O2 saturations in the 90s on 5 L/m per nasal cannula. She did remain on BiPAP throughout the night at 16/5-40% FiO2. Normal saline at KVO. White count 7.2. Hemoglobin 12.6. Platelets 168. Sodium 139. Potassium 3.2. Bicarb 41. BUN 17. Creatinine 0.66. Glucose 157. Morning blood gases reveal a P O2 of 77, pCO2 75, pH 7.36 on 40% FiO2. She is continued on Diamox, IV diuretics, IV Solu-Medrol and bronchodilators. Anticoagulated with Eliquis. Pro-calcitonin was 0.05. Chest x-ray shows improvement in the pulmonary vascular congestion. Progress note dated 12/21/2021. The patient is seen today in the intensive care unit, room 264. She remains on BiPAP with settings of 16/5 and 40%. She's getting saline at the vein open. She apparently had an uneventful night according to the nurse. No major issues or problems. Respiratory status appears to be reasonably stable. When not on BiPAP, she is on nasal cannula at between 4-5 L/m. Today's labs show a white count 9.1, with a normal hemoglobin, hematocrit, and platelet count. Blood gases from yesterday are near normal with a pO2 of 77, pCO2 75, and a pH is 7.36. That was on 40% oxygen. Sodium 140, potassium 3.1, chlorides 91, CO2 42, anion gap normal, BUN 23, and creatinine 0.79. Yesterday's chest x-ray was interpreted as being normal by the radiologist. Objective - Vital Signs Vital signs: Vital Signs Temp 98.2 F 12/21/21 00:00 Pulse 86 12/21/21 07:57 Resp 22 12/21/21 02:00 BP 109/64 12/21/21 02:00 Pulse Ox 99 12/21/21 00:00 FiO2 40 12/21/21 03:18 Intake & Output 12/20/21 12/21/21 12/21/21 18:59 06:59 18:59 Intake Total 840 Output Total 400 Balance 440 Weight 115.3 kg 118.9 kg Intake: IV 120 ns 120 Oral 720 Output: Urine 400 Other: Voiding Method Incontinent Incontinent External Catheter External Catheter # Voids 1 # Bowel Movements 1 - Exam No acute distress, oriented 3. BiPAP mask in place. HEENT examination is grossly unremarkable. Neck supple. Full range of motion. No adenopathy thyromegaly or neck vein distention. Cardiovascular examination reveals regular rhythm rate. S1-S2 normal. No S3 or S4. No discernible murmur noted. Heart sounds distant. Heart rate 86 bpm. Lungs reveal scattered bilateral rhonchi. No wheezes. No crackles. Breath sounds are equal bilaterally. Breath sounds are diminished throughout. Abdomen obese, with bowel sounds. No masses or tenderness. Extremities are intact. No cyanosis or clubbing. Mild edema noted. Skin is without rash or lesion. Neurologic examination is brief but nonfocal. - Labs CBC & Chem 7: 12/21/21 03:18 12/21/21 03:18 Labs: Abnormal Lab Results - Last 24 Hours (Table) 12/20/21 12/21/21 Range/Units 08:36 03:18 ABG pCO2 75 H* (35-45) mmHg ABG pO2 77 L (83-108) mmHg ABG HCO3 43 H* (21-25) mmol/L ABG Total CO2 45 H (19-24) mmol/L Potassium 3.1 L (3.5-5.1) mmol/L Chloride 91 L (98-107) mmol/L Carbon Dioxide 42 H* (22-30) mmol/L BUN 23 H (7-17) mg/dL Glucose 120 H (74-99) mg/dL Assessment and Plan Assessment: Acute mental status changes, secondary to acute on chronic hypoxemic and hypercapnic respiratory failure, secondary to an exacerbation of chronic systolic CHF. Chronic hypercapnic respiratory failure, with obesity/hypoventilation syndrome. Chronic hypoxemic respiratory failure. Old right temporal lobe infarct. History of obstructive sleep apnea syndrome. Morbid obesity. Prior history of tobacco use. History of atrial fibrillation. Prior history of E. coli and Klebsiella pneumoniae urinary tract infection. History of stress urinary incontinence. History of hypertension. History of DJD. History of depression. Plan: Plan dated 12/21/2021. The patient had a pretty uneventful night. She remains on BiPAP this morning but can be transitioned to nasal cannula. Saturations are perfectly acceptable between 88-92% in this patient. The patient is not receiving much in the way of IV fluids. She does have saline at KVO. Labs, x-rays, and medications are reviewed. Prognosis is guarded. The patient is also receiving albuterol sulfate, and ipratropium bromide, budesonide, and formoterol, for suspected COPD from prior tobacco use. The patient will eventually be discharged back to the retirement. Time with Patient: Less than 30
[2021-12-21] MEDS: APIXABAN 5 MG TAB PO SCH ×2 (08:41→20:57)
[2021-12-21] MEDS: METOPROLOL SUCCINATE (ER) 50 MG TAB.ER.24H PO SCH ×2 (08:41→20:57)
[2021-12-21] MEDS: FUROSEMIDE 10 MG/ML 4 ML VIAL IV SCH ×2 (08:41→20:57)
[2021-12-21] MEDS: LORATADINE 10 MG TAB PO SCH (08:41)
[2021-12-21] MEDS: DIGOXIN 125 MCG TAB PO SCH (08:41)
[2021-12-21] MEDS: acetaZOLAMIDE 250 MG TAB PO SCH ×2 (08:41→20:57)
--- NOTE | 2021-12-21 08:49 | P.PN ---
Subjective Progress Note Date: 12/21/21 The patient is an 81-year-old female with a PMH of CHF, COPD with chronic hypoxic and hypercapnic respiratory failure, paroxysmal A. fib on Eliquis, hypertension, and obstructive sleep apnea who was brought into the emergency room by EMS from home for shortness of breath and hypoxia. History obtained fro m the chart and from the ED physician is a patient was somnolent at the time of interview after having received Ativan and Dilaudid in the emergency room. The patient had reportedly endorsed diffuse body aches as well as shortness of breath with no additional complaints. The patient was hypoxic in the emergency room upon presentation with SpO2 90% on room air. Chest x-ray had revealed findings consistent with mild congestive heart failure. EKG had revealed A. fib at 97 bpm with poor baseline. Laboratory evaluation was remarkable for CO2 38, troponin 0.028, and proBNP 1120. Patient was started on continuous BiPAP. Serial ABGs were done. Initial ABG showed pH of 7.13 with pCO2 greater than 120. Subsequent ABG showed pH of 7.26 with pCO2 of 87. Repeat ABG around 2 PM showed pH of 7.27 with pCO2 of 89. CODE STATUS was discussed with her daughter Fabiola who confirmed that her mother wanted to be FULL CODE. The case was discussed with Dr. Greer, elastic cutter who is agreeable to accept the patient into ICU for continuous BiPAP. CODE STATUS was readdressed with the patient's family and they were agreeable to make her NO CODE. Patient was seen and examined this morning. She is on BiPAP, 16/5 with FiO2 of 40% at bedtime and 5L NC when awake. She is much more awake today and does not have any complaints. BMP shows potassium 3.1, chloride of 91, glucose of 120 and bicarb of 42. General: Disheveled, no distress, appears at stated age, morbidly obese Derm: Lower extremity onychomycosis noted, warm Head: atraumatic, normocephalic, symmetric Eyes: Anicteric sclera, pupils equal round reactive to light ENT: Nose and ears atraumatic Neck: No cervical lymphadenopathy, trachea midline, supple Mouth: no lip lesion Cardiovascular: Irregularly irregular, no murmur, positive dorsalis pedis pulse bilateral, 1+ bilateral lower extremity pitting edema with chronic venous stasis changes Lungs: Scattered rales and rhonchi with poor air entry, no accessory muscle use Abdominal: soft, nontender to palpation, no guarding Ext: no gross muscle atrophy, no contractures Neuro: Unable to assess this patient somnolent at time of interview Psych: Somnolent Assessment/plan #Acute hypoxic respiratory failure likely multifactorial #Acute on chronic COPD #Acute on chronic systolic/diastolic CHF exacerbation with EF of 40-45% -Continue with Solu-Medrol, DuoNeb scheduled and as needed. Continue Pulmicort. Continue Performist. Supplemental O2 to maintain O2 saturation greater than 92%. -Continue with Lasix. Intake and output. Daily weights. -Cardiac monitoring -Pulmonology on board. -Palliative care consulted. #Hypokalemia -Replace via protocol. -Repeat BMP tomorrow morning. #Hypomagnesemia -2g magnesium sulfate ordered for Mag level of 1.8. Chronic conditions: Afib, HTN, HLD -Continue with home meds DVT prophylaxis -Eliquis The patient is admitted with an anticipated greater than 2 midnight stay for evaluation of respiratory failure CODE STATUS: FULL CODE. Anticipate DC home in 1-2 days. We will ask Palliative care to talk to the patient tomorrow regarding possible hospice and palliative care options. Objective - Vital Signs Vital signs: Vital Signs Temp 98.2 F 12/21/21 00:00 Pulse 86 12/21/21 07:57 Resp 22 12/21/21 02:00 BP 109/64 12/21/21 02:00 Pulse Ox 99 12/21/21 00:00 FiO2 40 12/21/21 03:18 Intake & Output 12/20/21 12/21/21 12/21/21 18:59 06:59 18:59 Intake Total 840 Output Total 400 Balance 440 Weight 115.3 kg 118.9 kg Intake: IV 120 ns 120 Oral 720 Output: Urine 400 Other: Voiding Method Incontinent Incontinent External Catheter External Catheter # Voids 1 # Bowel Movements 1 - Labs CBC & Chem 7: 12/21/21 03:18 12/21/21 03:18 Labs: Abnormal Lab Results - Last 24 Hours (Table) 12/21/21 Range/Units 03:18 Potassium 3.1 L (3.5-5.1) mmol/L Chloride 91 L (98-107) mmol/L Carbon Dioxide 42 H* (22-30) mmol/L BUN 23 H (7-17) mg/dL Glucose 120 H (74-99) mg/dL
[2021-12-21] MEDS: MAGNESIUM SULFATE-D5W PMX 1 GM in DEXTROSE/WATER 1 100ML.BAG IVPB SCH ×2 (09:30→11:40)
[2021-12-21] MEDS ORDERED: POTASSIUM CHLORIDE ER 20 MEQ TAB.ER PO ONE (16:00)
[2021-12-21] MEDS: ACETAMINOPHEN TAB 325 MG TAB PO PRN (16:21)
[2021-12-22 08:00] LABS: African American GFR (CKD) 78 (>60 ml/min/1.73 sqM); Blood Urea Nitrogen 22 mg/dL (7-17); Calcium 8.2 mg/dL (8.4-10.2); Chloride 93 mmol/L (98-107); Glucose 89 mg/dL (74-99); Non-African American GFR(CKD) 68 (>60 ml/min/1.73 sqM); Potassium 3.8 mmol/L (3.5-5.1); Sodium 140 mmol/L (137-145)
[2021-12-22 08:07] LABS: Anion Gap 3 mmol/L
[2021-12-22 08:10] LABS: Carbon Dioxide 44 mmol/L (22-30)
[2021-12-22] MEDS: IPRATROPIUM-ALBUTEROL 3 ML NEB INHALATION SCH ×2 (08:21→11:54)
[2021-12-22] MEDS: BUDESONIDE 1 MG/2 ML NEBU INHALATION SCH (08:21)
[2021-12-22] MEDS: FORMOTEROL FUMARATE 20 MCG/2 ML NEBU INHALATION SCH (08:21)
[2021-12-22] MEDS: FUROSEMIDE 10 MG/ML 4 ML VIAL IV SCH (09:17)
[2021-12-22] MEDS: LORATADINE 10 MG TAB PO SCH (09:18)
[2021-12-22] MEDS: APIXABAN 5 MG TAB PO SCH (09:18)
[2021-12-22] MEDS: PANTOPRAZOLE 40 MG TABLET PO SCH (09:18)
[2021-12-22] MEDS: METOPROLOL SUCCINATE (ER) 50 MG TAB.ER.24H PO SCH (09:18)
[2021-12-22] MEDS: acetaZOLAMIDE 250 MG TAB PO SCH (09:20)
[2021-12-22] MEDS: DIGOXIN 125 MCG TAB PO SCH (09:21)
[2021-12-22] MEDS: ACETAMINOPHEN TAB 325 MG TAB PO PRN (10:14)
--- NOTE | 2021-12-22 11:29 | P.DS ---
Providers Date of admission: 12/19/21 03:16 Expected date of discharge: 12/22/21 Attending physician: Marilu Shaikh MD Consults: 12/19/21 04:08 Consult Physician Urgent Consulting Provider: Efren Ponce Consult Reason/Comments: COPD Do you want consulting provider notified?: Yes 12/19/21 14:03 Consult to Palliative Care Routine Consulting Provider: Theresa Hancock Consult Reason/Comments: Multiple hospitalizations, end stage COPD Do you want consulting provider notified?: Yes Primary care physician: [facility] Course: The patient is an 81-year-old female with a PMH of CHF, COPD with chronic hypoxic and hypercapnic respiratory failure, paroxysmal A. fib on Eliquis, hypertension, and obstructive sleep apnea who was brought into the emergency room by EMS from home for shortness of breath and hypoxia. History obtained from the chart and from the ED physician is a patient was somnolent at the time of interview after having received Ativan and Dilaudid in the emergency room. The patient had reportedly endorsed diffuse body aches as well as shortness of breath with no additional complaints. The patient was hypoxic in the emergency room upon presentation with SpO2 90% on room air. Chest x-ray had revealed findings consistent with mild congestive heart failure. EKG had revealed A. fib at 97 bpm with poor baseline. Laboratory evaluation was remarkable for CO2 38, troponin 0.028, and proBNP 1120. Patient was started on continuous BiPAP. Serial ABGs were done. Initial ABG showed pH of 7.13 with pCO2 greater than 120. Subsequent ABG showed pH of 7.26 with pCO2 of 87. Repeat ABG around 2 PM showed pH of 7.27 with pCO2 of 89. CODE STATUS was discussed with her daughter Fabiola who confirmed that her mother wanted to be FULL CODE. The case was discussed with Dr. Greer, electrical instrument maker who is agreeable to accept the patient into ICU for continuous BiPAP. CODE STATUS was readdressed with the patient's family and they were agreeable to make her NO CODE. Patient was able to be transitioned to nasal cannula only to use BiPAP when sleeping. She was noted to be hypokalemic which was replaced. Her mental status improved considerably during her hospitalization. Palliative care was consulted. Patient was seen and examined. No acute events overnight. Patient reports breathing back to baseline. She denies any chest pain or palpitations. No nausea or vomiting. No fever or chills. She is advised to follow-up with her PCP within 1-2 days of discharge. She is advised to follow-up with pulmonology within 1 week of discharge. Maintain 5 L O2 per nasal cannula when awake. Use BiPAP when short of breath or when sleeping. [place] and Ativan will be discontinued on discharge. Patient verbalized understanding of the plan. Pertinent studies include chest x-ray. General: Disheveled, no distress, appears at stated age, morbidly obese Derm: Lower extremity onychomycosis noted, warm Head: atraumatic, normocephalic, symmetric Eyes: Anicteric sclera, pupils equal round reactive to light ENT: Nose and ears atraumatic Neck: No cervical lymphadenopathy, trachea midline, supple Mouth: no lip lesion Cardiovascular: Irregularly irregular, no murmur, positive dorsalis pedis pulse bilateral, 1+ bilateral lower extremity pitting edema with chronic venous stasis changes Lungs: Scattered rales and rhonchi with poor air entry, no accessory muscle use Abdominal: soft, nontender to palpation, no guarding Ext: no gross muscle atrophy, no contractures Neuro: Unable to assess this patient somnolent at time of interview Psych: Alert and oriented Assessment/plan #Acute hypoxic respiratory failure likely multifactorial #Acute on chronic COPD #Acute on chronic systolic/diastolic CHF exacerbation with EF of 40-45% #Hypokalemia #Hypomagnesemia Chronic conditions: Afib, HTN, HLD This complex discharge took about 35 minutes complete. Patient Condition at Discharge: Stable Plan - Discharge Summary New Discharge Prescriptions: New Ipratropium-Albuterol Nebulize [Duoneb 0.5 mg-3 mg/3 ml Soln] 3 ml INHALATION RT-QID each Ipratropium-Albuterol Nebulize [Duoneb 0.5 mg-3 mg/3 ml Soln] 3 ml INHALATION RT-QID PRN each PRN Reason: Shortness Of Breath Or Wheezing Continue Potassium Chloride ER [K-Dur 10] 10 meq PO DAILY Apixaban [Eliquis] 5 mg PO BID tab acetaZOLAMIDE [Diamox] 250 mg PO BID 30 Days #60 tab Digoxin [Lanoxin] 125 mcg PO DAILY tab Omeprazole 20 mg PO DAILY Multivitamins, Thera [Multivitamin (formulary)] 1 tab PO DAILY Loratadine 10 mg PO DAILY Docusate [Colace] 100 mg PO DAILY Benzonatate [Tessalon Perles] 200 mg PO Q8H PRN PRN Reason: Cough Acetaminophen [Tylenol 8 Hour] 650 mg PO Q6H PRN PRN Reason: Pain Furosemide [Lasix] 40 mg PO BID@0900,1600 tab Metoprolol Succinate (ER) [Toprol XL] 150 mg PO BID tab Discontinued hydrOXYzine HCL [Atarax] 25 mg PO Q6H PRN PRN Reason: Itching HYDROcodone/APAP 5-325MG [[place] 5-325] 1 tab PO Q6H PRN #6 tab PRN Reason: Pain LORazepam [Ativan] 0.5 mg PO Q8H PRN PRN Reason: Anxiety Discharge Medication List Docusate [Colace] 100 mg PO DAILY 05/07/21 [History] Loratadine 10 mg PO DAILY 05/07/21 [History] Multivitamins, Thera [Multivitamin (formulary)] 1 tab PO DAILY 05/07/21 [History] Omeprazole 20 mg PO DAILY 05/07/21 [History] Potassium Chloride ER [K-Dur 10] 10 meq PO DAILY 05/07/21 [History] Apixaban [Eliquis] 5 mg PO BID tab 05/12/21 [Rx] Acetaminophen [Tylenol 8 Hour] 650 mg PO Q6H PRN 06/12/21 [History] Benzonatate [Tessalon Perles] 200 mg PO Q8H PRN 06/12/21 [History] acetaZOLAMIDE [Diamox] 250 mg PO BID 30 Days #60 tab 10/31/21 [Rx] Digoxin [Lanoxin] 125 mcg PO DAILY tab 12/08/21 [Rx] Furosemide [Lasix] 40 mg PO BID@0900,1600 tab 12/08/21 [Rx] Metoprolol Succinate (ER) [Toprol XL] 150 mg PO BID tab 12/08/21 [Rx] Ipratropium-Albuterol Nebulize [Duoneb 0.5 mg-3 mg/3 ml Soln] 3 ml INHALATION RT-QID each 12/22/21 [Rx] Ipratropium-Albuterol Nebulize [Duoneb 0.5 mg-3 mg/3 ml Soln] 3 ml INHALATION RT-QID PRN each 12/22/21 [Rx] Follow up Appointment(s)/Referral(s): Wyatt Greer DO [Doctor of Osteopathic Medicine] - 1 Week Wyatt Jaffe DO [Primary Care Provider] - 1-2 days Activity/Diet/Wound Care/Special Instructions: Diet: Low salt FU with PCP within 1-2 days of DC. FU with Pulmonology within 1 week of DC. Take all medications as advised. Use 5L O2 NC while awake and BiPAP when feeling short of breath, or while sleeping. Discharge Disposition: HOME SELF-CARE
[2021-12-22 12:08] VITALS: BP 100/63; PULSE 71; RESP 16; TEMP 97.8
--- NOTE | 2021-12-22 14:55 | P.CONS ---
History of Present Illness - Reason for Consult Consult date: 12/22/21 [facility] Requesting physician: Marlys Kumar - Chief Complaint shortness of breath - History of Present Illness The patient is an 81-year-old female with a PMH of CHF, COPD with chronic hypoxic and hypercapnic respiratory failure, paroxysmal A. fib on Eliquis, hypertension, and obstructive sleep apnea who was brought into the emergency room by EMS from home for shortness of breath and hypoxia. History obtained from the chart and from the ED physician is a patient was somnolent at the time of interview after having received Ativan and Dilaudid in the emergency room. The patient had reportedly endorsed diffuse body aches as well as shortness of breath with no additional complaints. The patient was hypoxic in the emergency room upon presentation with SpO2 90% on room air. Chest x-ray had revealed findings consistent with mild congestive heart failure. EKG had revealed A. fib at 97 bpm with poor baseline. Laboratory evaluation was remarkable for CO2 38, troponin 0.028, and proBNP 1120. Patient was started on continuous BiPAP. Serial ABGs were done. Initial ABG showed pH of 7.13 with pCO2 greater than 120. Subsequent ABG showed pH of 7.26 with pCO2 of 87. Repeat ABG around 2 PM showed pH of 7.27 with pCO2 of 89. CODE STATUS was discussed with her daughter Fabiola who confirmed that her mother wanted to be FULL CODE. The case was discussed with Dr. Greer, piped buttonhole machine operator who is agreeable to accept the patient into ICU for continuous BiPAP. CODE STATUS was readdressed with the patient's family and they were agreeable to make her NO CODE. Patient was able to be transitioned to nasal cannula only to use BiPAP when sleeping. She was noted to be hypokalemic which was replaced. Her mental status improved considerably during her hospitalization. Palliative care was consulted. The patient wass obtunded and on BiPAP. Palliative care WORKFORCE MANAGEMENT CONSULTANT spoke with the patient's daughter and Fabiola SARAVIA, via the telephone. Code status discussed in detail. She stated that in the past her mother has wanted to remain a full code and be placed on the ventilator until it is determined that she is not improving and has no chance of getting off the ventilator. Fabiola stated that she and her sisters do not want to see her intubated and put on the ventilator. They believe it will cause more suffering for their mother and know that she is now at the point that she will never get off the ventilator if intubated. She stated the doctors have all told her the same thing. She was reassured that as POA, her mother trusted to make the best medical decisions for her when she is unable to do so. She will call her sisters ivy and make sure they all are in agreement and then come to the hospital tomorrow with a final decision. Review of Systems Constitutional: Reports as per HPI Past Medical History Past Medical History: Atrial Fibrillation, Heart Failure, COPD Additional Past Medical History / Comment(s): Chronic respiratory failure/oxygen ATC, recent issue with dysphagia, JOSIAH has cpap, itching, obesity, edema, weakness-wheelchair, incontinence. History of Any Multi-Drug Resistant Organisms: None Reported Past Surgical History: Orthopedic Surgery Additional Past Surgical History / Comment(s): left knee x2 Past Anesthesia/Blood Transfusion Reactions: No Reported Reaction Past Psychological History: No Psychological Hx Reported Additional Psychological History / Comment(s): Pt resides at [facility] in [place]. Staff assist her to wheelchair. Smoking Status: Former smoker Past Alcohol Use History: None Reported Additional Past Alcohol Use History / Comment(s): Daughter states pt smoked in the past but quit over 20 yrs ago. Past Drug Use History: None Reported - Past Family History Father Family Medical History: No Reported History Mother Family Medical History: Unable to Obtain Additional Family Medical History / Comment(s): Due to mental status Medications and Allergies Home Medications Medication Instructions Recorded Confirmed Type Docusate [Colace] 100 mg PO DAILY 05/07/21 12/19/21 History Loratadine 10 mg PO DAILY 05/07/21 12/19/21 History Multivitamins, Thera [Multivitamin 1 tab PO DAILY 05/07/21 12/19/21 History (formulary)] Omeprazole 20 mg PO DAILY 05/07/21 12/19/21 History Potassium Chloride ER [K-Dur 10] 10 meq PO DAILY 05/07/21 12/19/21 History Apixaban [Eliquis] 5 mg PO BID tab 05/12/21 12/19/21 Rx Acetaminophen [Tylenol 8 Hour] 650 mg PO Q6H PRN 06/12/21 12/19/21 History Benzonatate [Tessalon Perles] 200 mg PO Q8H PRN 06/12/21 12/19/21 History acetaZOLAMIDE [Diamox] 250 mg PO BID 30 Days #60 tab 10/31/21 12/19/21 Rx Digoxin [Lanoxin] 125 mcg PO DAILY tab 12/08/21 12/19/21 Rx Furosemide [Lasix] 40 mg PO BID@0900,1600 tab 12/08/21 12/19/21 Rx Metoprolol Succinate (ER) [Toprol 150 mg PO BID tab 12/08/21 12/19/21 Rx XL] Ipratropium-Albuterol Nebulize 3 ml INHALATION RT-QID each 12/22/21 Rx [Duoneb 0.5 mg-3 mg/3 ml Soln] Ipratropium-Albuterol Nebulize 3 ml INHALATION RT-QID PRN each 12/22/21 Rx [Duoneb 0.5 mg-3 mg/3 ml Soln] Allergies Allergy/AdvReac Type Severity Reaction Status Date / Time red dye Allergy Rash/Hives Verified 12/19/21 10:25 tositumomab iodine-131 Allergy Unknown Verified 12/19/21 10:25 Physical Exam Vitals: Vital Signs Temp Pulse Pulse Pulse Resp BP BP 12/22/21 12:04 97.8 F 69 71 16 100/63 12/22/21 11:55 66 12/22/21 08:43 68 12/22/21 08:32 65 12/22/21 08:21 63 12/22/21 04:46 97.6 F 87 20 110/73 12/21/21 23:21 12/21/21 20:51 72 111/64 12/21/21 20:02 80 12/21/21 19:56 70 12/21/21 19:46 66 12/21/21 17:48 98.8 F 80 18 122/77 12/21/21 16:01 93 12/21/21 15:51 88 Pulse Ox FiO2 12/22/21 12:04 98 12/22/21 11:55 12/22/21 08:43 12/22/21 08:32 12/22/21 08:21 96 12/22/21 04:46 99 12/21/21 23:21 40 12/21/21 20:51 12/21/21 20:02 12/21/21 19:56 12/21/21 19:46 12/21/21 17:48 98 12/21/21 16:01 12/21/21 15:51 94 L Intake and Output 12/21/21 12/22/21 12/22/21 22:59 06:59 14:59 Output Total 600 1250 Balance -600 -1250 Output: Urine 600 1250 Other: Voiding Method Incontinent Incontinent External Catheter External Catheter Weight 119.1 kg General: Well developed, well nourished. No acute distress. Chronically ill appearing HEENT: Head is atraumatic, normocephalic. Sclerae are clear. Pupils equal, round and reactive to light bilaterally. Mucus membranes moist. CV: Heart regular in rate and rhythm positive S1 and S2. No clicks, rubs or murmurs. Peripheral pulses equal. 2/4 Lungs: Diminished throughout. No wheezes rales or rhonchi. Respirations even and nonlabored. Patient on 5LNC Abdomen/GI: Soft, obese. No guarding, rigidity, or abdominal tenderness. : external catheter present with clear yellow urine Musculoskeletal/ Extremities: DE LA PAZ, no joint deformity or swelling. No gross atrophy. + generalized weakness Vascular: Radial pulses equal. 2/4. + generalized trace edema Skin: Warm and dry, No rash or lesions. Neurologic: Awake, alert and oriented times 3. CN II-XII grossly intact. No focal deficits. Psychiatric: Appropriate mood and affect. Results CBC & Chem 7: 12/21/21 03:18 12/22/21 07:27 Labs: Abnormal Lab Results - Last 24 Hours (Table) 12/22/21 Range/Units 07:27 Chloride 93 L (98-107) mmol/L Carbon Dioxide 44 H* (22-30) mmol/L BUN 22 H (7-17) mg/dL Calcium 8.2 L (8.4-10.2) mg/dL Chest x-ray: report reviewed Assessment and Plan Assessment: Social * Occupation - Retired, worked as a rehabilitation caseworker * Marital status - * Children/grandchildren - 4 adult daughters * Residence - [facility] * ETOH - No * Tobacco - Former smoker * Illicit drugs - No Spiritual/Cultural * A spiritual person - Yes * Jain - [employer]ybeterian * Belong to a particular confucianist - [facility] * Beliefs a source of comfort and strength - Ys * Worship or cultural practices restrictions - No * EOL considerations/rituals -No Functional Assessment * Able to walk independently - No * Assistive devices - At [facility] they use a gary lift to get her up to a wheelchair * Able to use the bathroom independently - No * Continent - No * Require assistance bathing- Yes * Able to feed self - Yes * Who prepares meals - [facility] * How many meals a day eaten - 3 + snacks * What percentage of meals eaten daily - 100% * Able to clean house/do laundry - No * Able to shop - No * Who manages medications - [facility] * Who manages finances - Daughter Psychological/Emotional * Dementia present - No * Insight and judgment - Intact * Depression - No * Suicidal thoughts - No * Good support system - Yes, family * Patients goals - prolonged survival and comfort * Frequent hospitalizations - Yes * Desire to keep coming back to the hospital for treatment - No Symptoms * Pain - 0/10, cntinue Tylenol * Fatigue - Yes, naps frequently * SOB - Yes, chronic. Continue Lasix, Duoneb, Pulmicort, Perforomist, and Diamox * Insomnia - Yes * N/V - No * Anxiety - No * Depression - No * Confusion - No, has significantly improved * Agitation - No * Hallucinations - No * Appetite/weight loss - No recent harsha loss or loss of appetite * Dysphagia - No * Constipation - No LBM 10/30 * Incontinence - Yes, has external catheter draining clear yellow urine * Itch - No Plan: Summary/Goals - The patient is very pleasant and resting in bed. Her daughter is at the bedside. Palliative care and hospice philosophies and services explained to both the patient and her daughter. education was provided regarding end stage COPD. The patient does not like to wear her BiPAP and becomes hypercapnic and ends up back in the hospital frequently. The daughter stated that she was told by the physicians that they can not do anything for her mother anymore. They were reminded that their is not a cure for COPD or CHF. We are only able to treat the symptoms, and we have limited options to treat the symptoms with. There comes a point when there are no more treatment options, or the treatments are not working anymore because the disease has progressed too much. The patient stated she was tired of coming back and forth to the hospital. They decided on they comfort pathway and agreed to an informational meeting with hospice before discharge. Case manger and attending aware. Recommendations - Return to [facility] with hospice services Advanced Directives - none on file Code Status - DNR Thank you for this consult Theresa Hancock [facility] Palliative Care [facility] [id number] Email: [email or web address] Time with Patient: Greater than 30
--- NOTE | 2021-12-22 15:08 | P.PN ---
Subjective Progress Note Date: 12/22/21 This is an 81-year-old female patient who resides at [facility] and he has had frequent admissions to the hospital for hypercapnic and hypoxemic respiratory failure. She was here earlier this month. Chest has a history of old right temporal lobe infarct, obstructive sleep apnea, morbid obesity with suspected pickwickian syndrome, maintained on BiPAP at the senior living 14 over 4, chronic obstructive pulmonary disease, previous tobacco dependence, atrial fibrillation maintained on Eliquis, urinary incontinence with frequent UTIs secondary to Klebsiella pneumonia, E. coli, hypertension, degenerative joint disease, depression. She was brought back to the emergency room again yesterday with increasing shortness of breath, altered mental status. He is seen in consultation in the emergency department. Currently on BiPAP 16/ on 40% FiO2. Mostly obtunded. No history to be obtained from the patient. Chest x-ray revealed increased pulmonary vascularity with some mild congestive heart failure. EKG reveals atrial fibrillation with a controlled ventricular response. White count 8.7. Hemoglobin 13.7. Sodium 139. Potassium 4.0. BUN 15. Creatinine 0.73. Glucose 132. ProBNP 1120. Prior to BiPAP arterial blood gases revealed a PaO2 67, pCO2 120 and a pH of 7.13 on 36% FiO2. Arterial blood gases on 50% FiO2 revealed a pO2 of 106, pCO2 87, pH 7.26. She was initiated on Lasix 40 mg IV every 12 hours, IV Solu- Medrol, bronchodilators. The patient is seen today 12/20/2021 in follow-up in the intensive care unit. She is currently sitting up in bed. Awake and alert oriented. She is maintaining O2 saturations in the 90s on 5 L/m per nasal cannula. She did remain on BiPAP throughout the night at 16/5-40% FiO2. Normal saline at KVO. White count 7.2. Hemoglobin 12.6. Platelets 168. Sodium 139. Potassium 3.2. Bicarb 41. BUN 17. Creatinine 0.66. Glucose 157. Morning blood gases reveal a P O2 of 77, pCO2 75, pH 7.36 on 40% FiO2. She is continued on Diamox, IV diuretics, IV Solu-Medrol and bronchodilators. Anticoagulated with Eliquis. Pro-calcitonin was 0.05. Chest x-ray shows improvement in the pulmonary vascular congestion. Progress note dated 12/21/2021. The patient is seen today in the intensive care unit, room 264. She remains on BiPAP with settings of 16/5 and 40%. She's getting saline at the vein open. She apparently had an uneventful night according to the nurse. No major issues or problems. Respiratory status appears to be reasonably stable. When not on BiPAP, she is on nasal cannula at between 4-5 L/m. Today's labs show a white count 9.1, with a normal hemoglobin, hematocrit, and platelet count. Blood gases from yesterday are near normal with a pO2 of 77, pCO2 75, and a pH is 7.36. That was on 40% oxygen. Sodium 140, potassium 3.1, chlorides 91, CO2 42, anion gap normal, BUN 23, and creatinine 0.79. Yesterday's chest x-ray was interpreted as being normal by the radiologist. . 12/22/2021, the patient is being discharged to hospice. She is going to [facility]. She is on oxygen at 5 L nasal cannula. She was taken off the BiPAP. She is looking comfortable. Breathing is nonlabored. She was alert and oriented prior to discharge Objective - Vital Signs Vital signs: Vital Signs Temp 97.8 F 12/22/21 12:04 Pulse 71 12/22/21 12:04 Resp 16 12/22/21 12:04 BP 100/63 12/22/21 12:04 Pulse Ox 98 12/22/21 12:04 FiO2 40 12/21/21 23:21 Intake & Output 12/21/21 12/22/21 12/22/21 18:59 06:59 18:59 Intake Total 340 Output Total 507 793 [id number] Balance -510 -600 -1250 Weight 119.1 kg Intake: Intake, IV Titration 100 Amount Magnesium Sulfate-D5w Pmx 100 1 gm In Dextrose/Water 1 100ml.bag @ 100 mls/hr IVPB Q1H [facility] Rx#: [id number] Oral 240 Output: Urine [phone] Other: Voiding Method Incontinent Incontinent Incontinent External Catheter External Catheter External Catheter # Bowel Movements 1 - Exam No acute distress, oriented 3. O2 on 3 liters NC HEENT examination is grossly unremarkable. Neck supple. Full range of motion. No adenopathy thyromegaly or neck vein distention. Cardiovascular examination reveals regular rhythm rate. S1-S2 normal. No S3 or S4. No discernible murmur noted. Heart sounds distant. Heart rate 86 bpm. Lungs reveal scattered bilateral rhonchi. No wheezes. No crackles. Breath sounds are equal bilaterally. Breath sounds are diminished throughout. Abdomen obese, with bowel sounds. No masses or tenderness. Extremities are intact. No cyanosis or clubbing. Mild edema noted. Skin is without rash or lesion. Neurologic examination is brief but nonfocal. - Labs CBC & Chem 7: 12/21/21 03:18 12/22/21 07:27 Labs: Abnormal Lab Results - Last 24 Hours (Table) 12/22/21 Range/Units 07:27 Chloride 93 L (98-107) mmol/L Carbon Dioxide 44 H* (22-30) mmol/L BUN 22 H (7-17) mg/dL Calcium 8.2 L (8.4-10.2) mg/dL Assessment and Plan Plan: Acute mental status changes, secondary to acute on chronic hypoxemic and hypercapnic respiratory failure, secondary to an exacerbation of chronic systolic CHF. Chronic hypercapnic respiratory failure, with obesity/hypoventilation syndrome. Chronic hypoxemic respiratory failure. Old right temporal lobe infarct. History of obstructive sleep apnea syndrome. Morbid obesity. Prior history of tobacco use. History of atrial fibrillation. Prior history of E. coli and Klebsiella pneumoniae urinary tract infection. History of stress urinary incontinence. History of hypertension. History of DJD. History of depression. Plan: Duoneb and 02 treatment Hospice care Will sign off
== END 2021-12-22 15:20 | disposition hospice, inpatient (51) | DRG 291 ==
LOC: EC 01:06 → 4SSUR 03:16 → 3SCARD 13:39 → 2SICU 16:32 → 5NMEDONC 12-21 09:47
PROVIDERS: ADMIT Internal Medicine; ATTEND Internal Medicine
PROC: 5A09457 Assistance with Respiratory Ventilation, 24-96 Consecutive Hours, Continuous Positive Airway Pressure (ICD-10-PCS; principal; 2021-12-19)
DX: I11.0 Hypertensive heart disease with heart failure (principal); G93.41 Metabolic encephalopathy; I50.43 Acute on chronic combined systolic (congestive) and diastolic (congestive) heart failure; J96.21 Acute and chronic respiratory failure with hypoxia; J96.22 Acute and chronic respiratory failure with hypercapnia; J44.1 Chronic obstructive pulmonary disease with (acute) exacerbation; E66.2 Morbid (severe) obesity with alveolar hypoventilation; Z68.42 Body mass index [BMI] 45.0-49.9, adult; E87.29 Other acidosis; I48.0 Paroxysmal atrial fibrillation; R13.10 Dysphagia, unspecified; E87.6 Hypokalemia; F32.A Depression, unspecified; E83.42 Hypomagnesemia; E78.5 Hyperlipidemia, unspecified; M19.90 Unspecified osteoarthritis, unspecified site; Z51.5 Encounter for palliative care; N39.3 Stress incontinence (female) (male); B35.1 Tinea unguium; F41.9 Anxiety disorder, unspecified; I87.8 Other specified disorders of veins; Z66 Do not resuscitate; Z87.891 Personal history of nicotine dependence; Z79.01 Long term (current) use of anticoagulants; Z79.899 Other long term (current) drug therapy; Z99.3 Dependence on wheelchair; Z91.041 Radiographic dye allergy status; Z86.73 Personal history of transient ischemic attack (TIA), and cerebral infarction without residual deficits; Z87.440 Personal history of urinary (tract) infections
CPT/HCPCS: 36415; 36600; 71045; 80048; 80053; 82805; 83735; 83880; 84145; 84484; 85025; 85027; 85610; 85730; 93005; 94640; 94660; 94760; 96360; 96361; 99284